=== PATIENT | female | born 1930 | race Caucasian/White ===

== ENCOUNTER 2017-04-20 20:39 | Emergency (ER) | payer MEDICARE ==
[~2017-04-20] VITALS: Ht 160 cm; Wt 58.4 kg
[2017-04-20 20:52] VITALS: TEMP 36.6; Ht 160 cm; Wt 58.4 kg
--- NOTE | 2017-04-20 21:55 | EMERGENCY ROOM VISIT NOTE ---
History Report prepared by Brad: Berenice Mcmullen Under the Supervision of: Dr. Perla Ornelas D.O. First contact with patient: 21:32 Chief Complaint: URINARY SYMPTOMS Stated Complaint: BLOOD IN URINE Nursing Triage Summary: PT presents with blood in urine, denies any pain, per family member "it started yesterday" PT self caths for urine. PT denies any fever/chills and denies any pain at this time. History of Present Illness The patient is a 86 year old female who presents to the Emergency Room with complaints of an episode of blood in her urine beginning this morning. The patient notes that she urinated twice today and both times it had blood in it. She notes seeing a blood clot in her urine the second time she urinated. She denies any other blood loss. The patient self-caths because she reports she is "unable to pass urine on my own". She reports she has been self cathing for a couple years. At baseline, the patient does not see blood in her urine when she self caths. The patient has been on Cipro twice daily for a couple years to prevent any bladder infections. She notes a bruise on her left hand from a dog nipping her hand. She takes a baby Aspirin daily but is not on any other blood thinners. She does not follow up with a urologist. Per daughter, the patient has had a decreased appetite for the past couple days. Pt denies headache, change in vision, fevers, chest pain, shortness of breath, nausea, vomiting, diarrhea, pain with urination, and melena. Source of History: patient Onset: this morning Position: other (urinary) Quality: other (blood) Timing: other (episode) Associated Symptoms: + urinary symptoms, No headache, No chest pain, No SOB , No nausea, No vomiting Review of Systems See HPI for pertinent positives & negatives. A total of 10 systems reviewed and were otherwise negative. Past Medical & Surgical Medical Problems: (1) Hypertension Family History Patient reports no known family medical history. Social History Smoking Status: Never Smoker Housing Status: lives with family Occupation Status: retired Current/Historical Medications Scheduled Aspirin (Aspirin Ec), 81 MG PO DAILY Ciprofloxacin Tab (Cipro), 250 MG PO BID Docusate Sodium (Docusate Sodium), 1 CAP PO BID Fentanyl (Fentanyl), 1 PATCH TD [id number] Pantoprazole (Protonix), 40 MG PO DAILY [Antidepressant], 1 CAP PO DAILY [Pain Med], 1 CAP PO PRN Miscellaneous Medications [Hbp Pill] Allergies Coded Allergies: No Known Allergies (Unverified , 04/20/17) Physical Exam Vital Signs Date Time Temp Pulse Resp B/P (MAP) Pulse Ox O2 Delivery O2 Flow Rate FiO2 04/21/17 00:29 62 18 162/86 97 04/20/17 23:52 62 18 162/86 97 Room Air 04/20/17 22:37 62 18 178/89 98 Room Air 04/20/17 20:52 36.6 84 18 128/68 96 Room Air Physical Exam GENERAL: alert, well appearing, well nourished, no distress, non-toxic EYE EXAM: normal conjunctiva, PERRL and EOM's grossly intact OROPHARYNX: no exudate, no erythema, lips, buccal mucosa, and tongue normal and mucous membranes are moist NECK: supple, no nuchal rigidity, no adenopathy, non-tender LUNGS: Clear to auscultation. Normal chest wall mechanics HEART: no murmurs, S1 normal and S2 normal ABDOMEN: abdomen soft, non-tender, normo-active bowel sounds, no masses, no rebound or guarding. BACK: Back is symmetrical on inspection and there is no deformity, no midline tenderness, no CVA tenderness. SKIN: no rashes and no bruising UPPER EXTREMITIES: upper extremities are grossly normal. LOWER EXTREMITIES: No pitting edema. NEURO EXAM: Normal sensorium, cranial nerves II-XII grossly intact, normal speech, no gross weakness of arms, no gross weakness of legs. Medical Decision & Procedures ER Provider Diagnostic Interpretation: Radiology results have been interpreted by the radiologist and reviewed by me. US RENAL: Right kidney measures 6.9 cm in length, atrophic. 6 mm nonobstructing stone in the right kidney. Minimal prominence of the right renal pelvis. Left kidney measures 9.2 cm in length. No hydronephrosis or stone. Probably 7 mm left renal cyst. Probably scarring in the upper pole. Underdistended bladder. Left ureteral jet visualized. Mass versus debris/clot along the right posterior bladder measuring approximately 1.9 x 1.8 x 5.0 cm. This does not appear to be mobile or vascular. Radiologist: Michael Mathur MD. Laboratory Results 04/20/17 22:10 Red Blood Count 3.31, Mean Corpuscular Volume 94.3, Mean Corpuscular Hemoglobin 31.1, Mean Corpuscular Hemoglobin Concent 33.0, Mean Platelet Volume 8.8, Neutrophils (%) (Auto) 61.6, Lymphocytes (%) (Auto) 28.4, Monocytes (%) (Auto) 8.7, Eosinophils (%) (Auto) 0.9, Basophils (%) (Auto) 0.2, Neutrophils # (Auto) 3.61, Lymphocytes # (Auto) 1.66, Monocytes # (Auto) 0.51, Eosinophils # (Auto) 0.05, Basophils # (Auto) 0.01 04/20/17 22:10 Test 04/20/17 22:10 04/20/17 22:20 White Blood Count 5.85 K/uL (4.8-10.8) Red Blood Count 3.31 M/uL (4.2-5.4) Hemoglobin 10.3 g/dL (12.0-16.0) Hematocrit 31.2 % (37-47) Mean Corpuscular Volume 94.3 fL (80-100) Mean Corpuscular Hemoglobin 31.1 pg (25-34) Mean Corpuscular Hemoglobin Concent 33.0 g/dl (32-36) Platelet Count 175 K/uL (130-400) Mean Platelet Volume 8.8 fL (7.4-10.4) Neutrophils (%) (Auto) 61.6 % Lymphocytes (%) (Auto) 28.4 % Monocytes (%) (Auto) 8.7 % Eosinophils (%) (Auto) 0.9 % Basophils (%) (Auto) 0.2 % Neutrophils # (Auto) 3.61 K/uL (1.4-6.5) Lymphocytes # (Auto) 1.66 K/uL (1.2-3.4) Monocytes # (Auto) 0.51 K/uL (0.11-0.59) Eosinophils # (Auto) 0.05 K/uL (0-0.5) Basophils # (Auto) 0.01 K/uL (0-0.2) RDW Standard Deviation 45.1 fL (36.4-46.3) RDW Coefficient of Variation 13.2 % (11.5-14.5) Immature Granulocyte % (Auto) 0.2 % Immature Granulocyte # (Auto) 0.01 K/uL (0.00-0.02) Prothrombin Time 10.3 SECONDS (9.0-12.0) Prothromb Time International Ratio 1.0 (0.9-1.1) Anion Gap 6.0 mmol/L (3-11) Est Creatinine Clear Calc Drug Dose 21.8 ml/min Estimated GFR () 35.3 Estimated GFR (Non- 30.5 BUN/Creatinine Ratio 14.7 (10-20) Calcium Level 8.9 mg/dl (8.5-10.1) Total Bilirubin 0.2 mg/dl (0.2-1) Aspartate Amino Transf (AST/SGOT) 21 U/L (15-37) Alanine Aminotransferase (ALT/SGPT) 13 U/L (12-78) Alkaline Phosphatase 60 U/L (45-117) Total Protein 7.5 gm/dl (6.4-8.2) Albumin 3.6 gm/dl (3.4-5.0) Globulin 3.9 gm/dl (2.5-4.0) Albumin/Globulin Ratio 0.9 (0.9-2) Urine Color DK YELLOW Urine Appearance TURBID (CLEAR) Urine pH 5.0 (4.5-7.5) Urine Specific [place] 1.016 (1.000-1.030) Urine Protein 2+ (NEG) Urine Glucose (UA) NEG (NEG) Urine Ketones NEG (NEG) Urine Occult Blood 3+ (NEG) Urine Nitrite NEG (NEG) Urine Bilirubin NEG (NEG) Urine Urobilinogen NEG (NEG) Urine Leukocyte Esterase LARGE (NEG) Urine WBC (Auto) >30 /hpf (0-5) Urine RBC (Auto) >30 /hpf (0-4) Urine Hyaline Casts (Auto) 1-5 /lpf (0-5) Urine Epithelial Cells (Auto) 20-30 /lpf (0-5) Urine Bacteria (Auto) NEG (NEG) Urine Pathogenic Casts /lpf (0) Urine Yeast (Auto) (NONE PRSENT) Laboratory results per my review. ED Course 2139: The patient was evaluated in room C6. A complete history and physical exam was performed. 0011: I updated the patient on her test results. She is still asymptomatic. The patient is comfortable going home and following up with urology. 0029: Upon reevaluation, the patient is feeling better. I discussed the findings and the treatment plan with the patient. She verbalizes agreement and understanding. The patient was discharged home. Medical Decision Differential Diagnoses include: UTI, kidney stone, urethral trauma, acute renal failure, nephritic syndrome, thrombocytopenia. Patient well-appearing here and asymptomatic other than noting blood when she straight caths she has been doing for many years. Patient denies any other changes or symptoms concerning for acute infectious etiology or obstructive pathology. Patient's labs and imaging reassuring. Discussed with her abnormality noted on ultrasound at her bladder and advised close follow-up with urology. Urine culture sent as a precaution, UA abnormal most likely from catheterization area did not feel patient warranted emergent antibiotics or change in her usual preventative antibiotic. Discussed with patient that if she developed any other symptoms she should return to the ER immediately for additional evaluation and treatment. Urine sent for culture as a precaution. Discussed with her possible differential diagnosis for her hematuria. Patient well-appearing here throughout with stable vital signs tolerating by mouth and ambulating with a steady gait. Patient with no complaints at time of discharge , was comfortable with the assessment and plan, and family in agreement who she lives with. Patient made aware of creatinine level and need for monitoring by her family doctor or urology. Medication Reconcilliation Current Medication List: was personally reviewed by me Blood Pressure Screening Patient's blood pressure: Elevated blood pressure Blood pressure disposition: Elevated BP felt to be situational Impression Primary Impression: Hematuria Additional Impression: CKD (chronic kidney disease) Scribe Attestation The scribe's documentation has been prepared under my direction and personally reviewed by me in its entirety. I confirm that the note above accurately reflects all work, treatment, procedures, and medical decision making performed by me. Departure Information Dispostion Home / Self-Care Referrals Prabhakar Lugo MD (PCP) Forms HOME CARE DOCUMENTATION FORM, IMPORTANT VISIT INFORMATION Patient Instructions My [facility] Additional Instructions Please follow-up with urology. Please continue your regular medications as prescribed. Please continue to drink plenty of water. Please continue to catheterize yourself daily. If you begin developing pain with catheterizing, develop abdominal pain, back pain, fevers, chills, vomiting, or you have any other new or concerning symptoms, please return the emergency room. Problem Qualifiers Primary Impression: Hematuria Hematuria type: unspecified type Qualified Codes: R31.9 - Hematuria, unspecified Additional Impression: CKD (chronic kidney disease) Chronic kidney disease stage: unspecified stage Qualified Codes: N18.9 - Chronic kidney disease, unspecified
[2017-04-20 22:24] LABS: BASO % 0.2 %; BASO ABS # 0.01 K/uL (0-0.2); COMPLETE YES; EOS % 0.9 %; HEMATOCRIT 31.2 % (37-47); IG% 0.2 %; LYMPH % 28.4 %; LYMPH ABS # 1.66 K/uL (1.2-3.4); MEAN CELL VOLUME 94.3 fL (80-100); MEAN CORPUSCULAR HEMOGLOBIN 31.1 pg (25-34); MEAN PLATELET VOLUME 8.8 fL (7.4-10.4); MONO % 8.7 %; NEUT % 61.6 %; PLATELET COUNT 175 K/uL (130-400); RED BLOOD COUNT 3.31 M/uL (4.2-5.4); WHITE BLOOD COUNT 5.85 K/uL (4.8-10.8)
[2017-04-20 22:32] LABS: PROTHROMBIN TIME (PATIENT) 10.3 SECONDS (9.0-12.0)
[2017-04-20 22:40] LABS: BUN/CREATININE RATIO 14.7 (10-20); CALCIUM 8.9 mg/dl (8.5-10.1); CREATININE 1.53 mg/dl (0.60-1.20); POTASSIUM 4.4 mmol/L (3.5-5.1)
[2017-04-20 22:43] LABS: ALB/GLOB RATIO 0.9 (0.9-2)
[2017-04-20] MEDS ORDERED: PAIN MED PO (22:49)
[2017-04-20] MEDS ORDERED: DOCU100C31 PO (22:49)
[2017-04-20] MEDS ORDERED: DRGTP12 TD (22:49)
[2017-04-20] MEDS ORDERED: PANT40TA PO (22:49)
[2017-04-20] MEDS ORDERED: ANTIDEPRESSANT PO (22:49)
[2017-04-20] MEDS ORDERED: [UNRECOGNIZED DRUG - REMARK] (22:49)
[2017-04-20] MEDS ORDERED: CIPR1TAB11 PO (22:49)
[2017-04-20] MEDS ORDERED: ASPI81TA28 PO (22:49)
[2017-04-20 22:51] LABS: URINE APPEARANCE TURBID (CLEAR); URINE COLOR DK YELLOW; URINE EPITHELIAL CELL AUTO 20-30 /lpf (0-5); URINE NITRITE NEG (NEG); URINE SPECIFIC GRAVITY 1.016 (1.000-1.030); UROBILINOGEN NEG (NEG)
[2017-04-20 22:59] LABS: MANUAL MICROSCOPIC REQUIRED? NO; REVIEW REQ? YES
[2017-04-20 23:06] LABS: URINE BILIRUBIN NEG (NEG)
[2017-04-21 00:29] VITALS: BP 162/86; PULSE 62; O2SAT 97
--- NOTE | 2017-04-21 07:25 | DIAGNOSTIC IMAGING REPORT ---
(RENAL)RETROPERITON COMP HISTORY: 86 years-old Female hematuria acute hematuria COMPARISON: None available TECHNIQUE: Multiple real-time sonographic images of the kidneys and urinary bladder were obtained assessing grayscale appearance and color flow. FINDINGS: Right kidney measures 6.9 x 3.7 x 3.9 cm. There is a 6 mm nonobstructing calculus within the region of the interpolar right kidney. Mildly increased renal echogenicity is noted. No right-sided hydronephrosis or focal mass lesions identified. The left kidney measures 9.2 x 3.9 x 3.6 cm demonstrates no focal renal calculus or hydronephrosis. Cyst of the interpolar left kidney measures up to 0.7 cm. Area of scarring of the superior pole left kidney is noted. Increased echogenicity of the left kidney also noted. There is underdistention of the urinary bladder with dependent mildly echogenic tissue noted within the right posterior urinary bladder measuring up to 1.9 x 1.8 x 5.0 cm which is not appear to be mobile when demonstrate internal vascularity. IMPRESSION: 1. Irregular curvilinear structure within the right posterior dependent urinary bladder without associated mobility or internal vascularity may reflect layering debris, hemorrhage or underlying mucosal mass lesion. Correlate with urinalysis and cystoscopy. Urinary bladder is only partially distended. 2. Evidence of chronic medical renal disease without hydronephrosis. Nonobstructing 6 mm calculus of the right kidney. The above report was generated using voice recognition software. It may contain grammatical, syntax or spelling errors. Electronically signed by: Rojas Pugh M.D. 04/21/2017 7:23 AM Dictated Date/Time: 04/21/2017 7:14 AM
--- NOTE | 2017-04-22 14:27 | Pharmacy Progress Note ---
ED Pharmacist Culture FollowUp Date of Service: Apr 22, 2017. Called patient regarding urine culture. No answer, no voicemail set up - was unable to leave a message. Will continue to attempt to reach patient.
== END 2017-04-21 00:31 | disposition home or self-care (01) ==
LOC: C.EDB 20:41 → C.EDC 04-21 00:31
DX: R31.9 Hematuria, unspecified (principal); N18.9 Chronic kidney disease, unspecified; I10 Essential (primary) hypertension; Z79.82 Long term (current) use of aspirin

== ENCOUNTER 2017-05-28 14:34 | Inpatient (IN) | payer MEDICARE, OTHER ==
[~2017-05-28] VITALS: Ht 160 cm; Wt 57.0 kg
[~2017-05-28 14:34] MED LIST: ANTIDEPRESSANT PO; ASPI81TA28 PO; CIPR1TAB11 PO; DOCU100C31 PO; DRGTP12 TD; PAIN MED PO; PANT40TA PO; [UNRECOGNIZED DRUG - REMARK]
[2017-05-28] MEDS ORDERED: SODIUM CHLORIDE 0.9% 1000ML 1,000 ML IV STA ×2 (15:00→22:05)
--- NOTE | 2017-05-28 15:08 | EMERGENCY ROOM VISIT NOTE ---
History Report prepared by Brad: Paulo Velazquez Under the Supervision of: Dr. Sukumar Bonilla M.D. First contact with patient: 14:50 Chief Complaint: SHORTNESS OF BREATH Stated Complaint: PAIN WITH BREATHING,SOB Nursing Triage Summary: pt reports abdominal pain that increases with a deep breath , denies mucus productiona denies NV History of Present Illness The patient is a 87 year old female who presents to the Emergency Room with complaints of constant right lower quadrant abdominal pain that started two days ago. She rates her discomfort as a 10/10 in severity. She describes the pain as a sharp sensation. The patient states that the pain is worsened with breathing and touching her abdomen. She reports that she felt as if she became hot, but denies taking her temperature. The patient is accompanied by her daughter who states that the patient seemed yellow yesterday and this morning. She states that throughout the day, the patient became white. The patient denies chest pain, shortness of breath, nausea, vomiting, diarrhea, blood in stools, black stools, hematuria, loss of consciousness, falling, back pain, and a history of abdominal surgeries. The patient states that she has a catheter due to a history of bladder infections. Source of History: patient Onset: two days ago Position: abdomen Symptom Intensity: 10/10 Quality: sharp Timing: constant Modifying Factors (Worsening): breathing, other (touching the area) Associated Symptoms: No chest pain, No SOB, No nausea, No vomiting, No back pain, No melena, No hematochezia, No diarrhea, No urinary symptoms Review of Systems See HPI for pertinent positives and negatives. A total of ten systems were reviewed and were otherwise negative. Past Medical & Surgical Medical Problems: (1) Hypertension Family History Patient reports no known family medical history. Social History Smoking Status: Never Smoker Housing Status: lives with family Occupation Status: retired Current/Historical Medications Scheduled Aspirin (Aspirin Ec), 81 MG PO QAM Calcium Carbonate (Calcium Carbonate), 1,250 MG PO AMPM Cholecalciferol (Vitamin D), 1,000 UNITS PO QAM Ciprofloxacin Tab (Cipro), 250 MG PO AMPM Docusate Sodium (Colace), 100 MG PO AMPM Duloxetine HCl (Cymbalta), 30 MG PO QD Fentanyl (Fentanyl), 1 PATCH TD [id number] Fish Oil ([place]-3), 1 CAP PO DAILY Mirtazapine (Remeron), 15 MG PO QPM Multiple Vitamins W/ Minerals (Thera-M), 1 TAB PO DAILY Pantoprazole (Protonix), 40 MG PO QAM Senna (Senokot), 17.2 MG PO QAM Valsartan (Diovan), 160 MG PO AMPM Scheduled PRN Acetaminophen Tab (Tylenol), 325-650 MG PO UD PRN for Pain Allergies Coded Allergies: No Known Allergies (Unverified , 05/28/17) Physical Exam Vital Signs Date Time Temp Pulse Resp B/P (MAP) Pulse Ox O2 Delivery O2 Flow Rate FiO2 05/28/17 22:17 86 18 154/93 94 Room Air 05/28/17 20:38 80 18 145/85 96 Room Air 05/28/17 19:47 77 18 138/82 97 Room Air 05/28/17 18:53 79 16 156/85 95 Room Air 05/28/17 17:40 79 18 172/91 96 05/28/17 16:43 74 20 187/91 99 Room Air 05/28/17 14:40 37.2 92 20 154/101 96 Room Air Physical Exam GENERAL: Awake, alert, well-appearing, in no distress HENT: Normocephalic, Atraumatic. no hemotympanum bilaterally, choudhury sign negative bilaterally. Oropharynx unremarkable. EYES: Normal conjunctiva. Sclera non-icteric. PERRL bilaterally. EOMI bilaterally. NECK: Supple. No nuchal rigidity. FROM. No JVD. No C-spine tenderness. RESPIRATORY: Clear to auscultation. No wheezes, rhonchi or rales bilaterally. CARDIAC: Regular rate, normal rhythm. Extremities warm and well perfused. Equal palpable radial pulses to the bilateral upper extremities. Equal palpable DP pulses to the bilateral lower extremities. ABDOMEN: Soft, non-distended. Diffusely tender. No rebound or guarding. No masses. Rovsig Negative. RECTAL: Deferred. MUSCULOSKELETAL: Chest examination reveals no tenderness. The back is symmetrical on inspection without obvious abnormality. There is no CVA tenderness to palpation. No joint edema. LOWER EXTREMITIES: Calves are equal size bilaterally and non-tender. No edema. No discoloration. NEURO: Normal sensorium. No sensory or motor deficits noted. No pronator drift. No facial droop. No dysarthria. SKIN: No rash or jaundice noted. Medical Decision & Procedures ER Provider Diagnostic Interpretation: Radiology results as stated below per my review and radiologist interpretation: CHEST 2 VIEWS ROUTINE CLINICAL HISTORY: cough dyspnea COMPARISON STUDY: No previous studies for comparison. FINDINGS: Mild cardiomegaly. Diaphragms smooth. Lungs are considered clear. Platelike atelectasis left midlung. Considerable degenerative change of the shoulders bilaterally. IMPRESSION: No acute process. The above report was generated using voice recognition software. It may contain grammatical, syntax or spelling errors. Electronically signed by: Justin Walker M.D. 05/28/2017 4:34 PM Dictated Date/Time: 05/28/2017 4:34 PM ABD/PELVIS ORAL CONT ONLY CT DOSE: 278.54 mGy.cm HISTORY: Pain rlq abdominal pain TECHNIQUE: Multiaxial CT images of the abdomen and pelvis were performed following the use of oral contrast. A dose lowering technique was utilized adhering to the principles of ALARA. COMPARISON STUDY: Renal ultrasound 04/20/2017 FINDINGS: Trace pleural fluid both lung bases. Study is compromised due to the absence of intravenous contrast enhancement. Liver appears uniform. Gallbladder appears to be significantly distended. Left kidney is negative for calcification or hydronephrosis. There are other marked right renal hydronephrosis and dilatation of the renal pelvis. There appears to be a infiltrative changes and/or fluid within the right perinephric space. Fluid appeared appears to extend inferiorly to the significant amount of free fluid within the low pelvic and pelvic cul-de-sac regions. The bladder is not well-defined. There are findings of chronic colonic diverticulosis. Acute diverticulitis is not felt to be present. Only a very short segment of the appendix is identified which is contrast-filled. There has been a ventral hernia repair. IMPRESSION: 1. Marked right renal hydronephrosis and dilatation of the right renal pelvis versus the possibility of parapelvic cyst. 2. Moderate free fluid adjacent to the renal pelvis as well as a mild amount of free fluid within the perinephric space on the right. 3. Significant amount of free fluid within the low pelvis and cul-de-sac region of the bladder difficult to define as an independent entity. 4. Diagnostic considerations must include bladder rupture, right kidney or renal pelvis rupture, versus fluid from a variety of other sources which are not defined on this exam. 5. Bowel pattern is nonobstructive and is remarkable for scattered colonic diverticuli with no evidence for diverticulitis.. 6. Gallbladder distention The above report was generated using voice recognition software. It may contain grammatical, syntax or spelling errors. Electronically signed by: Justin Walker M.D. 05/28/2017 8:35 PM Dictated Date/Time: 05/28/2017 8:31 PM Laboratory Results 05/28/17 15:50 Red Blood Count 3.59, Mean Corpuscular Volume 91.1, Mean Corpuscular Hemoglobin 30.9, Mean Corpuscular Hemoglobin Concent 33.9, Mean Platelet Volume 9.1, Neutrophils (%) (Auto) 80.4, Lymphocytes (%) (Auto) 10.9, Monocytes (%) (Auto) 8.1, Eosinophils (%) (Auto) 0.3, Basophils (%) (Auto) 0.2, Neutrophils # (Auto) 6.98, Lymphocytes # (Auto) 0.95, Monocytes # (Auto) 0.70, Eosinophils # (Auto) 0.03, Basophils # (Auto) 0.02 05/28/17 15:50 Test 05/28/17 15:15 05/28/17 15:50 05/28/17 19:06 Urine Color YELLOW Urine Appearance CLOUDY (CLEAR) Urine pH 7.0 (4.5-7.5) Urine Specific Kirby 1.017 (1.000-1.030) Urine Protein TRACE (NEG) Urine Glucose (UA) NEG (NEG) Urine Ketones TRACE (NEG) Urine Occult Blood 2+ (NEG) Urine Nitrite NEG (NEG) Urine Bilirubin NEG (NEG) Urine Urobilinogen NEG (NEG) Urine Leukocyte Esterase LARGE (NEG) Urine WBC (Auto) >30 /hpf (0-5) Urine RBC (Auto) 10-30 /hpf (0-4) Urine Hyaline Casts (Auto) 0 /lpf (0-5) Urine Epithelial Cells (Auto) 10-20 /lpf (0-5) Urine Bacteria (Auto) 2+ (NEG) Urine Pathogenic Casts /lpf (0) White Blood Count 8.69 K/uL (4.8-10.8) Red Blood Count 3.59 M/uL (4.2-5.4) Hemoglobin 11.1 g/dL (12.0-16.0) Hematocrit 32.7 % (37-47) Mean Corpuscular Volume 91.1 fL (80-100) Mean Corpuscular Hemoglobin 30.9 pg (25-34) Mean Corpuscular Hemoglobin Concent 33.9 g/dl (32-36) Platelet Count 217 K/uL (130-400) Mean Platelet Volume 9.1 fL (7.4-10.4) Neutrophils (%) (Auto) 80.4 % Lymphocytes (%) (Auto) 10.9 % Monocytes (%) (Auto) 8.1 % Eosinophils (%) (Auto) 0.3 % Basophils (%) (Auto) 0.2 % Neutrophils # (Auto) 6.98 K/uL (1.4-6.5) Lymphocytes # (Auto) 0.95 K/uL (1.2-3.4) Monocytes # (Auto) 0.70 K/uL (0.11-0.59) Eosinophils # (Auto) 0.03 K/uL (0-0.5) Basophils # (Auto) 0.02 K/uL (0-0.2) RDW Standard Deviation 41.6 fL (36.4-46.3) RDW Coefficient of Variation 12.4 % (11.5-14.5) Immature Granulocyte % (Auto) 0.1 % Immature Granulocyte # (Auto) 0.01 K/uL (0.00-0.02) Anion Gap 8.0 mmol/L (3-11) Est Creatinine Clear Calc Drug Dose 24.1 ml/min Estimated GFR () 38.4 Estimated GFR (Non- 33.1 BUN/Creatinine Ratio 11.7 (10-20) Lactic Acid Level 1.3 mmol/L (0.4-2.0) Calcium Level 8.7 mg/dl (8.5-10.1) Total Bilirubin 0.5 mg/dl (0.2-1) Aspartate Amino Transf (AST/SGOT) 18 U/L (15-37) Alanine Aminotransferase (ALT/SGPT) 11 U/L (12-78) Alkaline Phosphatase 64 U/L (45-117) Total Protein 7.7 gm/dl (6.4-8.2) Albumin 3.5 gm/dl (3.4-5.0) Globulin 4.2 gm/dl (2.5-4.0) Albumin/Globulin Ratio 0.8 (0.9-2) Lipase 93 U/L (73-393) Troponin I < 0.015 ng/ml (0-0.045) Laboratory results reviewed by me Medications Administered Medications (Trade) Dose Ordered Sig/Tenisha Route Start Time Stop Time Status Last Admin Dose Admin Sodium Chloride 1,000 ml @ 125 mls/hr Q8H STAT IV 05/28/17 15:00 05/28/17 22:59 DC 05/28/17 15:57 125 MLS/HR Morphine Sulfate (MoRPHine SULFATE INJ) 4 mg NOW STAT IV 05/28/17 16:10 05/28/17 16:11 DC 05/28/17 16:41 4 MG Ondansetron HCl (Zofran Inj) 4 mg NOW STAT IV 05/28/17 16:10 05/28/17 16:11 DC 05/28/17 16:40 4 MG Ceftriaxone Sodium (Rocephin Inj) 1 gm NOW STAT IV 05/28/17 16:31 05/28/17 16:47 DC 05/28/17 18:07 1 GM Morphine Sulfate (MoRPHine SULFATE INJ) 4 mg NOW STAT IV 05/28/17 18:56 05/28/17 18:57 DC 05/28/17 19:16 4 MG Sodium Chloride 1,000 ml @ 75 mls/hr [id number] STAT IV 05/28/17 22:05 05/29/17 11:24 05/28/17 22:19 75 MLS/HR ECG Indication: abdominal pain Rate (beats per minute): 73 Rhythm: sinus rhythm Findings: 1st degree AV block, no acute ischemic change, no ectopy, other (QRS and QTC are within normal limites. No ST elevations or STS changes.) ED Course 1452: The patient was evaluated in room C05. A complete history and physical exam was performed. 1500: Ordered Sodium Chloride 1000 ml @ 125 mls/hr IV. 1610: Ordered Zofran Injection 4 mg IV, Morphine Sulfate 4 mg IV. 1631: Ordered Rocephin Injection 1 gm IV. 1720: Urine shows infection. Will treat with Rocephin. Creatine is 1.4 and 1.5 is baseline. Given elevated creatinine and age will hold off on IV and will do oral contrast. 1856: Ordered Morphine Sulfate 4 mg IV due to patient reporting continued pain. 2044: CT abdomen and pelvis shows possible bladder rupture. I discussed the patient's case with Dr. Holder [facility] U[facility]. He recommends putting a Gamino catheter in and he will come to evaluate the patient at the bedside 2123: Dr. Holder is at the bedside evaluating the patient. 2204: Ordered Sodium Chloride 1000 ml @ 75 mls/hr IV for Dr. Holder's request. 2214: Dr. Holder is determining whether the patient should be brought to the OR or have a cystoscopy performed. He would like the patient to be further evaluated by the hospitalist group. I discussed the patient's case with Dr. Elder [facility] Hospitalist. He understand's the patient's condition and agrees to accept the patient. The patient will be further evaluated. Medical Decision CT abdomen and pelvis shows possible bladder rupture. I discussed the patient's case with Dr. Holder [facility] U[facility]. He recommends putting a Gamino catheter in and he will come to evaluate the patient at the bedside 2214: Dr. Holder is determining whether the patient should be brought to the OR or have a cystoscopy performed. He would like the patient to be further evaluated by the hospitalist group. I discussed the patient's case with Dr. Elder [facility] Hospitalist. He understand's the patient's condition and agrees to accept the patient. The patient will be further evaluated. 2324: Dr. Holder perform cystogram on the patient which showed no bladder rupture. Patient will be admitted to the hospitalist service with Dr. Holder on consult and he will evaluate the patient for further intervention. Medication Reconcilliation Current Medication List: was personally reviewed by me Blood Pressure Screening Patient's blood pressure: Elevated blood pressure Blood pressure disposition: Elevated BP felt to be situational Consults Time Called: 2044 Consulting Physician: Dr. Holder [facility] Returned Call: [phone] I discussed the patient's case with Dr. Holder [facility]. He understands the patient's condition and agrees to accept the patient. He recommends putting a Gamino catheter in. The patient will be further evaluated. Additional Consults: Time Called: 2214 Consulted Physician: Dr. Holder [facility] Urology and Dr. Tee [facility] Hospitalist Returned Call: [phone] Additional Comments: Dr. Holder is determining whether the patient should be brought to the OR or have a cystoscopy performed. He would like the patient to be further evaluated by the hospitalist group. I discussed the patient's case with Dr. Elder, [facility] Hospitalist. He understand's the patient's condition and agrees to accept the patient. The patient will be further evaluated. Impression Primary Impression: Bladder rupture Scribe Attestation The scribe's documentation has been prepared under my direction and personally reviewed by me in its entirety. I confirm that the note above accurately reflects all work, treatment, procedures, and medical decision making performed by me. The chart was completed utilizing [employer] Speech voice recognition software. Grammatical errors, random word insertions, pronoun errors, and incomplete sentences are an occasional consequence of this system due to software limitations, ambient noise, and hardware issues. Any formal questions or concerns about the content, text, or information contained within the body of this dictation should be directly addressed to the physician for clarification. Departure Information Dispostion Being Evaluated By Hospitalist Referrals Prabhakar Lugo MD (PCP) Patient Instructions [facility]
[2017-05-28] MEDS ORDERED: CIPR1TAB11 PO (15:37)
[2017-05-28] MEDS ORDERED: DOCU-94 PO (15:37)
[2017-05-28] MEDS ORDERED: MULT-16 PO (15:37)
[2017-05-28] MEDS ORDERED: CYM/30 PO (15:37)
[2017-05-28] MEDS ORDERED: PANT40TA PO (15:37)
[2017-05-28] MEDS ORDERED: OMEG10007 PO (15:37)
[2017-05-28] MEDS ORDERED: MIRT15TA PO (15:37)
[2017-05-28] MEDS ORDERED: ACET325T96 PO (15:37)
[2017-05-28] MEDS ORDERED: SENN-61 PO (15:37)
[2017-05-28] MEDS ORDERED: CHOL100010 PO (15:37)
[2017-05-28] MEDS ORDERED: CALC12504 PO (15:37)
[2017-05-28] MEDS ORDERED: DVN/160 PO (15:37)
[2017-05-28] MEDS ORDERED: ASPI81TA28 PO (15:37)
[2017-05-28] MEDS ORDERED: ONDANSETRON INJ 2 MG/ML 2 ML VIAL IV STA (16:10)
[2017-05-28] MEDS ORDERED: MoRPHine SULFATE 4 MG/ML 1 ML CARP\\VIAL IV STA ×2 (16:10→18:56)
[2017-05-28 16:17] LABS: BASO % 0.2 %; BASO ABS # 0.02 K/uL (0-0.2); EOS % 0.3 %; EOS ABS # 0.03 K/uL (0-0.5); HEMATOCRIT 32.7 % (37-47); HEMOGLOBIN 11.1 g/dL (12.0-16.0); IG# 0.01 K/uL (0.00-0.02); LYMPH % 10.9 %; LYMPH ABS # 0.95 K/uL (1.2-3.4); MEAN CELL VOLUME 91.1 fL (80-100); MEAN CORPUSCULAR HEMOGLOBIN 30.9 pg (25-34); MEAN CORPUSCULAR HGB CONC 33.9 g/dl (32-36); MEAN PLATELET VOLUME 9.1 fL (7.4-10.4); MONO % 8.1 %; NEUT % 80.4 %; NEUT ABS # 6.98 K/uL (1.4-6.5); PLATELET COUNT 217 K/uL (130-400); RED CELL DISTRIBUTION WIDTH CV 12.4 % (11.5-14.5); RED CELL DISTRIBUTION WIDTH SD 41.6 fL (36.4-46.3); WHITE BLOOD COUNT 8.69 K/uL (4.8-10.8)
[2017-05-28] MEDS ORDERED: CEFTRIAXONE SOD INJ 1 GM ADDVIAL IV STA (16:31)
--- NOTE | 2017-05-28 16:36 | DIAGNOSTIC IMAGING REPORT ---
CHEST 2 VIEWS ROUTINE CLINICAL HISTORY: cough dyspnea COMPARISON STUDY: No previous studies for comparison. FINDINGS: Mild cardiomegaly. Diaphragms smooth. Lungs are considered clear. Platelike atelectasis left midlung. Considerable degenerative change of the shoulders bilaterally. IMPRESSION: No acute process. The above report was generated using voice recognition software. It may contain grammatical, syntax or spelling errors. Electronically signed by: Justin Walker M.D. 05/28/2017 4:34 PM Dictated Date/Time: 05/28/2017 4:34 PM
[2017-05-28 16:44] LABS: ALBUMIN 3.5 gm/dl (3.4-5.0); ALT/SGPT 11 U/L (12-78); BLOOD UREA NITROGEN 17 mg/dl (7-18); CALCIUM 8.7 mg/dl (8.5-10.1); CARBON DIOXIDE 25 mmol/L (21-32); CREATININE 1.42 mg/dl (0.60-1.20); GLUCOSE 110 mg/dl (70-99); LIPASE 93 U/L (73-393); SODIUM 136 mmol/L (136-145)
[2017-05-28 16:48] LABS: ALKALINE PHOSPHATASE 64 U/L (45-117); AST/SGOT 18 U/L (15-37); TOTAL PROTEIN 7.7 gm/dl (6.4-8.2)
--- NOTE | 2017-05-28 20:37 | DIAGNOSTIC IMAGING REPORT ---
ABD/PELVIS ORAL CONT ONLY CT DOSE: 278.54 mGy.cm HISTORY: Pain rlq abdominal pain TECHNIQUE: Multiaxial CT images of the abdomen and pelvis were performed following the use of oral contrast. A dose lowering technique was utilized adhering to the principles of ALARA. COMPARISON STUDY: Renal ultrasound 04/20/2017 FINDINGS: Trace pleural fluid both lung bases. Study is compromised due to the absence of intravenous contrast enhancement. Liver appears uniform. Gallbladder appears to be significantly distended. Left kidney is negative for calcification or hydronephrosis. There are other marked right renal hydronephrosis and dilatation of the renal pelvis. There appears to be a infiltrative changes and/or fluid within the right perinephric space. Fluid appeared appears to extend inferiorly to the significant amount of free fluid within the low pelvic and pelvic cul-de-sac regions. The bladder is not well-defined. There are findings of chronic colonic diverticulosis. Acute diverticulitis is not felt to be present. Only a very short segment of the appendix is identified which is contrast-filled. There has been a ventral hernia repair. IMPRESSION: 1. Marked right renal hydronephrosis and dilatation of the right renal pelvis versus the possibility of parapelvic cyst. 2. Moderate free fluid adjacent to the renal pelvis as well as a mild amount of free fluid within the perinephric space on the right. 3. Significant amount of free fluid within the low pelvis and cul-de-sac region of the bladder difficult to define as an independent entity. 4. Diagnostic considerations must include bladder rupture, right kidney or renal pelvis rupture, versus fluid from a variety of other sources which are not defined on this exam. 5. Bowel pattern is nonobstructive and is remarkable for scattered colonic diverticuli with no evidence for diverticulitis.. 6. Gallbladder distention The above report was generated using voice recognition software. It may contain grammatical, syntax or spelling errors. Electronically signed by: Justin Walker M.D. 05/28/2017 8:35 PM Dictated Date/Time: 05/28/2017 8:31 PM
--- NOTE | 2017-05-28 23:25 | DIAGNOSTIC IMAGING REPORT ---
ABD/PELVIS ORAL CONT ONLY CT DOSE: 566.10 mGy.cm HISTORY: Bladder rupture. Renal pelvis rupture. BLADDER FILLED WITH CONTRAST UNDER FLUORO TECHNIQUE: Multiaxial CT images of the abdomen and pelvis were performed following the use of oral contrast. A dose lowering technique was utilized adhering to the principles of ALARA. The bladder was filled in a retrograde fashion with nonionic contrast per Dr. Holder COMPARISON STUDY: Orally enhanced study earlier in the evening FINDINGS: The bladder appears to be intact. It is mildly distended. There is increased opacification of the bowel loops within the mid to low pelvis. The amount of free fluid within the retroperitoneum is diminished as compared to the initial scan, as the initial scan appearance suggests that the unopacified fluid-filled bowel loops is being free fluid. There continues to be distention of the right renal pelvis with fluid in the perirenal space and posterior to the renal pelvis. This would indicate potential for a forniceal rupture versus partial renal pelvis rupture. There is no evidence for contrast to reflux into the right ureter. Etiology for the obstructive changes is not clear based on this exam. An obstructing calculus on the prior study is not easily appreciated. IMPRESSION: 1. The bladder appears intact. 2. Moderate free fluid within the pelvis appears to be diminished on a relative basis as the initial scan overestimated the amount of free pelvic fluid due to un opacified loops of small bowel./Sigmoid. 3. This additional scan is highly suggestive of right renal forniceal rupture and/or less likely partial renal pelvic rupture . 4. The rather prominent right renal hydronephrosis is of uncertain etiology as a calcification previously described on ultrasound is not appreciated The above report was generated using voice recognition software. It may contain grammatical, syntax or spelling errors. Electronically signed by: Justin Walker M.D. 05/28/2017 11:24 PM Dictated Date/Time: 05/28/2017 11:17 PM
[2017-05-29] VITALS (12 sets, daily range): BP systolic 127–178; BP diastolic 71–83; PULSE 64–84; TEMP 36.5–37.9; O2SAT 92–96; Ht 160 cm; Wt 57.0 kg
--- NOTE | 2017-05-29 00:53 | History and Physical ---
History & Physical Date & Time of Service: May 29, 2017 at 00:51 Chief Complaint: Pain With Breathing,Sob Primary Care Physician: Prabhakar Lugo MD History of Present Illness Source: patient, family Pain started yesterday in RLQ, radiating through to the back. She denies having any N/V, but admits her appetite was absent secondary to pain. She describes the pain as sharp and worse with standing. Of note, patient has a history of recurrent UTIs and issues with bladder emptying, as such, she has been straight- cathing herself for at least the last 10 years. She has been chronically taking cipro 250mg BID for just as long. She denies any current UTI symptoms, but her daughter states that 3 weeks ago, she went to her PCP with dark urine and was advised to see a urologist, but never attended. She states she has also been having some diarrhea of late, but no blood in stool. Patient has no previous history of renal stones in self or family. She denies fevers/chills/sweats, CP, SOB, headaches,lower extremity swelling or rashes. No recent travel. Has chronic back pain (stenosis) for which she uses fentanyl patch. She ambulates with a walker. ROS is unremarkable except as noted above. Past Medical/Surgical History Medical Problems: Hypertension Recurrent UTI Surgical Problems: Hysterectomy Family History Patient reports no known family medical history. Non-contributory Social History Smoking Status: Never Smoker Smokeless Tobacco Use: No Drug Use: none Occupational Status: retired Immunizations History of Influenza Vaccine: Yes History of Tetanus Vaccine?: Yes History of Pneumococcal: Yes History of Hepatitis B Vaccine: Yes Multi-Drug Resistant Organisms History of MDRO: No Allergies Coded Allergies: No Known Allergies (Unverified , 05/28/17) Home Medications Scheduled Aspirin (Aspirin Ec), 81 MG PO QAM Calcium Carbonate (Calcium Carbonate), 1,250 MG PO AMPM Cholecalciferol (Vitamin D), 1,000 UNITS PO QAM Ciprofloxacin Tab (Cipro), 250 MG PO AMPM Docusate Sodium (Colace), 100 MG PO AMPM Duloxetine HCl (Cymbalta), 30 MG PO QD Fentanyl (Fentanyl), 1 PATCH TD [id number] Fish Oil ([place]-3), 1 CAP PO DAILY Mirtazapine (Remeron), 15 MG PO QPM Multiple Vitamins W/ Minerals (Thera-M), 1 TAB PO DAILY Pantoprazole (Protonix), 40 MG PO QAM Senna (Senokot), 17.2 MG PO QAM Valsartan (Diovan), 160 MG PO AMPM Scheduled PRN Acetaminophen Tab (Tylenol), 325-650 MG PO UD PRN for Pain Physical Exam Vital Signs Date Time Temp Pulse Resp B/P (MAP) Pulse Ox O2 Delivery O2 Flow Rate FiO2 05/29/17 00:00 110 16 152/85 96 Room Air 05/28/17 22:17 86 18 154/93 94 Room Air 05/28/17 20:38 80 18 145/85 96 Room Air 05/28/17 19:47 77 18 138/82 97 Room Air 05/28/17 18:53 79 16 156/85 95 Room Air 05/28/17 17:40 79 18 172/91 96 05/28/17 16:43 74 20 187/91 99 Room Air 05/28/17 14:40 37.2 92 20 154/101 96 Room Air General Appearance: WD/WN, no apparent distress Head: normocephalic, atraumatic Eyes: normal inspection ENT: hearing grossly normal, pharynx normal, + pertinent finding (Dry oral mucosa, chapped lips) Neck: supple, no adenopathy Respiratory/Chest: lungs clear, normal breath sounds, no respiratory distress, no accessory muscle use Cardiovascular: regular rate, rhythm, no edema, no JVD, normal peripheral pulses, + systolic murmur Abdomen/GI: normal bowel sounds, soft, + tenderness (across lower abdomen) Back: normal inspection, no CVA tenderness Extremities/Musculoskelatal: no calf tenderness, normal capillary refill, no pedal edema Neurologic/Psych: alert, normal mood/affect, oriented x 3 Skin: normal color, warm/dry, no rash Diagnostics Laboratory Results Results Past 24 Hours Test 05/28/17 15:15 05/28/17 15:50 05/28/17 19:06 Range/Units Urine Color YELLOW Urine Appearance CLOUDY CLEAR Urine pH 7.0 4.5-7.5 Urine Specific [place] 1.017 1.000-1.030 Urine Protein TRACE NEG Urine Glucose (UA) NEG NEG Urine Ketones TRACE NEG Urine Occult Blood 2+ NEG Urine Nitrite NEG NEG Urine Bilirubin NEG NEG Urine Urobilinogen NEG NEG Urine Leukocyte Esterase LARGE NEG Urine WBC (Auto) >30 0-5 /hpf Urine RBC (Auto) 10-30 0-4 /hpf Urine Hyaline Casts (Auto) 0 0-5 /lpf Urine Epithelial Cells (Auto) 10-20 0-5 /lpf Urine Bacteria (Auto) 2+ NEG Urine Pathogenic Casts 0 /lpf White Blood Count 8.69 4.8-10.8 K/uL Red Blood Count 3.59 4.2-5.4 M/uL Hemoglobin 11.1 12.0-16.0 g/dL Hematocrit 32.7 37-47 % Mean Corpuscular Volume 91.1 80-100 fL Mean Corpuscular Hemoglobin 30.9 25-34 pg Mean Corpuscular Hemoglobin Concent 33.9 32-36 g/dl Platelet Count 217 130-400 K/uL Mean Platelet Volume 9.1 7.4-10.4 fL Neutrophils (%) (Auto) 80.4 % Lymphocytes (%) (Auto) 10.9 % Monocytes (%) (Auto) 8.1 % Eosinophils (%) (Auto) 0.3 % Basophils (%) (Auto) 0.2 % Neutrophils # (Auto) 6.98 1.4-6.5 K/uL Lymphocytes # (Auto) 0.95 1.2-3.4 K/uL Monocytes # (Auto) 0.70 0.11-0.59 K/uL Eosinophils # (Auto) 0.03 0-0.5 K/uL Basophils # (Auto) 0.02 0-0.2 K/uL RDW Standard Deviation 41.6 36.4-46.3 fL RDW Coefficient of Variation 12.4 11.5-14.5 % Immature Granulocyte % (Auto) 0.1 % Immature Granulocyte # (Auto) 0.01 0.00-0.02 K/uL Sodium Level 136 136-145 mmol/L Potassium Level 4.0 3.5-5.1 mmol/L Chloride Level 103 98-107 mmol/L Carbon Dioxide Level 25 21-32 mmol/L Anion Gap 8.0 3-11 mmol/L Blood Urea Nitrogen 17 7-18 mg/dl Creatinine 1.42 0.60-1.20 mg/dl Est Creatinine Clear Calc Drug Dose 24.1 ml/min Estimated GFR () 38.4 Estimated GFR (Non- 33.1 BUN/Creatinine Ratio 11.7 10-20 Random Glucose 110 70-99 mg/dl Lactic Acid Level 1.3 0.4-2.0 mmol/L Calcium Level 8.7 8.5-10.1 mg/dl Total Bilirubin 0.5 0.2-1 mg/dl Aspartate Amino Transf (AST/SGOT) 18 15-37 U/L Alanine Aminotransferase (ALT/SGPT) 11 12-78 U/L Alkaline Phosphatase 64 45-117 U/L Troponin I < 0.015 < 0.015 0-0.045 ng/ml Total Protein 7.7 6.4-8.2 gm/dl Albumin 3.5 3.4-5.0 gm/dl Globulin 4.2 2.5-4.0 gm/dl Albumin/Globulin Ratio 0.8 0.9-2 Lipase 93 73-393 U/L Microbiology Results 05/28/17 Urine Culture, Received Pending Diagnostic Radiology CHEST 2 VIEWS ROUTINE CLINICAL HISTORY: cough dyspnea COMPARISON STUDY: No previous studies for comparison. FINDINGS: Mild cardiomegaly. Diaphragms smooth. Lungs are considered clear. Platelike atelectasis left midlung. Considerable degenerative change of the shoulders bilaterally. IMPRESSION: No acute process. ABD/PELVIS ORAL CONT ONLY CT DOSE: 278.54 mGy.cm HISTORY: Pain rlq abdominal pain TECHNIQUE: Multiaxial CT images of the abdomen and pelvis were performed following the use of oral contrast. A dose lowering technique was utilized adhering to the principles of ALARA. COMPARISON STUDY: Renal ultrasound 04/20/2017 FINDINGS: Trace pleural fluid both lung bases. Study is compromised due to the absence of intravenous contrast enhancement. Liver appears uniform. Gallbladder appears to be significantly distended. Left kidney is negative for calcification or hydronephrosis. There are other marked right renal hydronephrosis and dilatation of the renal pelvis. There appears to be a infiltrative changes and/or fluid within the right perinephric space. Fluid appeared appears to extend inferiorly to the significant amount of free fluid within the low pelvic and pelvic cul-de-sac regions. The bladder is not well-defined. There are findings of chronic colonic diverticulosis. Acute diverticulitis is not felt to be present. Only a very short segment of the appendix is identified which is contrast-filled. There has been a ventral hernia repair. IMPRESSION: 1. Marked right renal hydronephrosis and dilatation of the right renal pelvis versus the possibility of parapelvic cyst. 2. Moderate free fluid adjacent to the renal pelvis as well as a mild amount of free fluid within the perinephric space on the right. 3. Significant amount of free fluid within the low pelvis and cul-de-sac region of the bladder difficult to define as an independent entity. 4. Diagnostic considerations must include bladder rupture, right kidney or renal pelvis rupture, versus fluid from a variety of other sources which are not defined on this exam. 5. Bowel pattern is nonobstructive and is remarkable for scattered colonic diverticuli with no evidence for diverticulitis.. 6. Gallbladder distention ABD/PELVIS ORAL CONT ONLY CT DOSE: 566.10 mGy.cm HISTORY: Bladder rupture. Renal pelvis rupture. BLADDER FILLED WITH CONTRAST UNDER FLUORO TECHNIQUE: Multiaxial CT images of the abdomen and pelvis were performed following the use of oral contrast. A dose lowering technique was utilized adhering to the principles of ALARA. The bladder was filled in a retrograde fashion with nonionic contrast per Dr. Holder COMPARISON STUDY: Orally enhanced study earlier in the evening FINDINGS: The bladder appears to be intact. It is mildly distended. There is increased opacification of the bowel loops within the mid to low pelvis. The amount of free fluid within the retroperitoneum is diminished as compared to the initial scan, as the initial scan appearance suggests that the unopacified fluid-filled bowel loops is being free fluid. There continues to be distention of the right renal pelvis with fluid in the perirenal space and posterior to the renal pelvis. This would indicate potential for a forniceal rupture versus partial renal pelvis rupture. There is no evidence for contrast to reflux into the right ureter. Etiology for the obstructive changes is not clear based on this exam. An obstructing calculus on the prior study is not easily appreciated. IMPRESSION: 1. The bladder appears intact. 2. Moderate free fluid within the pelvis appears to be diminished on a relative basis as the initial scan overestimated the amount of free pelvic fluid due to un opacified loops of small bowel./Sigmoid. 3. This additional scan is highly suggestive of right renal forniceal rupture and/or less likely partial renal pelvic rupture . 4. The rather prominent right renal hydronephrosis is of uncertain etiology as a calcification previously described on ultrasound is not appreciated Impression Assessment and Plan 87 year old female presents with RLQ and right flank pain, with hydronephrosis on imaging Right hydronephrosis - UA concerning for UTI, watch for cultures - Empiric IV abx: cefepime and flagyl - NSS @75cc/hr - Zofran PRN nausea - Pain mx: IV morphine 2mg q6h and home meds: fentanyl patch, - Urology consulted - plans to take to OR in AM Diarrhea - C-diff sent off - given chronic abx usage HTN - Continue valsartan GERD - Continue pantoprazole Mood - Continue duloxetine and mirtazapine VTE PPx - SCDs FULL CODE Advanced Directives Existing Advance Directive: Yes Existing Living Will: Yes Existing Power of Exhaust Tender: Yes (daughter Perla Cabrera) Existing Health Care Proxy: Yes Resuscitation Status FULL RESUSCITATION Resident Tracking Resident Involvement: Resident Care Provided Care Provided: Adult Hospital Medicine
--- NOTE | 2017-05-29 01:19 | GENITOURINARY CONSULTATION ---
DATE OF CONSULTATION: 05/29/2017 LOCATION: Emergency Room. HISTORY OF PRESENTATION: The patient is an 87-year-old female who presented tonight with severe right-sided abdominal and flank pain. The patient's history is a little difficult to obtain, but the patient has mild dementia, but is alert and responsive and much of the history is obtained from her but also from her daughter who was with her and is her power of [place] attorney. The patient apparently has a greater than 10-year history of doing intermittent self catheterization for obvious apparent neurogenic bladder. She also has a long history of urinary tract infections and states she has been on ciprofloxacin b.i.d. for over 5 years. She moved to this area approximately 3 years ago. She has never seen a urologist here. In mid April, she presented to the Emergency Room here with gross hematuria but no abdominal pain. She at that time had a sonogram that did not show any hydronephrosis bilaterally but did show what appeared to be a right-sided 7 mm renal calculus. No other x-rays were obtained. The daughter reports that she has had abdominal pain on the right side in that she is clearly having right-sided back pain starting at least yesterday and it became difficult for the patient to walk and the pain became progressively more severe and came to the Emergency Room and had a CAT scan which showed what appeared to be obvious right hydronephrosis with some fluid around the renal pelvis and hydronephrosis all the way down to the bladder. No obstructing stone could be seen. The bladder was irregular and it was unclear whether she possibly ruptured her bladder. Because of this, I performed a cystogram myself by going to the fluoroscopy suite and instilling approximately 300 mL of Optiray diluted 50:50 into her bladder. There is no obvious leakage during this procedure and then she went to the CAT scan and had a CT with her bladder full and then with an empty. She did not have any obvious leakage, per the radiologist, Dr. Walker who I spoke to. There is, however, some free fluid in the pelvis, but not as much as it was previously thought and this possibly a forniceal rupture, but the main issue appears to be the hydronephrosis. The patient's white blood cell count is normal. She is afebrile. She was having severe pain but with 2 doses of morphine, she has been comfortable for the last several hours. A Gamino catheter was placed and she had cloudy urine of this. A urine culture is pending. The urine showed grater than 30 white cells, 10-30 red cells, and many bacteria 2+. At this point, the patient is comfortable. I have added on in the morning for a cysto-attempted right stent placement, but explained that if there is so much swelling that I cannot see the ureteral orifice and she may need to have a percutaneous nephrostomy placed at a tertiary institution. That is my main concern that perhaps swelling from chronic infection and catheterization this is caused enough swelling to obstruct the ureter and if that is the case, there may be some much edema that will not be able to identify the ureteral orifice. The patient has been given Rocephin. Please refer to the long list of medications that the patient takes including blood pressure medicine, fentanyl and some psychotropic medications. Please also refer to review of systems done by the ER physician. PHYSICAL EXAMINATION: GENERAL: The patient is alert and oriented without obvious distress at the time that I saw her. HEENT: Unremarkable. RESPIRATORYL: Respirations is without difficulty. ABDOMEN: At this time is nontender throughout, although previously it was marked tenderness in the right side. GENITOURINARY: Deferred. EXTREMITIES: Unremarkable. NEUROLOGIC: The patient is alert and responsive, but is somewhat confused and has difficulty following questions and daughter says that she has mild dementia and that she is the power of [place] attorney and I had her signed the consent form for a cystoscopy and stent placement. ASSESSMENT: Neurogenic bladder, chronic bladder infection, right hydronephrosis of unknown etiology. PLAN: Cystoscopy, right retrograde, and right stent placement. I have discussed this and got to obtain this consent with the daughter who is the power of [place] attorney, who will be bringing a copy of that tomorrow. I have discussed the case with the hospitalist who is admitting the patient and I will just schedule the case in the OR the first thing in the morning.
[2017-05-29] MEDS ORDERED: ALUMINUM/MAGNESIUM/SIMETH (MAALOX MAX) 30 ML UDC PO PRN (02:00)
[2017-05-29] MEDS ORDERED: ONDANSETRON INJ 2 MG/ML 2 ML VIAL IV PRN (02:00)
[2017-05-29] MEDS ORDERED: POLYETHYLENE (MIRALAX) 17 GM PACK PO PRN (02:00)
[2017-05-29] MEDS ORDERED: MAGNESIUM HYDROXIDE SUSP 30 ML UDC PO PRN (02:00)
[2017-05-29] MEDS ORDERED: CEFEPIME IV 1,000 MG in DEXTROSE 5% 100ML 100 ML IV SCH (02:00)
[2017-05-29] MEDS ORDERED: FENTANYL 12 MCG/HR TDSY TD SCH (02:00)
[2017-05-29] MEDS: METRONIDAZOLE / NSS 500 MG in PREMIXED NSS 100 ML IV SCH ×3 (04:30→20:29)
[2017-05-29 05:49] LABS: BASO % 0.1 %; BASO ABS # 0.01 K/uL (0-0.2); EOS % 0.4 %; EOS ABS # 0.03 K/uL (0-0.5); HEMATOCRIT 31.2 % (37-47); HEMOGLOBIN 10.4 g/dL (12.0-16.0); IG# 0.02 K/uL (0.00-0.02); LYMPH % 16.6 %; LYMPH ABS # 1.23 K/uL (1.2-3.4); MEAN CORPUSCULAR HEMOGLOBIN 30.7 pg (25-34); MEAN CORPUSCULAR HGB CONC 33.3 g/dl (32-36); MONO % 9.5 %; NEUT % 73.1 %; PLATELET COUNT 180 K/uL (130-400); RED CELL DISTRIBUTION WIDTH CV 12.5 % (11.5-14.5); RED CELL DISTRIBUTION WIDTH SD 42.6 fL (36.4-46.3); WHITE BLOOD COUNT 7.39 K/uL (4.8-10.8)
[2017-05-29] MEDS: CEFEPIME IV 1,000 MG in SYRINGE 0 ML IV SCH ×2 (05:54→18:12)
[2017-05-29] MEDS: MoRPHine SULFATE 2 MG/ML CARP IV PRN ×2 (05:59→13:03)
[2017-05-29 06:23] LABS: ALBUMIN 3.1 gm/dl (3.4-5.0); CALCIUM 8.1 mg/dl (8.5-10.1); CREATININE 1.27 mg/dl (0.60-1.20); POTASSIUM 3.6 mmol/L (3.5-5.1)
[2017-05-29 06:25] LABS: PHOSPHORUS 1.9 mg/dl (2.5-4.9)
--- NOTE | 2017-05-29 07:24 | DIAGNOSTIC IMAGING REPORT ---
CHEST 2 VIEWS ROUTINE HISTORY: preop COMPARISON: Chest 05/28/2017. FINDINGS: The heart is normal in size. Mildly tortuous thoracic aorta. No pleural effusions. No pneumothorax. Linear densities within the right midlung zone the left lung base favor subsegmental atelectasis. No new focal lung consolidations. No evidence for pulmonary edema. Linear area of thickening within the left midlung zone remains unchanged and also likely represents an area of scarring. IMPRESSION: No significant change compared to the prior study. No acute process. Electronically signed by: Nick Muhammad M.D. 05/29/2017 7:22 AM Dictated Date/Time: 05/29/2017 7:20 AM
[2017-05-29] MEDS: CHECK FENTANYL PATCH PLACEMENT SCH ×2 (07:44→16:33)
[2017-05-29] MEDS: DULOXETINE (CYMBALTA) 30 MG CAP PO SCH (09:42)
[2017-05-29] MEDS: CALCIUM CARBONATE 1250MG TAB PO SCH ×2 (09:42→20:33)
[2017-05-29] MEDS: CEROVITE ADV FORMULA TAB PO SCH (09:42)
[2017-05-29] MEDS: DOCUSATE SODIUM 100 MG CAP PO SCH ×2 (09:42→20:33)
[2017-05-29] MEDS: ASPIRIN 81 MG ECTAB PO SCH (09:42)
[2017-05-29] MEDS: VALSARTAN 80 MG TAB PO SCH ×3 (09:43→20:33)
[2017-05-29] MEDS: SENNA 8.6 MG TAB PO SCH (09:43)
[2017-05-29] MEDS: PANTOprazole SOD 40 MG TAB PO SCH (09:43)
[2017-05-29] MEDS: CHOLECALCIFEROL 1000 INTER.UNIT TAB PO SCH (09:43)
[2017-05-29] MEDS ORDERED: CONRAY 30% 150ML BOTTLE ONE (09:46)
[2017-05-29] MEDS ORDERED: LIDOCAINE HCL 2% 2 ML VIAL (20MG/ML) ONE (09:47)
[2017-05-29] MEDS ORDERED: PROPOFOL IV EMULSION 10 MG/ML 20 ML VIAL IV ONE ×2 (09:47→11:21)
--- NOTE | 2017-05-29 09:53 | Progress Note ---
Subjective Date of Service: May 29, 2017. Subjective Pt evaluation today including: conversation w/ patient, conversation w/ family , physical exam, chart review, lab review, conversation w/ store consultant Consult dictated last night not in chart pt with custodial [facility] for neurogenic bladder and chronic uti on ciprofloxacin Pt had negative cystogram last pm New onset r hyrdronephrosis to bladder with uti and pain requiring morphine and low grade fever Pt sleepy with morphine complains of l knee pain in joint Problem List Medical Status: 1 r hydronephrosis (2) CKD (chronic kidney disease) Status: Acute (3) Hematuria Status: Acute Objective Vital Signs Date Time Temp Pulse Resp B/P (MAP) Pulse Ox O2 Delivery O2 Flow Rate FiO2 05/29/17 07:40 Room Air 05/29/17 06:52 36.8 75 18 144/74 (97) 94 Room Air 05/29/17 03:35 84 164/76 (105) 05/29/17 02:50 37.9 83 18 178/75 92 Room Air 05/29/17 02:50 88 16 127/72 93 05/29/17 02:01 90 18 150/77 95 Room Air 05/29/17 01:02 90 18 166/87 96 Room Air 05/29/17 00:00 110 16 152/85 96 Room Air 05/28/17 22:17 86 18 154/93 94 Room Air 05/28/17 20:38 80 18 145/85 96 Room Air 05/28/17 19:47 77 18 138/82 97 Room Air 05/28/17 18:53 79 16 156/85 95 Room Air 05/28/17 17:40 79 18 172/91 96 05/28/17 16:43 74 20 187/91 99 Room Air 05/28/17 14:40 37.2 92 20 154/101 96 Room Air Laboratory Results Last 24 Hours Test 05/28/17 15:15 05/28/17 15:50 05/28/17 19:06 05/29/17 05:15 Urine Color YELLOW Urine Appearance CLOUDY Urine pH 7.0 Urine Specific [place] 1.017 Urine Protein TRACE Urine Glucose (UA) NEG Urine Ketones TRACE Urine Occult Blood 2+ Urine Nitrite NEG Urine Bilirubin NEG Urine Urobilinogen NEG Urine Leukocyte Esterase LARGE Urine WBC (Auto) >30 /hpf Urine RBC (Auto) 10-30 /hpf Urine Hyaline Casts (Auto) 0 /lpf Urine Epithelial Cells (Auto) 10-20 /lpf Urine Bacteria (Auto) 2+ Urine Pathogenic Casts /lpf White Blood Count 8.69 K/uL 7.39 K/uL Red Blood Count 3.59 M/uL 3.39 M/uL Hemoglobin 11.1 g/dL 10.4 g/dL Hematocrit 32.7 % 31.2 % Mean Corpuscular Volume 91.1 fL 92.0 fL Mean Corpuscular Hemoglobin 30.9 pg 30.7 pg Mean Corpuscular Hemoglobin Concent 33.9 g/dl 33.3 g/dl Platelet Count 217 K/uL 180 K/uL Mean Platelet Volume 9.1 fL 9.0 fL Neutrophils (%) (Auto) 80.4 % 73.1 % Lymphocytes (%) (Auto) 10.9 % 16.6 % Monocytes (%) (Auto) 8.1 % 9.5 % Eosinophils (%) (Auto) 0.3 % 0.4 % Basophils (%) (Auto) 0.2 % 0.1 % Neutrophils # (Auto) 6.98 K/uL 5.40 K/uL Lymphocytes # (Auto) 0.95 K/uL 1.23 K/uL Monocytes # (Auto) 0.70 K/uL 0.70 K/uL Eosinophils # (Auto) 0.03 K/uL 0.03 K/uL Basophils # (Auto) 0.02 K/uL 0.01 K/uL RDW Standard Deviation 41.6 fL 42.6 fL RDW Coefficient of Variation 12.4 % 12.5 % Immature Granulocyte % (Auto) 0.1 % 0.3 % Immature Granulocyte # (Auto) 0.01 K/uL 0.02 K/uL Sodium Level 136 mmol/L 136 mmol/L Potassium Level 4.0 mmol/L 3.6 mmol/L Chloride Level 103 mmol/L 105 mmol/L Carbon Dioxide Level 25 mmol/L 25 mmol/L Anion Gap 8.0 mmol/L 6.0 mmol/L Blood Urea Nitrogen 17 mg/dl 16 mg/dl Creatinine 1.42 mg/dl 1.27 mg/dl Est Creatinine Clear Calc Drug Dose 24.1 ml/min 25.8 ml/min Estimated GFR () 38.4 43.9 Estimated GFR (Non- 33.1 37.9 BUN/Creatinine Ratio 11.7 12.4 Random Glucose 110 mg/dl 112 mg/dl Lactic Acid Level 1.3 mmol/L Calcium Level 8.7 mg/dl 8.1 mg/dl Total Bilirubin 0.5 mg/dl 0.6 mg/dl Aspartate Amino Transf (AST/SGOT) 18 U/L 19 U/L Alanine Aminotransferase (ALT/SGPT) 11 U/L 10 U/L Alkaline Phosphatase 64 U/L 57 U/L Troponin I < 0.015 ng/ml < 0.015 ng/ml Total Protein 7.7 gm/dl 7.0 gm/dl Albumin 3.5 gm/dl 3.1 gm/dl Globulin 4.2 gm/dl 3.9 gm/dl Albumin/Globulin Ratio 0.8 0.8 Lipase 93 U/L Phosphorus Level 1.9 mg/dl Magnesium Level 1.5 mg/dl Assessment and Plan plan cysto and r retrograde and stent Pt daughter here and signed as POA She understands risks and possible inability to pass stent
[2017-05-29] MEDS ORDERED: ATROPINE SULFATE 0.1 MG/ML 5ML SYR IV PRN (10:00)
[2017-05-29] MEDS ORDERED: EpHEDrine SULFATE INJ 50 MG/ML AMP IV PRN (10:00)
[2017-05-29] MEDS ORDERED: PHENYLEPHRINE HCL INJ 10 MG/ML VIAL ONE (11:21)
--- NOTE | 2017-05-29 11:26 | [facility] Post Operative Brief Note ---
Immediate Operative Summary Operative Date May 29, 2017. Pre-Operative Diagnosis Right Hydronephrosis Post-Operative Diagnosis Right Hydronephrosis, Swollen Right Ureteral Orifice Procedure(s) Performed Cystoscopy, Retrograde Pyelogram, Right Ureteral Stent Insertion Surgeon Dr. Phoenix Holder Cloth Finisher Surgeon(s) None per surgeon Estimated Blood Loss 0ml Findings swollen r trigone and ureteral orifice, possible r upj obstruction extremely difficult to cannulate r ureteral orifice significant hydronephrosis Specimens 1.) Urine, Right Renal Pelvis (For culture and cytology) Drains 5 by 24 stent Complication(s) None
--- NOTE | 2017-05-29 11:46 | DIAGNOSTIC IMAGING REPORT ---
RETROGRADE INCLUDES KUB HISTORY: Right stent placement. FLUOROSCOPY TIME: 5 minutes and 7 seconds. FINDINGS: 3 fluoroscopic spot images were submitted for review. Initial images demonstrate a guidewire within the right ureter placed in a retrograde fashion followed by contrast opacification. The right ureter and right renal collecting system are dilated. This is followed by placement of a right ureteral stent. The proximal stent is visualized and appears to be in good position. IMPRESSION: Fluoroscopy provided for right ureteral stent placement. Electronically signed by: Nick Muhammad M.D. 05/29/2017 11:45 AM Dictated Date/Time: 05/29/2017 11:39 AM
--- NOTE | 2017-05-29 12:27 | Anesthesiology Progress Note ---
Anesthesia Post Op Note Date & Time May 29, 2017 at 12:27 Vital Signs Pain Intensity: 0 Vital Signs Past 12 Hours Date Time Temp Pulse Resp B/P (MAP) Pulse Ox O2 Delivery O2 Flow Rate FiO2 05/29/17 12:15 63 17 157/81 94 Room Air 05/29/17 12:02 164/84 05/29/17 12:00 86 18 176/100 96 Room Air 05/29/17 11:45 37.2 66 18 166/87 94 Room Air 05/29/17 11:35 84 14 149/92 98 Room Air 05/29/17 11:25 36.4 62 16 151/81 100 Oxymask 10 05/29/17 07:40 Room Air 05/29/17 06:52 36.8 75 18 144/74 (97) 94 Room Air 05/29/17 03:35 84 164/76 (105) 05/29/17 02:50 37.9 83 18 178/75 92 Room Air 05/29/17 02:50 88 16 127/72 93 05/29/17 02:01 90 18 150/77 95 Room Air 05/29/17 01:02 90 18 166/87 96 Room Air Notes Mental Status: alert / awake / arousable, participated in evaluation Pt Amnestic to Procedure: Yes Nausea / Vomiting: adequately controlled Pain: adequately controlled Airway Patency, RR, SpO2: stable & adequate BP & HR: stable & adequate Hydration State: stable & adequate Anesthetic Complications: no major complications apparent
--- NOTE | 2017-05-29 14:10 | OPERATIVE REPORT ---
DATE OF OPERATION: 05/29/2017 PROCEDURE PERFORMED: Cystoscopy, right retrograde, right stent placement. INDICATIONS: The patient is an 87-year-old female who was admitted last night with right hydronephrosis, severe right-sided pain of unknown etiology. There were concerns at that time she might have ruptured her bladder given the CT findings but the cystogram proved negative for this. She presented today after being on Rocephin overnight with slight fever and continued right flank pain requiring narcotics for cystoscopy and right stent placement. DESCRIPTION OF THE PROCEDURE: The patient was taken to the operating room where Venodyne stockings placed, was given general anesthesia. She was placed in dorsal lithotomy position and prepped and draped in the usual sterile fashion. A 22 0.5-[place] Islander cystoscope was passed per urethra and the bladder was carefully examined and did not see any rupture. It was erythematous mainly in the right trigone. The right ureteral orifice was edematous and swollen and it was impossible to see the orifice clearly because of the slight prolapse that she had and the angle of the orifice was difficult to access. Attempts at placing guidewire were unsuccessful, attempts at placing a guidewire with a deflecting bridge using a 5-[place] Islander open-ended catheter were also unsuccessful. An angled tipped open-ended catheter was then used with an angle-tipped guidewire and eventually I was able to get the wire up into the mid ureter. I did a retrograde, which confirmed position in the ureter. I then replaced the angle tip with an open-ended guidewire, did another retrograde to confirm position. The renal pelvis was quite distended. There appeared to be somewhat of a UPJ obstruction and a bend and making it difficult to see the renal pelvis clearly. Also, placing a guidewire through the open-ended catheter was difficult and in the process of trying to advance the guidewire, the open-ended catheter was pushed back out and eventually the guidewire was pushed back up so the whole process had to be done again and position confirmed before I could successfully pass a wire into the renal pelvis, removed the angled guidewire and the open-ended catheter and then placed a #5 24 stent which appeared at the end of the procedure to be in good position in the renal pelvis with a curl a not a complete curl in the bladder with efflux clearly coming from the catheter. No obvious stones were seen, but I did not do ureteroscopy, I did not see any definite tumors in the bladder, but the right ureteral wall lateral to the ureteral orifice was erythematous and somewhat irregular. I did a bimanual, did not feel any definite mass. At the end of the procedure, a catheter was placed and the patient was transferred to the recovery room in stable condition. I attest to the content of the Intraoperative Record and any orders documented therein. Any exception s are noted below.
[2017-05-29] MEDS: ACETAMINOPHEN 325 MG TAB PO PRN (18:09)
--- NOTE | 2017-05-29 19:40 | Progress Note ---
Progress Note Date of Service May 29, 2017. Progress Note seen in f/u from early AM admit was also seen by urology and had cysto and stenting in bed resting - sleeping - nad. breathing unlabored cardio reg no r/m/g, lungs without r/r/w good effort as per admission and urology - appears to be progressing - especially since stent was able to be placed. continue abx as well
[2017-05-29] MEDS: MIRTAZAPINE TAB 15 MG TAB PO SCH (20:33)
[2017-05-30] MEDS: CHECK FENTANYL PATCH PLACEMENT SCH ×3 (00:26→15:19)
[2017-05-30 03:15] VITALS: BP 137/65; PULSE 72; TEMP 36.8; O2SAT 94
[2017-05-30] MEDS: METRONIDAZOLE / NSS 500 MG in PREMIXED NSS 100 ML IV SCH (03:55)
[2017-05-30] MEDS: CEFEPIME IV 1,000 MG in SYRINGE 0 ML IV SCH (06:08)
[2017-05-30 07:31] VITALS: BP 155/78; PULSE 68; TEMP 36.9; O2SAT 96
[2017-05-30] MEDS: DULOXETINE (CYMBALTA) 30 MG CAP PO SCH (08:36)
[2017-05-30] MEDS: CHOLECALCIFEROL 1000 INTER.UNIT TAB PO SCH (08:36)
[2017-05-30] MEDS: ASPIRIN 81 MG ECTAB PO SCH (08:36)
[2017-05-30] MEDS: DOCUSATE SODIUM 100 MG CAP PO SCH ×2 (08:38→19:40)
[2017-05-30] MEDS: SENNA 8.6 MG TAB PO SCH (08:38)
[2017-05-30] MEDS: CEROVITE ADV FORMULA TAB PO SCH (08:38)
[2017-05-30] MEDS: VALSARTAN 80 MG TAB PO SCH ×2 (08:39→19:41)
[2017-05-30] MEDS: PANTOprazole SOD 40 MG TAB PO SCH (08:39)
[2017-05-30 09:01] LABS: HEMATOCRIT 31.2 % (37-47); HEMOGLOBIN 10.5 g/dL (12.0-16.0); MEAN CELL VOLUME 92.3 fL (80-100); MEAN CORPUSCULAR HEMOGLOBIN 31.1 pg (25-34); MEAN CORPUSCULAR HGB CONC 33.7 g/dl (32-36); MEAN PLATELET VOLUME 8.8 fL (7.4-10.4); PLATELET COUNT 183 K/uL (130-400); RED CELL DISTRIBUTION WIDTH CV 12.6 % (11.5-14.5); RED CELL DISTRIBUTION WIDTH SD 42.8 fL (36.4-46.3)
--- NOTE | 2017-05-30 09:06 | Progress Note ---
Subjective Date of Service: May 30, 2017. Subjective Pt evaluation today including: conversation w/ patient, chart review, lab review Voiding: reaves catheter in place (patent, draining merlot colored urine ) 87 yo female s/p right ureteral stent placement for right hydro. Pt reports diffuse body aches. She is afebrile. Denies n/v. UC&S preliminarily growing e coli. Reaves draining dark [place] colored urine. Pt is oriented to person, place, and time this morning, but does not recall having surgery for stent placement. Problem List Medical Problems: (1) Bladder rupture Status: Acute (2) CKD (chronic kidney disease) Status: Acute (3) Hematuria Status: Acute Review of Systems Constitutional: No fever, No chills Respiratory: No shortness of breath Cardiac: No chest pain Abdomen: No pain, No nausea, No vomiting Female : + hematuria Heme: No abnormal bleeding/bruising Objective Vital Signs Date Time Temp Pulse Resp B/P (MAP) Pulse Ox O2 Delivery O2 Flow Rate FiO2 05/30/17 07:31 36.9 68 16 155/78 (103) 96 Room Air 05/30/17 03:15 36.8 72 18 137/65 (89) 94 Room Air 05/30/17 00:20 Room Air 05/29/17 23:49 36.8 66 18 133/71 (91) 96 Room Air 05/29/17 20:17 36.9 71 16 127/80 (96) 94 Room Air 05/29/17 16:44 93 Room Air 05/29/17 15:30 36.5 70 15 144/75 (98) 93 Room Air 05/29/17 14:27 72 17 143/72 (95) 96 Room Air 05/29/17 13:30 36.8 75 16 163/77 (105) 96 Room Air 05/29/17 13:00 96 Room Air 05/29/17 13:00 Room Air 05/29/17 12:57 68 17 178/78 (111) 96 Room Air 05/29/17 12:30 36.8 64 16 169/83 (111) 96 Room Air 05/29/17 12:15 63 17 157/81 94 Room Air 05/29/17 12:02 164/84 05/29/17 12:00 86 18 176/100 96 Room Air 05/29/17 11:45 37.2 66 18 166/87 94 Room Air 05/29/17 11:35 84 14 149/92 98 Room Air 05/29/17 11:25 36.4 62 16 151/81 100 Oxymask 10 Physical Exam General Appearance: no apparent distress Eyes: normal inspection ENT: hearing grossly normal Neck: no JVD Respiratory/Chest: no respiratory distress, no accessory muscle use Cardiovascular: no JVD Extremities: normal inspection Neurologic/Psychiatric: alert, normal mood/affect, oriented x 3 Skin: normal color Laboratory Results Last 24 Hours Test 05/30/17 08:55 Assessment and Plan A/P: Right hydronephrosis, UTI, gross hematuria AFVSS. Gross hematuria not uncommon after stent placement and in the setting of UTI. Recommend stopping ASA while actively bleeding if able. Nursing may hand irrigate reaves catheter as needed. Continue IV abx pending culture sensitivities. Would then transition to a PO abx x 14 days based on sensitivities. Recommend she remain inpatient until culture sensitivities return and she is feeling better. Will leave reaves catheter in place for now. Resume CIC prior to d/c home. I am concerned that if she goes home with the reaves catheter and develops [place] at night that she may try to pull it out. Will plan for outpatient f/u with Dr. Holder in 2 weeks. Will continue to follow along with primary service.
--- NOTE | 2017-05-30 09:25 | DIAGNOSTIC IMAGING REPORT ---
CYSTOGRAM CLINICAL HISTORY: XXpain COMPARISON STUDY: CT same day FLUOROSCOPY TIME: 0.8 minutes. FINDINGS: Injection of the bladder was performed by Dr. Holder. IMPRESSION: Pre-CT bladder injection. The above report was generated using voice recognition software. It may contain grammatical, syntax or spelling errors. Electronically signed by: Justin Walker M.D. 05/30/2017 9:24 AM Dictated Date/Time: 05/30/2017 9:15 AM
[2017-05-30 09:39] LABS: CALCIUM 8.2 mg/dl (8.5-10.1); CREATININE 0.95 mg/dl (0.60-1.20); POTASSIUM 3.7 mmol/L (3.5-5.1)
[2017-05-30 09:50] LABS: PHOSPHORUS 1.7 mg/dl (2.5-4.9)
[2017-05-30] MEDS: CALCIUM CARBONATE 1250MG TAB PO SCH ×2 (10:18→21:33)
[2017-05-30 11:15] VITALS: BP 154/76; PULSE 70; TEMP 36.9; O2SAT 95
[2017-05-30] MEDS ORDERED: CEPHALEXIN MONOHYDRATE 500 MG CAP PO ONE (11:30)
[2017-05-30] MEDS: ACETAMINOPHEN 325 MG TAB PO PRN (11:34)
[2017-05-30] MEDS: MoRPHine SULFATE 2 MG/ML CARP IV PRN ×2 (13:13→19:51)
--- NOTE | 2017-05-30 14:52 | Hospitalist Progress Note ---
Hospitalist Progress Note Date of Service May 30, 2017. Subjective Pt evaluation today including: conversation w/ patient, conversation w/ family (daughter at bedside), physical exam, chart review, lab review, review of studies, review of inpatient medication list Pain: 8/10 right flank pain radiating to back PO Intake: Tolerating PO diet Voiding: reaves catheter in place Patient reports feeling worse today. She complains of an 8/10 aching pain in her right flank radiating to her the right side of her back that is worse with movement and deep breaths. She states that the pain is worse today than yesterday, but her daughter states that she has not received anything for pain since yesterday. The patient is tolerating her diet but not eating very much due to lack of appetite. Reaves is in place draining dark red urine. Patient complains of bilateral calf pain when she lifts her feet off the bed, denies any pain with palpation. The patient denies fevers, chills, sweats, chest pain , palpitations, claudication, cough, wheezing, shortness of breath, nausea, vomiting, dysuria, urinary retention, paralysis, weakness, numbness and tingling. Additional Comments: See HPI for pertinent positives and negatives. All other systems reviewed and negative. Objective Vital Signs Date Time Temp Pulse Resp B/P (MAP) Pulse Ox O2 Delivery O2 Flow Rate FiO2 05/30/17 11:15 36.9 70 16 154/76 (102) 95 Room Air 05/30/17 07:40 Room Air 05/30/17 07:31 36.9 68 16 155/78 (103) 96 Room Air 05/30/17 03:15 36.8 72 18 137/65 (89) 94 Room Air 05/30/17 00:20 Room Air 05/29/17 23:49 36.8 66 18 133/71 (91) 96 Room Air 05/29/17 20:17 36.9 71 16 127/80 (96) 94 Room Air 05/29/17 16:44 93 Room Air 05/29/17 15:30 36.5 70 15 144/75 (98) 93 Room Air 05/29/17 14:27 72 17 143/72 (95) 96 Room Air Physical Exam Notes: General appearance: Well-developed, well-nourished, no apparent distress Head: Normocephalic, atraumatic Eyes: Normal inspection, PERRL, EOMI ENT: Normal ENT inspection, hearing grossly normal, pharynx normal Neck: Supple, no JVD, trachea midline Respiratory/Chest: +Decreased breath sounds. Lungs clear to auscultation, no respiratory distress Cardiovascular: Regular rate & rhythm, no gallop, no murmur Abdomen/GI: +RLQ, right flank TTP. Normal bowel sounds, soft Extremities/Musculoskeletal: Normal inspection, no calf tenderness, no pedal edema Neurological/Psych: Alert, normal mood/affect, oriented x 3 Skin: Normal color, warm/dry, no rash Laboratory Results Last 24 Hours Test 05/30/17 08:55 05/30/17 12:30 White Blood Count 6.70 K/uL Red Blood Count 3.38 M/uL Hemoglobin 10.5 g/dL Hematocrit 31.2 % Mean Corpuscular Volume 92.3 fL Mean Corpuscular Hemoglobin 31.1 pg Mean Corpuscular Hemoglobin Concent 33.7 g/dl RDW Standard Deviation 42.8 fL RDW Coefficient of Variation 12.6 % Platelet Count 183 K/uL Mean Platelet Volume 8.8 fL Sodium Level 136 mmol/L Potassium Level 3.7 mmol/L Chloride Level 105 mmol/L Carbon Dioxide Level 26 mmol/L Anion Gap 5.0 mmol/L Blood Urea Nitrogen 13 mg/dl Creatinine 0.95 mg/dl Est Creatinine Clear Calc Drug Dose 34.5 ml/min Estimated GFR () 62.4 Estimated GFR (Non- 53.9 BUN/Creatinine Ratio 13.9 Random Glucose 116 mg/dl Calcium Level 8.2 mg/dl Phosphorus Level 1.7 mg/dl Magnesium Level 1.7 mg/dl Stool Occult Blood NEGATIVE Assessment and Plan 87 y/o female with a history of HTN, depression, GERD, neurogenic bladder, and chronic pain who presents with RLQ and right flank pain. Right hydronephrosis, h/o neurogenic bladder w/chronic CIC at home--ongoing - Admit to med/surg - Urology consulted, appreciate recs: Recommend stopping aspiring while actively bleeding. Once sensitivities return, continue on PO abx x 14 days. Keep Reaves for now, resume CIC prior to discharge. F/u with Dr. Holder in 2 weeks - Cystoscopy revealed swollen right ureteral orifice, possible right UPJ obstruction and significant right hydronephrosis. Right ureteral stent placed. - UCx positive for E. coli, sensitive to cephs - D/c cefepime and Flagyl, start Keflex x 14 days - Morphine 2 mg IV q6h prn breakthrough pain, continue home fentanyl patch 12 mcg TD q72h Hematuria secondary to recent cysto--improving per daughter -Hold aspirin for now B/l calf pain -Doppler u/s to r/o DVT in post-procedure setting Diarrhea--improving - C diff negative HTN--stable - Continue valsartan 160 mg PO BID Depression -Continue Cymbalta 30 mg PO qd and Remeron 15 mg PO hs GERD - Continue pantoprazole DVT prophylaxis -Hold chemical prophylaxis due to hematuria -SCDs Code Status -Level V, DO NOT RESUSCITATE Dispo -Lives with daughter -PT/OT evaluate and treat, case management consulted for discharge planning
--- NOTE | 2017-05-30 14:54 | DIAGNOSTIC IMAGING REPORT ---
BILATERAL LOWER EXTREMITY VENOUS DOPPLER HISTORY: Acute bilateral calf pain alida calf pain to rule out dvt COMPARISON STUDY: None. FINDINGS: There is normal compressibility, flow, and augmentation within the bilateral lower extremity deep venous systems. Right-sided Allen's cyst is noted, 3.8 x 1.5 x 0.7 cm. IMPRESSION: No sonographic evidence of deep venous thrombosis within the right or left lower extremity. Electronically signed by: Rojas Pugh M.D. 05/30/2017 2:53 PM Dictated Date/Time: 05/30/2017 2:52 PM
[2017-05-30 15:00] VITALS: BP 131/85; PULSE 90; TEMP 36.9; O2SAT 94
--- NOTE | 2017-05-30 16:49 | Surgery Consultation ---
Consultation Date of Consultation: May 30, 2017. Attending Physician: Hardy Wallace MD, PhD Reason for Consultation: RLQ Abdominal pain and free pelvic fluid (Lani Bocanegra PA-C) History of Present Illness Jasmin is a pleasant 87 year-old female who presented to emergency room on with complaint of right sided abdominal pain with radiation to the back and decreased appetite. Jasmin has history of neurogenic bladder in which she has had to straight cath herself daily for the past 10 years, chronic Cipro prophylaxis, and recurrent UTIs. She had a CT scan in the emergency department which showed findings of marked right renal hydronephrosis and dilatation of right renal pelvis. She underwent Right ureteral stent placement yesterday morning. Jasmin states this morning she had severe abdominal pain with radiation to the back. States she felt like she was going to . Pain similar to her pain that brought her to the emergency department. Tolerated diet this morning and afternoon. No nausea or vomiting. Daughter present in the room states her mother does get chronic nausea after eating and usually needs to give a Zofran for relief. She takes Protonix daily for heartburn. Daughter states she does have bowel movements with urgency and recently bowel movements have been black (per patient a dark Maroon). Since the administration of IV Morphine today around 2 pm, Jasmin states her pain has improved significantly and only has pain when pressed on her abdomen or during deep breaths. (Lani Bocanegra PA-C) Past Medical/Surgical History Past Medical History: 1. HTN 2. Chronic back pain 3. Spinal stenosis 4. Neurogenic bladder 5. Chronic UTI 6. GERD 7. Depression 8. Anxiety Past Surgical History: 1. Hysterectomy 2. Ventral hernia repair with mesh (Lani Bocanegra PA-C) Family History Patient reports no known family medical history. (Lani Bocanegra PA-C) Patient reports no known family medical history. (Justin Barrett M.D.) Social History Smoking Status: Never Smoker Smokeless Tobacco Use: No Drug Use: none Housing Status: lives with family Occupation Status: retired (Lani Bocanegra PA-C) Allergies Coded Allergies: No Known Allergies (Unverified , 05/28/17) Home Medications Scheduled Aspirin (Aspirin Ec), 81 MG PO QAM Calcium Carbonate (Calcium Carbonate), 1,250 MG PO AMPM Cholecalciferol (Vitamin D), 1,000 UNITS PO QAM Ciprofloxacin Tab (Cipro), 250 MG PO AMPM Docusate Sodium (Colace), 100 MG PO AMPM Duloxetine HCl (Cymbalta), 30 MG PO QD Fentanyl (Fentanyl), 1 PATCH TD [id number] Fish Oil ([place]-3), 1 CAP PO DAILY Mirtazapine (Remeron), 15 MG PO QPM Multiple Vitamins W/ Minerals (Thera-M), 1 TAB PO DAILY Pantoprazole (Protonix), 40 MG PO QAM Senna (Senokot), 17.2 MG PO QAM Valsartan (Diovan), 160 MG PO AMPM Scheduled PRN Acetaminophen Tab (Tylenol), 325-650 MG PO UD PRN for Pain Current Inpatient Medications Current Inpatient Medications Medications (Trade) Dose Ordered Sig/Tenisha Route Start Time Stop Time Status Last Admin Dose Admin Acetaminophen (Tylenol Tab) 650 mg Q4H PRN PO 05/29/17 02:00 06/28/17 01:59 05/30/17 11:34 650 MG Al Hydrox/Mg Hydrox/Simethicone (Maalox Max Susp) 15 ml Q4H PRN PO 05/29/17 02:00 06/28/17 01:59 Magnesium Hydroxide (Milk Of Magnesia Susp) 30 ml Q6H PRN PO 05/29/17 02:00 06/28/17 01:59 Polyethylene (Miralax Powder Packet) 17 gm DAILY PRN PO 05/29/17 02:00 06/28/17 01:59 Ondansetron HCl (Zofran Inj) 4 mg Q6H PRN IV 05/29/17 02:00 06/28/17 01:59 Aspirin (Ecotrin Tab) 81 mg QAM PO 05/29/17 09:00 06/28/17 08:59 Future Hold 05/30/17 08:36 81 MG Cholecalciferol (Vitamin D Tab) 1,000 inter.unit QAM PO 05/29/17 09:00 06/28/17 08:59 05/30/17 08:36 1,000 INTER.UNIT Docusate Sodium (coLACE CAP) 100 mg BID PO 05/29/17 09:00 06/28/17 08:59 05/30/17 08:38 100 MG Duloxetine HCl (Cymbalta Cap) 30 mg DAILY PO 05/29/17 09:00 06/28/17 08:59 05/30/17 08:36 30 MG Mirtazapine (Remeron Tab) 15 mg QPM PO 05/29/17 21:00 06/28/17 20:59 05/29/17 20:33 15 MG Multivitamins/ Minerals (Multivitamin W/ Minerals Tab) 1 tab DAILY PO 05/29/17 09:00 06/28/17 08:59 05/30/17 08:38 1 TAB Pantoprazole Sodium (Protonix Tab) 40 mg QAM PO 05/29/17 09:00 06/28/17 08:59 05/30/17 08:39 40 MG Senna (Senokot Tab) 17.2 mg QAM PO 05/29/17 09:00 06/28/17 08:59 05/30/17 08:38 17.2 MG Valsartan (Diovan Tab) 160 mg BID PO 05/29/17 09:00 06/28/17 08:59 05/30/17 08:39 160 MG Calcium Carbonate (oS-Jhon 500 TAB) 1,250 mg BID PO 05/29/17 09:00 06/28/17 08:59 05/30/17 10:18 1,250 MG Morphine Sulfate (MoRPHine SULFATE INJ) 2 mg Q6HWA PRN IV 05/29/17 02:00 06/12/17 01:59 05/30/17 13:13 2 MG Fentanyl (Duragesic Patch) 12 mcg Q3D TD 05/31/17 09:00 06/14/17 08:59 Miscellaneous (Fentanyl Patch Remove & Waste) 1 ea Q3D N/A 05/31/17 08:59 06/30/17 08:58 Miscellaneous Information (Check Fentanyl Patch Placement) 1 ea QS N/A 05/29/17 08:00 06/28/17 07:59 05/30/17 15:19 1 EA Magnesium Oxide (Mag-Ox Tab) 400 mg BID PO 05/30/17 21:00 06/02/17 20:59 Cephalexin Monohydrate (Keflex Cap) 500 mg QID PO 05/30/17 17:00 06/09/17 16:59 (Lani Bocanegra PA-C) Review of Systems Constitutional: No fever, No chills Abdomen: + pain, No nausea, No vomiting, No diarrhea, No constipation Musculoskeletal: + joint pain, + muscle pain Genitourinary - Female: + hematuria Hematologic / Lymphatic: No abnormal bleeding/bruising (Lani Bocanegra, JOEY ) Physical Exam Date Time Temp Pulse Resp B/P (MAP) Pulse Ox O2 Delivery O2 Flow Rate FiO2 05/30/17 16:00 Room Air 05/30/17 15:00 36.9 90 16 131/85 (100) 94 Room Air 05/30/17 11:15 36.9 70 16 154/76 (102) 95 Room Air 05/30/17 07:40 Room Air 05/30/17 07:31 36.9 68 16 155/78 (103) 96 Room Air 05/30/17 03:15 36.8 72 18 137/65 (89) 94 Room Air 05/30/17 00:20 Room Air 05/29/17 23:49 36.8 66 18 133/71 (91) 96 Room Air 05/29/17 20:17 36.9 71 16 127/80 (96) 94 Room Air 05/29/17 16:44 93 Room Air General Appearance: WD/WN, no apparent distress Head: normocephalic, atraumatic Eyes: sclerae normal ENT: hearing grossly normal Neck: trachea midline Respiratory/Chest: no respiratory distress, no accessory muscle use Cardiovascular: regular rate, rhythm, no murmur Abdomen/GI: normal bowel sounds, soft, no organomegaly, no pulsatile mass, + tenderness (RUQ tenderness on deep palpation, mild right flank pain. no rigidity , guarding, rebound, or peritonitis) Back: normal inspection, no CVA tenderness, no muscle spasm Neurologic/Psych: alert, normal mood/affect, oriented x 3 Skin: normal color, warm/dry, no rash (Lani Bocanegra, JOEY) Laboratory Results Last 24 Hours Test 05/30/17 08:55 05/30/17 12:30 White Blood Count 6.70 K/uL Red Blood Count 3.38 M/uL Hemoglobin 10.5 g/dL Hematocrit 31.2 % Mean Corpuscular Volume 92.3 fL Mean Corpuscular Hemoglobin 31.1 pg Mean Corpuscular Hemoglobin Concent 33.7 g/dl RDW Standard Deviation 42.8 fL RDW Coefficient of Variation 12.6 % Platelet Count 183 K/uL Mean Platelet Volume 8.8 fL Sodium Level 136 mmol/L Potassium Level 3.7 mmol/L Chloride Level 105 mmol/L Carbon Dioxide Level 26 mmol/L Anion Gap 5.0 mmol/L Blood Urea Nitrogen 13 mg/dl Creatinine 0.95 mg/dl Est Creatinine Clear Calc Drug Dose 34.5 ml/min Estimated GFR () 62.4 Estimated GFR (Non- 53.9 BUN/Creatinine Ratio 13.9 Random Glucose 116 mg/dl Calcium Level 8.2 mg/dl Phosphorus Level 1.7 mg/dl Magnesium Level 1.7 mg/dl Stool Occult Blood NEGATIVE (Lani Bocanegra ., JENAC) Assessment & Plan 87 year-old female who originally presented to the emergency room on 05/28/2017 with complaint of Right abdominal pain with radiation to the back. CT scan showing significant right hydronephrosis with free fluid surrounding the right kidney and free pelvic fluid. First CT scan did show distended gallbladder. Had a right uretal stent placed yesterday (05/29/2017). Labs show no leukocytosis. She has been afebrile since her procedure. LFTs within normal limits. Examination today showed soft abdomen, nondistended, normal bowel sounds , with tenderness on deep palpation more in the RUQ. Plan: There is no acute surgical intervention required at this time. Given patient's pain on examination is more in the RUQ with intermittent history of nausea post- prandial and distended gallbladder on CT scan will plan to get a limited US of the abdomen to evaluate the gallbladder. Will await results of US and may need HIDA scan if abnormal to rule out acute cholecystitis vs choledocholithiasis (less likely as LFTS within normal limits) Continue current medical management Continue current urology management will follow Dr. Barrett has seen and examined patient, agrees with above. (Lani Bocanegra ., JENAC) I have interviewed and examined this patient and reviewed the labs and radiology reports and I agree with the above note. She was admitted with right ureteral obstruction and underwent placement of a stent. The pain that she is experiencing similar to that that she had when she was admitted and I suspect that the discomfort is still related to a source. Reviewing her CAT scan did reveal that her gallbladder was mildly dilated although no abnormality was reported by the radiologist. I'll get an ultrasound for further evaluation if she does have some tenderness in the right upper quadrant. Her white blood cell count is not elevated. There is no evidence of sepsis. We'll await the result of the ultrasound. Thank you for allowing us to see this patient and participate in her care. (Justin Barrett M.D.)
[2017-05-30] MEDS: CEPHALEXIN MONOHYDRATE 500 MG CAP PO SCH ×2 (17:06→19:41)
[2017-05-30] MEDS: MAGNESIUM OXIDE 400 MG TAB PO SCH (19:41)
[2017-05-30] MEDS: MIRTAZAPINE TAB 15 MG TAB PO SCH (19:41)
[2017-05-30 22:55] VITALS: BP 164/83; PULSE 68; TEMP 37.1; O2SAT 92
--- NOTE | 2017-05-31 07:18 | DIAGNOSTIC IMAGING REPORT ---
ABDOMINAL ULTRASOUND, RIGHT UPPER QUADRANT HISTORY: Right upper quadrant abdominal pain.. COMPARISON: Abdomen and pelvis CT 05/28/2017. FINDINGS: Pancreas: The pancreas demonstrates a normal echotexture. Liver: Unremarkable. Gallbladder: The gallbladder is distended. No gallstones. The gallbladder wall appears slightly thickened for the degree of distention. CBD: 1.1 cm. Right kidney: Mild right hydronephrosis which has improved. A right ureteral stent is in good position. IMPRESSION: 1. The gallbladder is distended. There are no gallstones. The gallbladder wall is slightly thickened for the degree of distention. Clinical correlation recommended to exclude the possibility of acute cholecystitis. 2. Mild right hydronephrosis which has improved. A right ureteral stent is in good position. 3. Distended common bile duct for age measuring 1.1 cm. Electronically signed by: Nick Muhammad M.D. 05/31/2017 7:17 AM Dictated Date/Time: 05/31/2017 7:14 AM
[2017-05-31 07:27] VITALS: BP 181/93; PULSE 70; TEMP 36.9; O2SAT 95
[2017-05-31 07:41] LABS: HEMATOCRIT 31.3 % (37-47); HEMOGLOBIN 10.5 g/dL (12.0-16.0); MEAN CELL VOLUME 90.7 fL (80-100); MEAN CORPUSCULAR HEMOGLOBIN 30.4 pg (25-34); MEAN CORPUSCULAR HGB CONC 33.5 g/dl (32-36); MEAN PLATELET VOLUME 8.8 fL (7.4-10.4); PLATELET COUNT 209 K/uL (130-400); RED CELL DISTRIBUTION WIDTH CV 12.3 % (11.5-14.5); RED CELL DISTRIBUTION WIDTH SD 41.2 fL (36.4-46.3); WHITE BLOOD COUNT 5.59 K/uL (4.8-10.8)
[2017-05-31] MEDS: MoRPHine SULFATE 2 MG/ML CARP IV PRN ×2 (07:51→15:21)
[2017-05-31 08:13] LABS: CALCIUM 8.4 mg/dl (8.5-10.1); CREATININE 0.69 mg/dl (0.60-1.20); POTASSIUM 3.2 mmol/L (3.5-5.1)
[2017-05-31] MEDS ORDERED: AMLODIPINE BESYLATE 5 MG TAB PO ONE (08:30)
[2017-05-31] MEDS ORDERED: FENTANYL PATCH REMOVE & WASTE SCH (08:59)
[2017-05-31] MEDS ORDERED: FENTANYL 12 MCG/HR TDSY TD SCH (09:00)
--- NOTE | 2017-05-31 09:12 | Progress Note ---
Subjective Date of Service: May 31, 2017. (Latoya Engle CRNP) Subjective Pt evaluation today including: conversation w/ patient, chart review, lab review Voiding: reaves catheter in place (patent, draining dark betancourt colored urine. ) 87 yo female s/p right ureteral stent placement. Persistent RUQ abdominal pain yesterday. Abdominal u/s showing improved right hydro with possible cholecystitis. Gen surg has been consult. Pt denies any abdominal pain this morning. She c/o BLE pain. Denies n/v. She reports she has not been able to sleep well while here with so many ppl coming in to check on her. UC&S growing e coli resistant to fluoroquinolones and Bactrim. (Latoya Engle CRNP) Pt evaluation today including: lab review, conversation w/ [employer] consultant (Phoenix Holder M.D.) Problem List Medical Problems: (1) Bladder rupture Status: Acute (2) CKD (chronic kidney disease) Status: Acute (3) Hematuria Status: Acute (Latoya Engle CRNP) Review of Systems Constitutional: No fever, No chills Respiratory: No shortness of breath Cardiac: No chest pain Abdomen: No pain, No nausea, No vomiting Female : + hematuria Heme: No abnormal bleeding/bruising (Latoya Engle CRNP) Objective Vital Signs Date Time Temp Pulse Resp B/P (MAP) Pulse Ox O2 Delivery O2 Flow Rate FiO2 05/31/17 07:27 36.9 70 16 181/93 (122) 95 Room Air 05/30/17 23:45 Room Air 05/30/17 22:55 37.1 68 18 164/83 (110) 92 Room Air 05/30/17 16:00 Room Air 05/30/17 15:00 36.9 90 16 131/85 (100) 94 Room Air 05/30/17 11:15 36.9 70 16 154/76 (102) 95 Room Air (Latoya Engle CRNP) Physical Exam General Appearance: no apparent distress Eyes: normal inspection ENT: hearing grossly normal Neck: no JVD Respiratory/Chest: no respiratory distress, no accessory muscle use Cardiovascular: no JVD Extremities: normal inspection Neurologic/Psychiatric: alert, normal mood/affect, oriented x 3 Skin: normal color (Latoya Engle CRNP) Laboratory Results Last 24 Hours Test 05/30/17 12:30 05/31/17 07:19 Stool Occult Blood NEGATIVE White Blood Count 5.59 K/uL Red Blood Count 3.45 M/uL Hemoglobin 10.5 g/dL Hematocrit 31.3 % Mean Corpuscular Volume 90.7 fL Mean Corpuscular Hemoglobin 30.4 pg Mean Corpuscular Hemoglobin Concent 33.5 g/dl RDW Standard Deviation 41.2 fL RDW Coefficient of Variation 12.3 % Platelet Count 209 K/uL Mean Platelet Volume 8.8 fL Sodium Level 139 mmol/L Potassium Level 3.2 mmol/L Chloride Level 106 mmol/L Carbon Dioxide Level 24 mmol/L Anion Gap 9.0 mmol/L Blood Urea Nitrogen 9 mg/dl Creatinine 0.69 mg/dl Est Creatinine Clear Calc Drug Dose 47.5 ml/min Estimated GFR () 90.7 Estimated GFR (Non- 78.3 BUN/Creatinine Ratio 13.2 Random Glucose 103 mg/dl Calcium Level 8.4 mg/dl Magnesium Level 1.7 mg/dl (Latoya Engle CRNP) cytology negative from renal pelvis (Phoenix Holder M.D.) Assessment and Plan A/P: Right hydronephrosis, UTI, gross hematuria AFVSS. Gross hematuria not uncommon after stent placement and in the setting of UTI. Recommend stopping ASA while actively bleeding if able. Will have nursing hand irrigated reaves catheter qshift. Recommend 14 days of abx therapy for UTI. Consider ID consult given the mult- drug resistant e coli. Will leave reaves catheter in place for now. Resume CIC prior to d/c home. I am concerned that if she goes home with the reaves catheter and develops Sun [place] at night that she may try to pull it out. [place] improved on abd u/s. Consider cholecystitis as source if she continues to have RUQ pain. Will plan for outpatient f/u with Dr. Holder in 2 weeks. Will continue to follow along with primary service. (Latoya Engle CRNP) agree wit plan will order bladder cytology (Phoenix Holder M.D.)
[2017-05-31] MEDS: CHECK FENTANYL PATCH PLACEMENT SCH ×3 (09:36→15:23)
[2017-05-31 09:39] VITALS: BP 154/87
[2017-05-31] MEDS: MAGNESIUM OXIDE 400 MG TAB PO SCH ×2 (09:39→20:57)
[2017-05-31] MEDS: CEPHALEXIN MONOHYDRATE 500 MG CAP PO SCH ×4 (09:40→20:56)
[2017-05-31] MEDS: CHOLECALCIFEROL 1000 INTER.UNIT TAB PO SCH (09:41)
[2017-05-31] MEDS: SENNA 8.6 MG TAB PO SCH (09:41)
[2017-05-31] MEDS: VALSARTAN 80 MG TAB PO SCH ×2 (09:42→20:58)
[2017-05-31] MEDS: DULOXETINE (CYMBALTA) 30 MG CAP PO SCH (09:42)
[2017-05-31] MEDS: DOCUSATE SODIUM 100 MG CAP PO SCH ×2 (09:42→20:57)
[2017-05-31] MEDS: CALCIUM CARBONATE 1250MG TAB PO SCH ×2 (09:43→20:57)
[2017-05-31] MEDS: CEROVITE ADV FORMULA TAB PO SCH (09:43)
--- NOTE | 2017-05-31 09:43 | Surgery Progress Note ---
Surgery Progress Note Date of Service May 31, 2017. Subjective Post OP Day: 2 (s/p right ureteral stent placement) sleeping on encounter States the pain in abdomen is the same as yesterday. Worse when taking deep breath. States dinner went well without any nausea or vomiting Still complaining of BLE pain and joint stiffness (states she always has this) Objective Vital Signs: Date Time Temp Pulse Resp B/P (MAP) Pulse Ox O2 Delivery O2 Flow Rate FiO2 05/31/17 07:27 36.9 70 16 181/93 (122) 95 Room Air 05/30/17 23:45 Room Air 05/30/17 22:55 37.1 68 18 164/83 (110) 92 Room Air 05/30/17 16:00 Room Air 05/30/17 15:00 36.9 90 16 131/85 (100) 94 Room Air 05/30/17 11:15 36.9 70 16 154/76 (102) 95 Room Air General Appearance: WD/WN, no apparent distress Head: normocephalic, atraumatic Neck: trachea midline Respiratory/Chest: no respiratory distress, no accessory muscle use Abdomen: non distended, soft, no organomegaly, no pulsatile mass, + tenderness (RUQ on deep palpation, slight volunatry guarding.) Laboratory Results: Results Past 24 Hours Test 05/30/17 12:30 05/31/17 07:19 Range/Units Stool Occult Blood NEGATIVE NEGATIVE White Blood Count 5.59 4.8-10.8 K/uL Red Blood Count 3.45 4.2-5.4 M/uL Hemoglobin 10.5 12.0-16.0 g/dL Hematocrit 31.3 37-47 % Mean Corpuscular Volume 90.7 80-100 fL Mean Corpuscular Hemoglobin 30.4 25-34 pg Mean Corpuscular Hemoglobin Concent 33.5 32-36 g/dl RDW Standard Deviation 41.2 36.4-46.3 fL RDW Coefficient of Variation 12.3 11.5-14.5 % Platelet Count 209 130-400 K/uL Mean Platelet Volume 8.8 7.4-10.4 fL Sodium Level 139 136-145 mmol/L Potassium Level 3.2 3.5-5.1 mmol/L Chloride Level 106 98-107 mmol/L Carbon Dioxide Level 24 21-32 mmol/L Anion Gap 9.0 3-11 mmol/L Blood Urea Nitrogen 9 7-18 mg/dl Creatinine 0.69 0.60-1.20 mg/dl Est Creatinine Clear Calc Drug Dose 47.5 ml/min Estimated GFR () 90.7 Estimated GFR (Non- 78.3 BUN/Creatinine Ratio 13.2 10-20 Random Glucose 103 70-99 mg/dl Calcium Level 8.4 8.5-10.1 mg/dl Magnesium Level 1.7 1.8-2.4 mg/dl Assessment & Plan 87 year-old female who presented to emergency department on 05/28/2017 with Right sided abdominal pain and decreased appetite who was found to have UTI with significant right hydronephrosis. She had right ureteral stent placement on 05/29/2017. She is now complaining of RUQ abdominal pain, worse with deep breath. Per daughter she states she does have to take Zofran frequently after eating due to nausea. Labs show no leukocytosis. First abdominal CT scan showed gallbladder distention. US showed no gallstones, distended gallbladder and slightly thickened wall for amount of distention. CBD 1.1 cm. Plan: Will plan for HIDA scan to rule out acute cholecystitis/biliary obstruction Will add LFTS to this am labs Continue current pain management as needed Continue regular diet, however will add low fat Continue current medical management Continue current urology management Dr. Barrett has seen patient and agrees with above.
[2017-05-31] MEDS: FENTANYL PATCH REMOVE & WASTE SCH (10:10)
[2017-05-31] MEDS ORDERED: POTASSIUM CHLORIDE 20 MEQ TABCR PO ONE (10:15)
[2017-05-31] MEDS ORDERED: MAGNESIUM SULFATE 1GM / D5W 1 GM in PREMIXED IN D5W 100 ML IV ONE (10:15)
[2017-05-31 10:20] LABS: ALBUMIN 2.6 gm/dl (3.4-5.0); ALKALINE PHOSPHATASE 50 U/L (45-117); ALT/SGPT 11 U/L (12-78); AST/SGOT 21 U/L (15-37); TOTAL PROTEIN 6.4 gm/dl (6.4-8.2)
--- NOTE | 2017-05-31 11:42 | Hospitalist Progress Note ---
Hospitalist Progress Note Date of Service May 31, 2017. Subjective Pt evaluation today including: conversation w/ patient, conversation w/ family (daughter at bedside), physical exam, chart review, lab review, review of studies, conversation w/ business sales consultant (spoke with Dr. Barrett at bedside), review of inpatient medication list Pain: 8/10 right flank pain w/movement PO Intake: NPO for HIDA Voiding: reaves catheter in place Patient reports feeling about the same. She states that her right flank pain is not bad at rest, but she still has about 8/10 pain there with movement, deep breathing and coughing. She still reports a poor appetite. Per her daughter, she did have 2 small bowel movements last night. Reaves catheter in place with hematuria. Bilateral calf pain remains unchanged, only occurs with lifting her legs. The patient denies fevers, chills, sweats, chest pain, palpitations, claudication, cough, wheezing, shortness of breath, nausea, vomiting, dysuria, urinary retention, paralysis, weakness, numbness and tingling. Additional Comments: See HPI for pertinent positives and negatives. All other systems reviewed and negative. Objective Vital Signs Date Time Temp Pulse Resp B/P (MAP) Pulse Ox O2 Delivery O2 Flow Rate FiO2 05/31/17 09:39 154/87 (109) 05/31/17 07:35 Room Air 05/31/17 07:27 36.9 70 16 181/93 (122) 95 Room Air 05/30/17 23:45 Room Air 05/30/17 22:55 37.1 68 18 164/83 (110) 92 Room Air 05/30/17 16:00 Room Air 05/30/17 15:00 36.9 90 16 131/85 (100) 94 Room Air Physical Exam Notes: General appearance: Well-developed, well-nourished, no apparent distress Head: Normocephalic, atraumatic Eyes: Normal inspection, PERRL, EOMI ENT: Normal ENT inspection, hearing grossly normal, pharynx normal Neck: Supple, no JVD, trachea midline Respiratory/Chest: +Decreased breath sounds. Lungs clear to auscultation, no respiratory distress Cardiovascular: +Systolic murmur. Regular rate & rhythm, no gallop Abdomen/GI: +Right abdomen TTP, RLQ > RUQ. Right flank TTP. Normal bowel sounds, soft Extremities/Musculoskeletal: Normal inspection, no calf tenderness, no pedal edema Neurological/Psych: +Confused, forgetful but oriented. Alert, normal mood/ affect, oriented x 3 Skin: Normal color, warm/dry, no rash Laboratory Results Last 24 Hours Test 05/30/17 12:30 05/31/17 07:19 Stool Occult Blood NEGATIVE White Blood Count 5.59 K/uL Red Blood Count 3.45 M/uL Hemoglobin 10.5 g/dL Hematocrit 31.3 % Mean Corpuscular Volume 90.7 fL Mean Corpuscular Hemoglobin 30.4 pg Mean Corpuscular Hemoglobin Concent 33.5 g/dl RDW Standard Deviation 41.2 fL RDW Coefficient of Variation 12.3 % Platelet Count 209 K/uL Mean Platelet Volume 8.8 fL Sodium Level 139 mmol/L Potassium Level 3.2 mmol/L Chloride Level 106 mmol/L Carbon Dioxide Level 24 mmol/L Anion Gap 9.0 mmol/L Blood Urea Nitrogen 9 mg/dl Creatinine 0.69 mg/dl Est Creatinine Clear Calc Drug Dose 47.5 ml/min Estimated GFR () 90.7 Estimated GFR (Non- 78.3 BUN/Creatinine Ratio 13.2 Random Glucose 103 mg/dl Calcium Level 8.4 mg/dl Magnesium Level 1.7 mg/dl Total Bilirubin 0.3 mg/dl Direct Bilirubin < 0.1 mg/dl Aspartate Amino Transf (AST/SGOT) 21 U/L Alanine Aminotransferase (ALT/SGPT) 11 U/L Alkaline Phosphatase 50 U/L Total Protein 6.4 gm/dl Albumin 2.6 gm/dl Diagnostic Results Reviewed the following studies and agree with interpretation as follows: BILATERAL LOWER EXTREMITY VENOUS DOPPLER HISTORY: Acute bilateral calf pain alida calf pain to rule out dvt COMPARISON STUDY: None. FINDINGS: There is normal compressibility, flow, and augmentation within the bilateral lower extremity deep venous systems. Right-sided Allen's cyst is noted, 3.8 x 1.5 x 0.7 cm. IMPRESSION: No sonographic evidence of deep venous thrombosis within the right or left lower extremity. ABDOMINAL ULTRASOUND, RIGHT UPPER QUADRANT HISTORY: Right upper quadrant abdominal pain.. COMPARISON: Abdomen and pelvis CT 05/28/2017. FINDINGS: Pancreas: The pancreas demonstrates a normal echotexture. Liver: Unremarkable. Gallbladder: The gallbladder is distended. No gallstones. The gallbladder wall appears slightly thickened for the degree of distention. CBD: 1.1 cm. Right kidney: Mild right hydronephrosis which has improved. A right ureteral stent is in good position. IMPRESSION: 1. The gallbladder is distended. There are no gallstones. The gallbladder wall is slightly thickened for the degree of distention. Clinical correlation recommended to exclude the possibility of acute cholecystitis. 2. Mild right hydronephrosis which has improved. A right ureteral stent is in good position. 3. Distended common bile duct for age measuring 1.1 cm. Assessment and Plan 87 y/o female with a history of HTN, depression, GERD, neurogenic bladder, and chronic pain who presents with RLQ and right flank pain. Right hydronephrosis, h/o neurogenic bladder w/chronic CIC at home--pain ongoing , hydro improving - Admit to med/surg - Urology consulted, appreciate recs: Recommend stopping aspiring while actively bleeding. Continue on PO abx x 14 days. Keep Reaves for now, resume CIC prior to discharge. F/u with Dr. Holder in 2 weeks. Irrigate Reaves q shift. - Cystoscopy revealed swollen right ureteral orifice, possible right UPJ obstruction and significant right hydronephrosis. Right ureteral stent placed. - UCx positive for E. coli, sensitive to cephs - PO Keflex day #2/14 - Morphine 2 mg IV q6h prn breakthrough pain, continue home fentanyl patch 12 mcg TD q72h Right abdominal/flank pain--secondary to issues above vs gallbladder -Abdominal ultrasound shows distended gallbladder with wall thickening. No stones. Possible acute cholecystitis. CBD distended at 1.1 cm. Right hydronephrosis improved. -General surgery, appreciate recs: Check HIDA can and LFTs. After scan can start low fat diet. -NPO for HIDA Hematuria secondary to recent cysto--improving -Hold aspirin for now B/l calf pain -Doppler u/s negative for DVT bilaterally Diarrhea--improving - C diff negative HTN--stable - Start Norvasc 5 mg PO qd - Continue valsartan 160 mg PO BID Depression -Continue Cymbalta 30 mg PO qd and Remeron 15 mg PO hs GERD - Continue pantoprazole DVT prophylaxis -Hold chemical prophylaxis due to hematuria -SCDs Code Status -Level V, DO NOT RESUSCITATE Dispo -Lives with daughter -PT recommends return home if she can meet their goals, awaiting OT eval
[2017-05-31] MEDS: SODIUM CHLORIDE 0.9% 1000ML 1,000 ML IV SCH (12:00)
[2017-05-31] MEDS ORDERED: NURSING DECISION MEDICATION ORDER SCH (12:30)
[2017-05-31] MEDS: PANTOprazole SOD 40 MG TAB PO SCH (14:10)
--- NOTE | 2017-05-31 15:21 | DIAGNOSTIC IMAGING REPORT ---
NUCLEAR MEDICINE HEPATOBILIARY SCAN CLINICAL HISTORY: Right upper quadrant pain. COMPARISON: Right upper quadrant ultrasound May 31, [address] of the abdomen and pelvis May 28, 2017. TECHNIQUE: 5.4 mCi of technetium 99m Choletec IV was injected at 2:15 PM on May 31, 2017. Immediately following injection, imaging of the abdomen was carried out for 60 minutes in the anterior projection. FINDINGS: Hepatic uptake of radiotracer is prompt and homogeneous. Activity is identified within the gallbladder and common bile duct at 10 minutes. Small bowel activity is first noted at 20 minutes. IMPRESSION: No evidence of acute cholecystitis. Electronically signed by: Juan Byrd M.D. 05/31/2017 3:19 PM Dictated Date/Time: 05/31/2017 3:17 PM
[2017-05-31] MEDS: FENTANYL 12 MCG/HR TDSY TD SCH (15:22)
[2017-05-31 15:38] VITALS: BP 164/90; PULSE 78; TEMP 36.7; O2SAT 96
[2017-05-31] MEDS: MIRTAZAPINE TAB 15 MG TAB PO SCH (20:57)
[2017-05-31 23:07] VITALS: BP 170/97; PULSE 81; TEMP 37.5; O2SAT 93
[2017-06-01] MEDS: CHECK FENTANYL PATCH PLACEMENT SCH ×3 (00:28→16:19)
[2017-06-01] MEDS: MoRPHine SULFATE 2 MG/ML CARP IV PRN ×2 (00:34→17:51)
[2017-06-01] MEDS: ACETAMINOPHEN 325 MG TAB PO PRN ×2 (00:35→16:21)
[2017-06-01] MEDS: SODIUM CHLORIDE 0.9% 1000ML 1,000 ML IV SCH ×2 (02:35→14:06)
[2017-06-01 07:55] VITALS: BP 171/79; PULSE 64; TEMP 36.8; O2SAT 95
[2017-06-01 08:08] LABS: HEMATOCRIT 31.1 % (37-47); HEMOGLOBIN 10.4 g/dL (12.0-16.0); MEAN CELL VOLUME 91.5 fL (80-100); MEAN CORPUSCULAR HEMOGLOBIN 30.6 pg (25-34); MEAN CORPUSCULAR HGB CONC 33.4 g/dl (32-36); MEAN PLATELET VOLUME 8.6 fL (7.4-10.4); PLATELET COUNT 203 K/uL (130-400); RED CELL DISTRIBUTION WIDTH CV 12.5 % (11.5-14.5); RED CELL DISTRIBUTION WIDTH SD 42.1 fL (36.4-46.3); WHITE BLOOD COUNT 6.01 K/uL (4.8-10.8)
--- NOTE | 2017-06-01 08:28 | Progress Note ---
Subjective Date of Service: Jun 01, 2017. (Latoya Engle CRNP) Subjective Pt evaluation today including: conversation w/ patient, chart review, lab review Voiding: reaves catheter in place (patent, draining light betancourt colored urine ) 87 yo female s/p right ureteral stent placement. Pt denies any abdominal or back pain this morning. Denies n/v. HIDA scan negative for acute cholecystitis. She is currently on Keflex for UTI. Reaves draining light bet[place] colored urine this morning. She continues to c/o bilateral calf pain. No swelling visualized. (Latoya Engle CRNP) Problem List Medical Problems: (1) Bladder rupture Status: Acute (2) CKD (chronic kidney disease) Status: Acute (3) Hematuria Status: Acute (Latoya Engle CRNP) Review of Systems Constitutional: No fever, No chills Respiratory: No shortness of breath Cardiac: No chest pain Abdomen: No pain, No nausea, No vomiting Female : + hematuria Heme: No abnormal bleeding/bruising (Latoya Engle CRNP) Objective Vital Signs Date Time Temp Pulse Resp B/P (MAP) Pulse Ox O2 Delivery O2 Flow Rate FiO2 06/01/17 07:55 36.8 64 16 171/79 (109) 95 Room Air 05/31/17 23:45 Room Air 05/31/17 23:07 37.5 81 18 170/97 (121) 93 Room Air 05/31/17 15:38 36.7 78 17 164/90 (114) 96 Room Air 05/31/17 15:20 Room Air 05/31/17 09:39 154/87 (109) (Latoya Engle CRNP) Physical Exam General Appearance: no apparent distress Eyes: normal inspection ENT: hearing grossly normal Neck: no JVD Respiratory/Chest: no respiratory distress, no accessory muscle use Cardiovascular: no JVD Extremities: normal inspection Neurologic/Psychiatric: alert, normal mood/affect, oriented x 3 Skin: normal color (Latoya Engle CRNP) Comments: last cytology with atypia no high grade cancer (Phoenix Holder M.D.) Laboratory Results Last 24 Hours Test 06/01/17 07:57 White Blood Count 6.01 K/uL Red Blood Count 3.40 M/uL Hemoglobin 10.4 g/dL Hematocrit 31.1 % Mean Corpuscular Volume 91.5 fL Mean Corpuscular Hemoglobin 30.6 pg Mean Corpuscular Hemoglobin Concent 33.4 g/dl RDW Standard Deviation 42.1 fL RDW Coefficient of Variation 12.5 % Platelet Count 203 K/uL Mean Platelet Volume 8.6 fL (Latoya Engle, DANIEL) Assessment and Plan A/P: Right hydronephrosis, UTI, gross hematuria AFVSS. Gross hematuria not uncommon after stent placement and in the setting of UTI; improving. Continue to hold ASA while actively bleeding if able. Continue hand irrigation of reaves catheter qshift and PRN. Recommend 14 days of Keflex for UTI. Will leave reaves catheter in place for now. I am concerned that if she goes home with the reaves catheter and develops Sun [place] at night that she may try to pull it out, but she seems to be doing well while in the hospital. Resume CIC vs go home with reaves catheter? [place] improved on abd u/s. RUQ pain improved. Will plan for outpatient f/u with Dr. Holder in 2 weeks. Pt OK for d/c home from [facility] when OK with primary service. (Latoya Engle, DANIEL) pt should have reaves removed if she is back to baseline and can ambulate otherwise leave in unfortunately she may be susceptible to get pyelonephritis from communication with bladder would start methenamine i1 po bid after antibiotics done No clear etiology for ureteral obstruction , cannot r/o cancer but pt not a good candidate for further evaluation w turbt at this time (Phoenix Holder M.D.)
[2017-06-01 08:43] LABS: CALCIUM 8.4 mg/dl (8.5-10.1); CREATININE 0.65 mg/dl (0.60-1.20); POTASSIUM 4.1 mmol/L (3.5-5.1)
[2017-06-01 09:13] VITALS: O2SAT 95
[2017-06-01] MEDS: DOCUSATE SODIUM 100 MG CAP PO SCH ×2 (09:25→20:52)
[2017-06-01] MEDS: CEROVITE ADV FORMULA TAB PO SCH (09:25)
[2017-06-01] MEDS: PANTOprazole SOD 40 MG TAB PO SCH (09:26)
[2017-06-01] MEDS: VALSARTAN 80 MG TAB PO SCH ×2 (09:26→20:53)
[2017-06-01] MEDS: CALCIUM CARBONATE 1250MG TAB PO SCH ×2 (09:26→20:54)
[2017-06-01] MEDS: SENNA 8.6 MG TAB PO SCH (09:26)
[2017-06-01] MEDS: CHOLECALCIFEROL 1000 INTER.UNIT TAB PO SCH (09:26)
[2017-06-01] MEDS: DULOXETINE (CYMBALTA) 30 MG CAP PO SCH (09:27)
[2017-06-01] MEDS: CEPHALEXIN MONOHYDRATE 500 MG CAP PO SCH ×4 (09:27→20:52)
[2017-06-01] MEDS: AMLODIPINE BESYLATE 5 MG TAB PO SCH (09:27)
[2017-06-01] MEDS: MAGNESIUM OXIDE 400 MG TAB PO SCH ×2 (09:28→20:54)
--- NOTE | 2017-06-01 10:03 | Surgery Progress Note ---
Surgery Progress Note Date of Service Jun 01, 2017. Subjective Post OP Day: HD # 3 patient sleeping on encounter Denies of any abdominal pain Pain in the legs still present Objective Vital Signs: Date Time Temp Pulse Resp B/P (MAP) Pulse Ox O2 Delivery O2 Flow Rate FiO2 06/01/17 09:13 95 Room Air 06/01/17 07:55 36.8 64 16 171/79 (109) 95 Room Air 05/31/17 23:45 Room Air 05/31/17 23:07 37.5 81 18 170/97 (121) 93 Room Air 05/31/17 15:38 36.7 78 17 164/90 (114) 96 Room Air 05/31/17 15:20 Room Air General Appearance: WD/WN, no apparent distress Neck: trachea midline Respiratory/Chest: no respiratory distress, no accessory muscle use Abdomen: normal bowel sounds, non tender, non distended, soft, no organomegaly Laboratory Results: Results Past 24 Hours Test 06/01/17 07:57 Range/Units White Blood Count 6.01 4.8-10.8 K/uL Red Blood Count 3.40 4.2-5.4 M/uL Hemoglobin 10.4 12.0-16.0 g/dL Hematocrit 31.1 37-47 % Mean Corpuscular Volume 91.5 80-100 fL Mean Corpuscular Hemoglobin 30.6 25-34 pg Mean Corpuscular Hemoglobin Concent 33.4 32-36 g/dl RDW Standard Deviation 42.1 36.4-46.3 fL RDW Coefficient of Variation 12.5 11.5-14.5 % Platelet Count 203 130-400 K/uL Mean Platelet Volume 8.6 7.4-10.4 fL Sodium Level 137 136-145 mmol/L Potassium Level 4.1 3.5-5.1 mmol/L Chloride Level 106 98-107 mmol/L Carbon Dioxide Level 24 21-32 mmol/L Anion Gap 7.0 3-11 mmol/L Blood Urea Nitrogen 7 7-18 mg/dl Creatinine 0.65 0.60-1.20 mg/dl Est Creatinine Clear Calc Drug Dose 50.4 ml/min Estimated GFR () 92.5 Estimated GFR (Non- 79.8 BUN/Creatinine Ratio 11.3 10-20 Random Glucose 104 70-99 mg/dl Calcium Level 8.4 8.5-10.1 mg/dl Magnesium Level 1.9 1.8-2.4 mg/dl Assessment & Plan 87 year-old female who presented to emergency department on 05/28/2017 with Right sided abdominal pain and decreased appetite who was found to have UTI with significant right hydronephrosis. She had right ureteral stent placement on 05/29/2017. Labs show no leukocytosis. First abdominal CT scan showed gallbladder distention. US showed no gallstones, distended gallbladder and slightly thickened wall for amount of distention. CBD 1.1 cm. HIDA scan showed no evidence of acute cholecystitis, Abdominal examination benign today. No further abdominal pain. Plan: No surgical intervention required, abdominal pain resolved. HIDA scan showing no signs of acute cholecystitis or obstruction Continue current pain management as needed Continue regular low fat diet Continue current medical management Continue current urology management Our services signing off, thank you for consultation and involving us in the care of this patient Dr. Barrett has seen patient and agrees with above.
[2017-06-01 11:46] VITALS: BP 164/77; PULSE 73; TEMP 37; O2SAT 93
--- NOTE | 2017-06-01 11:57 | Hospitalist Progress Note ---
Hospitalist Progress Note Date of Service Jun 01, 2017. Subjective Pt evaluation today including: conversation w/ patient, conversation w/ family (daughter at bedside), physical exam, chart review, lab review, review of studies, review of inpatient medication list Pain: Pain in right heel, calves PO Intake: Poor appetite, not eating per daughter Voiding: reaves catheter in place Patient lethargic on my examination. She denies any abdominal, flank or back pain currently while resting in bed, although she does state that she still has right flank/back pain with movement. She is currently more concerned about pain in her right heel and her calves. Per her daughter, the patient had a lot of difficulty standing to get into the wheelchair for her HIDA scan yesterday. The daughter states that the patient did not eat any of her dinner last night and that the patient became delirious last night. Reaves in place with orange urine. The patient denies fevers, chills, sweats, chest pain, palpitations, claudication, cough, wheezing, shortness of breath, nausea, vomiting, abdominal pain, dysuria, hematuria, urinary retention, paralysis, weakness, numbness and tingling. Additional Comments: See HPI for pertinent positives and negatives. All other systems reviewed and negative. Objective Vital Signs Date Time Temp Pulse Resp B/P (MAP) Pulse Ox O2 Delivery O2 Flow Rate FiO2 06/01/17 09:13 95 Room Air 06/01/17 07:55 36.8 64 16 171/79 (109) 95 Room Air 06/01/17 07:15 Room Air 05/31/17 23:45 Room Air 05/31/17 23:07 37.5 81 18 170/97 (121) 93 Room Air 05/31/17 15:38 36.7 78 17 164/90 (114) 96 Room Air 05/31/17 15:20 Room Air Physical Exam Notes: General appearance: Well-developed, well-nourished, no apparent distress Head: Normocephalic, atraumatic Eyes: Normal inspection, PERRL, EOMI ENT: Normal ENT inspection, hearing grossly normal, pharynx normal Neck: Supple, no JVD, trachea midline Respiratory/Chest: +Decreased breath sounds. Lungs clear to auscultation, no respiratory distress Cardiovascular: +Systolic murmur. Regular rate & rhythm, no gallop Abdomen/GI: Normal bowel sounds, non-tender, soft Extremities/Musculoskeletal: Normal inspection, no calf tenderness, no pedal edema Neurological/Psych: +Lethargic but easily roused. Still oriented. Normal mood /affect, oriented x 3 Skin: Normal color, warm/dry, no rash Laboratory Results Last 24 Hours Test 06/01/17 07:57 White Blood Count 6.01 K/uL Red Blood Count 3.40 M/uL Hemoglobin 10.4 g/dL Hematocrit 31.1 % Mean Corpuscular Volume 91.5 fL Mean Corpuscular Hemoglobin 30.6 pg Mean Corpuscular Hemoglobin Concent 33.4 g/dl RDW Standard Deviation 42.1 fL RDW Coefficient of Variation 12.5 % Platelet Count 203 K/uL Mean Platelet Volume 8.6 fL Sodium Level 137 mmol/L Potassium Level 4.1 mmol/L Chloride Level 106 mmol/L Carbon Dioxide Level 24 mmol/L Anion Gap 7.0 mmol/L Blood Urea Nitrogen 7 mg/dl Creatinine 0.65 mg/dl Est Creatinine Clear Calc Drug Dose 50.4 ml/min Estimated GFR () 92.5 Estimated GFR (Non- 79.8 BUN/Creatinine Ratio 11.3 Random Glucose 104 mg/dl Calcium Level 8.4 mg/dl Magnesium Level 1.9 mg/dl Diagnostic Results Reviewed the following studies and agree with interpretation as follows: NUCLEAR MEDICINE HEPATOBILIARY SCAN CLINICAL HISTORY: Right upper quadrant pain. COMPARISON: Right upper quadrant ultrasound May 31, [address] of the abdomen and pelvis May 28, 2017. TECHNIQUE: 5.4 mCi of technetium 99m Choletec IV was injected at 2:15 PM on May 31, 2017. Immediately following injection, imaging of the abdomen was carried out for 60 minutes in the anterior projection. FINDINGS: Hepatic uptake of radiotracer is prompt and homogeneous. Activity is identified within the gallbladder and common bile duct at 10 minutes. Small bowel activity is first noted at 20 minutes. IMPRESSION: No evidence of acute cholecystitis. Assessment and Plan 87 y/o female with a history of HTN, depression, GERD, neurogenic bladder, and chronic pain who presents with RLQ and right flank pain. Right hydronephrosis, h/o neurogenic bladder w/chronic CIC at home--improving - Admit to med/surg - Urology consulted, appreciate recs: Recommend stopping aspiring while actively bleeding. Continue on PO abx x 14 days. Could discharge on Reaves if not sundowning or resume home CIC prior to discharge. F/u with Dr. Holder in 2 weeks. Irrigate Reaves q shift. Urology will sign off, stable from [facility]. - Cystoscopy revealed swollen right ureteral orifice, possible right UPJ obstruction and significant right hydronephrosis. Right ureteral stent placed. - UCx positive for E. coli, sensitive to cephs - PO Keflex day #3/14 - Morphine 2 mg IV q6h prn breakthrough pain, continue home fentanyl patch 12 mcg TD q72h Right abdominal/flank pain--secondary to issues above vs gallbladder -Abdominal ultrasound shows distended gallbladder with wall thickening. No stones. Possible acute cholecystitis. CBD distended at 1.1 cm. Right hydronephrosis improved. -General surgery, appreciate recs: No surgical intervention needed at this time , surgery will sign off. -HIDA scan negative Lethargy/AMS--delirium last night -Check ABG, B12, folate, ammonia -Continue to monitor. Not currently delirious, just lethargic. Oriented x 3 Hematuria secondary to recent cysto--resolving -Hold aspirin for now B/l calf pain -Doppler u/s negative for DVT bilaterally Diarrhea--improving - C diff negative HTN--stable - Start Norvasc 5 mg PO qd - Continue valsartan 160 mg PO BID Depression -Continue Cymbalta 30 mg PO qd and Remeron 15 mg PO hs GERD - Continue pantoprazole DVT prophylaxis -Hold chemical prophylaxis due to hematuria -SCDs Code Status -Level V, DO NOT RESUSCITATE Dispo -Lives with daughter -PT recommends return home if she can meet their goals. Awaiting OT eval. Daughter states pt had difficulty standing, will likely need rehab
--- NOTE | 2017-06-01 14:17 | DIAGNOSTIC IMAGING REPORT ---
R ANKLE MIN 3 VIEWS ROUTINE CLINICAL HISTORY: Right ankle pain and redness. COMPARISON: None. DISCUSSION: The bones are mildly osteopenic. There are moderately extensive vascular calcifications present. No acute fractures are visualized. There are tiny calcaneal spurs. No bony destructive lesions are evident. IMPRESSION: 1. No acute fractures 2. No destructive lesions are visualized on conventional radiographic imaging 3. Extensive vascular calcification Electronically signed by: Shahbaz Le M.D. 06/01/2017 2:16 PM Dictated Date/Time: 06/01/2017 2:15 PM
[2017-06-01 15:00] VITALS: BP 158/84; PULSE 78; TEMP 36.8; O2SAT 96
[2017-06-01] MEDS: DICLOFENAC SOD 1% GEL 100 GM TUBE EXT SCH (20:51)
[2017-06-01] MEDS: MEGESTROL ACETATE SUSP 400 MG/10 ML UDC PO SCH (20:53)
[2017-06-01] MEDS: MIRTAZAPINE TAB 15 MG TAB PO SCH (20:54)
[2017-06-01 23:12] VITALS: BP 157/76; PULSE 71; TEMP 36.9; O2SAT 94
[2017-06-02] MEDS: SODIUM CHLORIDE 0.9% 1000ML 1,000 ML IV SCH (02:11)
[2017-06-02 06:48] LABS: HEMATOCRIT 32.1 % (37-47); HEMOGLOBIN 10.6 g/dL (12.0-16.0); MEAN CELL VOLUME 91.7 fL (80-100); MEAN CORPUSCULAR HEMOGLOBIN 30.3 pg (25-34); MEAN PLATELET VOLUME 8.9 fL (7.4-10.4); PLATELET COUNT 228 K/uL (130-400); RED CELL DISTRIBUTION WIDTH CV 12.3 % (11.5-14.5); RED CELL DISTRIBUTION WIDTH SD 41.7 fL (36.4-46.3); WHITE BLOOD COUNT 6.72 K/uL (4.8-10.8)
[2017-06-02 06:59] VITALS: BP 167/74; PULSE 71; TEMP 36.7; O2SAT 94
[2017-06-02 07:15] LABS: CALCIUM 8.2 mg/dl (8.5-10.1); CREATININE 0.61 mg/dl (0.60-1.20)
[2017-06-02] MEDS: CHECK FENTANYL PATCH PLACEMENT SCH ×3 (07:36→16:28)
--- NOTE | 2017-06-02 08:25 | Progress Note ---
Subjective Date of Service: Jun 02, 2017. (Latoya Engle CRNP) Subjective Pt evaluation today including: conversation w/ patient, chart review, lab review Voiding: reaves catheter in place (patent, draining clear, yellow urine) Pt sleeping and not disturbed this morning as the past few days she has been upset when disturbed while sleeping. Pt awaiting rehab placement. (Latoya Engle CRNP) Problem List Medical Problems: (1) Bladder rupture Status: Acute (2) CKD (chronic kidney disease) Status: Acute (3) Hematuria Status: Acute (Latoya Engle CRNP) Review of Systems Pt sleeping, and unable to answer questions. (Latoya Engle CRNP) Objective Vital Signs Date Time Temp Pulse Resp B/P (MAP) Pulse Ox O2 Delivery O2 Flow Rate FiO2 06/02/17 07:10 Room Air 06/02/17 06:59 36.7 71 20 167/74 (105) 94 Room Air 06/02/17 00:00 Room Air 06/01/17 23:12 36.9 71 15 157/76 (103) 94 Room Air 06/01/17 16:21 Room Air 06/01/17 15:00 36.8 78 16 158/84 (108) 96 Room Air 06/01/17 11:46 37.0 73 18 164/77 (106) 93 Room Air 06/01/17 09:13 95 Room Air (Latoya Engle CRNP) Physical Exam General Appearance: no apparent distress Neck: no JVD Respiratory/Chest: no respiratory distress, no accessory muscle use Cardiovascular: no JVD Extremities: normal inspection Neurologic/Psychiatric: + pertinent finding (pt sleeping) Skin: normal color (Latoya Engle CRNP) Laboratory Results Last 24 Hours Test 06/01/17 12:09 06/01/17 13:40 06/02/17 06:12 Arterial Blood pH 7.45 Arterial Blood Partial Pressure CO2 37 mmHg Arterial Blood Partial Pressure O2 72 mm/Hg Arterial Blood HCO3 25 mmol/L Arterial Blood Oxygen Saturation 93.5 % Arterial Blood Base Excess 1.1 mEq/L Arterial Blood Gas Delivery RA Royer Test POS Ammonia 12.0 umol/L Vitamin B12 Level 347 pg/mL Folate 17.41 ng/mL Erythrocyte Sedimentation Rate 72 mm/hr Uric Acid 2.8 mg/dl White Blood Count 6.72 K/uL Red Blood Count 3.50 M/uL Hemoglobin 10.6 g/dL Hematocrit 32.1 % Mean Corpuscular Volume 91.7 fL Mean Corpuscular Hemoglobin 30.3 pg Mean Corpuscular Hemoglobin Concent 33.0 g/dl RDW Standard Deviation 41.7 fL RDW Coefficient of Variation 12.3 % Platelet Count 228 K/uL Mean Platelet Volume 8.9 fL Sodium Level 136 mmol/L Potassium Level 4.0 mmol/L Chloride Level 105 mmol/L Carbon Dioxide Level 28 mmol/L Anion Gap 3.0 mmol/L Blood Urea Nitrogen 7 mg/dl Creatinine 0.61 mg/dl Est Creatinine Clear Calc Drug Dose 53.7 ml/min Estimated GFR () 94.5 Estimated GFR (Non- 81.5 BUN/Creatinine Ratio 11.8 Random Glucose 116 mg/dl Calcium Level 8.2 mg/dl Magnesium Level 1.8 mg/dl (Latoya Engle CRNP) Assessment and Plan A/P: Right hydronephrosis, UTI, gross hematuria AFVSS. Hematuria resolved. May try resuming ASA. Will discontinue bladder irrigations. Recommend 14 days of Keflex for UTI. Can attempt to resume CIC prior to discharge if pt and daughter feels she is able to do so. Rehab facility can aid in this process if she has any difficulty. [place] improved on abd u/s. RUQ pain improved. Will plan for outpatient f/u with Dr. Holder in 2 weeks. Pt OK for d/c home from [facility] when OK with primary service. Recall PRN issues. Thanks for allowing us to participate in this pt's care. (Latoya Engle CRNP)
[2017-06-02] MEDS: SENNA 8.6 MG TAB PO SCH (08:33)
[2017-06-02] MEDS: CALCIUM CARBONATE 1250MG TAB PO SCH ×2 (08:33→20:56)
[2017-06-02] MEDS: AMLODIPINE BESYLATE 5 MG TAB PO SCH (08:33)
[2017-06-02] MEDS: CEPHALEXIN MONOHYDRATE 500 MG CAP PO SCH ×4 (08:33→20:53)
[2017-06-02] MEDS: VALSARTAN 80 MG TAB PO SCH ×2 (08:33→20:56)
[2017-06-02] MEDS: CEROVITE ADV FORMULA TAB PO SCH (08:33)
[2017-06-02] MEDS: MAGNESIUM OXIDE 400 MG TAB PO SCH (08:33)
[2017-06-02] MEDS: PANTOprazole SOD 40 MG TAB PO SCH (08:33)
[2017-06-02] MEDS: DULOXETINE (CYMBALTA) 30 MG CAP PO SCH (08:33)
[2017-06-02] MEDS: CHOLECALCIFEROL 1000 INTER.UNIT TAB PO SCH (08:34)
[2017-06-02] MEDS: DICLOFENAC SOD 1% GEL 100 GM TUBE EXT SCH ×2 (08:34→20:57)
[2017-06-02] MEDS: MEGESTROL ACETATE SUSP 400 MG/10 ML UDC PO SCH ×2 (08:34→20:54)
[2017-06-02] MEDS: DOCUSATE SODIUM 100 MG CAP PO SCH ×2 (08:34→20:56)
--- NOTE | 2017-06-02 13:23 | Hospitalist Progress Note ---
Hospitalist Progress Note Date of Service Jun 02, 2017. Subjective Pt evaluation today including: conversation w/ patient, conversation w/ family (daughter at bedside), physical exam, chart review, lab review, review of studies, review of inpatient medication list Pain: right lower leg pain PO Intake: Tolerating PO diet Voiding: reaves catheter in place Patient states that her right flank/back pain is much better. She still is not eating much, but she states that she does not like the food here. Per nursing, the patient is very reluctant to get out of bed or move and is not motivated. The patient now complains of RLE pain from the knee down that is worse with movement and palpation. Her daughter states that she talked to Dr. Chandra, a personal friend, who recommended a neurology evaluation for the RLE pain as she could possibly have a pinched nerve from the OR table. Reaves with yellow urine. The patient denies fevers, chills, sweats, chest pain , palpitations, claudication, cough, wheezing, shortness of breath, nausea, vomiting, abdominal pain, dysuria, hematuria, urinary retention, paralysis, weakness, numbness and tingling. Additional Comments: See HPI for pertinent positives and negatives. All other systems reviewed and negative. Objective Vital Signs Date Time Temp Pulse Resp B/P (MAP) Pulse Ox O2 Delivery O2 Flow Rate FiO2 06/02/17 07:10 Room Air 06/02/17 06:59 36.7 71 20 167/74 (105) 94 Room Air 06/02/17 00:00 Room Air 06/01/17 23:12 36.9 71 15 157/76 (103) 94 Room Air 06/01/17 16:21 Room Air 06/01/17 15:00 36.8 78 16 158/84 (108) 96 Room Air Physical Exam Notes: General appearance: Well-developed, well-nourished, no apparent distress Head: Normocephalic, atraumatic Eyes: Normal inspection, PERRL, EOMI ENT: Normal ENT inspection, hearing grossly normal, pharynx normal Neck: Supple, no JVD, trachea midline Respiratory/Chest: +Decreased breath sounds. Lungs clear to auscultation, no respiratory distress Cardiovascular: +Systolic murmur. Regular rate & rhythm, no gallop Abdomen/GI: Normal bowel sounds, non-tender, soft Extremities/Musculoskeletal: +Right lower leg TTP from knee down, especially medial aspect. R ankle TTP. Pain with flexion and extension of ankle. Pulses intact, full ROM. Normal inspection, no calf tenderness, no pedal edema Neurological/Psych: Alert, normal mood/affect, oriented x 3 Skin: Normal color, warm/dry, no rash Laboratory Results Last 24 Hours Test 06/01/17 13:40 06/02/17 06:12 Erythrocyte Sedimentation Rate 72 mm/hr Uric Acid 2.8 mg/dl White Blood Count 6.72 K/uL Red Blood Count 3.50 M/uL Hemoglobin 10.6 g/dL Hematocrit 32.1 % Mean Corpuscular Volume 91.7 fL Mean Corpuscular Hemoglobin 30.3 pg Mean Corpuscular Hemoglobin Concent 33.0 g/dl RDW Standard Deviation 41.7 fL RDW Coefficient of Variation 12.3 % Platelet Count 228 K/uL Mean Platelet Volume 8.9 fL Sodium Level 136 mmol/L Potassium Level 4.0 mmol/L Chloride Level 105 mmol/L Carbon Dioxide Level 28 mmol/L Anion Gap 3.0 mmol/L Blood Urea Nitrogen 7 mg/dl Creatinine 0.61 mg/dl Est Creatinine Clear Calc Drug Dose 53.7 ml/min Estimated GFR () 94.5 Estimated GFR (Non- 81.5 BUN/Creatinine Ratio 11.8 Random Glucose 116 mg/dl Calcium Level 8.2 mg/dl Magnesium Level 1.8 mg/dl Diagnostic Results Reviewed the following studies and agree with interpretation as follows: R ANKLE MIN 3 VIEWS ROUTINE CLINICAL HISTORY: Right ankle pain and redness. COMPARISON: None. DISCUSSION: The bones are mildly osteopenic. There are moderately extensive vascular calcifications present. No acute fractures are visualized. There are tiny calcaneal spurs. No bony destructive lesions are evident. IMPRESSION: 1. No acute fractures 2. No destructive lesions are visualized on conventional radiographic imaging 3. Extensive vascular calcification Assessment and Plan 87 y/o female with a history of HTN, depression, GERD, neurogenic bladder, and chronic pain who presents with RLQ and right flank pain. Right hydronephrosis, h/o neurogenic bladder w/chronic CIC at home--improving - Admit to med/surg - Urology consulted, appreciate recs: Recommend stopping aspiring while actively bleeding. Continue on PO abx x 14 days. F/u with Dr. Holder in 2 weeks. D/c irrigations. Resume aspirin. Can attempt to resume CIC. - Cystoscopy revealed swollen right ureteral orifice, possible right UPJ obstruction and significant right hydronephrosis. Right ureteral stent placed. - UCx positive for E. coli, sensitive to cephs - PO Keflex day #4/ - Morphine 2 mg IV q6h prn breakthrough pain, continue home fentanyl patch 12 mcg TD q72h Right abdominal/flank pain--secondary to issues above vs gallbladder -Abdominal ultrasound shows distended gallbladder with wall thickening. No stones. Possible acute cholecystitis. CBD distended at 1.1 cm. Right hydronephrosis improved. -General surgery, appreciate recs: No surgical intervention needed at this time , surgery will sign off. -HIDA scan negative RLE pain--appears to be musculoskeletal. Medial leg TTP, pain worse with movement -Pt had R ankle pain yesterday, x-ray negative for acute disease -Pulses intact, skin warm, full ROM -Daughter requesting neurology consult, which was recommended by another physician who is a family friend. Requesting Dr. Erwin specifically Lethargy/AMS--resolved -ABG, B12, folate, ammonia WNL -Awake and alert today Hematuria secondary to recent cysto--resolved -Resume aspirin, stop q shift Reaves irrigations B/l calf pain -Doppler u/s negative for DVT bilaterally Diarrhea--improving - C diff negative HTN--stable - Continue Norvasc 5 mg PO qd - Continue valsartan 160 mg PO BID Depression -Continue Cymbalta 30 mg PO qd and Remeron 15 mg PO hs GERD - Continue pantoprazole DVT prophylaxis -Enoxaparin 40 mg SC q24h -SCDs Code Status -Level V, DO NOT RESUSCITATE Dispo -Lives with daughter -Pt only walking 30 feet w/walker with physical therapy -OT recommends not returning home -Pt does not want to get out of bed or sit in chair. Likely not a good candidate for acute rehab, but refuses SNF. Referral to [facility] sent
[2017-06-02] MEDS ORDERED: ENOXAPARIN 40 MG/0.4 ML SYR SQ ONE (13:30)
[2017-06-02 15:40] VITALS: BP 122/72; PULSE 89; TEMP 37.2; O2SAT 96
[2017-06-02] MEDS: MIRTAZAPINE TAB 15 MG TAB PO SCH (20:54)
[2017-06-02 22:59] VITALS: BP 124/78; PULSE 79; TEMP 37.4; O2SAT 94
[2017-06-03] MEDS: CHECK FENTANYL PATCH PLACEMENT SCH ×4 (00:15→23:33)
[2017-06-03 07:40] VITALS: BP 154/79; PULSE 68; TEMP 36.9; O2SAT 95
--- NOTE | 2017-06-03 08:52 | Neurology Consultation ---
Neurology Consultation Date of Consultation: Jun 03, 2017. Attending Physician: Hardy Wallace MD, PhD Primary Care Physician: Prabhakar Lugo MD Reason for Consultation: Patient is an 87-year-old, who was asked to see the request of Jennifer Pham PA-C, and Dr. Wallace, for neurologic evaluation regarding right leg pain and weakness. History of Present Illness Source: patient, family, caregiver, hospital records This patient has a longstanding history of her neurogenic bladder from multiple bladder infections having to straight cath for 10 years. She also has a longstanding history of low back pain and has been on a fentanyl patch which helps considerably. As long as she takes the patch, she does not have significant back pain. She has lived with her daughter for the last 3 years. Much of my history comes from her daughter who I spoke with over the telephone. Patient herself does add history as well. Patient has a history of hypertension but does not have diabetes or history of stroke or significant heart issues. She has been on an 81 milligram aspirin tablet daily. According to the patient's daughter, the patient does not typically have lower extremity pain, weakness, or numbness. The patient herself does not remember having pain that shoots from her back into her legs until recently. When the patient walks, she has a stooped posture due to kyphoscoliosis and she uses a cane for support. She does not fall and ambulates fairly well typically. Patient was admitted on May 28 with acute right lower quadrant pain that had been occurring for 2 days prior to admission. It was a sharp pain increased with standing. Would hurt if touched and if she took a deep breath. She saw Urology and a CT scan of the abdomen and pelvis showed a marked right renal hydronephrosis as well as changes consistent with chronic diverticulosis and a distended gallbladder. On the , the patient underwent cystoscopy and a right ureteral stent was put in. She had some hematuria but her abdominal pain has been gradually getting better since the procedure. However, since the procedure, she feels she has right lower extremity pain and a decreased ability to walk. She feels that her right ankle and foot are weak. Plain x-rays of the right ankle showed no fracture but there was some degenerative change. Today, lying in bed, the patient denies back pain, leg pain, neck pain, abdominal pain, shortness of breath or chest pain, headache, vision problems, numbness in the limbs, or weakness. She does admit to some fatigue. She feels cold in the hospital here and her room is warm. Showed some anemia on the CBC but no elevated white count. She is afebrile. CMP is unremarkable as are B12 and folate. A sed rate is 72. Past Medical/Surgical History Medical Problems: (1) Bladder rupture Status: Acute (2) CKD (chronic kidney disease) Status: Acute (3) Hematuria Status: Acute Hypertension Chronic low back pain helped with fentanyl patch History of hysterectomy, tonsillectomy, umbilical hernia repair, and bilateral cataract surgery Family History Mother in her 60s of ovarian cancer. Father in his late 50s of uncertain causes but he had significant Parkinson's like features. Social History Patient never smoked cigarettes or used tobacco products. She only rarely has a glass of wine. 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 She has 5 children. Smoking Status: Never smoker Smokeless Tobacco Use: No Alcohol Use: Drug Use: none Marital Status: Housing Status: lives with family Occupation Status: retired Allergies Coded Allergies: No Known Allergies (Unverified , 05/28/17) Current Inpatient Medications Current Inpatient Medications Medications (Trade) Dose Ordered Sig/Tenisha Route Start Time Stop Time Status Last Admin Dose Admin Acetaminophen (Tylenol Tab) 650 mg Q4H PRN PO 05/29/17 02:00 06/28/17 01:59 06/01/17 16:21 650 MG Al Hydrox/Mg Hydrox/Simethicone (Maalox Max Susp) 15 ml Q4H PRN PO 05/29/17 02:00 06/28/17 01:59 Magnesium Hydroxide (Milk Of Magnesia Susp) 30 ml Q6H PRN PO 05/29/17 02:00 06/28/17 01:59 Polyethylene (Miralax Powder Packet) 17 gm DAILY PRN PO 05/29/17 02:00 06/28/17 01:59 Ondansetron HCl (Zofran Inj) 4 mg Q6H PRN IV 05/29/17 02:00 06/28/17 01:59 Aspirin (Ecotrin Tab) 81 mg QAM PO 05/29/17 09:00 06/28/17 08:59 Future hold 05/30/17 08:36 81 MG Cholecalciferol (Vitamin D Tab) 1,000 inter.unit QAM PO 05/29/17 09:00 06/28/17 08:59 06/02/17 08:34 1,000 INTER.UNIT Docusate Sodium (coLACE CAP) 100 mg BID PO 05/29/17 09:00 06/28/17 08:59 06/02/17 20:56 100 MG Duloxetine HCl (Cymbalta Cap) 30 mg DAILY PO 05/29/17 09:00 06/28/17 08:59 06/02/17 08:33 30 MG Mirtazapine (Remeron Tab) 15 mg QPM PO 05/29/17 21:00 06/28/17 20:59 06/02/17 20:54 15 MG Multivitamins/ Minerals (Multivitamin W/ Minerals Tab) 1 tab DAILY PO 05/29/17 09:00 06/28/17 08:59 06/02/17 08:33 1 TAB Pantoprazole Sodium (Protonix Tab) 40 mg QAM PO 05/29/17 09:00 06/28/17 08:59 06/02/17 08:33 40 MG Senna (Senokot Tab) 17.2 mg QAM PO 05/29/17 09:00 06/28/17 08:59 06/02/17 08:33 17.2 MG Valsartan (Diovan Tab) 160 mg BID PO 05/29/17 09:00 06/28/17 08:59 06/02/17 20:56 160 MG Morphine Sulfate (MoRPHine SULFATE INJ) 2 mg Q6HWA PRN IV 05/29/17 02:00 06/12/17 01:59 06/01/17 17:51 2 MG Miscellaneous Information (Check Fentanyl Patch Placement) 1 ea QS N/A 05/29/17 08:00 06/28/17 07:59 06/03/17 00:15 1 EA Cephalexin Monohydrate (Keflex Cap) 500 mg QID PO 05/30/17 17:00 06/09/17 16:59 06/02/17 20:53 500 MG Calcium Carbonate (oS-Jhon 500 TAB) 1,250 mg BID PO 05/30/17 21:00 06/29/17 20:59 06/02/17 20:56 1,250 MG Amlodipine Besylate (Norvasc Tab) 5 mg QAM PO 06/01/17 09:00 07/01/17 08:59 06/02/17 08:33 5 MG Miscellaneous (Fentanyl Patch Remove & Waste) 1 ea Q3D@1359 N/A 05/31/17 13:59 06/30/17 13:58 05/31/17 10:10 1 EA Fentanyl (Duragesic Patch) 12 mcg Q3D@1400 TD 05/31/17 14:00 06/14/17 13:59 05/31/17 15:22 12 MCG Diclofenac Sodium (Voltaren 1% Top Gel) 1 appln Q12 EXT 06/01/17 21:00 07/01/17 20:59 06/02/17 20:57 1 APPLN Megestrol Acetate (Megace Susp) 400 mg BID PO 06/01/17 21:00 07/01/17 20:59 06/02/17 20:54 400 MG Acetaminophen/ Hydrocodone Bitart (Olmitz 5/325 Tab) 1 tab Q6 PRN PO 06/02/17 12:45 06/16/17 12:44 Review of Systems Constitutional: + weakness, + fatigue, No fever Eyes: No worsening of vision, No diplopia ENT: + hearing loss, No tinnitus, No trouble swallowing Respiratory: No cough, No shortness of breath Cardiovascular: No chest pain, No palpitations Abdomen: No pain, No nausea Musculoskeletal: No joint pain, No muscle pain Genitourinary - Female: No dysuria, No urinary incontinence Neurologic: + memory loss, + weakness, + balance problems, No numbness/tingling , No vertigo Psychiatric: No depression symptoms, No anxiety Endocrine: + fatigue Hematologic / Lymphatic: No abnormal bleeding/bruising Integumentary: No rash Allergic / Immunologic: No hives Physical Exam Vital Signs (Past 24 Hrs): Date Time Temp Pulse Resp B/P (MAP) Pulse Ox O2 Delivery O2 Flow Rate FiO2 06/03/17 07:40 36.9 68 18 154/79 (104) 95 Room Air 06/03/17 00:15 Room Air 06/02/17 22:59 37.4 79 16 124/78 (93) 94 Room Air 06/02/17 15:45 Room Air 06/02/17 15:40 37.2 89 16 122/72 (89) 96 Room Air Patient is right-handed. The patient is awake and alert. Speech is normal without aphasia or dysarthria. Mentation and thought processes are fairly intact with orientation and normal fund of knowledge. She knew her age, where she was and the fact that she was in the hospital, left from right, and can do simple calculations. Mood and affect are normal and appropriate. Appearance and grooming are normal. Long- term memory is reasonable. Short-term memory is affected. She did not know the day, the date, or the month. She did know the year. She did not know what holiday we just had. The discs are sharp with positive venous pulsations. There are no exudates, hemorrhages, or blood vessel changes seen. Pupils are 3mm bilaterally and reactive to light. Extraocular eye muscles are intact without nystagmus. Visual acuity and visual mittal seem normal grossly to confrontation. There are no deficits to sensation of the face bilaterally. Corneal reflexes are positive bilaterally. Facial strength and symmetry is normal bilaterally. Hearing is mildly decreased bilaterally. Palate moves well without asymmetry. There is normal sternocleidomastoid and trapezius strength bilaterally. Tongue is midline with good strength bilaterally. Neck is with full range of motion without discomfort. There are no cervical bruits. There are no cranial or ocular bruits. Heart is without murmur. Cervical, thoracic, and lumbar spine are nontender to palpation. Gait is difficult and requires the assistance of 2. She limps because of weakness she feels in her right foot and there is some pain there. With outstretched arms there is no drift. There are no resting, postural, or action tremors. There is no ataxia with [id number] testing. There is good facility in the hands. There are no abnormal involuntary movements noted. Motor strength is 5/5 diffusely in the arms bilaterally including deltoids, biceps, brachioradialis, wrist flexors and extensors, geotechnical field technician, and intrinsic hand muscles. Motor strength is 5/5 diffusely in the legs bilaterally including hip flexors, quadriceps, hamstring, gastrocnemius, tibialis posterior, and peroneii muscles bilaterally. Tibialis anterior is 5/5 in the left and 4/5 on the right. Toe extensors are 4/5 on the right as well. The limbs have good tone without rigidity or spasticity, and there is mild atrophy distally diffusely in the small muscles of the hands and feet. Muscle bulk is normal, there is no tenderness, no myotonia noted to percussion, and no fasciculations seen. Sensory examination is intact to pin and touch throughout all four limbs. Reflexes are 1/4 in the biceps, triceps, brachioradialis, and quadriceps tendons bilaterally. The left Achilles tendon reflexes 1/4 and the right is absent. Toes are downgoing with plantar stimulation bilaterally. Peripheral pulses are present and of normal quality distally in all four limbs. There is no peripheral edema noted. Impression 1. Gait disturbance with history of chronic low back pain and new onset right lower extremity weakness and pain 5 days ago. Exam shows some weakness distally in the dorsiflexion of the feet and toes and absent ankle reflex. This coupled with her chronic back pain would suggest an L5 radiculopathy. I see no other deficits neurologically or focal signs. She does not really displaced signs of a generalized polyneuropathy even given her advanced age. There are no meningeal signs or central nervous system deficits. Although she has an underlying dementia she has no acute encephalopathy. 2. Mild dementia This is likely like combination of aging or vascular. She is still functioning fairly well. 3. Chronic low back pain requiring fentanyl patch. This problem is stable. 4. History of neurogenic bladder for comma frequent urinary tract infections, and new right hydronephrosis, post cystoscopy and stent placement Her abdominal pain is better. Plan 1. Suggest MRI of the lumbar spine without contrast, to evaluate what could be causing her pain and right L5 radiculopathy. 2. She should have EMG and nerve conduction studies of the right lower extremity, but I cannot do this is an inpatient. This should be done as an outpatient. 3. Her dementia is mild and I do not see any reason for any additional testing regarding this problem while in the hospital. This could be pursued as an outpatient. 4. I agree with rehabilitation hospital for further therapy on her back and legs. I would be happy to follow this patient up as an outpatient after her rehabilitation hospital stay. Otherwise I have no further neurologic testing or treatment recommendations to make for now. All told, I spent 75 minutes in direct patient care including records review, direct evaluation the patient, consultation with the patient's daughter, and discussion with Dr. Wallace including differential diagnosis and treatment options.
[2017-06-03] MEDS: DICLOFENAC SOD 1% GEL 100 GM TUBE EXT SCH ×2 (09:34→21:28)
[2017-06-03] MEDS: AMLODIPINE BESYLATE 5 MG TAB PO SCH (09:35)
[2017-06-03] MEDS: ASPIRIN 81 MG ECTAB PO SCH (09:35)
[2017-06-03] MEDS: DOCUSATE SODIUM 100 MG CAP PO SCH ×2 (09:35→21:47)
[2017-06-03] MEDS: CEPHALEXIN MONOHYDRATE 500 MG CAP PO SCH ×4 (09:35→21:26)
[2017-06-03] MEDS: CEROVITE ADV FORMULA TAB PO SCH (09:36)
[2017-06-03] MEDS: SENNA 8.6 MG TAB PO SCH (09:36)
[2017-06-03] MEDS: VALSARTAN 80 MG TAB PO SCH ×2 (09:36→21:48)
[2017-06-03] MEDS: DULOXETINE (CYMBALTA) 30 MG CAP PO SCH (09:36)
[2017-06-03] MEDS: PANTOprazole SOD 40 MG TAB PO SCH (09:37)
[2017-06-03] MEDS: CHOLECALCIFEROL 1000 INTER.UNIT TAB PO SCH (09:37)
[2017-06-03] MEDS: CALCIUM CARBONATE 1250MG TAB PO SCH ×2 (09:37→21:27)
[2017-06-03] MEDS: MEGESTROL ACETATE SUSP 400 MG/10 ML UDC PO SCH ×2 (09:37→21:27)
[2017-06-03] MEDS: ACETAMINOPHEN 325 MG TAB PO PRN (09:41)
--- NOTE | 2017-06-03 11:28 | Progress Note ---
Subjective Date of Service: Jun 03, 2017. Subjective Pt evaluation today including: conversation w/ patient, conversation w/ family , physical exam, chart review, lab review, review of studies, conversation w/ desktop support consultant, review of inpatient medication list Reported right lower extremity pain is better,able to walk on it, patient is unsure worse the pain come from , possible below the knee, or from ankle She was eating breakfast first about 35% per nurse report, has good urine output with yellow urination in Gamino bag No other complaint, has bowel movement, generally feeling better Problem List Medical Problems: (1) Bladder rupture Status: Acute (2) CKD (chronic kidney disease) Status: Acute (3) Hematuria Status: Acute Review of Systems Constitutional: + weakness, + fatigue, No fever, No chills Eyes: No eye pain ENT: No hearing loss, No unusual epistaxis Respiratory: No cough, No sputum, No wheezing, No shortness of breath, No dyspnea on exertion Cardiac: No chest pain, No orthopnea Abdomen: No pain, No nausea Musculoskeletal: + joint pain Female : No dysuria, No urinary frequency, No hematuria, No incontinence Neurologic: No memory loss Psychiatric: No depression symptoms, No anhedonism, No anxiety Endo: + fatigue Skin: No rash, No itch Objective Vital Signs Date Time Temp Pulse Resp B/P (MAP) Pulse Ox O2 Delivery O2 Flow Rate FiO2 06/03/17 07:40 36.9 68 18 154/79 (104) 95 Room Air 06/03/17 00:15 Room Air 06/02/17 22:59 37.4 79 16 124/78 (93) 94 Room Air 06/02/17 15:45 Room Air 06/02/17 15:40 37.2 89 16 122/72 (89) 96 Room Air Physical Exam General Appearance: WD/WN, no apparent distress, + thin, + pertinent finding ( looks better than yesterday,) Eyes: normal inspection, PERRL, EOMI ENT: normal ENT inspection, hearing grossly normal, TMs normal Neck: supple, no adenopathy Respiratory/Chest: chest non-tender, + decreased breath sounds Cardiovascular: regular rate, rhythm, no edema, + systolic murmur (which is not new) Abdomen: normal bowel sounds, non tender, soft, no organomegaly, + pertinent finding (Gamino catheter in place) Extremities: normal capillary refill, pelvis stable, + pertinent finding (left medial ankle is mild swelling and tender, which is better) Neurologic/Psychiatric: kaiawhina kohanga reo II-XII nml as tested, no motor/sensory deficits, alert, normal mood/affect, oriented x 3, + pertinent finding (able to raise right lower extremity to 30 to 40 degree) Assessment and Plan 87 y/o female with Right hydronephrosis, h/o neurogenic bladder w/chronic CIC at home, had Cystoscopy after admission revealed swollen right ureteral orifice, possible right UPJ obstruction and significant right hydronephrosis. Right ureteral stent placed. This is po no #4 days UCx positive for E. coli, sensitive to cephs, PO Keflex day #5/14 Per Urologist , can attempt to resume CIC prior to discharge if pt and daughter feels she is able to do so. Rehab facility can aid in this process if she has any difficulty. Will plan for outpatient f/u with Dr. Holder in 2 weeks. 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 Erwin as outpatient Level V, DO NOT RESUSCITATE Discussed with patient and daughter about patient's condition and care plan, also looking for rehabilitation to [facility] which is the family only looking for Continued [facility] stay due to: home environment unsafe for pt Discharge planning: rehab hospital
--- NOTE | 2017-06-03 12:41 | DIAGNOSTIC IMAGING REPORT ---
LUMBAR SPINE W/O CONTRAST HISTORY: Pain. Radiculopathy. possible L radiculopathy with right lower ext pain TECHNIQUE: Multiplanar multisequence MRI of the lumbar spine was performed without the use of contrast. COMPARISON: None. FINDINGS: For the purpose of the report the L5-S1 disc space will be located on axial image 27 of 30. Severe degenerative disc change throughout the entire lumbar region. Moderate scoliosis. No evidence for bone marrow replacing process. 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 T12-L1 broad-based posterior osteophyte combined with broad-based posterior bulging disc components. No significant impact upon the thecal sac or low thoracic spinal cord. L1-L2: Broad-based disc herniation. Moderate impact anterior thecal sac. Mild narrowing of the neuroforamina bilaterally. L2-L3: Moderate multifactorial narrowing of the spinal canal. Broad-based disc herniation. Hypertrophic change posterior elements. Moderate narrowing of the left and to lesser extent right neural foramina. L3-L4: Moderate multifactorial spinal stenosis. Broad-based disc herniation. Narrowing of the left and to a lesser extent right neural foramina. Hypertrophic change posterior elements. L4-L5: Broad-based bulging disc. Mild impact anterior thecal sac. Mild narrowing left and to a lesser extent right neural foramina. L5-S1: Minimal disc bulge. Minimal narrowing left and to lesser extent right neural foramina. Moderate degenerative change. Sacroiliac joints. IMPRESSION: 1. Severe degenerative disc change throughout the entire lumbar region. 2. Scoliosis. 3. Moderate multifactorial spinal stenosis L3-L4, L2-L3, with moderate narrowing left and to a lesser extent right neural foramina at both levels. 4. Broad-based bulging disc L4-L5, with a mild broad-based disc herniation L1-L2. The above report was generated using voice recognition software. It may contain grammatical, syntax or spelling errors. Electronically signed by: Justin Walker M.D. 06/03/2017 12:40 PM Dictated Date/Time: 06/03/2017 12:34 PM
[2017-06-03] MEDS: HYDROCODONE/ACETAMOPHEN 5/325MG TAB PO PRN (13:24)
[2017-06-03] MEDS: FENTANYL 12 MCG/HR TDSY TD SCH (13:25)
[2017-06-03] MEDS: FENTANYL PATCH REMOVE & WASTE SCH (13:25)
[2017-06-03 15:05] VITALS: BP 113/66; PULSE 74; TEMP 36.9; O2SAT 96
[2017-06-03] MEDS ORDERED: NURSING DECISION MEDICATION ORDER SCH (20:00)
[2017-06-03] MEDS: MIRTAZAPINE TAB 15 MG TAB PO SCH (21:27)
[2017-06-03] MEDS: MICONAZOLE NITRATE POWDER 43 GM EXT PRN (21:49)
[2017-06-03 23:12] VITALS: BP 112/58; PULSE 69; TEMP 36.8; O2SAT 95
[2017-06-03 23:25] VITALS: O2SAT 95
[2017-06-04 07:17] VITALS: BP 138/69; PULSE 64; TEMP 36.8; O2SAT 96
[2017-06-04] MEDS: CHECK FENTANYL PATCH PLACEMENT SCH ×3 (07:48→23:19)
[2017-06-04] MEDS: DICLOFENAC SOD 1% GEL 100 GM TUBE EXT SCH ×2 (07:48→20:03)
[2017-06-04] MEDS: MEGESTROL ACETATE SUSP 400 MG/10 ML UDC PO SCH ×2 (07:49→20:05)
[2017-06-04] MEDS: PANTOprazole SOD 40 MG TAB PO SCH (07:49)
[2017-06-04] MEDS: DOCUSATE SODIUM 100 MG CAP PO SCH ×2 (07:49→20:03)
[2017-06-04] MEDS: VALSARTAN 80 MG TAB PO SCH ×2 (07:49→20:04)
[2017-06-04] MEDS: CHOLECALCIFEROL 1000 INTER.UNIT TAB PO SCH (07:49)
[2017-06-04] MEDS: CEPHALEXIN MONOHYDRATE 500 MG CAP PO SCH ×4 (07:49→20:04)
[2017-06-04] MEDS: ASPIRIN 81 MG ECTAB PO SCH (07:50)
[2017-06-04] MEDS: AMLODIPINE BESYLATE 5 MG TAB PO SCH (07:50)
[2017-06-04] MEDS: DULOXETINE (CYMBALTA) 30 MG CAP PO SCH (07:50)
[2017-06-04] MEDS: CALCIUM CARBONATE 1250MG TAB PO SCH ×2 (07:50→20:04)
[2017-06-04] MEDS: CEROVITE ADV FORMULA TAB PO SCH (07:50)
[2017-06-04] MEDS: SENNA 8.6 MG TAB PO SCH (07:50)
--- NOTE | 2017-06-04 07:57 | Neurology Progress Notes ---
Neurology Progress Note Date of Service Jun 04, 2017. Subjective Lying in bed, the patient has no complaint of pain or headache. She is not dizzy. She does remember me. She is pleasant and follows one-step commands. MRI of the lumbar spine revealed significant diffuse degenerative changes of bone and disc. There is moderate spinal stenosis at multiple levels from disc in bone, including L4-5. I reviewed these films and report. Nursing reports no new changes overnight. Objective Date Time Temp Pulse Resp B/P (MAP) Pulse Ox O2 Delivery O2 Flow Rate FiO2 06/04/17 07:17 36.8 64 18 138/69 (92) 96 Room Air 06/03/17 23:25 95 Room Air 06/03/17 23:12 36.8 69 15 112/58 (76) 95 Room Air 06/03/17 15:40 Room Air 06/03/17 15:05 36.9 74 18 113/66 (82) 96 Room Air 06/03/17 08:00 Room Air Imaging: LUMBAR SPINE W/O CONTRAST HISTORY: Pain. Radiculopathy. possible L radiculopathy with right lower ext pain TECHNIQUE: Multiplanar multisequence MRI of the lumbar spine was performed without the use of contrast. COMPARISON: None. FINDINGS: For the purpose of the report the L5-S1 disc space will be located on axial image 27 of 30. Severe degenerative disc change throughout the entire lumbar region. Moderate scoliosis. No evidence for bone marrow replacing process. 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 T12-L1 broad-based posterior osteophyte combined with broad-based posterior bulging disc components. No significant impact upon the thecal sac or low thoracic spinal cord. L1-L2: Broad-based disc herniation. Moderate impact anterior thecal sac. Mild narrowing of the neuroforamina bilaterally. L2-L3: Moderate multifactorial narrowing of the spinal canal. Broad-based disc herniation. Hypertrophic change posterior elements. Moderate narrowing of the left and to lesser extent right neural foramina. L3-L4: Moderate multifactorial spinal stenosis. Broad-based disc herniation. Narrowing of the left and to a lesser extent right neural foramina. Hypertrophic change posterior elements. L4-L5: Broad-based bulging disc. Mild impact anterior thecal sac. Mild narrowing left and to a lesser extent right neural foramina. L5-S1: Minimal disc bulge. Minimal narrowing left and to lesser extent right neural foramina. Moderate degenerative change. Sacroiliac joints. IMPRESSION: 1. Severe degenerative disc change throughout the entire lumbar region. 2. Scoliosis. 3. Moderate multifactorial spinal stenosis L3-L4, L2-L3, with moderate narrowing left and to a lesser extent right neural foramina at both levels. 4. Broad-based bulging disc L4-L5, with a mild broad-based disc herniation L1-L2. The above report was generated using voice recognition software. It may contain grammatical, syntax or spelling errors. Electronically signed by: Justin Walker M.D. 06/03/2017 12:40 PM Exam: She is awake and alert. She knows her name and where she lives. She is not sure of the date, day, month. She is pleasant and follows one-step commands. Extraocular eye muscles are intact without nystagmus. There is no facial droop. Limb strength is symmetrical. There is no abnormal involuntary movements. Current Inpatient Medications Medications (Trade) Dose Ordered Sig/Tenisha Route Start Time Stop Time Status Last Admin Dose Admin Acetaminophen (Tylenol Tab) 650 mg Q4H PRN PO 05/29/17 02:00 06/28/17 01:59 06/03/17 09:41 650 MG Al Hydrox/Mg Hydrox/Simethicone (Maalox Max Susp) 15 ml Q4H PRN PO 05/29/17 02:00 06/28/17 01:59 Magnesium Hydroxide (Milk Of Magnesia Susp) 30 ml Q6H PRN PO 05/29/17 02:00 06/28/17 01:59 Polyethylene (Miralax Powder Packet) 17 gm DAILY PRN PO 05/29/17 02:00 06/28/17 01:59 Ondansetron HCl (Zofran Inj) 4 mg Q6H PRN IV 05/29/17 02:00 06/28/17 01:59 Aspirin (Ecotrin Tab) 81 mg QAM PO 05/29/17 09:00 06/28/17 08:59 Future hold 06/04/17 07:50 81 MG Cholecalciferol (Vitamin D Tab) 1,000 inter.unit QAM PO 05/29/17 09:00 06/28/17 08:59 06/04/17 07:49 1,000 INTER.UNIT Docusate Sodium (coLACE CAP) 100 mg BID PO 05/29/17 09:00 06/28/17 08:59 06/04/17 07:49 100 MG Duloxetine HCl (Cymbalta Cap) 30 mg DAILY PO 05/29/17 09:00 06/28/17 08:59 06/04/17 07:50 30 MG Mirtazapine (Remeron Tab) 15 mg QPM PO 05/29/17 21:00 06/28/17 20:59 06/03/17 21:27 15 MG Multivitamins/ Minerals (Multivitamin W/ Minerals Tab) 1 tab DAILY PO 05/29/17 09:00 06/28/17 08:59 06/04/17 07:50 1 TAB Pantoprazole Sodium (Protonix Tab) 40 mg QAM PO 05/29/17 09:00 06/28/17 08:59 06/04/17 07:49 40 MG Senna (Senokot Tab) 17.2 mg QAM PO 05/29/17 09:00 06/28/17 08:59 06/04/17 07:50 17.2 MG Valsartan (Diovan Tab) 160 mg BID PO 05/29/17 09:00 06/28/17 08:59 06/04/17 07:49 160 MG Morphine Sulfate (MoRPHine SULFATE INJ) 2 mg Q6HWA PRN IV 05/29/17 02:00 06/12/17 01:59 06/01/17 17:51 2 MG Miscellaneous Information (Check Fentanyl Patch Placement) 1 ea QS N/A 05/29/17 08:00 06/28/17 07:59 06/04/17 07:48 1 EA Cephalexin Monohydrate (Keflex Cap) 500 mg QID PO 05/30/17 17:00 06/09/17 16:59 06/04/17 07:49 500 MG Calcium Carbonate (oS-Jhon 500 TAB) 1,250 mg BID PO 05/30/17 21:00 06/29/17 20:59 06/04/17 07:50 1,250 MG Amlodipine Besylate (Norvasc Tab) 5 mg QAM PO 06/01/17 09:00 07/01/17 08:59 06/04/17 07:50 5 MG Miscellaneous (Fentanyl Patch Remove & Waste) 1 ea Q3D@1359 N/A 05/31/17 13:59 06/30/17 13:58 06/03/17 13:25 1 EA Fentanyl (Duragesic Patch) 12 mcg Q3D@1400 TD 05/31/17 14:00 06/14/17 13:59 06/03/17 13:25 12 MCG Diclofenac Sodium (Voltaren 1% Top Gel) 1 appln Q12 EXT 06/01/17 21:00 07/01/17 20:59 06/04/17 07:48 1 APPLN Megestrol Acetate (Megace Susp) 400 mg BID PO 06/01/17 21:00 07/01/17 20:59 06/04/17 07:49 400 MG Acetaminophen/ Hydrocodone Bitart ([place] 5/325 Tab) 1 tab Q6 PRN PO 06/02/17 12:45 06/16/17 12:44 06/03/17 13:24 1 TAB Miconazole Nitrate (Desenex Powder) 1 appln PRN PRN EXT 06/03/17 20:15 07/03/17 20:14 06/03/17 21:49 1 APPLN Impression 1. Gait disturbance with history of chronic low back pain and new onset right lower extremity weakness and pain 5 days ago, likely right L5 radiculopathy. Exam shows some weakness distally in the dorsiflexion of the feet and toes and absent ankle reflex. This coupled with her chronic back pain would suggest an L5 radiculopathy. MRI shows multilevel moderate spinal stenosis from disc in bone. This includes the L4-5 level. I see no other deficits neurologically or focal signs. She does not really displaced signs of a generalized polyneuropathy even given her advanced age. There are no meningeal signs or central nervous system deficits. Although she has an underlying dementia she has no acute encephalopathy. 2. Mild dementia This is likely like combination of aging or vascular. She is still functioning fairly well. 3. Chronic low back pain requiring fentanyl patch. This problem is stable. 4. History of neurogenic bladder for comma frequent urinary tract infections, and new right hydronephrosis, post cystoscopy and stent placement Her abdominal pain is better. Plan 1. She should have EMG and nerve conduction studies of the right lower extremity, as an outpatient. 2. Her dementia is mild and I do not see any reason for any additional testing regarding this problem while in the hospital. This could be pursued as an outpatient. 3. I agree with rehabilitation hospital for further therapy on her back and legs. 4. I do not believe this patient would be a good surgical candidate. I would be happy to follow this patient up as an outpatient after her rehabilitation hospital stay. Otherwise I have no further neurologic testing or treatment recommendations to make for now.
--- NOTE | 2017-06-04 10:18 | Hospitalist Progress Note ---
Hospitalist Progress Note Date of Service Jun 04, 2017. Subjective Pt evaluation today including: conversation w/ patient, physical exam, chart review, lab review, review of studies, review of inpatient medication list Pain: None PO Intake: Tolerating PO diet Voiding: reaves catheter in place (clear yellow urine) Patient reports feeling. She currently denies any pain in her abdomen/flank, back or right leg. She complains mainly of feeling fatigued and wants to get back into bed. Reaves catheter in place draining clear, yellow urine. The patient denies fevers, chills, sweats, chest pain, palpitations, claudication, cough, wheezing, shortness of breath, nausea, vomiting, abdominal pain, dysuria , hematuria, urinary retention, paralysis, weakness, numbness and tingling. Additional Comments: See HPI for pertinent positives and negatives. All other systems reviewed and negative. Objective Vital Signs Date Time Temp Pulse Resp B/P (MAP) Pulse Ox O2 Delivery O2 Flow Rate FiO2 06/04/17 08:26 Room Air 06/04/17 07:17 36.8 64 18 138/69 (92) 96 Room Air 06/03/17 23:25 95 Room Air 06/03/17 23:12 36.8 69 15 112/58 (76) 95 Room Air 06/03/17 15:40 Room Air 06/03/17 15:05 36.9 74 18 113/66 (82) 96 Room Air Physical Exam Notes: General appearance: Well-developed, well-nourished, no apparent distress Head: Normocephalic, atraumatic Eyes: Normal inspection, PERRL, EOMI ENT: Normal ENT inspection, hearing grossly normal, pharynx normal Neck: Supple, no JVD, trachea midline Respiratory/Chest: Lungs clear to auscultation, normal breath sounds, no respiratory distress Cardiovascular: +Systolic murmur. Regular rate & rhythm, no gallop Abdomen/GI: Normal bowel sounds, non-tender, soft Extremities/Musculoskeletal: Normal inspection, no calf tenderness, no pedal edema Neurological/Psych: Alert, normal mood/affect, oriented x 3 Skin: Normal color, warm/dry, no rash Diagnostic Results Reviewed the following studies and agree with interpretation as follows: LUMBAR SPINE W/O CONTRAST HISTORY: Pain. Radiculopathy. possible L radiculopathy with right lower ext pain TECHNIQUE: Multiplanar multisequence MRI of the lumbar spine was performed without the use of contrast. COMPARISON: None. FINDINGS: For the purpose of the report the L5-S1 disc space will be located on axial image 27 of 30. Severe degenerative disc change throughout the entire lumbar region. Moderate scoliosis. No evidence for bone marrow replacing process. 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 T12-L1 broad-based posterior osteophyte combined with broad-based posterior bulging disc components. No significant impact upon the thecal sac or low thoracic spinal cord. L1-L2: Broad-based disc herniation. Moderate impact anterior thecal sac. Mild narrowing of the neuroforamina bilaterally. L2-L3: Moderate multifactorial narrowing of the spinal canal. Broad-based disc herniation. Hypertrophic change posterior elements. Moderate narrowing of the left and to lesser extent right neural foramina. L3-L4: Moderate multifactorial spinal stenosis. Broad-based disc herniation. Narrowing of the left and to a lesser extent right neural foramina. Hypertrophic change posterior elements. L4-L5: Broad-based bulging disc. Mild impact anterior thecal sac. Mild narrowing left and to a lesser extent right neural foramina. L5-S1: Minimal disc bulge. Minimal narrowing left and to lesser extent right neural foramina. Moderate degenerative change. Sacroiliac joints. IMPRESSION: 1. Severe degenerative disc change throughout the entire lumbar region. 2. Scoliosis. 3. Moderate multifactorial spinal stenosis L3-L4, L2-L3, with moderate narrowing left and to a lesser extent right neural foramina at both levels. 4. Broad-based bulging disc L4-L5, with a mild broad-based disc herniation L1-L2. Assessment and Plan 87 y/o female with a history of HTN, depression, GERD, neurogenic bladder, and chronic pain who presents with RLQ and right flank pain. Right hydronephrosis, h/o neurogenic bladder w/chronic CIC at home--improving - Admit to med/surg - Urology consulted, appreciate recs: Recommend stopping aspiring while actively bleeding. Continue on PO abx x 14 days. F/u with Dr. Holder in 2 weeks. D/c irrigations. Resume aspirin. Can attempt to resume CIC. - Cystoscopy revealed swollen right ureteral orifice, possible right UPJ obstruction and significant right hydronephrosis. Right ureteral stent placed. - UCx positive for E. coli, sensitive to cephs - PO Keflex day #/ - Morphine 2 mg IV q6h prn breakthrough pain, continue home fentanyl patch 12 mcg TD q72h Right abdominal/flank pain--secondary to issues above vs gallbladder, resolved -Abdominal ultrasound shows distended gallbladder with wall thickening. No stones. Possible acute cholecystitis. CBD distended at 1.1 cm. Right hydronephrosis improved. -General surgery, appreciate recs: No surgical intervention needed at this time , surgery will sign off. -HIDA scan negative RLE pain secondary to L5 radiculopathy--improving, denies any pain today -R ankle x-ray negative for acute disease -Neurology consulted at request of daughter, appreciate recs: Should have EMG and nerve conduction studies done as outpatient. Agree with rehabilitation. Believe she would not be a good surgical candidate. -Lumbar spine MRI shows spinal stenosis L2-L3, L3-L4. Bulging disc at L4-L5 and mild disc herniation at L1-L2. -Continue Voltaren gel, [place] 5/325 mg PO q6h prn pain Lethargy/AMS--resolved -ABG, B12, folate, ammonia WNL -Awake and alert Hematuria secondary to recent cysto--resolved -Resume aspirin, stop q shift Reaves irrigations B/l calf pain -Doppler u/s negative for DVT bilaterally Diarrhea--improving - C diff negative HTN--stable - Continue Norvasc 5 mg PO qd - Continue valsartan 160 mg PO BID Depression -Continue Cymbalta 30 mg PO qd and Remeron 15 mg PO hs GERD - Continue pantoprazole DVT prophylaxis -Enoxaparin 40 mg SC q24h -SCDs Code Status -Level V, DO NOT RESUSCITATE Dispo -Lives with daughter -Pt only walking 30 feet w/walker with physical therapy -OT recommends not returning home -Pt does not want to get out of bed or sit in chair. Likely not a good candidate for acute rehab, but refuses SNF. [facility] insurance auth pending Continued [facility] stay due to: home environment unsafe for pt
[2017-06-04 15:05] VITALS: BP 111/76; PULSE 83; TEMP 36.9; O2SAT 96
[2017-06-04] MEDS: MICONAZOLE NITRATE POWDER 43 GM EXT PRN (20:05)
[2017-06-04] MEDS: MIRTAZAPINE TAB 15 MG TAB PO SCH (20:05)
[2017-06-04 22:52] VITALS: BP 111/66; PULSE 73; TEMP 37; O2SAT 95
[2017-06-05 00:20] VITALS: BP 142/93; PULSE 104; TEMP 36.5; O2SAT 97
[2017-06-05 07:13] VITALS: BP 166/94; PULSE 71; TEMP 36.8; O2SAT 94
[2017-06-05] MEDS: CHECK FENTANYL PATCH PLACEMENT SCH ×2 (08:03→16:03)
[2017-06-05] MEDS: MEGESTROL ACETATE SUSP 400 MG/10 ML UDC PO SCH ×3 (09:00→21:00)
[2017-06-05] MEDS: CEROVITE ADV FORMULA TAB PO SCH (09:43)
[2017-06-05] MEDS: DICLOFENAC SOD 1% GEL 100 GM TUBE EXT SCH ×2 (09:43→21:08)
[2017-06-05] MEDS: DOCUSATE SODIUM 100 MG CAP PO SCH ×2 (09:43→21:05)
[2017-06-05] MEDS: PANTOprazole SOD 40 MG TAB PO SCH (09:43)
[2017-06-05] MEDS: DULOXETINE (CYMBALTA) 30 MG CAP PO SCH (09:43)
[2017-06-05] MEDS: CHOLECALCIFEROL 1000 INTER.UNIT TAB PO SCH (09:44)
[2017-06-05] MEDS: AMLODIPINE BESYLATE 5 MG TAB PO SCH (09:44)
[2017-06-05] MEDS: VALSARTAN 80 MG TAB PO SCH ×2 (09:44→21:05)
[2017-06-05] MEDS: SENNA 8.6 MG TAB PO SCH (09:44)
[2017-06-05] MEDS: ASPIRIN 81 MG ECTAB PO SCH (09:44)
[2017-06-05] MEDS: CEPHALEXIN MONOHYDRATE 500 MG CAP PO SCH ×4 (09:45→21:06)
[2017-06-05] MEDS: CALCIUM CARBONATE 1250MG TAB PO SCH ×2 (09:45→21:05)
[2017-06-05] MEDS: ACETAMINOPHEN 325 MG TAB PO PRN (11:03)
[2017-06-05] MEDS: HYDROCODONE/ACETAMOPHEN 5/325MG TAB PO PRN (11:56)
[2017-06-05 14:51] VITALS: BP 131/76; PULSE 73; TEMP 36.7; O2SAT 96
--- NOTE | 2017-06-05 17:36 | Progress Note ---
Subjective Date of Service: Jun 05, 2017. Subjective Pt evaluation today including: conversation w/ patient, conversation w/ family , physical exam, chart review, lab review, review of studies, conversation w/ human resources consultant, review of inpatient medication list Up to rest room, washing up with assistant office manager, right medial ankle minimal pain, right lower extremity below knee has no pain, no other complaint Problem List Medical Problems: (1) Bladder rupture Status: Acute (2) CKD (chronic kidney disease) Status: Acute (3) Hematuria Status: Acute Review of Systems Constitutional: + weakness, + fatigue, No fever, No chills, No sweats, No weight loss, No problem reported Eyes: No worsening of vision, No eye pain, No redness, No discharge, No diplopia ENT: No hearing loss, No unusual epistaxis, No nasal symptoms, No sore throat, No tinnitus, No dental problems, No trouble swallowing Respiratory: No cough, No sputum, No wheezing, No shortness of breath, No dyspnea on exertion, No dyspnea at rest, No hemoptysis Cardiac: No chest pain, No orthopnea, No PND, No edema, No claudication, No palpitations Abdomen: + problem reported (Gamino is in place), No pain, No nausea, No vomiting, No diarrhea, No constipation Musculoskeletal: No joint pain, No muscle pain, No swelling, No calf pain Female : No dysuria, No urinary frequency, No hematuria, No incontinence, No abnormal vaginal bleeding, No vaginal discharge Neurologic: No memory loss, No paralysis, No weakness, No numbness/tingling, No vertigo, No balance problems Psychiatric: No depression symptoms, No anhedonism, No anxiety, No insomnia, No substance abuse Heme: No abnormal bleeding/bruising, No clotting problems, No swollen lymph nodes, No night sweats Endo: No fatigue, No excessive thirst, No excessive urination Skin: No rash, No itch, No new/changing skin lesions, No color change, No bleeding Objective Vital Signs Date Time Temp Pulse Resp B/P (MAP) Pulse Ox O2 Delivery O2 Flow Rate FiO2 06/05/17 15:15 Room Air 06/05/17 14:51 36.7 73 18 131/76 (94) 96 Room Air 06/05/17 07:30 Room Air 06/05/17 07:13 36.8 71 17 166/94 (118) 94 Room Air 06/05/17 00:20 36.5 104 16 142/93 (109) 97 Room Air 06/04/17 23:15 Room Air 06/04/17 22:52 37.0 73 111/66 (81) 95 Room Air Physical Exam General Appearance: + thin, + pertinent finding (frail, pleasant) Eyes: normal inspection, PERRL ENT: normal ENT inspection, hearing grossly normal Neck: supple, no adenopathy Respiratory/Chest: chest non-tender, no respiratory distress, no accessory muscle use, + decreased breath sounds Cardiovascular: regular rate, rhythm, no edema, no gallop, no JVD, + systolic murmur Abdomen: normal bowel sounds, non tender, soft, no organomegaly, no pulsatile mass, + pertinent finding (Gamino catheter in place) Extremities: normal range of motion, non-tender, normal inspection, no pedal edema Neurologic/Psychiatric: facilities manager II-XII nml as tested, no motor/sensory deficits, alert, normal mood/affect, oriented x 3 Skin: normal color, warm/dry, no rash, + pertinent finding (right medial ankle minimal tenderness no swelling no erythema) Assessment and Plan 87 y/o female with a history of HTN, depression, GERD, neurogenic bladder, and chronic pain who presents with RLQ and right flank pain. Right hydronephrosis, h/o neurogenic bladder w/chronic CIC at home--improving/ resolving Urology consulted, appreciate recs: Recommend stopping aspiring while actively bleeding. Continue on PO abx x 14 days. F/u with Dr. Holder in 2 weeks. D/c irrigations. Resume aspirin. Can attempt to resume CIC. Cystoscopy revealed swollen right ureteral orifice, possible right UPJ obstruction and significant right hydronephrosis. Right ureteral stent placed. UCx positive for E. coli, sensitive to cephs, PO Keflex day #7/ aspirin restarted because resolved of hematuria, stop q shift Gamino irrigations Right abdominal/flank pain--secondary to issues above vs gallbladder, resolved -HIDA scan negative RLE pain secondary to L5 radiculopathy--improving/resolving, denies any pain for 2 days -R ankle x-ray negative for acute disease -Neurology consulted at request of daughter, appreciate recs: Should have EMG and nerve conduction studies done as outpatient. Agree with rehabilitation. Believe she would not be a good surgical candidate. -Lumbar spine MRI shows spinal stenosis L2-L3, L3-L4. Bulging disc at L4-L5 and mild disc herniation at L1-L2. -Continue Voltaren gel, [place] 5/325 mg PO q6h prn pain Lethargy/AMS upon admission, resolved , checked ABG, B12, folate, ammonia WNL B/l calf pain, resolved , Doppler u/s negative for DVT bilaterally Diarrhea, resolved , C diff negative HTN, stable, Continue Norvasc 5 mg PO qd, Continue valsartan 160 mg PO BID Depression GERD DVT prophylaxis -Enoxaparin 40 mg SC q24h -SCDs Code Status -Level V, DO NOT RESUSCITATE Dispo -Lives with daughter -Pt only walking 30 feet w/walker with physical therapy -OT recommends not returning home -Pt is warty reluctant to get out of bed or sit in chair. Likely not a good candidate for acute rehab, but and daughter refuses SNF. [facility] insurance auth pending Continued [facility] stay due to: home environment unsafe for pt Discharge planning: rehab hospital
[2017-06-05] MEDS: MIRTAZAPINE TAB 15 MG TAB PO SCH (21:05)
[2017-06-05 23:10] VITALS: BP 120/67; PULSE 70; TEMP 37.1; O2SAT 97
[2017-06-06] MEDS: CHECK FENTANYL PATCH PLACEMENT SCH ×3 (00:08→15:26)
[2017-06-06 06:53] VITALS: BP 118/54; PULSE 81; TEMP 37.1; O2SAT 99
[2017-06-06 07:30] VITALS: BP 138/78; PULSE 74; TEMP 36.9; O2SAT 95
[2017-06-06] MEDS: DICLOFENAC SOD 1% GEL 100 GM TUBE EXT SCH ×2 (08:51→20:51)
[2017-06-06] MEDS: ASPIRIN 81 MG ECTAB PO SCH (08:52)
[2017-06-06] MEDS: CHOLECALCIFEROL 1000 INTER.UNIT TAB PO SCH (08:52)
[2017-06-06] MEDS: CEROVITE ADV FORMULA TAB PO SCH (08:53)
[2017-06-06] MEDS: MEGESTROL ACETATE SUSP 400 MG/10 ML UDC PO SCH ×2 (08:53→20:51)
[2017-06-06] MEDS: CEPHALEXIN MONOHYDRATE 500 MG CAP PO SCH ×4 (08:53→20:48)
[2017-06-06] MEDS: DULOXETINE (CYMBALTA) 30 MG CAP PO SCH (08:53)
[2017-06-06] MEDS: CALCIUM CARBONATE 1250MG TAB PO SCH ×2 (08:53→20:47)
[2017-06-06] MEDS: AMLODIPINE BESYLATE 5 MG TAB PO SCH (08:53)
[2017-06-06] MEDS: DOCUSATE SODIUM 100 MG CAP PO SCH ×2 (08:53→20:47)
[2017-06-06] MEDS: VALSARTAN 80 MG TAB PO SCH ×2 (08:53→20:47)
[2017-06-06] MEDS: PANTOprazole SOD 40 MG TAB PO SCH (08:54)
[2017-06-06] MEDS: SENNA 8.6 MG TAB PO SCH (08:54)
[2017-06-06] MEDS: HYDROCODONE/ACETAMOPHEN 5/325MG TAB PO PRN (12:45)
[2017-06-06] MEDS ORDERED: FENTANYL 25 MCG/HR TDSY TD SCH (14:00)
[2017-06-06] MEDS: FENTANYL PATCH REMOVE & WASTE SCH (14:02)
[2017-06-06 15:17] VITALS: BP 100/63; PULSE 67; TEMP 36.7; O2SAT 93
--- NOTE | 2017-06-06 16:26 | Progress Note ---
Subjective Date of Service: Jun 06, 2017. Subjective Pt evaluation today including: conversation w/ patient, conversation w/ family (daughter, son in law), physical exam, lab review, review of inpatient medication list Pain: low back, worse currently than baseline PO Intake: improving slowly Voiding: reaves catheter in place patient doing slightly better, still with pain d/w family, plan to d/c reaves tomorrow for intermittent straight catheterization peer to peer denied for HSNV, does not have specific diagnosis that would meet criteria reviewed labs and imaging studies still in pain, will increase Fentanyl to 25mcg here in the hospital Problem List Medical Problems: (1) Bladder rupture Status: Acute (2) CKD (chronic kidney disease) Status: Acute (3) Hematuria Status: Acute Review of Systems Constitutional: + weakness, + fatigue Musculoskeletal: + joint pain (low back pain, moderate to severe at times) Female : + problem reported (neurogenic bladder) Neurologic: + memory loss, + weakness, + balance problems All Other Systems: Reviewed and Negative Medications Current Inpatient Medications Medications (Trade) Dose Ordered Sig/Tenisha Route Start Time Stop Time Status Last Admin Dose Admin Acetaminophen (Tylenol Tab) 650 mg Q4H PRN PO 05/29/17 02:00 06/28/17 01:59 06/05/17 11:03 650 MG Al Hydrox/Mg Hydrox/Simethicone (Maalox Max Susp) 15 ml Q4H PRN PO 05/29/17 02:00 06/28/17 01:59 Magnesium Hydroxide (Milk Of Magnesia Susp) 30 ml Q6H PRN PO 05/29/17 02:00 06/28/17 01:59 Polyethylene (Miralax Powder Packet) 17 gm DAILY PRN PO 05/29/17 02:00 06/28/17 01:59 Ondansetron HCl (Zofran Inj) 4 mg Q6H PRN IV 05/29/17 02:00 06/28/17 01:59 Aspirin (Ecotrin Tab) 81 mg QAM PO 05/29/17 09:00 06/28/17 08:59 Future hold 06/06/17 08:52 81 MG Cholecalciferol (Vitamin D Tab) 1,000 inter.unit QAM PO 05/29/17 09:00 06/28/17 08:59 06/06/17 08:52 1,000 INTER.UNIT Docusate Sodium (coLACE CAP) 100 mg BID PO 05/29/17 09:00 06/28/17 08:59 06/06/17 08:53 100 MG Duloxetine HCl (Cymbalta Cap) 30 mg DAILY PO 05/29/17 09:00 06/28/17 08:59 06/06/17 08:53 30 MG Mirtazapine (Remeron Tab) 15 mg QPM PO 05/29/17 21:00 06/28/17 20:59 06/05/17 21:05 15 MG Multivitamins/ Minerals (Multivitamin W/ Minerals Tab) 1 tab DAILY PO 05/29/17 09:00 06/28/17 08:59 06/06/17 08:53 1 TAB Pantoprazole Sodium (Protonix Tab) 40 mg QAM PO 05/29/17 09:00 06/28/17 08:59 06/06/17 08:54 40 MG Senna (Senokot Tab) 17.2 mg QAM PO 05/29/17 09:00 06/28/17 08:59 06/06/17 08:54 17.2 MG Valsartan (Diovan Tab) 160 mg BID PO 05/29/17 09:00 06/28/17 08:59 06/06/17 08:53 160 MG Morphine Sulfate (MoRPHine SULFATE INJ) 2 mg Q6HWA PRN IV 05/29/17 02:00 06/12/17 01:59 06/01/17 17:51 2 MG Miscellaneous Information (Check Fentanyl Patch Placement) 1 ea QS N/A 05/29/17 08:00 06/28/17 07:59 06/06/17 15:26 1 EA Cephalexin Monohydrate (Keflex Cap) 500 mg QID PO 05/30/17 17:00 06/09/17 16:59 06/06/17 12:43 500 MG Calcium Carbonate (oS-Jhon 500 TAB) 1,250 mg BID PO 05/30/17 21:00 06/29/17 20:59 06/06/17 08:53 1,250 MG Amlodipine Besylate (Norvasc Tab) 5 mg QAM PO 06/01/17 09:00 07/01/17 08:59 06/06/17 08:53 5 MG Miscellaneous (Fentanyl Patch Remove & Waste) 1 ea Q3D@1359 N/A 05/31/17 13:59 06/30/17 13:58 06/06/17 14:02 1 EA Diclofenac Sodium (Voltaren 1% Top Gel) 1 appln Q12 EXT 06/01/17 21:00 07/01/17 20:59 06/06/17 08:51 1 APPLN Megestrol Acetate (Megace Susp) 400 mg BID PO 06/01/17 21:00 07/01/17 20:59 06/04/17 20:05 400 MG Acetaminophen/ Hydrocodone Bitart (Freeman 5/325 Tab) 1 tab Q6 PRN PO 06/02/17 12:45 06/16/17 12:44 06/06/17 12:45 1 TAB Miconazole Nitrate (Desenex Powder) 1 appln PRN PRN EXT 06/03/17 20:15 07/03/17 20:14 06/04/17 20:05 1 APPLN Fentanyl (Duragesic Patch) 25 mcg Q3D@1400 TD 06/06/17 14:00 06/14/17 13:59 06/06/17 14:01 25 MCG Objective Vital Signs Date Time Temp Pulse Resp B/P (MAP) Pulse Ox O2 Delivery O2 Flow Rate FiO2 06/06/17 15:17 36.7 67 18 100/63 (75) 93 Room Air 06/06/17 07:30 36.9 74 17 138/78 (98) 95 Room Air 06/06/17 07:30 Room Air 06/05/17 23:45 Room Air 06/05/17 23:10 37.1 70 14 120/67 (84) 97 Room Air Physical Exam General Appearance: no apparent distress, + thin ENT: normal ENT inspection, hearing grossly normal, pharynx normal Neck: supple, no adenopathy, no JVD Respiratory/Chest: chest non-tender, lungs clear, normal breath sounds, no respiratory distress, no accessory muscle use Cardiovascular: regular rate, rhythm, no edema, no gallop, no JVD, no murmur Abdomen: normal bowel sounds, non tender, soft, no organomegaly Extremities: non-tender, normal inspection, no pedal edema, no calf tenderness , normal capillary refill, pelvis stable 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 - Right pyelonephritis, hydronephritis secondary to neurogenic bladder with CIC at home no sepsis, afebrile, vitals stable day # 8 of 14 on Keflex, urine culture with E coli, sensitive to cephalosporins Cystoscopy revealed swollen right ureteral orifice, possible right UPJ obstruction and significant right hydronephrosis. Right ureteral stent placed. follow up with Dr. Holder in 2 weeks Right abdominal/flank pain--secondary to issues above vs gallbladder, resolved -HIDA scan negative RLE pain secondary to L5 radiculopathy--improving/resolving, denies any pain for 2 days -R ankle x-ray negative for acute disease -Neurology consulted at request of daughter, appreciate recs: Should have EMG and nerve conduction studies done as outpatient. Agree with rehabilitation. Believe she would not be a good surgical candidate. -Lumbar spine MRI shows spinal stenosis L2-L3, L3-L4. Bulging disc at L4-L5 and mild disc herniation at L1-L2. -Continue Voltaren gel, Freeman 5/325 mg PO q6h prn pain - more pain today will increase Fentanyl to 25mcg and see if she has increased mobility Lethargy/AMS upon admission, resolved , checked ABG, B12, folate, ammonia WNL encouraged patient to drink more fluids as dehydration may be playing a role B/l calf pain, resolved , Doppler u/s negative for DVT bilaterally Diarrhea, resolved , C diff negative HTN, stable, Continue Norvasc 5 mg PO qd, Continue valsartan 160 mg PO BID Depression GERD DVT prophylaxis -Enoxaparin 40 mg SC q24h -SCDs Code Status -Level V, DO NOT RESUSCITATE Dispo -Lives with daughter -Pt only walking 30 feet w/walker with physical therapy - denied HSNV and denied peer to peer - will need to consider SNF, family looking into [facility], working on placement Continued [facility] stay due to: home environment unsafe for pt Discharge planning: rehab hospital
[2017-06-06 20:45] VITALS: BP 116/76; PULSE 67
[2017-06-06] MEDS: MIRTAZAPINE TAB 15 MG TAB PO SCH (20:47)
[2017-06-06] MEDS: MICONAZOLE NITRATE POWDER 43 GM EXT PRN (21:35)
[2017-06-06 22:50] VITALS: BP 114/67; PULSE 64; TEMP 37; O2SAT 96
[2017-06-07 07:43] VITALS: BP 124/69; PULSE 56; TEMP 36.8; O2SAT 95
[2017-06-07] MEDS: CHECK FENTANYL PATCH PLACEMENT SCH ×3 (08:00→15:50)
--- NOTE | 2017-06-07 08:57 | Progress Note ---
Subjective Date of Service: Jun 07, 2017. (Latoya Engle CRNP) Subjective Pt evaluation today including: conversation w/ patient, chart review Voiding: reaves catheter in place (patent, draining clear, yellow urine ) 87 yo female s/p right ureteral stent placement. Reaves catheter draining clear, yellow urine this morning. Pt states she is in the hospital. Per nursing staff, she has not been very willing or motivated to get out of bed or do ADLs the past few days. Awaiting SNF placement. [facility] denied. (Latoya Engle CRNP) Problem List Medical Problems: (1) Bladder rupture Status: Acute (2) CKD (chronic kidney disease) Status: Acute (3) Hematuria Status: Acute (Latoya Engle CRNP) Review of Systems Constitutional: No fever, No chills Respiratory: No shortness of breath Cardiac: No chest pain Abdomen: No pain, No nausea, No vomiting Female : No hematuria Heme: No abnormal bleeding/bruising (Latoya Engle CRNP) Objective Vital Signs Date Time Temp Pulse Resp B/P (MAP) Pulse Ox O2 Delivery O2 Flow Rate FiO2 06/07/17 07:43 36.8 56 16 124/69 (87) 95 Room Air 06/06/17 23:15 Room Air 06/06/17 22:50 37.0 64 14 114/67 (83) 96 Room Air 06/06/17 20:45 67 116/76 (89) 06/06/17 15:20 Room Air 06/06/17 15:17 36.7 67 18 100/63 (75) 93 Room Air (Latoya Engle CRNP) Physical Exam General Appearance: no apparent distress Eyes: normal inspection ENT: hearing grossly normal Neck: no JVD Respiratory/Chest: no respiratory distress, no accessory muscle use Cardiovascular: no JVD Extremities: normal inspection Neurologic/Psychiatric: alert, normal mood/affect Skin: normal color (Latoya Engle CRNP) Assessment and Plan A/P: Right hydronephrosis, UTI, gross hematuria AFVSS. Hematuria resolved. Recommend 14 days of Keflex for UTI. Will d/c reaves catheter, and have the pt attempt to resume CIC on her own again as she was doing this for many years prior to hospitalization without any issues. Nursing staff at [facility] and SNF can assist if she has any issues. Would prefer CIC over chronic reaves if possible though. Will arrange for f/u with Dr. Holder in 1 week. Continued [facility] stay due to: home environment unsafe for pt Discharge planning: rehab hospital (Latoay Engle CRNP)
[2017-06-07] MEDS: CHOLECALCIFEROL 1000 INTER.UNIT TAB PO SCH (09:00)
[2017-06-07] MEDS: MEGESTROL ACETATE SUSP 400 MG/10 ML UDC PO SCH ×2 (09:00→21:00)
[2017-06-07] MEDS: MICONAZOLE NITRATE POWDER 43 GM EXT PRN (09:54)
[2017-06-07] MEDS: DICLOFENAC SOD 1% GEL 100 GM TUBE EXT SCH ×2 (09:54→21:59)
[2017-06-07] MEDS: CEPHALEXIN MONOHYDRATE 500 MG CAP PO SCH ×4 (09:54→21:52)
[2017-06-07] MEDS: DULOXETINE (CYMBALTA) 30 MG CAP PO SCH (09:54)
[2017-06-07] MEDS: CEROVITE ADV FORMULA TAB PO SCH (09:54)
[2017-06-07] MEDS: PANTOprazole SOD 40 MG TAB PO SCH (09:55)
[2017-06-07] MEDS: VALSARTAN 80 MG TAB PO SCH ×2 (09:55→21:56)
[2017-06-07] MEDS: CALCIUM CARBONATE 1250MG TAB PO SCH ×2 (09:55→21:57)
[2017-06-07] MEDS: ASPIRIN 81 MG ECTAB PO SCH (09:55)
[2017-06-07] MEDS: AMLODIPINE BESYLATE 5 MG TAB PO SCH (09:55)
[2017-06-07] MEDS: DOCUSATE SODIUM 100 MG CAP PO SCH ×2 (09:55→21:55)
[2017-06-07] MEDS: SENNA 8.6 MG TAB PO SCH (09:55)
[2017-06-07] MEDS: HYDROCODONE/ACETAMOPHEN 5/325MG TAB PO PRN (15:04)
[2017-06-07 15:09] VITALS: BP 112/65; PULSE 61; TEMP 36.8; O2SAT 94
--- NOTE | 2017-06-07 15:21 | Progress Note ---
Subjective Date of Service: Jun 07, 2017. Subjective Pt evaluation today including: conversation w/ patient, conversation w/ family (daughter), physical exam, lab review, conversation w/ urban design consultant, review of inpatient medication list Pain: little improvement PO Intake: adequate Voiding: requires PRN straight cath patient feels the same as yesterday, mild baseline confusion no improvement in pain control with increasing Fentanyl to 25mcg family no longer interested in appeal, will go to the [facility], needs insurance authorization reaves pulled, performing CIC, follow up with Dr. Holder in one week Problem List Medical Problems: (1) Bladder rupture Status: Acute (2) CKD (chronic kidney disease) Status: Acute (3) Hematuria Status: Acute Review of Systems Constitutional: + weakness, + fatigue Musculoskeletal: + joint pain (low back pain) All Other Systems: Reviewed and Negative Medications Current Inpatient Medications Medications (Trade) Dose Ordered Sig/Tenisha Route Start Time Stop Time Status Last Admin Dose Admin Acetaminophen (Tylenol Tab) 650 mg Q4H PRN PO 05/29/17 02:00 06/28/17 01:59 06/05/17 11:03 650 MG Al Hydrox/Mg Hydrox/Simethicone (Maalox Max Susp) 15 ml Q4H PRN PO 05/29/17 02:00 06/28/17 01:59 Magnesium Hydroxide (Milk Of Magnesia Susp) 30 ml Q6H PRN PO 05/29/17 02:00 06/28/17 01:59 Polyethylene (Miralax Powder Packet) 17 gm DAILY PRN PO 05/29/17 02:00 06/28/17 01:59 Ondansetron HCl (Zofran Inj) 4 mg Q6H PRN IV 05/29/17 02:00 06/28/17 01:59 Aspirin (Ecotrin Tab) 81 mg QAM PO 05/29/17 09:00 06/28/17 08:59 Future hold 06/07/17 09:55 81 MG Cholecalciferol (Vitamin D Tab) 1,000 inter.unit QAM PO 05/29/17 09:00 06/28/17 08:59 06/07/17 09:00 1,000 INTER.UNIT Docusate Sodium (coLACE CAP) 100 mg BID PO 05/29/17 09:00 06/28/17 08:59 06/07/17 09:55 100 MG Duloxetine HCl (Cymbalta Cap) 30 mg DAILY PO 05/29/17 09:00 06/28/17 08:59 06/07/17 09:54 30 MG Mirtazapine (Remeron Tab) 15 mg QPM PO 05/29/17 21:00 06/28/17 20:59 06/06/17 20:47 15 MG Multivitamins/ Minerals (Multivitamin W/ Minerals Tab) 1 tab DAILY PO 05/29/17 09:00 06/28/17 08:59 06/07/17 09:54 1 TAB Pantoprazole Sodium (Protonix Tab) 40 mg QAM PO 05/29/17 09:00 06/28/17 08:59 06/07/17 09:55 40 MG Senna (Senokot Tab) 17.2 mg QAM PO 05/29/17 09:00 06/28/17 08:59 06/07/17 09:55 17.2 MG Valsartan (Diovan Tab) 160 mg BID PO 05/29/17 09:00 06/28/17 08:59 06/07/17 09:55 160 MG Morphine Sulfate (MoRPHine SULFATE INJ) 2 mg Q6HWA PRN IV 05/29/17 02:00 06/12/17 01:59 06/01/17 17:51 2 MG Miscellaneous Information (Check Fentanyl Patch Placement) 1 ea QS N/A 05/29/17 08:00 06/28/17 07:59 06/07/17 08:00 1 EA Cephalexin Monohydrate (Keflex Cap) 500 mg QID PO 05/30/17 17:00 06/09/17 16:59 06/07/17 15:03 500 MG Calcium Carbonate (oS-Jhon 500 TAB) 1,250 mg BID PO 05/30/17 21:00 06/29/17 20:59 06/07/17 09:55 1,250 MG Amlodipine Besylate (Norvasc Tab) 5 mg QAM PO 06/01/17 09:00 07/01/17 08:59 06/07/17 09:55 5 MG Miscellaneous (Fentanyl Patch Remove & Waste) 1 ea Q3D@1359 N/A 05/31/17 13:59 06/30/17 13:58 06/06/17 14:02 1 EA Diclofenac Sodium (Voltaren 1% Top Gel) 1 appln Q12 EXT 06/01/17 21:00 07/01/17 20:59 06/07/17 09:54 1 APPLN Megestrol Acetate (Megace Susp) 400 mg BID PO 06/01/17 21:00 07/01/17 20:59 06/04/17 20:05 400 MG Acetaminophen/ Hydrocodone Bitart ([place] 5/325 Tab) 1 tab Q6 PRN PO 06/02/17 12:45 06/16/17 12:44 06/07/17 15:04 1 TAB Miconazole Nitrate (Desenex Powder) 1 appln PRN PRN EXT 06/03/17 20:15 07/03/17 20:14 06/07/17 09:54 1 APPLN Fentanyl (Duragesic Patch) 25 mcg Q3D@1400 TD 06/06/17 14:00 06/14/17 13:59 06/06/17 14:01 25 MCG Objective Vital Signs Date Time Temp Pulse Resp B/P (MAP) Pulse Ox O2 Delivery O2 Flow Rate FiO2 06/07/17 15:09 36.8 61 16 112/65 (81) 94 Room Air 06/07/17 07:43 36.8 56 16 124/69 (87) 95 Room Air 06/07/17 07:30 Room Air 06/06/17 23:15 Room Air 06/06/17 22:50 37.0 64 14 114/67 (83) 96 Room Air 06/06/17 20:45 67 116/76 (89) 06/06/17 15:20 Room Air 06/06/17 15:17 36.7 67 18 100/63 (75) 93 Room Air Physical Exam General Appearance: no apparent distress, + thin Eyes: normal inspection, EOMI, sclerae normal Neck: supple, no adenopathy, no JVD, trachea midline Respiratory/Chest: chest non-tender, lungs clear, normal breath sounds, no respiratory distress, no accessory muscle use Cardiovascular: regular rate, rhythm, no edema, no gallop, no JVD, no murmur Abdomen: normal bowel sounds, non tender, soft, no organomegaly Extremities: normal inspection, no pedal edema, no calf tenderness, normal capillary refill, pelvis stable, + pertinent finding (decreased ROM in lower back, + scoliosis) Neurologic/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 - Right pyelonephritis, hydronephritis secondary to neurogenic bladder with CIC at home no sepsis, afebrile, vitals stable day # 9 of 14 on Keflex, urine culture with E coli, sensitive to cephalosporins Cystoscopy revealed swollen right ureteral orifice, possible right UPJ obstruction and significant right hydronephrosis. Right ureteral stent placed. follow up with Dr. Holder in 1 week reaves d/c today, resumed CIC and will continue at SNF Right abdominal/flank pain--secondary to issues above, resolved -HIDA scan negative RLE pain secondary to L5 radiculopathy--improving/resolving, denies any pain for 2 days -R ankle x-ray negative for acute disease -Neurology consulted at request of daughter, appreciate recs: Should have EMG and nerve conduction studies done as outpatient. Agree with rehabilitation. Believe she would not be a good surgical candidate. -Lumbar spine MRI shows spinal stenosis L2-L3, L3-L4. Bulging disc at L4-L5 and mild disc herniation at L1-L2. -Continue Voltaren gel, [place] 5/325 mg PO q6h prn pain - increased Fentanyl to 25mcg, less pain in neck today but still with pain in low back Lethargy/AMS upon admission, resolved , checked ABG, B12, folate, ammonia WNL encouraged patient to drink more fluids as dehydration may be playing a role B/l calf pain, resolved , Doppler u/s negative for DVT bilaterally Diarrhea, resolved , C diff negative HTN, stable, Continue Norvasc 5 mg PO qd, Continue valsartan 160 mg PO BID Depression GERD DVT prophylaxis -Enoxaparin 40 mg SC q24h -SCDs Code Status -Level V, DO NOT RESUSCITATE Dispo -Lives with daughter -will go to [facility] for sub acute rehab, hopeful for insurance authorization tomorrow Continued [facility] stay due to: home environment unsafe for pt Discharge planning: rehab hospital
[2017-06-07] MEDS: MIRTAZAPINE TAB 15 MG TAB PO SCH (21:54)
[2017-06-07 23:41] VITALS: BP 124/69; PULSE 56; TEMP 36.6; O2SAT 93
[2017-06-08] MEDS: CHECK FENTANYL PATCH PLACEMENT SCH ×2 (00:15→08:00)
[2017-06-08 07:59] VITALS: BP 135/77; PULSE 62; TEMP 36.7; O2SAT 97
--- NOTE | 2017-06-08 08:58 | Progress Note ---
Subjective Date of Service: Jun 08, 2017. Subjective Pt evaluation today including: conversation w/ patient, chart review Voiding: requires PRN straight cath 87 yo female with hx of right hydro, neurogenic bladder, and recurrent UTI. S/p right ureteral stent placement. Pt was able to cath herself yesterday without issue. Voiding some on her own this morning. States she needs to void as we speak. Problem List Medical Problems: (1) Bladder rupture Status: Acute (2) CKD (chronic kidney disease) Status: Acute (3) Hematuria Status: Acute Review of Systems Constitutional: No fever, No chills Respiratory: No shortness of breath Cardiac: No chest pain Abdomen: No pain, No nausea, No vomiting Female : No hematuria Heme: No abnormal bleeding/bruising Objective Vital Signs Date Time Temp Pulse Resp B/P (MAP) Pulse Ox O2 Delivery O2 Flow Rate FiO2 06/08/17 07:59 36.7 62 16 135/77 (96) 97 Room Air 06/07/17 23:41 36.6 56 15 124/69 (87) 93 Room Air 06/07/17 23:15 Room Air 06/07/17 15:09 36.8 61 16 112/65 (81) 94 Room Air Physical Exam General Appearance: no apparent distress Eyes: normal inspection ENT: hearing grossly normal Neck: no JVD Respiratory/Chest: no respiratory distress, no accessory muscle use Cardiovascular: no JVD Extremities: normal inspection Neurologic/Psychiatric: alert, normal mood/affect Skin: normal color Assessment and Plan A/P: Right hydronephrosis, UTI, gross hematuria; s/p right ureteral stent placement AFVSS. Hematuria resolved. Recommend 14 days of Keflex for UTI. Pt voiding some on own today. Will check bladder scans qshift. Pt to straight cath herself if PVR >250ml. Nursing staff at [facility] and SNF can assist if she has any issues. Would prefer CIC over chronic reaves if possible though. Will arrange for f/u with Dr. Holder in 1 week. No further management at this time. Recall PRN issues. Thanks for allowing us to participate in this pt's care. Continued [facility] stay due to: home environment unsafe for pt Discharge planning: rehab hospital
[2017-06-08] MEDS: MEGESTROL ACETATE SUSP 400 MG/10 ML UDC PO SCH (09:00)
[2017-06-08] MEDS: DICLOFENAC SOD 1% GEL 100 GM TUBE EXT SCH (09:37)
[2017-06-08] MEDS: CEPHALEXIN MONOHYDRATE 500 MG CAP PO SCH ×2 (09:38→13:13)
[2017-06-08] MEDS: AMLODIPINE BESYLATE 5 MG TAB PO SCH (09:38)
[2017-06-08] MEDS: CALCIUM CARBONATE 1250MG TAB PO SCH (09:38)
[2017-06-08] MEDS: ASPIRIN 81 MG ECTAB PO SCH (09:38)
[2017-06-08] MEDS: VALSARTAN 80 MG TAB PO SCH (09:38)
[2017-06-08] MEDS: PANTOprazole SOD 40 MG TAB PO SCH (09:38)
[2017-06-08] MEDS: DULOXETINE (CYMBALTA) 30 MG CAP PO SCH (09:41)
[2017-06-08] MEDS: DOCUSATE SODIUM 100 MG CAP PO SCH (09:41)
[2017-06-08] MEDS: CEROVITE ADV FORMULA TAB PO SCH (09:41)
[2017-06-08] MEDS: CHOLECALCIFEROL 1000 INTER.UNIT TAB PO SCH (09:41)
[2017-06-08] MEDS: SENNA 8.6 MG TAB PO SCH (09:42)
[2017-06-08] MEDS ORDERED: NRV5 PO (10:01)
[2017-06-08] MEDS ORDERED: DRGTP25 TD (10:01)
[2017-06-08] MEDS ORDERED: VLTG EXT (10:01)
[2017-06-08] MEDS ORDERED: KFL500 PO (10:01)
[2017-06-08] MEDS ORDERED: HYDR-5688 PO (10:01)
--- NOTE | 2017-06-08 10:12 | Discharge Instructions ---
Discharge Instructions Date of Service Jun 08, 2017. Admission Reason for Admission: Pyelonephritis, hydronephritis Discharge Discharge Diagnosis / Problem: Pyelonephritis, hydronephritis, severe spinal stenosis Discharge Goals Goal(s): Decrease discomfort, Improve function, Diagnostic testing (EMG testing with neurology) Activity Recommendations Activity Level: Assistance Required Therapies: Physical Therapy, Occupational Therapy . Additional Information Patient informed of condition: Yes Advance Directives: Yes DNR: Yes Level of Care: Skilled Communicable Disease: No Prognosis: Improving Oxygen at (LPM): no Reaves Catheter: No Instructions / Follow-Up Instructions / Follow-Up Medications: - KEFLEX: 500mg four times a day for 5 more days to treat complicated UTI, pyelonephritis - FENTANYL PATCH: dose increased to 25mcg every 72 hours - NORCO: use as needed for breakthrough pain - VOLTAREN GEL: apply twice a day to back - NORVASC: added for better blood pressure control, 5mg daily Right sided pyelonephritis, hydronephrosis, swollen right ureteral orifice with stent placed by cystoscopy complete 5 more days of Keflex, E coli on urine culture needs to follow up with Dr. Holder, urology, early next week H/o neurogenic bladder with CIC patient has been urinating since reaves pulled on 06/07 monitor for post void residual, please straight cath for residual >250cc or if she does not urinate for 8 hours will follow up with urology Severe spinal stenosis: found on MRI lumbar spine, multiple levels not a surgical candidate pain control with Fentanyl patch, [place], Voltarn gel Dr. Erwin, neurology, would like to get EMG testing as outpatient Hypertension: Norvasc added to ARB, better BP control FOLLOW UP - Physician at [facility] this week - Dr. Holder early next week, needs appointment - Dr. Erwin in several weeks, arrange for EMG testing of legs for spinal stenosis - Dr. Lugo one week after discharge from [facility] Diet Patient's current hospital diet: Regular Diet, Low Fat Diet Discharge Diet Recommended Diet: Regular Diet Procedures Procedures Performed: Cystoscopy, Retrograde Pyelogram, Right Ureteral Stent Insertion Pending Studies Studies pending at discharge: no Physician Orders On Transfer POLST Discussion: Not Applicable Medical Emergencies . Who to Call and When: Medical Emergencies: If at any time you feel your situation is an emergency, please call 911 immediately. . Non-Emergent Contact Non-Emergency issues call your: Primary Care Provider Call Non-Emergent contact if: you have any medication questions . . "Provider Documentation" section prepared by Amadeo Hart. . Core Measure Problem Core Measures: None [place] Drug Monitoring Program Search Results: no issues identified
[2017-06-08 10:40] LABS: BASO % 0.6 %; BASO ABS # 0.04 K/uL (0-0.2); EOS % 3.2 %; EOS ABS # 0.23 K/uL (0-0.5); HEMATOCRIT 30.7 % (37-47); HEMOGLOBIN 10.1 g/dL (12.0-16.0); IG# 0.02 K/uL (0.00-0.02); LYMPH % 20.9 %; MEAN CELL VOLUME 91.6 fL (80-100); MEAN CORPUSCULAR HEMOGLOBIN 30.1 pg (25-34); MEAN CORPUSCULAR HGB CONC 32.9 g/dl (32-36); MEAN PLATELET VOLUME 8.4 fL (7.4-10.4); MONO % 8.3 %; NEUT % 66.7 %; PLATELET COUNT 369 K/uL (130-400); RED CELL DISTRIBUTION WIDTH CV 12.7 % (11.5-14.5); WHITE BLOOD COUNT 7.19 K/uL (4.8-10.8)
[2017-06-08 11:02] LABS: CALCIUM 9.7 mg/dl (8.5-10.1); CREATININE 1.17 mg/dl (0.60-1.20); POTASSIUM 4.4 mmol/L (3.5-5.1)
[2017-06-08 14:20] VITALS: BP 135/77; PULSE 62; TEMP 36.7; O2SAT 97
--- NOTE | 2017-06-09 09:21 | Discharge Summary ---
Discharge Summary Date of Service Jun 09, 2017. Discharge Summary Admission Date: May 29, 2017 at 01:57 Discharge Date: Jun 08, 2017 Discharge Disposition: nursing home facility Principal Diagnosis: Right pyelonephritis Problems/Secondary Diagnoses: Right hydronephritis Neurogenic bladder Severe spinal stenosis HTN Immunizations: Have You Had Influenza Vaccine: Yes History of Tetanus Vaccine?: Yes History of Pneumococcal: Yes History of Hepatitis B Vaccine: Yes Procedures: Cystoscopy with right ureteral stent placed for ureteral orifice swelling/ stricture Consultations: Urology Neurology Medication Reconciliation New Medications: Amlodipine Besylate (Amlodipine Besylate) 5 Mg Tab 5 MG PO QAM, #30 TAB 2 Refills Cephalexin Monohydrate (Cephalexin) 500 Mg Cap 500 MG PO QID for 5 Days, #20 CAP 0 Refills Diclofenac Sod (Voltaren) 100 Appln/100 Gm Gel 1 APPLN EXT Q12, #1 TUBE 2 Refills Fentanyl (Fentanyl) 25 Mcg Tdsy 25 MCG TD Q3D@1400, #10 PATCH 0 Refills Hydrocodone/Acetaminophen 5MG/325MG ([place] 5MG/325MG) Tab 1 TAB PO Q6 PRN for Pain, #30 TAB 0 Refills PRN PAIN Continued Medications: Acetaminophen Tab (Tylenol) 325 Mg Tab 325-650 MG PO UD PRN for Pain Aspirin (Aspirin Ec) 81 Mg Tab 81 MG PO QAM Calcium Carbonate (Calcium Carbonate) 1,250 Mg Tab 1250 MG PO AMPM Cholecalciferol (Vitamin D) 1,000 Unit Tab 1000 UNITS PO QAM Docusate Sodium (Colace) 100 Mg Cap 100 MG PO AMPM Duloxetine HCl (Cymbalta) 30 Mg Cap 30 MG PO QD @ 1200 Fish Oil ([place]-3) 1 Ea Cap 1 CAP PO DAILY Mirtazapine (Remeron) 15 Mg Tab 15 MG PO QPM Multiple Vitamins W/ Minerals (Thera-M) 1 Tab Tab 1 TAB PO DAILY @ 1200 Pantoprazole (Protonix) 40 Mg Tab 40 MG PO QAM Senna (Senokot) 8.6 Mg Tab 17.2 MG PO QAM TWO 8.6 MG TABLETS Valsartan (Diovan) 160 Mg Tab 160 MG PO AMPM Discontinued Medications: Ciprofloxacin Tab (Cipro) 250 Mg Tab 250 MG PO AMPM Fentanyl (Fentanyl) 12 Mcg Tdsy 1 PATCH TD [id number] Discharge Exam Patient c/o feeling weak in the morning on the day of discharge, daughter was concerned. The patient could not state what was wrong other than feeling weak. She did admit that she walked a lot the day before so perhaps she was fatigued. Checked labs, CBC and BMP stable, troponin negative. Later in the day she was able to walk around the nurses unit with therapy. Explained to patient and daughter that she was taking oral medications, she needs to go for rehab. They were requesting that she stay an additional day but I explained that I did not have a medical reason to keep her an additional night. Explained that what she needs is subacute rehab to continue working on strength. Review of Systems: Constitutional: + weakness, + fatigue, No fever, No chills, No sweats, No weight loss, No problem reported Eyes: No worsening of vision, No eye pain, No redness, No discharge, No diplopia, No problem reported ENT: No hearing loss, No unusual epistaxis, No nasal symptoms, No sore throat, No tinnitus, No dental problems, No trouble swallowing, No problem reported Respiratory: No cough, No sputum, No wheezing, No shortness of breath, No dyspnea on exertion, No dyspnea at rest, No hemoptysis, No problem reported Cardiovascular: No chest pain, No orthopnea, No PND, No edema, No claudication, No palpitations, No problem reported Abdomen: No pain, No nausea, No vomiting, No diarrhea, No constipation, No GI bleeding, No problem reported Musculoskeletal: No joint pain, No muscle pain, No swelling, No calf pain, No problem reported Genitourinary - Female: No dysuria, No urinary frequency, No urinary urgency , No urinary incontinence, No urinary retention, No hematuria Neurologic: No memory loss, No paralysis, No weakness, No numbness/tingling , No vertigo, No balance problems, No problem reported Psychiatric: No depression symptoms, No anhedonism, No anxiety, No insomnia , No substance abuse, No problem reported Endocrine: No fatigue, No excessive thirst, No excessive urination, No problem reported Hematologic / Lymphatic: No abnormal bleeding/bruising, No clotting problems , No swollen lymph nodes, No night sweats, No problem reported Integumentary: No rash, No itch, No new/changing skin lesions, No color change, No bleeding, No problem reported Physical Exam: General Appearance: WD/WN, no apparent distress Eyes: normal inspection, EOMI, sclerae normal ENT: normal ENT inspection, hearing grossly normal, pharynx normal Neck: supple, no adenopathy, no JVD, trachea midline Respiratory/Chest: chest non-tender, lungs clear, normal breath sounds, no respiratory distress, no accessory muscle use Cardiovascular: regular rate, rhythm, no edema, no gallop, no JVD, no murmur , normal peripheral pulses Abdomen / GI: normal bowel sounds, non tender, soft, no organomegaly Extremities: normal inspection, no calf tenderness, normal capillary refill , no pedal edema, pelvis stable, + pertinent finding (low back pain, decreased ROM, scoliosis) Neurologic/Psychiatric: needle maker II-XII nml as tested, no motor/sensory deficits , alert, normal mood/affect, normal reflexes, oriented x 3 Skin: normal color, warm/dry, + rash Hospital Course 87 y/o female with a history of HTN, depression, GERD, neurogenic bladder, and chronic pain who presents with RLQ and right flank pain. - Right pyelonephritis, hydronephritis secondary to neurogenic bladder with CIC at home no sepsis, afebrile, vitals stable day # 10 of 14 on Keflex, urine culture with E coli, sensitive to cephalosporins Cystoscopy revealed swollen right ureteral orifice, possible right UPJ obstruction and significant right hydronephrosis. Right ureteral stent placed. follow up with Dr. Holder in 1 week reaves d/c 06/07, resumed CIC and will continue at SNF patient actually voiding, can straight cath for post void residual >250cc Right abdominal/flank pain--secondary to issues above, resolved -HIDA scan negative RLE pain secondary to L5 radiculopathy--improving/resolving, denies any pain for 2 days -R ankle x-ray negative for acute disease -Neurology consulted at request of daughter, appreciate recs: Should have EMG and nerve conduction studies done as outpatient. Agree with rehabilitation. Believe she would not be a good surgical candidate. -Lumbar spine MRI shows spinal stenosis L2-L3, L3-L4. Bulging disc at L4-L5 and mild disc herniation at L1-L2. -Continue Voltaren gel, [place] 5/325 mg PO q6h prn pain - increased Fentanyl to 25mcg, less pain in neck but still with pain in low back - please follow up with Dr. Erwin, he would like to get an EMG Lethargy/AMS upon admission, resolved , checked ABG, B12, folate, ammonia WNL encouraged patient to drink more fluids as dehydration may be playing a role B/l calf pain, resolved , Doppler u/s negative for DVT bilaterally Diarrhea, resolved , C diff negative HTN, stable, Continue Norvasc 5 mg PO qd, Continue valsartan 160 mg PO BID Depression GERD DVT prophylaxis -Enoxaparin 40 mg SC q24h -SCDs Code Status -Level V, DO NOT RESUSCITATE Dispo -Lives with daughter -will go to [facility] for sub acute rehab Total Time Spent: Greater than 30 minutes This includes examination of the patient, discharge planning, medication reconciliation, and communication with other providers. Discharge Instructions Please refer to the electronic Patient Visit Report (Discharge Instructions) for additional information. Follow-Up Dr. Holder in one week Dr. Erwin in several weeks Physician at [facility] Dr. Lugo one week after d/c from [facility] Additional Copies To [place] Holder M.D.; Stephan Erwin M.D.; [facility]; Prabhakar Lugo MD
== END 2017-06-08 15:33 | DRG 690 ==
LOC: C.EDB 14:35 → EEVIPCON 05-29 01:57 → C.MSN 05-29 01:57 → ENRESERV 05-29 02:25
PROVIDERS: ADMIT Student in an Organized Health Care Education/Training Program; ATTEND Internal Medicine
PROC: 0T768DZ Dilation of Right Ureter with Intraluminal Device, Via Natural or Artificial Opening Endoscopic (ICD-10-PCS; principal; 2017-05-29 08:00)
DX: N12 Tubulo-interstitial nephritis, not specified as acute or chronic (principal); N13.30 Unspecified hydronephrosis; I10 Essential (primary) hypertension; N32.89 Other specified disorders of bladder; R19.7 Diarrhea, unspecified; N31.9 Neuromuscular dysfunction of bladder, unspecified; N39.0 Urinary tract infection, site not specified; R31.0 Gross hematuria; Z66 Do not resuscitate; A49.8 Other bacterial infections of unspecified site; Z79.82 Long term (current) use of aspirin; Z87.440 Personal history of urinary (tract) infections

== ENCOUNTER → 2017-06-30 | Outpatient (CLI) | payer MEDICARE ==
[~2017-06-30] MED LIST changes: +ACET-1693 PO; -ANTIDEPRESSANT PO; +CALC12504 PO; +CHOL100010 PO; -CIPR1TAB11 PO; +CYM/30 PO; +DOCU-94 PO; -DOCU100C31 PO; -DRGTP12 TD; +DRGTP25 TD; +DVN/160 PO; +HYDR-5688 PO; +KFL500 PO; +MIRT15TA PO; +MULT-16 PO; +NRV5 PO; +OMEG10007 PO; -PAIN MED PO; +SENN-61 PO; +VLTG EXT; -[UNRECOGNIZED DRUG - REMARK]
== END | disposition home or self-care (01) ==
LOC: C.LABSPEC 17:51
PROVIDERS: ATTEND Urology
DX: N13.30 Unspecified hydronephrosis (principal); N39.0 Urinary tract infection, site not specified; R19.7 Diarrhea, unspecified

== ENCOUNTER 2017-07-03 09:54 | Inpatient (IN) | payer MEDICARE, OTHER ==
[~2017-07-03] VITALS: Ht 160 cm; Wt 54.0 kg
[2017-07-03] MEDS ORDERED: MoRPHine SULFATE 4 MG/ML 1 ML CARP\\VIAL IV STA ×3 (10:32→13:09)
[2017-07-03] MEDS ORDERED: SODIUM CHLORIDE 0.9% 1000ML 1,000 ML IV STA (10:32)
--- NOTE | 2017-07-03 10:32 | EMERGENCY ROOM VISIT NOTE ---
History Report prepared by Brad: Julieth Huertas Under the Supervision of: Dr. Hardy Jimenez M.D. First contact with patient: 10:24 Chief Complaint: LEG PAIN,LEG INJURY Stated Complaint: SEVERE LEG PAIN History of Present Illness The patient is an 87 year old female who presents to the Emergency Room with complaints of persistent bilateral leg pain for the past 1 week. She is accompanied by her daughters. She rates her discomfort as a 5/10 in severity. Movement worsens her pain. [place] has provided minimal relief. She denies any recent injury or trauma to the legs. Her daughters report she saw her Candle Wrapping Machine Operator, Dr. Holder with [facility], last week and had a stent placed and was told she is likely in kidney failure. The patient had a brief hospital stay at the end of May for bladder rupture. She was sent home on a Fentanyl patch and self catheterizes. She notes she has not had much urine output recently and feels dehydrated. She denies any recent nausea, vomiting or diarrhea. 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 A total of 10 systems reviewed and were otherwise negative. Past Medical & Surgical Medical Problems: (1) Hypertension Family History Patient reports no known family medical history. Social History Smoking Status: Never Smoker Drug Use: none Marital Status: Housing Status: lives with family Occupation Status: retired Current/Historical Medications Scheduled Aspirin (Aspirin Ec), 81 MG PO QAM Calcium Carbonate (Calcium Carbonate), 1,250 MG PO AMPM Cholecalciferol (Vitamin D), 1,000 UNITS PO QAM Docusate Sodium (Colace), 100 MG PO AMPM Duloxetine HCl (Cymbalta), 30 MG PO QD Fentanyl (Fentanyl), 25 MCG TD Q3D@1400 Fish Oil ([place]-3), 1 CAP PO DAILY Mirtazapine (Remeron), 15 MG PO QPM Multiple Vitamins W/ Minerals (Thera-M), 1 TAB PO DAILY Pantoprazole (Protonix), 40 MG PO QAM Senna (Senokot), 17.2 MG PO QAM Valsartan (Diovan), 160 MG PO AMPM Scheduled PRN Acetaminophen Tab (Tylenol), 325-650 MG PO UD PRN for Pain Allergies Coded Allergies: No Known Allergies (Unverified , 05/28/17) Physical Exam Vital Signs Date Time Temp Pulse Resp B/P (MAP) Pulse Ox O2 Delivery O2 Flow Rate FiO2 07/03/17 14:47 98 Room Air 07/03/17 11:56 65 18 168/105 98 Room Air 07/03/17 10:17 36.7 73 18 124/65 97 Room Air Physical Exam GENERAL: Patient is elderly and tired appearing and appears to be in mild distress HEENT: No acute trauma, normocephalic atraumatic, mucous membranes are dry and she appears severely dehydrated, no nasal congestion, no scleral icterus. NECK: No stridor, no adenopathy, no meningismus, trachea is midline. LUNGS: No dyspnea. Clear to auscultation and equal bilaterally. No wheeze, no rhonchi. HEART: Regular rate and rhythm. No murmurs, rubs, gallops appreciated. ABDOMEN: Soft, nontender, bowel sounds positive, no masses appreciated, no peritonitis. BACK: No midline tenderness, no CVA tenderness EXTREMITIES: Pain on palpation of bilateral legs. Pulses are intact and legs are warm. Normal motion all extremities, no cyanosis, no edema. NEUROLOGIC: Alert and oriented, no acute motor or sensory deficits, no focal weakness, cranial nerves grossly intact. SKIN: Poor skin turgor. No rash, no jaundice, no diaphoresis. Medical Decision & Procedures Laboratory Results 07/03/17 10:45 Red Blood Count 3.50, Mean Corpuscular Volume 90.3, Mean Corpuscular Hemoglobin 29.7, Mean Corpuscular Hemoglobin Concent 32.9, Mean Platelet Volume 8.3, Neutrophils (%) (Auto) 72.2, Lymphocytes (%) (Auto) 19.3, Monocytes (%) (Auto) 6.5, Eosinophils (%) (Auto) 1.5, Basophils (%) (Auto) 0.3, Neutrophils # (Auto) 4.75, Lymphocytes # (Auto) 1.27, Monocytes # (Auto) 0.43, Eosinophils # (Auto) 0.10, Basophils # (Auto) 0.02 07/03/17 10:45 Test 07/03/17 10:45 07/03/17 11:07 White Blood Count 6.58 K/uL (4.8-10.8) Red Blood Count 3.50 M/uL (4.2-5.4) Hemoglobin 10.4 g/dL (12.0-16.0) Hematocrit 31.6 % (37-47) Mean Corpuscular Volume 90.3 fL (80-100) Mean Corpuscular Hemoglobin 29.7 pg (25-34) Mean Corpuscular Hemoglobin Concent 32.9 g/dl (32-36) Platelet Count 234 K/uL (130-400) Mean Platelet Volume 8.3 fL (7.4-10.4) Neutrophils (%) (Auto) 72.2 % Lymphocytes (%) (Auto) 19.3 % Monocytes (%) (Auto) 6.5 % Eosinophils (%) (Auto) 1.5 % Basophils (%) (Auto) 0.3 % Neutrophils # (Auto) 4.75 K/uL (1.4-6.5) Lymphocytes # (Auto) 1.27 K/uL (1.2-3.4) Monocytes # (Auto) 0.43 K/uL (0.11-0.59) Eosinophils # (Auto) 0.10 K/uL (0-0.5) Basophils # (Auto) 0.02 K/uL (0-0.2) RDW Standard Deviation 43.3 fL (36.4-46.3) RDW Coefficient of Variation 13.3 % (11.5-14.5) Immature Granulocyte % (Auto) 0.2 % Immature Granulocyte # (Auto) 0.01 K/uL (0.00-0.02) Prothrombin Time 10.6 SECONDS (9.0-12.0) Prothromb Time International Ratio 1.0 (0.9-1.1) Activated Partial Thromboplast Time 27.3 SECONDS (21.0-31.0) Partial Thromboplastin Ratio 1.1 Anion Gap 7.0 mmol/L (3-11) Est Creatinine Clear Calc Drug Dose 32.4 ml/min Estimated GFR () 58.0 Estimated GFR (Non- 50.0 BUN/Creatinine Ratio 13.7 (10-20) Calcium Level 9.0 mg/dl (8.5-10.1) Phosphorus Level 2.3 mg/dl (2.5-4.9) Magnesium Level 2.1 mg/dl (1.8-2.4) Total Creatine Kinase 61 U/L (26-192) Urine Color DK YELLOW Urine Appearance CLOUDY (CLEAR) Urine pH 6.0 (4.5-7.5) Urine Specific [place] 1.017 (1.000-1.030) Urine Protein 2+ (NEG) Urine Glucose (UA) NEG (NEG) Urine Ketones NEG (NEG) Urine Occult Blood 2+ (NEG) Urine Nitrite POS (NEG) Urine Bilirubin NEG (NEG) Urine Urobilinogen NEG (NEG) Urine Leukocyte Esterase LARGE (NEG) Urine WBC (Auto) >30 /hpf (0-5) Urine RBC (Auto) >30 /hpf (0-4) Urine Hyaline Casts (Auto) 1-5 /lpf (0-5) Urine Epithelial Cells (Auto) 20-30 /lpf (0-5) Urine Bacteria (Auto) NEG (NEG) Laboratory results as reviewed by me. Medications Administered Medications (Trade) Dose Ordered Sig/Tenisha Route Start Time Stop Time Status Last Admin Dose Admin Sodium Chloride 1,000 ml @ 999 mls/hr Q1H1M STAT IV 07/03/17 10:32 07/03/17 11:32 DC 07/03/17 11:00 999 MLS/HR Morphine Sulfate (MoRPHine SULFATE INJ) 2 mg NOW STAT IV 07/03/17 10:32 07/03/17 10:34 DC 07/03/17 10:59 2 MG Ondansetron HCl (Zofran Inj) 4 mg NOW STAT IV 07/03/17 10:51 07/03/17 10:52 DC 07/03/17 10:59 4 MG Morphine Sulfate (MoRPHine SULFATE INJ) 4 mg NOW STAT IV 07/03/17 11:39 07/03/17 11:41 DC 07/03/17 11:43 4 MG Sodium Chloride 500 ml @ 999 mls/hr Q31M STAT IV 07/03/17 11:39 07/03/17 12:09 DC 07/03/17 11:56 999 MLS/HR Morphine Sulfate (MoRPHine SULFATE INJ) 4 mg NOW STAT IV 07/03/17 13:09 07/03/17 13:10 DC 07/03/17 13:18 4 MG ED Course 1026: The patient was evaluated in room C2. A complete history and physical exam was performed. 1032: Morphine Sulfate 2 mg IV, NSS 1000 ml @ 999 mls/hr IV. 1051: Zofran 4 mg IV. 1138: I reevaluated the patient. Her daughter states her pain has not resolved. 1139: NSS 500 ml @ 999 mls/hr IV, Morphine Sulfate 4 mg IV. 1248: I reevaluated the patient. Her family states she still has no improvement in her pain. They don't feel she should go home. They would like her evaluated for a better pain management strategy. I discussed my recommendation she remain in the hospital for further evaluation and management and they verbalized complete understanding and agreement. 1309: Morphine Sulfate 4 mg IV. 1316: I discussed the patients case with Dr. Sunshine, [facility] Hospitalist. The patient will be further evaluated. Medical Decision Differential: Sepsis, Infectious (UTI/Pneumonia/Meningitis/etc), Metabolic/ Electrolyte Abnormality, Cardiac, Dehydration, Anemia, Hepatic, Endocrine, Toxicologic, Neurologic, amongst other pathologies entertained. 87 yr old female with recent right ureteral stent secondary to right hydro/ pyelonephritis arrives with worsening leg pain, weakness and dehydration. Dehydrated on exam though labs look good. Reported renal failure which I do not find here. Initial K 5.3 which on repeat post 1 L NSS is 4.7. She has no evidence arterial occlusion of legs. Has had extensive work up for this pain previously. She was given several round IV Narcotics here without much improvement. She herself not severely ill appearing though family notes she looks very uncomfortable. She was found to have some nits in UA though rest of UA similar to previous and no bacteria. No urinary symptoms, no fever, no WBC elevation thus UA seems likely inflammatory from stent as opposed to infected thus Ill hold on abx for now in ED as just finished Keflex course and is having diarrhea now. Cdiff ordered though no stool output. She has no clear findings that require admission but family not comfortable with taking home thus will have hospitalists evaluate for further management. Medication Reconcilliation Current Medication List: was personally reviewed by me Blood Pressure Screening Patient's blood pressure: Elevated blood pressure Blood pressure disposition: Elevated BP felt to be situational Consults Time Called: 1314 Consulting Physician: Dr. Sunshine [facility] Hospitalist Returned Call: [phone] I discussed the patients case with Dr. Sunshine [facility] Hospitalist. The patient will be further evaluated. Impression Primary Impression: Intractable pain Additional Impressions: Bilateral leg pain Dehydration Failure to thrive Scribe Attestation The scribe's documentation has been prepared under my direction and personally reviewed by me in its entirety. I confirm that the note above accurately reflects all work, treatment, procedures, and medical decision making performed by me. Departure Information Dispostion Being Evaluated By Hospitalist Referrals Prabhakar Lugo MD (PCP) Patient Instructions My [facility] Problem Qualifiers
[2017-07-03] MEDS ORDERED: ONDANSETRON INJ 2 MG/ML 2 ML VIAL IV STA (10:51)
[2017-07-03 11:07] LABS: BASO % 0.3 %; BASO ABS # 0.02 K/uL (0-0.2); EOS % 1.5 %; HEMATOCRIT 31.6 % (37-47); HEMOGLOBIN 10.4 g/dL (12.0-16.0); IG# 0.01 K/uL (0.00-0.02); LYMPH % 19.3 %; LYMPH ABS # 1.27 K/uL (1.2-3.4); MEAN CELL VOLUME 90.3 fL (80-100); MEAN CORPUSCULAR HEMOGLOBIN 29.7 pg (25-34); MEAN CORPUSCULAR HGB CONC 32.9 g/dl (32-36); MEAN PLATELET VOLUME 8.3 fL (7.4-10.4); MONO % 6.5 %; MONO ABS # 0.43 K/uL (0.11-0.59); NEUT % 72.2 %; NEUT ABS # 4.75 K/uL (1.4-6.5); PLATELET COUNT 234 K/uL (130-400); RED CELL DISTRIBUTION WIDTH CV 13.3 % (11.5-14.5); RED CELL DISTRIBUTION WIDTH SD 43.3 fL (36.4-46.3); WHITE BLOOD COUNT 6.58 K/uL (4.8-10.8)
[2017-07-03 11:31] LABS: CREATININE 1.01 mg/dl (0.60-1.20); POTASSIUM 5.3 mmol/L (3.5-5.1)
[2017-07-03 11:35] LABS: PHOSPHORUS 2.3 mg/dl (2.5-4.9)
[2017-07-03] MEDS ORDERED: SODIUM CHLORIDE 0.9% 500ML 500 ML IV STA (11:39)
[2017-07-03 14:47] VITALS: O2SAT 98; BMI 21.1
[2017-07-03] MEDS ORDERED: IV FLUIDS COMPLETED PRN (15:00)
[2017-07-03] MEDS ORDERED: PNEUMOCOCCAL POLYSACCHARIDES 25 MCG/0.5 ML VIAL/SYR IM. ONE (15:00)
--- NOTE | 2017-07-03 15:20 | History and Physical ---
History & Physical Date & Time of Service: Jul 03, 2017 at 14:25 Chief Complaint: Severe Leg Pain Primary Care Physician: Prabhakar Lugo MD History of Present Illness Source: patient Patient is here for chronic back pain. and bilateral lower leg pain. Patient has been extensively imaged at her last hospital visit and was deemed that this was from Lumbar stenosis and degenerative changes. It was also recommended that patient is not a surgical candidate. Patient should continue with conservative management and f/u with Dr. Erwin as an outpatient for EMG study. Initial plan was to discharge patient but family was refusing discharge and would like to monitor increase pain medicine regimen to have patient comfortable at home. At time of my interview, patient was pain free. Usually though her pain is is originating in her lower back and radiates down both legs, pain is shapr, severe in intensity, intermittent, worsens when she lies down or ambulates. Patient denies any urinary or fecal incontinence. Patient though does require straight cats at home due to urinary retention. Patient had received 10 mg of IV morphine and was not confused. Patient reports having diarrhea for about 1 month. Patient however states she is also on Colace for constipation. Past Medical/Surgical History Medical Problems: (1) Hypertension Status: Chronic Family History Patient reports no known family medical history. noncontributory Social History Smoking Status: Never Smoker Drug Use: none Marital Status: Occupational Status: retired Immunizations History of Influenza Vaccine: Yes History of Tetanus Vaccine?: Yes History of Pneumococcal: Yes History of Hepatitis B Vaccine: Yes Multi-Drug Resistant Organisms History of MDRO: No Allergies Coded Allergies: No Known Allergies (Unverified , 05/28/17) Home Medications Scheduled Aspirin (Aspirin Ec), 81 MG PO QAM Calcium Carbonate (Calcium Carbonate), 1,250 MG PO AMPM Cholecalciferol (Vitamin D), 1,000 UNITS PO QAM Docusate Sodium (Colace), 100 MG PO AMPM Duloxetine HCl (Cymbalta), 30 MG PO QD Fentanyl (Fentanyl), 25 MCG TD Q3D@1400 Fish Oil ([place]-3), 1 CAP PO DAILY Mirtazapine (Remeron), 15 MG PO QPM Multiple Vitamins W/ Minerals (Thera-M), 1 TAB PO DAILY Pantoprazole (Protonix), 40 MG PO QAM Senna (Senokot), 17.2 MG PO QAM Valsartan (Diovan), 160 MG PO AMPM Scheduled PRN Acetaminophen Tab (Tylenol), 325-650 MG PO UD PRN for Pain Review of Systems Constitutional: No fever, No chills Eyes: No worsening of vision ENT: + hearing loss, No nasal symptoms Respiratory: No cough, No sputum Cardiovascular: No chest pain Abdomen: No pain, No nausea Musculoskeletal: + joint pain, + muscle pain Genitourinary - Female: + urinary retention Neurologic: No memory loss, No paralysis Psychiatric: No depression symptoms Endocrine: No fatigue Hematologic / Lymphatic: No abnormal bleeding/bruising Integumentary: No rash Allergic / Immunologic: No environmental allergies Physical Exam Vital Signs Date Time Temp Pulse Resp B/P (MAP) Pulse Ox O2 Delivery O2 Flow Rate FiO2 07/03/17 11:56 65 18 168/105 98 Room Air 07/03/17 10:17 36.7 73 18 124/65 97 Room Air General Appearance: WD/WN, no apparent distress Head: normocephalic, atraumatic ENT: normal ENT inspection Neck: supple, no adenopathy Respiratory/Chest: chest non-tender, lungs clear, normal breath sounds Cardiovascular: regular rate, rhythm, no edema Abdomen/GI: normal bowel sounds, non tender, soft Back: normal inspection Neurologic/Psych: alert, + pertinent finding (oriented x2) Skin: normal color Lymphatic: no adenopathy Diagnostics Laboratory Results Results Past 24 Hours Test 07/03/17 10:45 07/03/17 11:07 Range/Units White Blood Count 6.58 4.8-10.8 K/uL Red Blood Count 3.50 4.2-5.4 M/uL Hemoglobin 10.4 12.0-16.0 g/dL Hematocrit 31.6 37-47 % Mean Corpuscular Volume 90.3 80-100 fL Mean Corpuscular Hemoglobin 29.7 25-34 pg Mean Corpuscular Hemoglobin Concent 32.9 32-36 g/dl Platelet Count 234 130-400 K/uL Mean Platelet Volume 8.3 7.4-10.4 fL Neutrophils (%) (Auto) 72.2 % Lymphocytes (%) (Auto) 19.3 % Monocytes (%) (Auto) 6.5 % Eosinophils (%) (Auto) 1.5 % Basophils (%) (Auto) 0.3 % Neutrophils # (Auto) 4.75 1.4-6.5 K/uL Lymphocytes # (Auto) 1.27 1.2-3.4 K/uL Monocytes # (Auto) 0.43 0.11-0.59 K/uL Eosinophils # (Auto) 0.10 0-0.5 K/uL Basophils # (Auto) 0.02 0-0.2 K/uL RDW Standard Deviation 43.3 36.4-46.3 fL RDW Coefficient of Variation 13.3 11.5-14.5 % Immature Granulocyte % (Auto) 0.2 % Immature Granulocyte # (Auto) 0.01 0.00-0.02 K/uL Sodium Level 139 136-145 mmol/L Potassium Level 5.3 3.5-5.1 mmol/L Chloride Level 107 98-107 mmol/L Carbon Dioxide Level 25 21-32 mmol/L Anion Gap 7.0 3-11 mmol/L Blood Urea Nitrogen 14 7-18 mg/dl Creatinine 1.01 0.60-1.20 mg/dl Est Creatinine Clear Calc Drug Dose 32.4 ml/min Estimated GFR () 58.0 Estimated GFR (Non- 50.0 BUN/Creatinine Ratio 13.7 10-20 Random Glucose 89 70-99 mg/dl Calcium Level 9.0 8.5-10.1 mg/dl Phosphorus Level 2.3 2.5-4.9 mg/dl Magnesium Level 2.1 1.8-2.4 mg/dl Total Creatine Kinase 61 26-192 U/L Urine Color DK YELLOW Urine Appearance CLOUDY CLEAR Urine pH 6.0 4.5-7.5 Urine Specific [place] 1.017 1.000-1.030 Urine Protein 2+ NEG Urine Glucose (UA) NEG NEG Urine Ketones NEG NEG Urine Occult Blood 2+ NEG Urine Nitrite POS NEG Urine Bilirubin NEG NEG Urine Urobilinogen NEG NEG Urine Leukocyte Esterase LARGE NEG Urine WBC (Auto) >30 0-5 /hpf Urine RBC (Auto) >30 0-4 /hpf Urine Hyaline Casts (Auto) 1-5 0-5 /lpf Urine Epithelial Cells (Auto) 20-30 0-5 /lpf Urine Bacteria (Auto) NEG NEG Microbiology Results 07/03/17 Urine Culture, Received Pending Impression Assessment and Plan Chronic lower back pain in an 87 yo female Will admit to OBS will calculate 24 hour require of pain medicine including IV and PO. Will convert this into a PO supplement. Appears patient is dependent on pain medicine as she does not become confused with receiving 10 mg of morphine. If patient tolerates this new dosage of pain medicine, should be discharged on this tomorrow. Given that patient is not a surgical candidate and is looking for comfort. Cymbalta is likely helping with her symptoms. Diarrhea will monitor for diarrhea will hold Colace HTN - Continue valsartan Added HCTZ as patient BP was elevated on admission. GERD - Continue pantoprazole Mood - Continue duloxetine and mirtazapine VTE PPx - SCDs Level of Care Med/Surg VTE Prophylaxis VTE Risk Assessment Done? Y/N: Yes Risk Level: Low Given or contraindicated: Unfractionated heparin SQ
--- NOTE | 2017-07-03 15:20 | History and Physical ---
History & Physical Date & Time of Service: Jul 03, 2017 at 15:20 Chief Complaint: Severe Leg Pain Primary Care Physician: Prabhakar Lugo MD Past Medical/Surgical History Medical Problems: (1) Hypertension Status: Chronic Family History Patient reports no known family medical history. Social History Smoking Status: Never Smoker Drug Use: none Marital Status: Occupational Status: retired Immunizations History of Influenza Vaccine: Yes History of Tetanus Vaccine?: Yes History of Pneumococcal: Yes History of Hepatitis B Vaccine: Yes Multi-Drug Resistant Organisms History of MDRO: No Allergies Coded Allergies: No Known Allergies (Unverified , 05/28/17) Home Medications Scheduled Aspirin (Aspirin Ec), 81 MG PO QAM Calcium Carbonate (Calcium Carbonate), 1,250 MG PO AMPM Cholecalciferol (Vitamin D), 1,000 UNITS PO QAM Docusate Sodium (Colace), 100 MG PO AMPM Duloxetine HCl (Cymbalta), 30 MG PO QD Fentanyl (Fentanyl), 25 MCG TD Q3D@1400 Fish Oil ([place]-3), 1 CAP PO DAILY Mirtazapine (Remeron), 15 MG PO QPM Multiple Vitamins W/ Minerals (Thera-M), 1 TAB PO DAILY Pantoprazole (Protonix), 40 MG PO QAM Senna (Senokot), 17.2 MG PO QAM Valsartan (Diovan), 160 MG PO AMPM Scheduled PRN Acetaminophen Tab (Tylenol), 325-650 MG PO UD PRN for Pain Physical Exam Vital Signs Date Time Temp Pulse Resp B/P (MAP) Pulse Ox O2 Delivery O2 Flow Rate FiO2 07/03/17 11:56 65 18 168/105 98 Room Air 07/03/17 10:17 36.7 73 18 124/65 97 Room Air Diagnostics Laboratory Results Results Past 24 Hours Test 07/03/17 10:45 07/03/17 11:07 Range/Units White Blood Count 6.58 4.8-10.8 K/uL Red Blood Count 3.50 4.2-5.4 M/uL Hemoglobin 10.4 12.0-16.0 g/dL Hematocrit 31.6 37-47 % Mean Corpuscular Volume 90.3 80-100 fL Mean Corpuscular Hemoglobin 29.7 25-34 pg Mean Corpuscular Hemoglobin Concent 32.9 32-36 g/dl Platelet Count 234 130-400 K/uL Mean Platelet Volume 8.3 7.4-10.4 fL Neutrophils (%) (Auto) 72.2 % Lymphocytes (%) (Auto) 19.3 % Monocytes (%) (Auto) 6.5 % Eosinophils (%) (Auto) 1.5 % Basophils (%) (Auto) 0.3 % Neutrophils # (Auto) 4.75 1.4-6.5 K/uL Lymphocytes # (Auto) 1.27 1.2-3.4 K/uL Monocytes # (Auto) 0.43 0.11-0.59 K/uL Eosinophils # (Auto) 0.10 0-0.5 K/uL Basophils # (Auto) 0.02 0-0.2 K/uL RDW Standard Deviation 43.3 36.4-46.3 fL RDW Coefficient of Variation 13.3 11.5-14.5 % Immature Granulocyte % (Auto) 0.2 % Immature Granulocyte # (Auto) 0.01 0.00-0.02 K/uL Sodium Level 139 136-145 mmol/L Potassium Level 5.3 3.5-5.1 mmol/L Chloride Level 107 98-107 mmol/L Carbon Dioxide Level 25 21-32 mmol/L Anion Gap 7.0 3-11 mmol/L Blood Urea Nitrogen 14 7-18 mg/dl Creatinine 1.01 0.60-1.20 mg/dl Est Creatinine Clear Calc Drug Dose 32.4 ml/min Estimated GFR () 58.0 Estimated GFR (Non- 50.0 BUN/Creatinine Ratio 13.7 10-20 Random Glucose 89 70-99 mg/dl Calcium Level 9.0 8.5-10.1 mg/dl Phosphorus Level 2.3 2.5-4.9 mg/dl Magnesium Level 2.1 1.8-2.4 mg/dl Total Creatine Kinase 61 26-192 U/L Urine Color DK YELLOW Urine Appearance CLOUDY CLEAR Urine pH 6.0 4.5-7.5 Urine Specific [place] 1.017 1.000-1.030 Urine Protein 2+ NEG Urine Glucose (UA) NEG NEG Urine Ketones NEG NEG Urine Occult Blood 2+ NEG Urine Nitrite POS NEG Urine Bilirubin NEG NEG Urine Urobilinogen NEG NEG Urine Leukocyte Esterase LARGE NEG Urine WBC (Auto) >30 0-5 /hpf Urine RBC (Auto) >30 0-4 /hpf Urine Hyaline Casts (Auto) 1-5 0-5 /lpf Urine Epithelial Cells (Auto) 20-30 0-5 /lpf Urine Bacteria (Auto) NEG NEG Microbiology Results 07/03/17 Urine Culture, Received Pending Impression Advanced Directives Existing Living Will: Yes 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 Y/N: Yes Risk Level: Low
[2017-07-03 16:15] VITALS: BP 168/67; PULSE 67; TEMP 37.4; O2SAT 96
[2017-07-03] MEDS ORDERED: PNEUMOCOCCAL ADMINISTRATION CHARGE ONE (16:45)
[2017-07-03] MEDS ORDERED: OXYCODONE HCL IR 5 MG TAB (IMMEDIATE RELEASE) PO PRN ×2 (17:30)
[2017-07-03 17:36] LABS: PTT PATIENT 27.3 SECONDS (21.0-31.0)
[2017-07-03] MEDS ORDERED: VALSARTAN/HCTZ 160/12.5 MG TAB PO SCH (20:00)
[2017-07-03] MEDS: CALCIUM CARBONATE 1250MG TAB PO SCH (20:08)
[2017-07-03] MEDS: HYDROCHLOROTHIAZIDE 25 MG TAB PO SCH (20:09)
[2017-07-03] MEDS: MIRTAZAPINE TAB 15 MG TAB PO SCH (20:09)
[2017-07-03] MEDS: VALSARTAN 80 MG TAB PO SCH (20:10)
[2017-07-03] MEDS: FENTANYL PATCH REMOVE & WASTE SCH (20:10)
[2017-07-03] MEDS: HEPARIN SOD 5000 UNIT/0.5 ML CARP SQ SCH (20:12)
[2017-07-03] MEDS: FENTANYL 25 MCG/HR TDSY TD SCH (20:14)
[2017-07-03 23:15] VITALS: BP 136/66; PULSE 61; TEMP 37.3; O2SAT 97
[2017-07-04] MEDS: CHECK FENTANYL PATCH PLACEMENT SCH ×3 (00:09→15:54)
[2017-07-04] MEDS: HEPARIN SOD 5000 UNIT/0.5 ML CARP SQ SCH ×3 (05:47→20:06)
[2017-07-04 07:31] VITALS: BP 135/75; PULSE 64; TEMP 36.8; O2SAT 96
[2017-07-04] MEDS: DULOXETINE (CYMBALTA) 30 MG CAP PO SCH (08:30)
[2017-07-04] MEDS: PANTOprazole SOD 40 MG TAB PO SCH (08:30)
[2017-07-04] MEDS: ASPIRIN 81 MG ECTAB PO SCH (08:30)
[2017-07-04] MEDS: CEROVITE ADV FORMULA TAB PO SCH (08:30)
[2017-07-04] MEDS: SENNA 8.6 MG TAB PO SCH (08:30)
[2017-07-04] MEDS: OMEGA-3 (PURIFIED FISH OIL) 1 GM CAP PO SCH (08:30)
[2017-07-04] MEDS: HYDROCHLOROTHIAZIDE 25 MG TAB PO SCH ×2 (08:31→20:03)
[2017-07-04] MEDS: VALSARTAN 80 MG TAB PO SCH ×2 (08:31→20:02)
[2017-07-04] MEDS: CALCIUM CARBONATE 1250MG TAB PO SCH ×2 (08:32→20:02)
[2017-07-04] MEDS ORDERED: NURSING VERBAL MED ORDER ONE ×2 (11:30→19:45)
[2017-07-04] MEDS ORDERED: ACETAMINOPHEN 325 MG TAB PO PRN (11:45)
[2017-07-04] MEDS: OXYCODONE HCL IR 5 MG TAB (IMMEDIATE RELEASE) PO PRN ×2 (12:04→15:53)
[2017-07-04] MEDS ORDERED: CEFTRIAXONE SOD INJ 1 GM in DEXTROSE 5% ADD-VANTAGE 50ML 50 ML IV SCH (13:00)
--- NOTE | 2017-07-04 13:51 | Hospitalist Progress Note ---
Hospitalist Progress Note Date of Service Jul 04, 2017. (Zaina Winn ., DANIEL) Subjective Pt evaluation today including: conversation w/ patient, physical exam, chart review, lab review, review of inpatient medication list Voiding: no voiding problems Ms. Pickett appears drowsy and a bit confused this morning. She continues to have pain in her back and legs. ROS Constitutional: no chills, aches, sweats or fever Respiratory: no sob,cough, sputum, or wheezing Cardiac: no chest pain, palpitations, edema, orthopnea or lightheadedness GI: no abdominal pain, nausea, vomiting, diarrhea or constipation : no dysuria or hesitancy Extremities: see HPI Skin: no rash All other systems reviewed and negative (Zaina Winn .DANIEL) Medications Medications Administered Medications (Trade) Dose Ordered Sig/Tenisha Route Start Time Stop Time Status Last Admin Dose Admin Sodium Chloride 1,000 ml @ 999 mls/hr Q1H1M STAT IV 07/03/17 10:32 07/03/17 11:32 DC 07/03/17 11:00 999 MLS/HR Morphine Sulfate (MoRPHine SULFATE INJ) 2 mg NOW STAT IV 07/03/17 10:32 07/03/17 10:34 DC 07/03/17 10:59 2 MG Ondansetron HCl (Zofran Inj) 4 mg NOW STAT IV 07/03/17 10:51 07/03/17 10:52 DC 07/03/17 10:59 4 MG Morphine Sulfate (MoRPHine SULFATE INJ) 4 mg NOW STAT IV 07/03/17 11:39 07/03/17 11:41 DC 07/03/17 11:43 4 MG Sodium Chloride 500 ml @ 999 mls/hr Q31M STAT IV 07/03/17 11:39 07/03/17 12:09 DC 07/03/17 11:56 999 MLS/HR Morphine Sulfate (MoRPHine SULFATE INJ) 4 mg NOW STAT IV 07/03/17 13:09 07/03/17 13:10 DC 07/03/17 13:18 4 MG Heparin Sodium (Porcine) (Heparin Sq 5000 Unit/0.5ml) 5,000 unit Q12H SQ 07/03/17 18:00 08/02/17 17:59 07/04/17 05:47 5,000 UNIT Aspirin (Ecotrin Tab) 81 mg QAM PO 07/04/17 08:00 08/03/17 08:59 07/04/17 08:30 81 MG Duloxetine HCl (Cymbalta Cap) 30 mg DAILY PO 07/04/17 08:00 08/03/17 08:59 07/04/17 08:30 30 MG Fentanyl (Duragesic Patch) 25 mcg Q3D@2100 TD 07/03/17 21:00 07/17/17 20:59 07/03/17 20:14 25 MCG Fish Oil ([place]-3 (Purified Fish Oil) Cap) 1 gm DAILY PO 07/04/17 08:00 08/03/17 08:59 07/04/17 08:30 1 GM Mirtazapine (Remeron Tab) 15 mg QPM PO 07/03/17 21:00 08/02/17 20:59 07/03/17 20:09 15 MG Multivitamins/ Minerals (Multivitamin W/ Minerals Tab) 1 tab DAILY PO 07/04/17 08:00 08/03/17 08:59 07/04/17 08:30 1 TAB Pantoprazole Sodium (Protonix Tab) 40 mg QAM PO 07/04/17 08:00 08/03/17 08:59 07/04/17 08:30 40 MG Senna (Senokot Tab) 17.2 mg QAM PO 07/04/17 08:00 08/03/17 08:59 07/04/17 08:30 17.2 MG Calcium Carbonate (oS-Jhon 500 TAB) 1,250 mg BID PO 07/03/17 20:00 08/02/17 20:59 07/04/17 08:32 1,250 MG Valsartan (Diovan Tab) 160 mg BID PO 07/03/17 20:00 08/02/17 19:59 07/04/17 08:31 160 MG Hydrochlorothiazide (Hydrochlorothiazide Tab) 12.5 mg BID PO 07/03/17 20:00 08/02/17 19:59 07/04/17 08:31 12.5 MG Miscellaneous (Fentanyl Patch Remove & Waste) 1 ea Q3D@2059 N/A 07/03/17 20:59 08/02/17 20:58 07/03/17 20:10 1 EA Miscellaneous Information (Check Fentanyl Patch Placement) 1 ea QS N/A 07/04/17 00:00 08/03/17 00:00 07/04/17 08:32 1 EA Oxycodone HCl (Roxicodone Immediate Rel Tab) 10 mg Q4H PRN PO 07/03/17 17:30 07/17/17 17:29 07/04/17 12:04 10 MG Oxycodone HCl (Roxicodone Immediate Rel Tab) 5 mg Q4H PRN PO 07/03/17 17:30 07/17/17 17:29 07/04/17 08:28 5 MG (Zaina Winn CRNP) Objective Vital Signs Date Time Temp Pulse Resp B/P (MAP) Pulse Ox O2 Delivery O2 Flow Rate FiO2 07/04/17 08:20 Room Air 07/04/17 07:31 36.8 64 20 135/75 (95) 96 Room Air 07/04/17 00:00 Room Air 07/03/17 23:15 37.3 61 20 136/66 (89) 97 Room Air 07/03/17 16:15 37.4 67 18 168/67 (100) 96 Room Air 07/03/17 16:09 62 16 164/79 98 07/03/17 15:09 62 16 164/79 98 Room Air 07/03/17 14:47 98 Room Air (Zaina Winn CRNP) Physical Exam Notes: General: no distress Eyes: normal inspection, PERLL Respiratory: chest non tender, clear to auscultation, normal breath sounds, no respiratory distress, no accessory muscle use Cardiac: regular rate and rhythm, no rub or gallop, no murmur, no edema, no jvd GI/: active bowel sounds, no abd pain or tenderness, soft, non distended Extremities: normal range of motion, normal strength, non tender Neuro/Psych: alert and oriented x 3, normal mood and affect Skin: normal color, dry (Zaina Winn CRNP) Assessment and Plan Ms. Pickett is an 87 year old woman here for intractable back pain Back pain due to spinal stenosis - consult pain management - continue duloxetine, roxycodone - start decadron 4mg bid, lidoderm patch, 1 gm tylenol q8h UTI - gram negative bacilli - awaiting sensitivities - Rocephin 1 gm daily HTN - Continue valsartan -HCTZ add on admission as patient BP was elevated - bps improved GERD - Continue pantoprazole Mood - Continue duloxetine and mirtazapine VTE PPx - SCDs Full code (Zaina Winn ., DANIEL) TRAUMA REGISTRAR Physician Supervision Note: I interviewed and examined the patient. Discussed with Zaina Winn TRAUMA REGISTRAR and agree with findings and plan as documented in the note. Any exceptions or clarifications are listed here: None Patient persists with midline radicular low back pain. Family is at bedside and voices concern that the patient is "give up" and does not want to eat or drink anymore or continue to fight to improve her physical health. Patient states she is willing to try supplements at this time but does not have a significant appetite. Vital signs show temp 36 8 pulse 64 respiration rate 20 BP 135/75 Cardiac exam is regular lungs are clear her lower extremities have sensation intact bilaterally and her reflux that her patella is appropriate not overly brisk or absent she does have reproducible pain with movement of her legs Back pain due to spinal stenosis? Family also questions kidney disease causing pain - consult pain management duloxetine, roxycodone, started decadron 4mg bid, lidoderm patch, 1 gm tylenol q8h 07/04 UTI- gram negative bacilli - awaiting sensitivities- Rocephin 1 gm daily HTN controlled with valsartan plus added HCTZ . GERD pantoprazole Mood duloxetine and mirtazapine also consider adjunctive pain control VTE PPx- SCDs Full code Documented By: Tanner Damon (Tanner Damon M.D.)
[2017-07-04] MEDS ORDERED: LIDODERM (LIDOCAINE) PATCH 5% TD ONE (14:00)
[2017-07-04] MEDS ORDERED: DEXAMETHASONE INJ 4 MG in SYRINGE 0 ML IV ONE (14:15)
[2017-07-04] MEDS: ACETAMINOPHEN 500 MG TAB PO SCH ×2 (15:54→22:00)
[2017-07-04 16:00] VITALS: O2SAT 96
[2017-07-04 16:37] VITALS: BP 126/70; PULSE 81; TEMP 36.6; O2SAT 94
[2017-07-04 19:55] VITALS: BP 148/74; PULSE 62; TEMP 36.4; O2SAT 94
[2017-07-04] MEDS ORDERED: DEXAMETHASONE INJ 4 MG in SYRINGE 0 ML IV SCH (20:00)
[2017-07-04] MEDS: MIRTAZAPINE TAB 15 MG TAB PO SCH (20:02)
[2017-07-04 23:38] VITALS: BP 145/73; PULSE 56; TEMP 36.8; O2SAT 99
[2017-07-05] MEDS: CHECK FENTANYL PATCH PLACEMENT SCH ×3 (00:29→15:32)
[2017-07-05] MEDS: ACETAMINOPHEN 500 MG TAB PO SCH ×3 (06:17→21:46)
[2017-07-05] MEDS: HEPARIN SOD 5000 UNIT/0.5 ML CARP SQ SCH ×2 (06:41→19:42)
[2017-07-05 07:56] VITALS: BP 152/89; PULSE 60; TEMP 34.8; O2SAT 97
[2017-07-05] MEDS: LIDODERM (LIDOCAINE) PATCH 5% TD SCH (08:00)
[2017-07-05] MEDS: PANTOprazole SOD 40 MG TAB PO SCH (08:43)
[2017-07-05] MEDS: OMEGA-3 (PURIFIED FISH OIL) 1 GM CAP PO SCH (08:43)
[2017-07-05] MEDS: CEROVITE ADV FORMULA TAB PO SCH (08:44)
[2017-07-05] MEDS: CALCIUM CARBONATE 1250MG TAB PO SCH ×2 (08:44→19:57)
[2017-07-05] MEDS: DULOXETINE (CYMBALTA) 30 MG CAP PO SCH (08:44)
[2017-07-05] MEDS ORDERED: CIPROFLOXACIN 250 MG TAB PO SCH (08:45)
[2017-07-05] MEDS: ASPIRIN 81 MG ECTAB PO SCH (08:45)
[2017-07-05] MEDS: SENNA 8.6 MG TAB PO SCH (08:45)
[2017-07-05] MEDS: VALSARTAN 80 MG TAB PO SCH ×2 (08:46→19:56)
[2017-07-05] MEDS: HYDROCHLOROTHIAZIDE 25 MG TAB PO SCH ×2 (08:47→19:58)
[2017-07-05] MEDS: BOOST VANILLA PO SCH ×2 (09:32→19:49)
[2017-07-05] MEDS: CeleBREX 100 MG CAP PO SCH ×2 (09:33→19:56)
[2017-07-05 09:44] LABS: CALCIUM 10.2 mg/dl (8.5-10.1); CREATININE 1.01 mg/dl (0.60-1.20); POTASSIUM 4.7 mmol/L (3.5-5.1)
--- NOTE | 2017-07-05 10:01 | Pain Management Consultation ---
Pain Management Consultation Date of Consultation Jul 05, 2017. Reason for Consultation Lumbago Pain Location 1 - History This is an 87 y/o white female that has been seen at the [facility] for lumbago. Patient does have a known history of degenerative disc disease as well as spinal stenosis. Patient is chronically on Fentanyl patches 12mcg/hr which was controlling her pain. The pain was worsened so she was brought into the Emergency Department for further treatment. Patient received 10mg IV Morphine which was minimally efficacious. There is low back pain and pain radiating into the legs. She is moderately confused and provides very little history. She states that the Fentanyl patch is providing pain relief and the Oxycodone is helping for breakthrough pain. No bowel/bladder incontinence, saddle anesthesia, foot drop. Case discussed with Dr. Hauser Past Medical/Surgical History (1) Hypertension (2) Intractable pain Family History Patient reports no known family medical history. Social / Work History Smokeless Tobacco Use: No Drug Use: none Marital Status: Occupation: retired Allergies Coded Allergies: No Known Allergies (Unverified , 05/28/17) Medications Current Inpatient Medications Medications (Trade) Dose Ordered Sig/Tenisha Route Start Time Stop Time Status Last Admin Dose Admin Heparin Sodium (Porcine) (Heparin Sq 5000 Unit/0.5ml) 5,000 unit Q12H SQ 07/03/17 18:00 08/02/17 17:59 07/05/17 06:41 5,000 UNIT Miscellaneous (Iv Fluids Completed) 1 ea PRN PRN N/A 07/03/17 15:00 07/03/18 14:59 Aspirin (Ecotrin Tab) 81 mg QAM PO 07/04/17 08:00 08/03/17 08:59 07/05/17 08:45 81 MG Duloxetine HCl (Cymbalta Cap) 30 mg DAILY PO 07/04/17 08:00 08/03/17 08:59 07/05/17 08:44 30 MG Fentanyl (Duragesic Patch) 25 mcg Q3D@2100 TD 07/03/17 21:00 07/17/17 20:59 07/03/17 20:14 25 MCG Fish Oil ([place]-3 (Purified Fish Oil) Cap) 1 gm DAILY PO 07/04/17 08:00 08/03/17 08:59 07/05/17 08:43 1 GM Mirtazapine (Remeron Tab) 15 mg QPM PO 07/03/17 21:00 08/02/17 20:59 07/04/17 20:02 15 MG Multivitamins/ Minerals (Multivitamin W/ Minerals Tab) 1 tab DAILY PO 07/04/17 08:00 08/03/17 08:59 07/05/17 08:44 1 TAB Pantoprazole Sodium (Protonix Tab) 40 mg QAM PO 07/04/17 08:00 08/03/17 08:59 07/05/17 08:43 40 MG Senna (Senokot Tab) 17.2 mg QAM PO 07/04/17 08:00 08/03/17 08:59 07/05/17 08:45 17.2 MG Calcium Carbonate (oS-Jhon 500 TAB) 1,250 mg BID PO 07/03/17 20:00 08/02/17 20:59 07/05/17 08:44 1,250 MG Valsartan (Diovan Tab) 160 mg BID PO 07/03/17 20:00 08/02/17 19:59 07/05/17 08:46 160 MG Hydrochlorothiazide (Hydrochlorothiazide Tab) 12.5 mg BID PO 07/03/17 20:00 08/02/17 19:59 07/05/17 08:47 12.5 MG Miscellaneous (Fentanyl Patch Remove & Waste) 1 ea Q3D@2058 N/A 07/03/17 20:59 08/02/17 20:58 07/03/17 20:10 1 EA Miscellaneous Information (Check Fentanyl Patch Placement) 1 ea QS N/A 07/04/17 00:00 08/03/17 00:00 07/05/17 08:00 1 EA Oxycodone HCl (Roxicodone Immediate Rel Tab) 10 mg Q4H PRN PO 07/03/17 17:30 07/17/17 17:29 07/04/17 15:53 10 MG Oxycodone HCl (Roxicodone Immediate Rel Tab) 5 mg Q4H PRN PO 07/03/17 17:30 07/17/17 17:29 07/04/17 08:28 5 MG Miscellaneous (Remove Lidoderm Patch) 1 ea DAILY@21 N/A 07/04/17 21:00 3/21/18 20:59 07/04/17 20:52 1 EA Acetaminophen (Tylenol Tab) 1,000 mg Q8 PO 07/04/17 14:00 08/03/17 13:59 07/05/17 06:17 1,000 MG Lidocaine (Lidoderm Patch 5%) 1 patch QAM TD 07/05/17 08:00 08/04/17 07:59 07/05/17 08:00 1 PATCH Dexamethasone Sodium Phosphate 2 mg/Syringe 0.5 ml @ 1 mls/min BID IV 07/05/17 20:00 08/03/17 19:59 Celecoxib (CeleBREX CAP) 100 mg BID PO 07/05/17 08:30 08/04/17 08:29 Ciprofloxacin (Ciprofloxacin Tab) 250 mg Q12 PO 07/05/17 08:45 07/10/17 08:44 Enteral Nutritional Formula (Boost) 1 can BID PO 07/05/17 08:45 08/04/17 08:44 Review of Systems Cannot obtain d/t patient's mental status Physical Exam Height & Weight: Height 5 feet, 3.00 inches. Weight 54.000 (Kilograms) 119 (Pounds) Last Vital Signs Documentation Date Time Temp Pulse Resp B/P (MAP) Pulse Ox O2 Delivery O2 Flow Rate FiO2 07/05/17 07:56 34.8 60 17 152/89 (110) 97 Room Air Exam: GENERAL: Mrs. Pickett is an 87 y/o white female that appears thin and frail. She is moderately confused. Normal speech. She is able to sit up without difficulty. HEAD: Normocephalic; atraumatic. EYES: Pupils are round, equal, and reactive to light; EOM intact. ENT: Dry oral mucosa. EXTREMITIES: There is 5/5 strength of the lower extremities. Sensation is intact. BACK: Loss of lumbar lordosis. There is no TTP of the lumbar region. No midline, facet joint, SI joint tenderness. No paravertebral, quadratus lumborum , gluteal, piriformis muscle spasm. NEURO: Awake and alert. She is oriented to time and place. Had difficulty telling me her . Cranial nerves are grossly intact. SKIN: No lesions, erythema, or rashes noted. Laboratory Laboratory Results (Last CBC): 07/03/17 10:45 Red Blood Count 3.50 L, Mean Corpuscular Volume 90.3, Mean Corpuscular Hemoglobin 29.7, Mean Corpuscular Hemoglobin Concent 32.9, Mean Platelet Volume 8.3, Neutrophils (%) (Auto) 72.2, Lymphocytes (%) (Auto) 19.3, Monocytes (%) ( Auto) 6.5, Eosinophils (%) (Auto) 1.5, Basophils (%) (Auto) 0.3, Neutrophils # ( Auto) 4.75, Lymphocytes # (Auto) 1.27, Monocytes # (Auto) 0.43, Eosinophils # ( Auto) 0.10, Basophils # (Auto) 0.02 Imaging MRI Findings LUMBAR SPINE W/O CONTRAST HISTORY: Pain. Radiculopathy. possible L radiculopathy with right lower ext pain TECHNIQUE: Multiplanar multisequence MRI of the lumbar spine was performed without the use of contrast. COMPARISON: None. FINDINGS: For the purpose of the report the L5-S1 disc space will be located on axial image 27 of 30. Severe degenerative disc change throughout the entire lumbar region. Moderate scoliosis. No evidence for bone marrow replacing process. 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 T12-L1 broad-based posterior osteophyte combined with broad-based posterior bulging disc components. No significant impact upon the thecal sac or low thoracic spinal cord. L1-L2: Broad-based disc herniation. Moderate impact anterior thecal sac. Mild narrowing of the neuroforamina bilaterally. L2-L3: Moderate multifactorial narrowing of the spinal canal. Broad-based disc herniation. Hypertrophic change posterior elements. Moderate narrowing of the left and to lesser extent right neural foramina. L3-L4: Moderate multifactorial spinal stenosis. Broad-based disc herniation. Narrowing of the left and to a lesser extent right neural foramina. Hypertrophic change posterior elements. L4-L5: Broad-based bulging disc. Mild impact anterior thecal sac. Mild narrowing left and to a lesser extent right neural foramina. L5-S1: Minimal disc bulge. Minimal narrowing left and to lesser extent right neural foramina. Moderate degenerative change. Sacroiliac joints. IMPRESSION: 1. Severe degenerative disc change throughout the entire lumbar region. 2. Scoliosis. 3. Moderate multifactorial spinal stenosis L3-L4, L2-L3, with moderate narrowing left and to a lesser extent right neural foramina at both levels. 4. Broad-based bulging disc L4-L5, with a mild broad-based disc herniation L1-L2. The above report was generated using voice recognition software. It may contain grammatical, syntax or spelling errors. Electronically signed by: Justin Walker M.D. 06/03/2017 12:40 PM Dictated Date/Time: 06/03/2017 12:34 PM [place] Drug Monitoring Program Search Results: patient reviewed within database, no issues identified ( Fentanyl patches at 12mcg/hr have been routinely been prescribed. Same pharmacy. Refill dates are appropriate.) Assessment 1. Degenerative disc disease 2. Lumbar spinal stenosis 3. Urinary tract infection 4. Confusion Recommendations 1. Patient does report adequate pain relief with Fentanyl patch at 25mcg/hr and Oxycodone PRN. Recommend discharge on Fentanyl patch at 25mcg/hr and Oxycodone 5mg x 6 hours PRN. She has taken 25mg of oral Oxycodone over the last 24 hours, last dose was at 1600 yesterday. 2. Patient does seem moderately confused today. Unsure if UTI, narcotics, or if there is another cause to the patient's confusion. Patient has received 10mg IV morphine in the Emergency Department yesterday without any side effects or confusion so it is not likely from the 12mcg/hr increase of Fentanyl patch. The last Oxycodone was taken at 1600 yesterday so it is also not likely the cause to the patient's confusion this morning. 3. An epidural injection could be considered on an outpatient basis.
[2017-07-05] MEDS: CEPHALEXIN MONOHYDRATE 250 MG CAP PO SCH ×3 (13:07→19:59)
[2017-07-05] MEDS: OXYCODONE HCL IR 5 MG TAB (IMMEDIATE RELEASE) PO PRN (13:11)
--- NOTE | 2017-07-05 13:32 | Progress Note ---
Subjective Date of Service: Jul 05, 2017. Subjective pt feels much better today, less pain and more bright mood. her daughter is at bedside and is pleased with her progress Problem List Medical Problems: (1) Bilateral leg pain Status: Acute (2) Bladder rupture Status: Acute (3) CKD (chronic kidney disease) Status: Acute (4) Dehydration Status: Acute (5) Failure to thrive Status: Acute (6) Hematuria Status: Acute (7) Intractable pain Status: Acute Review of Systems Constitutional: + weakness, No fever, No chills Respiratory: No cough, No shortness of breath Cardiac: No chest pain, No edema Abdomen: No pain, No nausea, No vomiting Musculoskeletal: + joint pain, + muscle pain, No swelling Neurologic: + memory loss, + weakness Psychiatric: + depression symptoms, No anhedonism Objective Vital Signs Date Time Temp Pulse Resp B/P (MAP) Pulse Ox O2 Delivery O2 Flow Rate FiO2 07/05/17 09:00 Room Air 07/05/17 08:00 Room Air 07/05/17 07:56 34.8 60 17 152/89 (110) 97 Room Air 07/05/17 00:01 Room Air 07/04/17 23:38 36.8 56 17 145/73 (97) 99 Room Air 07/04/17 19:55 36.4 62 20 148/74 (98) 94 Room Air 07/04/17 16:37 36.6 81 20 126/70 (88) 94 Room Air 07/04/17 16:00 96 Room Air Physical Exam General Appearance: + mild distress, + thin Eyes: normal inspection, sclerae normal Neck: supple, no JVD Respiratory/Chest: chest non-tender, lungs clear, normal breath sounds Cardiovascular: regular rate, rhythm, no murmur Abdomen: normal bowel sounds, non tender, soft Extremities: no pedal edema, no calf tenderness, + pertinent finding (less pain to slr b/l today) Laboratory Results Last 24 Hours Test 07/05/17 08:47 Sodium Level 132 mmol/L Potassium Level 4.7 mmol/L Chloride Level 99 mmol/L Carbon Dioxide Level 25 mmol/L Anion Gap 8.0 mmol/L Blood Urea Nitrogen 17 mg/dl Creatinine 1.01 mg/dl Est Creatinine Clear Calc Drug Dose 32.4 ml/min Estimated GFR () 58.0 Estimated GFR (Non- 50.0 BUN/Creatinine Ratio 17.0 Random Glucose 124 mg/dl Calcium Level 10.2 mg/dl Assessment and Plan 87 F with weakness felt to be multi factorial, had uti poa, and has spinal stenosis with radicular symptoms Back pain due to spinal stenosis? Family also questions kidney disease causing pain - consult pain management duloxetine, roxycodone, decadron may have improved both back pain and mood reduce dose to 2 mg bid, lidoderm patch, 1 gm tylenol q8h 07/04 celebrex 06/25, if has a good day thru 07/06 will have PT/OT UTI- E coli valenzuela sensitive, she had a mdr E Coli 05/28 so will use a blend of both sensitivities to choose, given concern of quinalones and C Diff will use Keflex HTN still controlled with valsartan plus added HCTZ . GERD pantoprazole Mood improved with steroids? continue duloxetine and mirtazapine VTE PPx- SCDs Full code Documented By: Tanner Damon
[2017-07-05 14:38] VITALS: Ht 160 cm; Wt 54.0 kg
[2017-07-05 15:24] VITALS: BP 101/63; PULSE 70; TEMP 36.7; O2SAT 98
[2017-07-05 16:00] VITALS: O2SAT 98
[2017-07-05] MEDS: DEXAMETHASONE INJ 2 MG in SYRINGE 0 ML IV SCH (19:50)
[2017-07-05] MEDS: MIRTAZAPINE TAB 15 MG TAB PO SCH (19:59)
[2017-07-06] MEDS: CHECK FENTANYL PATCH PLACEMENT SCH ×3 (00:38→16:00)
[2017-07-06 01:23] VITALS: BP 122/73; PULSE 59; TEMP 36.6; O2SAT 94
[2017-07-06] MEDS: ACETAMINOPHEN 500 MG TAB PO SCH ×3 (06:00→21:10)
[2017-07-06] MEDS: HEPARIN SOD 5000 UNIT/0.5 ML CARP SQ SCH ×2 (06:20→17:53)
[2017-07-06 07:06] VITALS: BP 146/75; PULSE 56; TEMP 36.2; O2SAT 97
[2017-07-06] MEDS: DULOXETINE (CYMBALTA) 30 MG CAP PO SCH (07:47)
[2017-07-06] MEDS: CALCIUM CARBONATE 1250MG TAB PO SCH ×2 (07:47→21:08)
[2017-07-06] MEDS: PANTOprazole SOD 40 MG TAB PO SCH (07:47)
[2017-07-06] MEDS: CEROVITE ADV FORMULA TAB PO SCH (07:47)
[2017-07-06] MEDS: VALSARTAN 80 MG TAB PO SCH ×2 (07:47→21:08)
[2017-07-06] MEDS: SENNA 8.6 MG TAB PO SCH (07:48)
[2017-07-06] MEDS: HYDROCHLOROTHIAZIDE 25 MG TAB PO SCH ×2 (07:49→21:06)
[2017-07-06] MEDS: LIDODERM (LIDOCAINE) PATCH 5% TD SCH (07:49)
[2017-07-06] MEDS: CEPHALEXIN MONOHYDRATE 250 MG CAP PO SCH ×4 (07:50→21:06)
[2017-07-06] MEDS: OMEGA-3 (PURIFIED FISH OIL) 1 GM CAP PO SCH (07:50)
[2017-07-06] MEDS: ASPIRIN 81 MG ECTAB PO SCH (07:50)
[2017-07-06] MEDS: DEXAMETHASONE INJ 2 MG in SYRINGE 0 ML IV SCH ×2 (07:50→21:05)
[2017-07-06] MEDS: CeleBREX 100 MG CAP PO SCH ×2 (07:51→21:07)
[2017-07-06] MEDS: BOOST VANILLA PO SCH ×2 (07:58→20:00)
[2017-07-06] MEDS ORDERED: SOAP SUDS ENEMA PR ONE (10:30)
[2017-07-06 11:21] LABS: CALCIUM 10.2 mg/dl (8.5-10.1); CREATININE 1.44 mg/dl (0.60-1.20); POTASSIUM 4.4 mmol/L (3.5-5.1)
[2017-07-06] MEDS ORDERED: POLYETHYLENE (MIRALAX) 17 GM PACK PO ONE (13:15)
[2017-07-06 14:51] VITALS: BP 160/78; PULSE 59; TEMP 36.4; O2SAT 98
[2017-07-06 16:00] VITALS: O2SAT 98
--- NOTE | 2017-07-06 16:52 | Hospitalist Progress Note ---
Hospitalist Progress Note Date of Service Jul 06, 2017. (Zaina Winn .DANIEL) Subjective Pt evaluation today including: conversation w/ patient, conversation w/ family , physical exam, chart review, lab review, review of inpatient medication list Voiding: no voiding problems Ms. Pickett is doing very well today, walked the halls with a walker without difficulty. Per discussion with her daughter, Ms. Pickett does not use a walker at home and will only use a cane and must be able to get up 16 steps to her room. ROS Constitutional: no chills, aches, sweats or fever Respiratory: no sob,cough, sputum, or wheezing Cardiac: no chest pain, palpitations, edema, orthopnea or lightheadedness GI: no abdominal pain, nausea, vomiting, diarrhea or constipation : no dysuria or hesitancy Extremities: no joint pain or weakness Skin: no rash All other systems reviewed and negative (Zaina Winn CRNP) Medications Medications Administered Medications (Trade) Dose Ordered Sig/Tenisah Route Start Time Stop Time Status Last Admin Dose Admin Sodium Chloride 1,000 ml @ 999 mls/hr Q1H1M STAT IV 07/03/17 10:32 07/03/17 11:32 DC 07/03/17 11:00 999 MLS/HR Morphine Sulfate (MoRPHine SULFATE INJ) 2 mg NOW STAT IV 07/03/17 10:32 07/03/17 10:34 DC 07/03/17 10:59 2 MG Ondansetron HCl (Zofran Inj) 4 mg NOW STAT IV 07/03/17 10:51 07/03/17 10:52 DC 07/03/17 10:59 4 MG Morphine Sulfate (MoRPHine SULFATE INJ) 4 mg NOW STAT IV 07/03/17 11:39 07/03/17 11:41 DC 07/03/17 11:43 4 MG Sodium Chloride 500 ml @ 999 mls/hr Q31M STAT IV 07/03/17 11:39 07/03/17 12:09 DC 07/03/17 11:56 999 MLS/HR Morphine Sulfate (MoRPHine SULFATE INJ) 4 mg NOW STAT IV 07/03/17 13:09 07/03/17 13:10 DC 07/03/17 13:18 4 MG Heparin Sodium (Porcine) (Heparin Sq 5000 Unit/0.5ml) 5,000 unit Q12H SQ 07/03/17 18:00 08/02/17 17:59 07/06/17 06:20 5,000 UNIT Aspirin (Ecotrin Tab) 81 mg QAM PO 07/04/17 08:00 08/03/17 08:59 07/06/17 07:50 81 MG Duloxetine HCl (Cymbalta Cap) 30 mg DAILY PO 07/04/17 08:00 08/03/17 08:59 07/06/17 07:47 30 MG Fentanyl (Duragesic Patch) 25 mcg Q3D@2100 TD 07/03/17 21:00 07/17/17 20:59 07/03/17 20:14 25 MCG Fish Oil ([place]-3 (Purified Fish Oil) Cap) 1 gm DAILY PO 07/04/17 08:00 08/03/17 08:59 07/06/17 07:50 1 GM Mirtazapine (Remeron Tab) 15 mg QPM PO 07/03/17 21:00 08/02/17 20:59 07/05/17 19:59 15 MG Multivitamins/ Minerals (Multivitamin W/ Minerals Tab) 1 tab DAILY PO 07/04/17 08:00 08/03/17 08:59 07/06/17 07:47 1 TAB Pantoprazole Sodium (Protonix Tab) 40 mg QAM PO 07/04/17 08:00 08/03/17 08:59 07/06/17 07:47 40 MG Senna (Senokot Tab) 17.2 mg QAM PO 07/04/17 08:00 08/03/17 08:59 07/06/17 07:48 17.2 MG Calcium Carbonate (oS-Jhon 500 TAB) 1,250 mg BID PO 07/03/17 20:00 08/02/17 20:59 07/06/17 07:47 1,250 MG Valsartan (Diovan Tab) 160 mg BID PO 07/03/17 20:00 08/02/17 19:59 07/06/17 07:47 160 MG Hydrochlorothiazide (Hydrochlorothiazide Tab) 12.5 mg BID PO 07/03/17 20:00 08/02/17 19:59 07/06/17 07:49 12.5 MG Miscellaneous (Fentanyl Patch Remove & Waste) 1 ea Q3D@2059 N/A 07/03/17 20:59 08/02/17 20:58 07/03/17 20:10 1 EA Miscellaneous Information (Check Fentanyl Patch Placement) 1 ea QS N/A 07/04/17 00:00 08/03/17 00:00 07/06/17 07:51 1 EA Oxycodone HCl (Roxicodone Immediate Rel Tab) 10 mg Q4H PRN PO 07/03/17 17:30 07/17/17 17:29 07/05/17 13:11 10 MG Oxycodone HCl (Roxicodone Immediate Rel Tab) 5 mg Q4H PRN PO 07/03/17 17:30 07/17/17 17:29 07/04/17 08:28 5 MG Ceftriaxone Sodium 1 gm/ Dextrose 50 ml @ 100 mls/hr Q24H IV 07/04/17 13:00 07/05/17 08:34 DC 07/04/17 13:47 100 MLS/HR Miscellaneous (Remove Lidoderm Patch) 1 ea DAILY@21 N/A 07/04/17 21:00 08/03/17 20:59 07/05/17 20:01 1 EA Acetaminophen (Tylenol Tab) 1,000 mg Q8 PO 07/04/17 14:00 08/03/17 13:59 07/06/17 13:35 1,000 MG Dexamethasone Sodium Phosphate 4 mg/Syringe 1 ml @ 1 mls/min BID IV 07/04/17 20:00 07/05/17 08:32 DC 07/04/17 19:59 1 MLS/MIN Dexamethasone Sodium Phosphate 4 mg/Syringe 1 ml @ 1 mls/min NOW ONCE IV 07/04/17 14:15 07/04/17 14:16 DC 07/04/17 15:54 1 MLS/MIN Lidocaine (Lidoderm Patch 5%) 1 patch QAM TD 07/05/17 08:00 08/04/17 07:59 07/06/17 07:49 1 PATCH Lidocaine (Lidoderm Patch 5%) 1 patch NOW ONCE TD 07/04/17 14:00 07/04/17 14:01 DC 07/04/17 15:49 1 PATCH Dexamethasone Sodium Phosphate 2 mg/Syringe 0.5 ml @ 1 mls/min BID IV 07/05/17 20:00 3/21/18 19:59 07/06/17 07:50 1 MLS/MIN Celecoxib (CeleBREX CAP) 100 mg BID PO 07/05/17 08:30 08/04/17 08:29 07/06/17 07:51 100 MG Ciprofloxacin (Ciprofloxacin Tab) 250 mg Q12 PO 07/05/17 08:45 07/05/17 11:47 DC 07/05/17 09:32 250 MG Enteral Nutritional Formula (Boost) 1 can BID PO 07/05/17 08:45 08/04/17 08:44 07/06/17 07:58 1 CAN Cephalexin Monohydrate (Keflex Cap) 250 mg QID PO 07/05/17 12:00 07/10/17 11:59 07/06/17 12:06 250 MG Miscellaneous (Soap Suds Enema) 1 ea NOW ONCE ME 07/06/17 10:30 07/06/17 10:31 DC 07/06/17 11:30 1 EA Polyethylene (Miralax Powder Packet) 17 gm NOW ONCE PO 07/06/17 13:15 07/06/17 13:16 DC 07/06/17 13:34 17 GM (Zaina Winn, ENVIRONMENTAL SAMPLER) Objective Vital Signs Date Time Temp Pulse Resp B/P (MAP) Pulse Ox O2 Delivery O2 Flow Rate FiO2 07/06/17 14:51 36.4 59 18 160/78 (105) 98 Room Air 07/06/17 08:10 Room Air 07/06/17 07:06 36.2 56 18 146/75 (98) 97 Room Air 07/06/17 01:23 36.6 59 20 122/73 (89) 94 Room Air 07/06/17 00:00 Room Air (Zaina Winn ENVIRONMENTAL SAMPLER) Physical Exam Notes: General: no distress Eyes: normal inspection, PERLL Respiratory: chest non tender, clear to auscultation, normal breath sounds, no respiratory distress, no accessory muscle use Cardiac: regular rate and rhythm, no rub or gallop, no murmur, no edema, no jvd GI/: active bowel sounds, no abd pain or tenderness, soft, non distended Extremities: normal range of motion, normal strength, non tender Neuro/Psych: alert and oriented to person and place, normal mood and affect Skin: normal color, dry (Zaina Winn CRNP) Laboratory Results Last 24 Hours Test 07/06/17 10:41 Sodium Level 130 mmol/L Potassium Level 4.4 mmol/L Chloride Level 97 mmol/L Carbon Dioxide Level 26 mmol/L Anion Gap 7.0 mmol/L Blood Urea Nitrogen 29 mg/dl Creatinine 1.44 mg/dl Est Creatinine Clear Calc Drug Dose 22.8 ml/min Estimated GFR () 37.7 Estimated GFR (Non- 32.6 BUN/Creatinine Ratio 20.3 Random Glucose 116 mg/dl Calcium Level 10.2 mg/dl (Zaina Winn CRNP) Assessment and Plan Ms. Pickett is an 87 year old woman here for intractable back pain Back pain due to spinal stenosis - consult pain management - recommend home with fentanyl patch and po oxycodone - continue duloxetine, lidocaine patch - decreased decadron to 2mg bid, continue lidoderm patch, 1 gm tylenol q8h UTI - valenzuela sensitive E.coli - continue Keflex HTN - Continue valsartan -HCTZ add on admission as patient BP was elevated - bps stable GERD - Continue pantoprazole Mood - Continue duloxetine and mirtazapine VTE PPx - SCDs Full code Dispo: will have PT evaluate for patient's ability to maneuver stairs and use cane at home, otherwise many need rehab (Zaina Winn CRNP) [employer] Physician Supervision Note: I interviewed and examined the patient. Discussed with Zaina Winn [employer] and agree with findings and plan as documented in the note. Any exceptions or clarifications are listed here: None Patient is in good spirits today did have a bowel movement attempts at discharge were reported by her daughter wanting her to be able climb 16 steps prior to going home this is a new request today. We will have her climb stairs with physical therapy on 07/07 Vital signs today are stable patient is eating well her heart exam is regular with a systolic murmur lungs are clear with good air movement her abdomen although constipated is without much distress Patient presented initially with back pain with radicular symptoms from known spinal stenosis is improved greatly with nonopiate pain control, she has some constipation from immobility which were resolving with enemas and bowel regimen and that she return home once she meets level of functioning approved by her daughter (Tanner Damon M.D.)
[2017-07-06] MEDS: MIRTAZAPINE TAB 15 MG TAB PO SCH (21:08)
[2017-07-06] MEDS: FENTANYL 25 MCG/HR TDSY TD SCH (21:18)
[2017-07-06] MEDS: FENTANYL PATCH REMOVE & WASTE SCH (21:19)
[2017-07-06 23:53] VITALS: BP_SYST 119; BP_SYST 156; BP_DIAS 81; BP_DIAS 82; PULSE 84; TEMP 36.4; TEMP 36.7; O2SAT 95; O2SAT 97
[2017-07-07] MEDS: CHECK FENTANYL PATCH PLACEMENT SCH ×4 (00:08→23:52)
[2017-07-07] MEDS: HEPARIN SOD 5000 UNIT/0.5 ML CARP SQ SCH ×2 (05:22→18:25)
[2017-07-07] MEDS: ACETAMINOPHEN 500 MG TAB PO SCH ×3 (05:24→21:46)
[2017-07-07 07:26] VITALS: BP 145/73; PULSE 51; TEMP 36.2; O2SAT 96
[2017-07-07] MEDS ORDERED: SODIUM CHLORIDE 0.9% 500ML 500 ML IV SCH (08:45)
[2017-07-07] MEDS: PANTOprazole SOD 40 MG TAB PO SCH (09:09)
[2017-07-07] MEDS: CEROVITE ADV FORMULA TAB PO SCH (09:09)
[2017-07-07] MEDS: CALCIUM CARBONATE 1250MG TAB PO SCH ×2 (09:09→20:03)
[2017-07-07] MEDS: ASPIRIN 81 MG ECTAB PO SCH (09:09)
[2017-07-07] MEDS: DEXAMETHASONE INJ 2 MG in SYRINGE 0 ML IV SCH ×2 (09:09→20:07)
[2017-07-07] MEDS: DULOXETINE (CYMBALTA) 30 MG CAP PO SCH (09:09)
[2017-07-07] MEDS: SENNA 8.6 MG TAB PO SCH (09:10)
[2017-07-07] MEDS: CeleBREX 100 MG CAP PO SCH ×2 (09:10→20:02)
[2017-07-07] MEDS: CEPHALEXIN MONOHYDRATE 250 MG CAP PO SCH ×4 (09:10→20:01)
[2017-07-07] MEDS: OMEGA-3 (PURIFIED FISH OIL) 1 GM CAP PO SCH (09:11)
[2017-07-07] MEDS: LIDODERM (LIDOCAINE) PATCH 5% TD SCH (09:11)
[2017-07-07] MEDS: BOOST VANILLA PO SCH ×2 (09:15→20:00)
[2017-07-07 10:14] LABS: CALCIUM 10.8 mg/dl (8.5-10.1); CREATININE 1.31 mg/dl (0.60-1.20); POTASSIUM 4.2 mmol/L (3.5-5.1)
[2017-07-07 15:08] VITALS: BP 161/84; PULSE 68; TEMP 36.9; O2SAT 97
--- NOTE | 2017-07-07 15:22 | Hospitalist Progress Note ---
Hospitalist Progress Note Date of Service Jul 07, 2017. (Zaina Winn CRNP) Subjective Pt evaluation today including: conversation w/ patient, conversation w/ family , physical exam, chart review, lab review, review of inpatient medication list Ms. Pickett'adry back pain is well controlled. She has no complaints. Discussed plan of care with daughter. MARIXA Constitutional: no chills, aches, sweats or fever Respiratory: no sob,cough, sputum, or wheezing Cardiac: no chest pain, palpitations, edema, orthopnea or lightheadedness GI: no abdominal pain, nausea, vomiting, diarrhea or constipation : no dysuria or hesitancy Extremities: no joint pain or weakness Skin: no rash All other systems reviewed and negative (Zaina Winn CRNP) Objective Vital Signs Date Time Temp Pulse Resp B/P (MAP) Pulse Ox O2 Delivery O2 Flow Rate FiO2 07/07/17 15:08 36.9 68 18 161/84 (109) 97 Room Air 07/07/17 09:00 Room Air 07/07/17 07:26 36.2 51 18 145/73 (97) 96 Room Air 07/07/17 00:00 Room Air 07/06/17 23:53 36.4 84 18 156/81 (106) 95 Room Air 07/06/17 16:00 98 Room Air (Zaina Winn CRNP) Physical Exam Notes: General: no distress Eyes: normal inspection, PERLL Respiratory: chest non tender, clear to auscultation, normal breath sounds, no respiratory distress, no accessory muscle use Cardiac: regular rate and rhythm, no rub or gallop, systolci murmur, no edema, no jvd GI/: active bowel sounds, no abd pain or tenderness, soft, non distended Extremities: normal range of motion, normal strength, non tender Neuro/Psych: alert and oriented to person and place, normal mood and affect Skin: normal color, dry (Zaina Winn CRNP) Laboratory Results Last 24 Hours Test 07/07/17 09:40 Sodium Level 131 mmol/L Potassium Level 4.2 mmol/L Chloride Level 97 mmol/L Carbon Dioxide Level 28 mmol/L Anion Gap 6.0 mmol/L Blood Urea Nitrogen 36 mg/dl Creatinine 1.31 mg/dl Est Creatinine Clear Calc Drug Dose 25.0 ml/min Estimated GFR () 42.3 Estimated GFR (Non- 36.5 BUN/Creatinine Ratio 27.8 Random Glucose 106 mg/dl Calcium Level 10.8 mg/dl (Zaina Winn CRNP) Assessment and Plan Ms. Pickett is an 87 year old woman here for intractable back pain Back pain due to spinal stenosis - consult pain management - recommend home with fentanyl patch and po oxycodone - continue duloxetine, lidocaine patch - decreased decadron to 2mg bid, continue lidoderm patch, 1 gm tylenol q8h Hyponatremia/elevated creatinine - creatinine 1.4 - trended down to 1.3 today. - Sodium has been drifting downward and is 131 - discontinued HCTZ - 500 ml nss bolus - prp am UTI - valenzuela sensitive E.coli - continue Keflex HTN - Continue valsartan GERD - Continue pantoprazole Mood - Continue duloxetine and mirtazapine VTE PPx - SCDs Full code Dispo: OT recommending 24 hour supervision - awaiting placement (Zaina Winn CRNP) [employer] Physician Supervision Note: I interviewed and examined the patient. Discussed with Zaina Winn [employer] and agree with findings and plan as documented in the note. Any exceptions or clarifications are listed here: None Patient is in her usual state she is mildly confused and she is no complaints or problems were now looking toward [facility] facility as such there is some concern her level of mentation would prevent her to be home safely she over performs physically very well. There is some minor changes in her blood electrolytes which will continue to follow most notably being mild change in her sodium and renal function is unclear whether these are trends or not Vital signs are stable next She is awake alert appropriate she has no complaints or problems she states her back discomfort is improved dramatically. The patient came in initially with intractable back pain due to spondylolisthesis and spinal stenosis this is improved with nonopiate management when I look to [facility] continuing Tylenol Celebrex and on lidocaine patch Documented By: Tanner Damon (Tanner Damon M.D.)
[2017-07-07] MEDS: MIRTAZAPINE TAB 15 MG TAB PO SCH (20:02)
[2017-07-07 23:45] VITALS: BP 157/92; PULSE 60; TEMP 36.5; O2SAT 99
[2017-07-08] MEDS: ACETAMINOPHEN 500 MG TAB PO SCH ×3 (05:26→20:52)
[2017-07-08] MEDS: HEPARIN SOD 5000 UNIT/0.5 ML CARP SQ SCH ×2 (05:35→16:52)
[2017-07-08 07:02] LABS: CALCIUM 9.9 mg/dl (8.5-10.1); CREATININE 1.37 mg/dl (0.60-1.20); POTASSIUM 5.4 mmol/L (3.5-5.1)
[2017-07-08 07:21] VITALS: BP 153/90; PULSE 53; TEMP 36.3; O2SAT 97
[2017-07-08] MEDS: CALCIUM CARBONATE 1250MG TAB PO SCH ×2 (08:04→20:51)
[2017-07-08] MEDS: DULOXETINE (CYMBALTA) 30 MG CAP PO SCH (08:04)
[2017-07-08] MEDS: ASPIRIN 81 MG ECTAB PO SCH (08:04)
[2017-07-08] MEDS: LIDODERM (LIDOCAINE) PATCH 5% TD SCH (08:04)
[2017-07-08] MEDS: CeleBREX 100 MG CAP PO SCH ×2 (08:04→20:52)
[2017-07-08] MEDS: PANTOprazole SOD 40 MG TAB PO SCH (08:04)
[2017-07-08] MEDS: CEROVITE ADV FORMULA TAB PO SCH (08:04)
[2017-07-08] MEDS: CEPHALEXIN MONOHYDRATE 250 MG CAP PO SCH ×4 (08:04→20:50)
[2017-07-08] MEDS: SENNA 8.6 MG TAB PO SCH (08:04)
[2017-07-08] MEDS: OMEGA-3 (PURIFIED FISH OIL) 1 GM CAP PO SCH (08:04)
[2017-07-08] MEDS: DEXAMETHASONE INJ 2 MG in SYRINGE 0 ML IV SCH (08:05)
[2017-07-08] MEDS: CHECK FENTANYL PATCH PLACEMENT SCH ×3 (08:05→20:54)
[2017-07-08] MEDS: BOOST VANILLA PO SCH ×2 (08:23→20:00)
[2017-07-08 10:23] LABS: CALCIUM 10.2 mg/dl (8.5-10.1); CREATININE 1.44 mg/dl (0.60-1.20); POTASSIUM 4.8 mmol/L (3.5-5.1)
--- NOTE | 2017-07-08 11:10 | Hospitalist Progress Note ---
Hospitalist Progress Note Date of Service Jul 08, 2017. (Zaina Winn .DANIEL) Subjective Pt evaluation today including: conversation w/ patient, physical exam, chart review, lab review, review of inpatient medication list Ms. Pickett has no complaints. She has not had back pain for the past couple of days. ROS Constitutional: no chills, aches, sweats or fever Respiratory: no sob,cough, sputum, or wheezing Cardiac: no chest pain, palpitations, edema, orthopnea or lightheadedness GI: no abdominal pain, nausea, vomiting, diarrhea or constipation : no dysuria or hesitancy Extremities: no joint pain or weakness Skin: no rash All other systems reviewed and negative (Zaina Winn .DANIEL) Medications Medications Administered Medications (Trade) Dose Ordered Sig/Tenisha Route Start Time Stop Time Status Last Admin Dose Admin Sodium Chloride 1,000 ml @ 999 mls/hr Q1H1M STAT IV 07/03/17 10:32 07/03/17 11:32 DC 07/03/17 11:00 999 MLS/HR Morphine Sulfate (MoRPHine SULFATE INJ) 2 mg NOW STAT IV 07/03/17 10:32 07/03/17 10:34 DC 07/03/17 10:59 2 MG Ondansetron HCl (Zofran Inj) 4 mg NOW STAT IV 07/03/17 10:51 07/03/17 10:52 DC 07/03/17 10:59 4 MG Morphine Sulfate (MoRPHine SULFATE INJ) 4 mg NOW STAT IV 07/03/17 11:39 07/03/17 11:41 DC 07/03/17 11:43 4 MG Sodium Chloride 500 ml @ 999 mls/hr Q31M STAT IV 07/03/17 11:39 07/03/17 12:09 DC 07/03/17 11:56 999 MLS/HR Morphine Sulfate (MoRPHine SULFATE INJ) 4 mg NOW STAT IV 07/03/17 13:09 07/03/17 13:10 DC 07/03/17 13:18 4 MG Heparin Sodium (Porcine) (Heparin Sq 5000 Unit/0.5ml) 5,000 unit Q12H SQ 07/03/17 18:00 08/02/17 17:59 07/08/17 05:35 5,000 UNIT Aspirin (Ecotrin Tab) 81 mg QAM PO 07/04/17 08:00 08/03/17 08:59 07/08/17 08:04 81 MG Duloxetine HCl (Cymbalta Cap) 30 mg DAILY PO 07/04/17 08:00 08/03/17 08:59 07/08/17 08:04 30 MG Fentanyl (Duragesic Patch) 25 mcg Q3D@2100 TD 07/03/17 21:00 07/17/17 20:59 07/06/17 21:18 25 MCG Fish Oil ([place]-3 (Purified Fish Oil) Cap) 1 gm DAILY PO 07/04/17 08:00 08/03/17 08:59 07/08/17 08:04 1 GM Mirtazapine (Remeron Tab) 15 mg QPM PO 07/03/17 21:00 08/02/17 20:59 07/07/17 20:02 15 MG Multivitamins/ Minerals (Multivitamin W/ Minerals Tab) 1 tab DAILY PO 07/04/17 08:00 08/03/17 08:59 07/08/17 08:04 1 TAB Pantoprazole Sodium (Protonix Tab) 40 mg QAM PO 07/04/17 08:00 08/03/17 08:59 07/08/17 08:04 40 MG Senna (Senokot Tab) 17.2 mg QAM PO 07/04/17 08:00 08/03/17 08:59 07/08/17 08:04 17.2 MG Calcium Carbonate (oS-Jhon 500 TAB) 1,250 mg BID PO 07/03/17 20:00 08/02/17 20:59 07/08/17 08:04 1,250 MG Valsartan (Diovan Tab) 160 mg BID PO 07/03/17 20:00 07/07/17 09:08 DC 07/06/17 21:08 160 MG Hydrochlorothiazide (Hydrochlorothiazide Tab) 12.5 mg BID PO 07/03/17 20:00 07/07/17 09:08 DC 07/06/17 21:06 12.5 MG Miscellaneous (Fentanyl Patch Remove & Waste) 1 ea Q3D@2059 N/A 07/03/17 20:59 08/02/17 20:58 07/06/17 21:19 1 EA Miscellaneous Information (Check Fentanyl Patch Placement) 1 ea QS N/A 2/19/18 00:00 08/03/17 00:00 07/08/17 08:05 1 EA Oxycodone HCl (Roxicodone Immediate Rel Tab) 10 mg Q4H PRN PO 07/03/17 17:30 07/08/17 09:00 DC 07/05/17 13:11 10 MG Oxycodone HCl (Roxicodone Immediate Rel Tab) 5 mg Q4H PRN PO 07/03/17 17:30 07/08/17 09:00 DC 07/04/17 08:28 5 MG Ceftriaxone Sodium 1 gm/ Dextrose 50 ml @ 100 mls/hr Q24H IV 07/04/17 13:00 07/05/17 08:34 DC 07/04/17 13:47 100 MLS/HR Miscellaneous (Remove Lidoderm Patch) 1 ea DAILY@21 N/A 07/04/17 21:00 08/03/17 20:59 07/07/17 20:08 1 EA Acetaminophen (Tylenol Tab) 1,000 mg Q8 PO 07/04/17 14:00 08/03/17 13:59 07/08/17 05:26 1,000 MG Dexamethasone Sodium Phosphate 4 mg/Syringe 1 ml @ 1 mls/min BID IV 07/04/17 20:00 07/05/17 08:32 DC 07/04/17 19:59 1 MLS/MIN Dexamethasone Sodium Phosphate 4 mg/Syringe 1 ml @ 1 mls/min NOW ONCE IV 07/04/17 14:15 07/04/17 14:16 DC 07/04/17 15:54 1 MLS/MIN Lidocaine (Lidoderm Patch 5%) 1 patch QAM TD 07/05/17 08:00 08/04/17 07:59 07/08/17 08:04 1 PATCH Lidocaine (Lidoderm Patch 5%) 1 patch NOW ONCE TD 07/04/17 14:00 07/04/17 14:01 DC 07/04/17 15:49 1 PATCH Dexamethasone Sodium Phosphate 2 mg/Syringe 0.5 ml @ 1 mls/min BID IV 07/05/17 20:00 07/08/17 08:32 DC 07/08/17 08:05 1 MLS/MIN Celecoxib (CeleBREX CAP) 100 mg BID PO 07/05/17 08:30 08/04/17 08:29 07/08/17 08:04 100 MG Ciprofloxacin (Ciprofloxacin Tab) 250 mg Q12 PO 07/05/17 08:45 07/05/17 11:47 DC 07/05/17 09:32 250 MG Enteral Nutritional Formula (Boost) 1 can BID PO 07/05/17 08:45 08/04/17 08:44 07/08/17 08:23 1 CAN Cephalexin Monohydrate (Keflex Cap) 250 mg QID PO 07/05/17 12:00 07/10/17 11:59 07/08/17 08:04 250 MG Miscellaneous (Soap Suds Enema) 1 ea NOW ONCE WA 07/06/17 10:30 07/06/17 10:31 DC 07/06/17 11:30 1 EA Polyethylene (Miralax Powder Packet) 17 gm NOW ONCE PO 07/06/17 13:15 07/06/17 13:16 DC 07/06/17 13:34 17 GM Sodium Chloride 500 ml @ 250 mls/hr Q2H IV 07/07/17 08:45 07/07/17 10:44 DC 07/07/17 09:31 250 MLS/HR (Zaina Winn, DANIEL) Objective Vital Signs Date Time Temp Pulse Resp B/P (MAP) Pulse Ox O2 Delivery O2 Flow Rate FiO2 07/08/17 08:00 Room Air 07/08/17 07:21 36.3 53 20 153/90 (111) 97 Room Air 07/08/17 00:00 Room Air 07/07/17 23:45 36.5 60 18 157/92 (113) 99 Room Air 07/07/17 20:00 Room Air 07/07/17 16:00 Room Air 07/07/17 15:08 36.9 68 18 161/84 (109) 97 Room Air (Zaina Winn CRNP) Physical Exam Notes: General: no distress Eyes: normal inspection, PERLL Respiratory: chest non tender, clear to auscultation, normal breath sounds, no respiratory distress, no accessory muscle use Cardiac: regular rate and rhythm, no rub or gallop, systolic murmur, no edema, no jvd GI/: active bowel sounds, no abd pain or tenderness, soft, non distended Extremities: normal range of motion, normal strength, non tender Neuro/Psych: alert and oriented x3 with confusion, normal mood and affect Skin: normal color, dry (Zaina Winn CRNP) Laboratory Results Last 24 Hours Test 07/08/17 05:31 07/08/17 09:50 Sodium Level 129 mmol/L 129 mmol/L Potassium Level 5.4 mmol/L 4.8 mmol/L Chloride Level 96 mmol/L 96 mmol/L Carbon Dioxide Level 27 mmol/L 27 mmol/L Anion Gap 6.0 mmol/L 6.0 mmol/L Blood Urea Nitrogen 37 mg/dl 41 mg/dl Creatinine 1.37 mg/dl 1.44 mg/dl Est Creatinine Clear Calc Drug Dose 23.9 ml/min 22.8 ml/min Estimated GFR () 40.1 37.7 Estimated GFR (Non- 34.6 32.6 BUN/Creatinine Ratio 26.9 28.6 Random Glucose 113 mg/dl 98 mg/dl Calcium Level 9.9 mg/dl 10.2 mg/dl (Zaina Winn CRNP) Assessment and Plan Ms. Pickett is an 87 year old woman here for intractable back pain Back pain due to spinal stenosis - consult pain management - recommend home with fentanyl patch and po oxycodone - discontinued oxycodone due to daughters concerns about its effect on patient' s mental status. She has not required it in two days. Daughter requests Oramorph if her mother has breakthrough pain - continue duloxetine, lidocaine patch - decreased decadron tapered to 2 mg daily, continue lidoderm patch, 1 gm tylenol q8h Hyponatremia/elevated creatinine - creatinine 1.4 - Sodium has been drifting downward and is 129 - fluid restriction 1500 mls - discontinued HCTZ - prp am UTI - valenzuela sensitive E.coli - continue Keflex - abx initiated 07/04 HTN - Continue valsartan GERD - Continue pantoprazole Mood - Continue duloxetine and mirtazapine VTE PPx - SCDs Full code Dispo: OT recommending 24 hour supervision - awaiting placement (Zaina Winn CRNP) MACHINE STONECUTTER Physician Supervision Note: I interviewed and examined the patient. Discussed with Zaina Winn MACHINE STONECUTTER and agree with findings and plan as documented in the note. Any exceptions or clarifications are listed here: None Patient is in the company of her daughter she did some urinary retention a Gamino catheter was placed it is unclear whether this is related to dementia medications or perhaps her lower back issues however she has not had any rectal incontinence. She is no continued pain within her lower back we will proceed the intermittent straight caths over the weekend to get her back to voiding her urine culture is sent Vital signs are stable with exception of blood pressure being elevated her antihypertensives were cut because of some hyponatremia will institute amlodipine therapy She is pleasantly demented but oriented to person and place Her heart is regular with a loud systolic murmur her lungs are clear abdomen normoactive bowel sounds Patient initially presented with encephalopathy urinary tract infection and acute on chronic low back pain these are all improving treating her urinary infection with Keflex will maintain some attempts at straight cathing to improve her voiding over the weekend with hopeful eventual placement in intermediate facility Documented By: Tanner Damon (Tanner Damon M.D.)
[2017-07-08 14:48] VITALS: BP 178/90; PULSE 57; TEMP 36.7; O2SAT 97
[2017-07-08] MEDS ORDERED: AMLODIPINE BESYLATE 5 MG TAB PO ONE (18:15)
[2017-07-08 20:00] VITALS: O2SAT 97
[2017-07-08 20:45] VITALS: BP 160/92
[2017-07-08] MEDS: MIRTAZAPINE TAB 15 MG TAB PO SCH (20:50)
[2017-07-09] VITALS: BP 146/81; PULSE 63; TEMP 36.3; O2SAT 96; O2SAT 97
[2017-07-09] MEDS: ACETAMINOPHEN 500 MG TAB PO SCH ×3 (06:23→21:45)
[2017-07-09] MEDS: HEPARIN SOD 5000 UNIT/0.5 ML CARP SQ SCH ×2 (06:25→17:45)
[2017-07-09 07:16] VITALS: BP 153/76; PULSE 59; TEMP 36.4; O2SAT 99
[2017-07-09] MEDS: BOOST VANILLA PO SCH ×2 (08:47→21:38)
[2017-07-09] MEDS: CeleBREX 100 MG CAP PO SCH ×2 (08:48→21:43)
[2017-07-09] MEDS: DEXAMETHASONE INJ 2 MG in SYRINGE 0 ML IV SCH (08:49)
[2017-07-09] MEDS: CEPHALEXIN MONOHYDRATE 250 MG CAP PO SCH ×4 (08:50→21:42)
[2017-07-09] MEDS: OMEGA-3 (PURIFIED FISH OIL) 1 GM CAP PO SCH (08:50)
[2017-07-09] MEDS: PANTOprazole SOD 40 MG TAB PO SCH (08:50)
[2017-07-09] MEDS: CEROVITE ADV FORMULA TAB PO SCH (08:50)
[2017-07-09] MEDS: CALCIUM CARBONATE 1250MG TAB PO SCH ×2 (08:50→21:42)
[2017-07-09] MEDS: AMLODIPINE BESYLATE 5 MG TAB PO SCH (08:50)
[2017-07-09] MEDS: ASPIRIN 81 MG ECTAB PO SCH (08:51)
[2017-07-09] MEDS: SENNA 8.6 MG TAB PO SCH (08:51)
[2017-07-09] MEDS: CHECK FENTANYL PATCH PLACEMENT SCH ×3 (08:52→23:33)
[2017-07-09] MEDS: DULOXETINE (CYMBALTA) 30 MG CAP PO SCH (08:52)
[2017-07-09] MEDS: LIDODERM (LIDOCAINE) PATCH 5% TD SCH (08:53)
[2017-07-09 16:04] VITALS: BP 120/70; PULSE 70; TEMP 36.5; O2SAT 95
--- NOTE | 2017-07-09 17:00 | Progress Note ---
Subjective Date of Service: Jul 09, 2017. Subjective pt seems pleasant as remeron and decadron have helped mood, PT feels dementia may limit her independence, has some loose bowel movements overnight but not continuing Problem List Medical Problems: (1) Bilateral leg pain Status: Acute (2) Bladder rupture Status: Acute (3) CKD (chronic kidney disease) Status: Acute (4) Dehydration Status: Acute (5) Failure to thrive Status: Acute (6) Hematuria Status: Acute (7) Intractable pain Status: Acute Review of Systems Constitutional: + weakness, + fatigue, No fever, No chills Respiratory: No cough, No shortness of breath, No dyspnea on exertion Cardiac: No chest pain, No edema Abdomen: + diarrhea, No pain, No nausea, No vomiting Musculoskeletal: No joint pain, No muscle pain, No swelling Neurologic: + memory loss, + weakness Psychiatric: + anxiety, No depression symptoms Objective Vital Signs Date Time Temp Pulse Resp B/P (MAP) Pulse Ox O2 Delivery O2 Flow Rate FiO2 07/09/17 16:04 36.5 70 17 120/70 (87) 95 Room Air 07/09/17 08:30 Room Air 07/09/17 07:16 36.4 59 19 153/76 (101) 99 Room Air 07/09/17 00:00 36.3 63 18 146/81 (102) 96 Room Air 07/09/17 00:00 97 Room Air 07/08/17 20:45 160/92 (114) 07/08/17 20:00 97 Room Air Physical Exam General Appearance: WD/WN, + mild distress Eyes: normal inspection, sclerae normal Respiratory/Chest: chest non-tender, lungs clear, normal breath sounds Cardiovascular: regular rate, rhythm, + systolic murmur Abdomen: normal bowel sounds, non tender, soft Extremities: no pedal edema, no calf tenderness Neurologic/Psychiatric: alert, + disoriented Assessment and Plan Ms. Pickett is an 87 year old woman here for intractable back pain, this has greatly improved with non po opiate management but her indepence has come into question with regard to her dementia making her unsafe at times Back pain due to spinal stenosis fentanyl patch duloxetine, - decreased decadron tapered to 2 mg daily, continue lidoderm patch, 1 gm tylenol q8h Hyponatremia/elevated creatinine - improving with fluid restriction and stopping hctz UTI- valenzuela sensitive E.coli - continue Keflex - abx initiated 07/04 HTN- has been up at times maybe due to anxiety added amlodipine 07/08 contineu valsartan GERD- no symptoms on pantoprazole Mood duloxetine and mirtazapine VTE PPx - SCDs Full code
[2017-07-09] MEDS: FENTANYL PATCH REMOVE & WASTE SCH (20:59)
[2017-07-09] MEDS: FENTANYL 25 MCG/HR TDSY TD SCH (21:34)
[2017-07-09] MEDS: MIRTAZAPINE TAB 15 MG TAB PO SCH (21:43)
[2017-07-09 23:47] VITALS: BP 113/72; PULSE 82; TEMP 36.5; O2SAT 96
[2017-07-10] MEDS: ACETAMINOPHEN 500 MG TAB PO SCH ×3 (05:46→21:44)
[2017-07-10] MEDS: HEPARIN SOD 5000 UNIT/0.5 ML CARP SQ SCH ×2 (05:48→16:36)
[2017-07-10 07:36] LABS: HEMATOCRIT 28.2 % (37-47); HEMOGLOBIN 9.6 g/dL (12.0-16.0); MEAN CELL VOLUME 88.7 fL (80-100); MEAN CORPUSCULAR HEMOGLOBIN 30.2 pg (25-34); MEAN PLATELET VOLUME 8.4 fL (7.4-10.4); PLATELET COUNT 293 K/uL (130-400); RED CELL DISTRIBUTION WIDTH CV 13.6 % (11.5-14.5); RED CELL DISTRIBUTION WIDTH SD 44.3 fL (36.4-46.3); WHITE BLOOD COUNT 8.39 K/uL (4.8-10.8)
[2017-07-10 07:54] VITALS: BP 150/72; PULSE 56; TEMP 36.5; O2SAT 96
[2017-07-10 08:08] LABS: CALCIUM 9.6 mg/dl (8.5-10.1); CREATININE 1.2 mg/dl (0.60-1.20); POTASSIUM 4.6 mmol/L (3.5-5.1)
[2017-07-10] MEDS: ASPIRIN 81 MG ECTAB PO SCH (08:42)
[2017-07-10] MEDS: SENNA 8.6 MG TAB PO SCH (08:42)
[2017-07-10] MEDS: DULOXETINE (CYMBALTA) 30 MG CAP PO SCH (08:42)
[2017-07-10] MEDS: DEXAMETHASONE INJ 2 MG in SYRINGE 0 ML IV SCH (08:42)
[2017-07-10] MEDS: CALCIUM CARBONATE 1250MG TAB PO SCH ×2 (08:43→19:51)
[2017-07-10] MEDS: CEPHALEXIN MONOHYDRATE 250 MG CAP PO SCH (08:43)
[2017-07-10] MEDS: CEROVITE ADV FORMULA TAB PO SCH (08:43)
[2017-07-10] MEDS: CeleBREX 100 MG CAP PO SCH ×2 (08:43→19:51)
[2017-07-10] MEDS: PANTOprazole SOD 40 MG TAB PO SCH (08:43)
[2017-07-10] MEDS: AMLODIPINE BESYLATE 5 MG TAB PO SCH (08:44)
[2017-07-10] MEDS: OMEGA-3 (PURIFIED FISH OIL) 1 GM CAP PO SCH (08:44)
[2017-07-10] MEDS: LIDODERM (LIDOCAINE) PATCH 5% TD SCH (08:45)
[2017-07-10] MEDS: CHECK FENTANYL PATCH PLACEMENT SCH ×2 (08:46→16:36)
[2017-07-10] MEDS: BOOST VANILLA PO SCH ×2 (08:51→19:55)
--- NOTE | 2017-07-10 12:41 | Progress Note ---
Subjective Date of Service: Jul 10, 2017. Subjective this pt is pleasantly confused, she still thinks she is going home, her daughter request urology consult for urinary retention Problem List Medical Problems: (1) Bilateral leg pain Status: Acute (2) Bladder rupture Status: Acute (3) CKD (chronic kidney disease) Status: Acute (4) Dehydration Status: Acute (5) Failure to thrive Status: Acute (6) Hematuria Status: Acute (7) Intractable pain Status: Acute Review of Systems Constitutional: + weakness, + fatigue, No fever, No chills Respiratory: No cough, No shortness of breath Cardiac: No chest pain, No edema Abdomen: No pain, No nausea, No vomiting, No diarrhea Female : + problem reported (urinary retention), No dysuria Objective Vital Signs Date Time Temp Pulse Resp B/P (MAP) Pulse Ox O2 Delivery O2 Flow Rate FiO2 07/10/17 08:30 Room Air 07/10/17 07:54 36.5 56 18 150/72 (98) 96 Room Air 07/09/17 23:47 36.5 82 20 113/72 (86) 96 Room Air 07/09/17 23:25 Room Air 07/09/17 16:30 Room Air 07/09/17 16:04 36.5 70 17 120/70 (87) 95 Room Air Physical Exam General Appearance: WD/WN, + mild distress Eyes: normal inspection, sclerae normal Neck: supple, no JVD Respiratory/Chest: chest non-tender, lungs clear, normal breath sounds Cardiovascular: regular rate, rhythm, no murmur Abdomen: normal bowel sounds, non tender, soft Extremities: no pedal edema, no calf tenderness Neurologic/Psychiatric: alert, + disoriented Skin: normal color, warm/dry, no rash Laboratory Results Last 24 Hours Test 07/10/17 06:59 White Blood Count 8.39 K/uL Red Blood Count 3.18 M/uL Hemoglobin 9.6 g/dL Hematocrit 28.2 % Mean Corpuscular Volume 88.7 fL Mean Corpuscular Hemoglobin 30.2 pg Mean Corpuscular Hemoglobin Concent 34.0 g/dl RDW Standard Deviation 44.3 fL RDW Coefficient of Variation 13.6 % Platelet Count 293 K/uL Mean Platelet Volume 8.4 fL Sodium Level 130 mmol/L Potassium Level 4.6 mmol/L Chloride Level 96 mmol/L Carbon Dioxide Level 30 mmol/L Anion Gap 4.0 mmol/L Blood Urea Nitrogen 44 mg/dl Creatinine 1.20 mg/dl Est Creatinine Clear Calc Drug Dose 27.3 ml/min Estimated GFR () 47.1 Estimated GFR (Non- 40.6 BUN/Creatinine Ratio 36.8 Random Glucose 93 mg/dl Calcium Level 9.6 mg/dl Assessment and Plan Ms. Pickett is an 87 year old woman here for intractable back pain, this has greatly improved with non po opiate management but her indepence has come into question with regard to her dementia making her unsafe at times Back pain due to spinal stenosis fentanyl patch duloxetine, continues to be pain free - decreased decadron tapered to 2 mg daily, continue lidoderm patch, 1 gm tylenol q8h Hyponatremia/elevated creatinine - improving with fluid restriction and stopping hctz UTI- valenzuela sensitive E.coli - continue Keflex - abx initiated 07/04 Urinary retention, will have reaves out, monitor post voids, st cath as needed, urology consult, maybe pain medication mediated as does not have other neuropathic signs HTN- has been up at times maybe due to anxiety added amlodipine 07/08 continue valsartan GERD- no symptoms on pantoprazole Mood duloxetine and mirtazapine VTE PPx - SCDs Full code
[2017-07-10 15:57] VITALS: BP 120/75; PULSE 70; TEMP 36.6; O2SAT 97
[2017-07-10] MEDS: MIRTAZAPINE TAB 15 MG TAB PO SCH (21:43)
[2017-07-10 23:11] VITALS: BP 131/78; PULSE 61; TEMP 36.8; O2SAT 97
[2017-07-11] MEDS: CHECK FENTANYL PATCH PLACEMENT SCH ×3 (00:24→16:53)
[2017-07-11] MEDS: ACETAMINOPHEN 500 MG TAB PO SCH ×3 (06:07→22:00)
[2017-07-11] MEDS: HEPARIN SOD 5000 UNIT/0.5 ML CARP SQ SCH ×2 (06:10→18:15)
[2017-07-11 07:07] LABS: CALCIUM 9.1 mg/dl (8.5-10.1); CREATININE 1.33 mg/dl (0.60-1.20); POTASSIUM 4.4 mmol/L (3.5-5.1)
[2017-07-11 07:35] VITALS: BP 138/69; PULSE 55; TEMP 36.6; O2SAT 97
[2017-07-11] MEDS: CeleBREX 100 MG CAP PO SCH ×2 (08:51→20:28)
[2017-07-11] MEDS: DULOXETINE (CYMBALTA) 30 MG CAP PO SCH (08:51)
[2017-07-11] MEDS: ASPIRIN 81 MG ECTAB PO SCH (08:51)
[2017-07-11] MEDS: CALCIUM CARBONATE 1250MG TAB PO SCH ×2 (08:52→20:27)
[2017-07-11] MEDS: OMEGA-3 (PURIFIED FISH OIL) 1 GM CAP PO SCH (08:52)
[2017-07-11] MEDS: CEROVITE ADV FORMULA TAB PO SCH (08:52)
[2017-07-11] MEDS: DEXAMETHASONE INJ 2 MG in SYRINGE 0 ML IV SCH (08:52)
[2017-07-11] MEDS: PANTOprazole SOD 40 MG TAB PO SCH (08:52)
[2017-07-11] MEDS: SENNA 8.6 MG TAB PO SCH (08:53)
[2017-07-11] MEDS: AMLODIPINE BESYLATE 5 MG TAB PO SCH (08:53)
[2017-07-11] MEDS: LIDODERM (LIDOCAINE) PATCH 5% TD SCH (08:54)
[2017-07-11] MEDS: BOOST VANILLA PO SCH ×2 (08:57→20:26)
--- NOTE | 2017-07-11 09:55 | Urology Consultation ---
History General Date of Service: Jul 11, 2017. Chief Complaint: urinary retention Primary Care Physician: Prabhakar Lugo MD Pt seen a urologist before?: Yes (Dr. Holder ) History of Present Illness 87 yo female admitted with back pain. consulted per the pt's daughter's request for urinary retention. She is s/p right stent placement for hydro in May. The pt has a hx of neurogenic bladder requiring CIC for many years in the past. She did have a reaves catheter placed on admission, which was removed. Pt now continuing to require intermittent CIC. The pt is confused this morning. Oriented to place, but not time. Noted she was oriented on admission. UC&S on admission growing e coli and Praveena albicans. She has finished a course of Keflex. Laboratory Last 24 Hours Test 07/11/17 05:54 Sodium Level 132 mmol/L Potassium Level 4.4 mmol/L Chloride Level 96 mmol/L Carbon Dioxide Level 31 mmol/L Anion Gap 5.0 mmol/L Blood Urea Nitrogen 45 mg/dl Creatinine 1.33 mg/dl Est Creatinine Clear Calc Drug Dose 24.6 ml/min Estimated GFR () 41.6 Estimated GFR (Non- 35.9 BUN/Creatinine Ratio 34.1 Random Glucose 90 mg/dl Calcium Level 9.1 mg/dl Problem List Medical Problems: (1) Bilateral leg pain Status: Acute (2) Bladder rupture Status: Acute (3) CKD (chronic kidney disease) Status: Acute (4) Dehydration Status: Acute (5) Failure to thrive Status: Acute (6) Hematuria Status: Acute (7) Intractable pain Status: Acute Past History hypertension, urinary tract infection, other (neurogenic bladder ) Past Surgical History: hysterectomy, tonsillectomy, other (hernia repair) Family History Patient reports no known family medical history. Social History Hx Tobacco Use In Past Year?: No Smoking: non-smoker Alcohol: no current use Drug use: none Marital status: Housing status: lives with family Occupation status: retired Immunizations History of Influenza Vaccine: Yes History of Tetanus Vaccine?: Yes History of Pneumococcal: Yes History of Hepatitis B Vaccine: Yes History of MDRO No Allergies Coded Allergies: No Known Allergies (Unverified , 05/28/17) Medications Home Medications: Home Meds and Scripts Medications Dose Route/Sig Max Daily Dose Days Date Category Dose Instructions Fentanyl 25 Mcg Tdsy 25 Mcg TD Q3D@1400 06/08/17 Rx [place]-3 (Fish Oil) 1 Ea Cap 1 Cap PO DAILY 05/28/17 Reported Tylenol (Acetaminophen) 325 Mg Tab 325-650 Mg PO UD PRN 05/28/17 Reported Calcium Carbonate 1,250 Mg Tab 1,250 Mg PO AMPM 05/28/17 Reported Thera-M (Multiple Vitamins W/ Minerals) 1 Tab Tab 1 Tab PO DAILY 05/28/17 Reported @ 1200 Colace (Docusate Sodium) 100 Mg Cap 100 Mg PO AMPM 05/28/17 Reported Remeron (Mirtazapine) 15 Mg Tab 15 Mg PO QPM 05/28/17 Reported Senokot (Senna) 8.6 Mg Tab 17.2 Mg PO QAM 05/28/17 Reported TWO 8.6 MG TABLETS Aspirin Ec (Aspirin) 81 Mg Tab 81 Mg PO QAM 05/28/17 Reported Cymbalta (Duloxetine HCl) 30 Mg Cap 30 Mg PO QD 05/28/17 Reported @ 1200 Protonix (Pantoprazole Sodium) 40 Mg Tab 40 Mg PO QAM 05/28/17 Reported Vitamin D (Cholecalciferol) 1,000 Unit Tab 1,000 Units PO QAM 05/28/17 Reported Diovan (Valsartan) 160 Mg Tab 160 Mg PO AMPM 05/28/17 Reported Inpatient Medications: Current Inpatient Medications Medications (Trade) Dose Ordered Sig/Tenisha Route Start Time Stop Time Status Last Admin Dose Admin Heparin Sodium (Porcine) (Heparin Sq 5000 Unit/0.5ml) 5,000 unit Q12H SQ 07/03/17 18:00 08/02/17 17:59 07/11/17 06:10 5,000 UNIT Miscellaneous (Iv Fluids Completed) 1 ea PRN PRN N/A 07/03/17 15:00 07/03/18 14:59 Aspirin (Ecotrin Tab) 81 mg QAM PO 07/04/17 08:00 08/03/17 08:59 07/11/17 08:51 81 MG Duloxetine HCl (Cymbalta Cap) 30 mg DAILY PO 07/04/17 08:00 08/03/17 08:59 07/11/17 08:51 30 MG Fentanyl (Duragesic Patch) 25 mcg Q3D@2100 TD 07/03/17 21:00 07/17/17 20:59 07/09/17 21:34 25 MCG Fish Oil ([place]-3 (Purified Fish Oil) Cap) 1 gm DAILY PO 07/04/17 08:00 08/03/17 08:59 07/11/17 08:52 1 GM Mirtazapine (Remeron Tab) 15 mg QPM PO 07/03/17 21:00 08/02/17 20:59 07/10/17 21:43 15 MG Multivitamins/ Minerals (Multivitamin W/ Minerals Tab) 1 tab DAILY PO 07/04/17 08:00 08/03/17 08:59 07/11/17 08:52 1 TAB Pantoprazole Sodium (Protonix Tab) 40 mg QAM PO 07/04/17 08:00 08/03/17 08:59 07/11/17 08:52 40 MG Senna (Senokot Tab) 17.2 mg QAM PO 07/04/17 08:00 08/03/17 08:59 07/11/17 08:53 17.2 MG Calcium Carbonate (oS-Jhon 500 TAB) 1,250 mg BID PO 07/03/17 20:00 08/02/17 20:59 07/11/17 08:52 1,250 MG Miscellaneous (Fentanyl Patch Remove & Waste) 1 ea Q3D@9 N/A 07/03/17 20:59 08/02/17 20:58 07/09/17 20:59 1 EA Miscellaneous Information (Check Fentanyl Patch Placement) 1 ea QS N/A 07/04/17 00:00 08/03/17 00:00 07/11/17 08:57 1 EA Miscellaneous (Remove Lidoderm Patch) 1 ea DAILY@21 N/A 07/04/17 21:00 08/03/17 20:59 07/10/17 21:44 1 EA Acetaminophen (Tylenol Tab) 1,000 mg Q8 PO 07/04/17 14:00 08/03/17 13:59 07/11/17 06:07 1,000 MG Lidocaine (Lidoderm Patch 5%) 1 patch QAM TD 07/05/17 08:00 08/04/17 07:59 07/11/17 08:54 1 PATCH Celecoxib (CeleBREX CAP) 100 mg BID PO 07/05/17 08:30 08/04/17 08:29 07/11/17 08:51 100 MG Enteral Nutritional Formula (Boost) 1 can BID PO 07/05/17 08:45 08/04/17 08:44 07/11/17 08:57 1 CAN Dexamethasone Sodium Phosphate 2 mg/Syringe 0.5 ml @ 1 mls/min DAILY IV 07/09/17 08:00 08/03/17 19:59 07/11/17 08:52 1 MLS/MIN Amlodipine Besylate (Norvasc Tab) 5 mg QAM PO 07/09/17 08:00 08/08/17 07:59 07/11/17 08:53 5 MG Review of Systems Review of Systems Additional Comments: Pt unable to answer questions appropriately this morning d/t AMS. Physical Exam Vital Signs: Vital Signs Past 12 Hours Date Time Temp Pulse Resp B/P (MAP) Pulse Ox O2 Delivery O2 Flow Rate FiO2 07/11/17 07:35 36.6 55 20 138/69 (92) 97 07/11/17 00:10 Room Air 07/10/17 23:11 36.8 61 18 131/78 (95) 97 Room Air Physical Exam: General Appearance: no apparent distress Eyes: bilateral eyes normal inspection ENT: hearing grossly normal Neck: no JVD Respiratory/Chest: no respiratory distress, no accessory muscle use Cardiovascular: no JVD Extremities: normal inspection Neurologic/Psychiatric: alert, normal mood/affect Skin: normal color Assessment & Plan Assessment & Plan A/P: Neurogenic bladder, UTI AFVSS. Pt should resume CIC TID as previously recommended by Dr. Holder. Will recheck a cath UC&S to ensure resolution of UTI. She is scheduled to f/u with Dr. Holder as an outpatient on 07-14. Will keep as scheduled. Will continue to follow along with primary service.
--- NOTE | 2017-07-11 11:34 | Hospitalist Progress Note ---
Hospitalist Progress Note Date of Service Jul 11, 2017. Subjective Pt evaluation today including: conversation w/ patient, conversation w/ family (daughter ), physical exam, lab review, review of studies, review of inpatient medication list Voiding: voiding difficulty Patient resting in bed. Voices not complaints. Alert/oriented x3. Per daughter, since yesterday patient has become progressively more confused. Stating things like "I feel urine when I am peeing." Check UCx. No fevers, WBC, cough. No medications changes. +urinary retention. Eating and drinking OK. Patient denies any fever, chills, sweats, lightheadedness, dizziness, vision changes, CP, palpitations, edema, SOB, wheezing, cough, abdominal pain, nausea, vomiting, diarrhea, melena, numbness/tingling, weakness, muscle/joint pain, anxiety/depression, active bleeding, or new skin discoloration/changes. Medications Current Inpatient Medications Medications (Trade) Dose Ordered Sig/Tenisha Route Start Time Stop Time Status Last Admin Dose Admin Heparin Sodium (Porcine) (Heparin Sq 5000 Unit/0.5ml) 5,000 unit Q12H SQ 07/03/17 18:00 08/02/17 17:59 07/11/17 06:10 5,000 UNIT Miscellaneous (Iv Fluids Completed) 1 ea PRN PRN N/A 07/03/17 15:00 07/03/18 14:59 Aspirin (Ecotrin Tab) 81 mg QAM PO 07/04/17 08:00 08/03/17 08:59 07/11/17 08:51 81 MG Duloxetine HCl (Cymbalta Cap) 30 mg DAILY PO 07/04/17 08:00 08/03/17 08:59 07/11/17 08:51 30 MG Fentanyl (Duragesic Patch) 25 mcg Q3D@2100 TD 07/03/17 21:00 07/17/17 20:59 07/09/17 21:34 25 MCG Fish Oil ([place]-3 (Purified Fish Oil) Cap) 1 gm DAILY PO 07/04/17 08:00 08/03/17 08:59 07/11/17 08:52 1 GM Mirtazapine (Remeron Tab) 15 mg QPM PO 07/03/17 21:00 08/02/17 20:59 07/10/17 21:43 15 MG Multivitamins/ Minerals (Multivitamin W/ Minerals Tab) 1 tab DAILY PO 07/04/17 08:00 08/03/17 08:59 07/11/17 08:52 1 TAB Pantoprazole Sodium (Protonix Tab) 40 mg QAM PO 07/04/17 08:00 08/03/17 08:59 07/11/17 08:52 40 MG Senna (Senokot Tab) 17.2 mg QAM PO 07/04/17 08:00 08/03/17 08:59 07/11/17 08:53 17.2 MG Calcium Carbonate (oS-Jhon 500 TAB) 1,250 mg BID PO 07/03/17 20:00 08/02/17 20:59 07/11/17 08:52 1,250 MG Miscellaneous (Fentanyl Patch Remove & Waste) 1 ea Q3D@2059 N/A 07/03/17 20:59 08/02/17 20:58 07/09/17 20:59 1 EA Miscellaneous Information (Check Fentanyl Patch Placement) 1 ea QS N/A 07/04/17 00:00 08/03/17 00:00 07/11/17 08:57 1 EA Miscellaneous (Remove Lidoderm Patch) 1 ea DAILY@21 N/A 07/04/17 21:00 08/03/17 20:59 07/10/17 21:44 1 EA Acetaminophen (Tylenol Tab) 1,000 mg Q8 PO 07/04/17 14:00 08/03/17 13:59 07/11/17 06:07 1,000 MG Lidocaine (Lidoderm Patch 5%) 1 patch QAM TD 07/05/17 08:00 08/04/17 07:59 07/11/17 08:54 1 PATCH Celecoxib (CeleBREX CAP) 100 mg BID PO 07/05/17 08:30 08/04/17 08:29 07/11/17 08:51 100 MG Enteral Nutritional Formula (Boost) 1 can BID PO 07/05/17 08:45 08/04/17 08:44 07/11/17 08:57 1 CAN Dexamethasone Sodium Phosphate 2 mg/Syringe 0.5 ml @ 1 mls/min DAILY IV 07/09/17 08:00 08/03/17 19:59 07/11/17 08:52 1 MLS/MIN Amlodipine Besylate (Norvasc Tab) 5 mg QAM PO 07/09/17 08:00 08/08/17 07:59 07/11/17 08:53 5 MG Objective Vital Signs Date Time Temp Pulse Resp B/P (MAP) Pulse Ox O2 Delivery O2 Flow Rate FiO2 07/11/17 09:00 Room Air 07/11/17 07:35 36.6 55 20 138/69 (92) 97 07/11/17 00:10 Room Air 07/10/17 23:11 36.8 61 18 131/78 (95) 97 Room Air 07/10/17 20:10 Room Air 07/10/17 16:00 Room Air 07/10/17 15:57 36.6 70 18 120/75 (90) 97 Room Air Physical Exam General Appearance: no apparent distress Eyes: normal inspection, PERRL ENT: hearing grossly normal Neck: supple, no JVD Respiratory/Chest: lungs clear, no respiratory distress, no accessory muscle use Cardiovascular: regular rate, rhythm, + systolic murmur Abdomen: normal bowel sounds, non tender, soft Extremities: no pedal edema, no calf tenderness Neurologic/Psychiatric: no motor/sensory deficits, alert, normal mood/affect, oriented x 3 Skin: normal color, warm/dry, no rash Laboratory Results Last 24 Hours Test 07/11/17 05:54 Sodium Level 132 mmol/L Potassium Level 4.4 mmol/L Chloride Level 96 mmol/L Carbon Dioxide Level 31 mmol/L Anion Gap 5.0 mmol/L Blood Urea Nitrogen 45 mg/dl Creatinine 1.33 mg/dl Est Creatinine Clear Calc Drug Dose 24.6 ml/min Estimated GFR () 41.6 Estimated GFR (Non- 35.9 BUN/Creatinine Ratio 34.1 Random Glucose 90 mg/dl Calcium Level 9.1 mg/dl Assessment and Plan Ms. Pickett is an 87 year old woman here for intractable back pain, this has greatly improved with non po opiate management but her indepence has come into question with regard to her dementia making her unsafe at times Back pain due to spinal stenosis: - Admitted to med/surg - PT/OT consultation - Lidoderm patch, Fentanyl patch, Tylenol PRN, Celebrex 100 mg BID - Decadron taper- currently at 2 mg IV daily - Pain management consulted, appreciate recommendations- consider epidural injection outpatient Hyponatremia- IMPROVING: Treated w/ IVF and stopped HCTZ CKD stage III- baseline financial intern 1.0: - Hold nephrotoxic agents and renally dose medications as appropriate - Follow PRP- financial intern 1.33 today- STABLE UTI- valenzuela sensitive E.coli: Completed 7 day course of antibiotic (IV Rocephin x1 + Keflex) on 07/10 Urinary retention: Consult urology, appreciate recommendations- CIC TID, check UCx and KUB, f/u scheduled for 07/14 HTN- STABLE: Norvasc 5 mg daily Mood disorder- STABLE: Continue Remeron and Cymbalta GERD: Protonix daily DVT prophylaxis: Heparin SQ BID Code status: LEVEL I, FULL Dispo: Planning for [facility] at discharge- PT/OT and CM following
--- NOTE | 2017-07-11 13:00 | DIAGNOSTIC IMAGING REPORT ---
KUB CLINICAL HISTORY: hx of hydro, stent placement COMPARISON STUDY: CT of the abdomen and pelvis May 28, 2017. FINDINGS: A right ureteral stent is in place. No ureteral calculi are identified. Postoperative findings consistent with previous ventral hernia repair are noted. Prominent loops gas-filled colon are noted without convincing bowel obstruction. IMPRESSION: Right ureteral stent in place. No ureteral calculi identified by radiography. Electronically signed by: Juan Byrd M.D. 07/11/2017 12:58 PM Dictated Date/Time: 07/11/2017 12:55 PM
[2017-07-11 15:00] VITALS: BP 131/79; PULSE 75; TEMP 36.9; O2SAT 97
[2017-07-11 16:00] VITALS: O2SAT 97
[2017-07-11] MEDS: MIRTAZAPINE TAB 15 MG TAB PO SCH (20:27)
[2017-07-11 23:19] VITALS: BP 145/78; PULSE 60; TEMP 36.6; O2SAT 97
[2017-07-12] VITALS: O2SAT 97
[2017-07-12] MEDS: CHECK FENTANYL PATCH PLACEMENT SCH ×3 (00:26→15:42)
[2017-07-12 05:43] LABS: HEMATOCRIT 28.2 % (37-47); HEMOGLOBIN 9.5 g/dL (12.0-16.0); MEAN CELL VOLUME 89.8 fL (80-100); MEAN CORPUSCULAR HEMOGLOBIN 30.3 pg (25-34); MEAN CORPUSCULAR HGB CONC 33.7 g/dl (32-36); MEAN PLATELET VOLUME 8.1 fL (7.4-10.4); PLATELET COUNT 296 K/uL (130-400); RED CELL DISTRIBUTION WIDTH CV 13.8 % (11.5-14.5); RED CELL DISTRIBUTION WIDTH SD 45.4 fL (36.4-46.3); WHITE BLOOD COUNT 8.91 K/uL (4.8-10.8)
[2017-07-12 06:10] LABS: CALCIUM 9.2 mg/dl (8.5-10.1); CREATININE 1.09 mg/dl (0.60-1.20)
[2017-07-12] MEDS: ACETAMINOPHEN 500 MG TAB PO SCH ×3 (06:20→20:48)
[2017-07-12] MEDS: HEPARIN SOD 5000 UNIT/0.5 ML CARP SQ SCH ×2 (06:23→18:07)
[2017-07-12 07:06] VITALS: BP 167/73; PULSE 59; TEMP 36.5; O2SAT 98
[2017-07-12] MEDS: BOOST VANILLA PO SCH ×2 (07:35→18:07)
[2017-07-12] MEDS: PANTOprazole SOD 40 MG TAB PO SCH (07:36)
[2017-07-12] MEDS: CeleBREX 100 MG CAP PO SCH ×2 (07:36→20:47)
[2017-07-12] MEDS: AMLODIPINE BESYLATE 5 MG TAB PO SCH (07:36)
[2017-07-12] MEDS: CALCIUM CARBONATE 1250MG TAB PO SCH ×2 (07:36→20:45)
[2017-07-12] MEDS: CEROVITE ADV FORMULA TAB PO SCH (07:36)
[2017-07-12] MEDS: OMEGA-3 (PURIFIED FISH OIL) 1 GM CAP PO SCH (07:37)
[2017-07-12] MEDS: ASPIRIN 81 MG ECTAB PO SCH (07:37)
[2017-07-12] MEDS: DULOXETINE (CYMBALTA) 30 MG CAP PO SCH (07:37)
[2017-07-12] MEDS: SENNA 8.6 MG TAB PO SCH (07:37)
[2017-07-12] MEDS: LIDODERM (LIDOCAINE) PATCH 5% TD SCH (07:38)
[2017-07-12] MEDS ORDERED: NRV5 PO (09:27)
[2017-07-12] MEDS ORDERED: DRGTP25 TD (09:27)
[2017-07-12] MEDS ORDERED: PRD20 PO (09:27)
[2017-07-12] MEDS ORDERED: LDDP5 TD (09:27)
[2017-07-12] MEDS ORDERED: CLB100 PO (09:27)
[2017-07-12] MEDS ORDERED: Boost PO (09:27)
--- NOTE | 2017-07-12 09:28 | Discharge Instructions ---
Discharge Instructions Date of Service Jul 12, 2017. Admission Reason for Admission: Bilateral Leg Pain, Intractable Pain Discharge Discharge Diagnosis / Problem: ntractable back pain, UTI Discharge Goals Goal(s): Decrease discomfort, Improve function, Increase independence, Improve disease control, Improve nutritional status, Learn about illness, Diagnostic testing, Therapeutic intervention, Prevent Disease Progression, Specific goals Activity Recommendations Activity Level: Assistance Required Therapies: Physical Therapy, Occupational Therapy . Additional Information Patient informed of condition: Yes Advance Directives: Yes DNR: No Level of Care: Skilled Communicable Disease: No Prognosis: Other (guarded) Gamino Catheter: No Instructions / Follow-Up Instructions / Follow-Up you have intractable back pain, improved, [facility] , nursing staff please call to Dr. Xie's office to get appointment for patient to be seen in 1-2 week I am giving you a tapering dose of oral prednisone instructions see below: 40 mg po daily for 2 days 30 mg po daily for 2 days 20mg po daily for 2 days 10mg po daily for 2 days, then stop Your blood pressure medicine has been changed to Amlodipine, need to check blood pressure regularly, adjust the medicine dose with PCP if needed you have E. coli UTI has completed oral antibiotic on 07/10/2017 You have urinary retention: Consult urology, appreciate recommendations- CIC TID , you can continue this - you need to follow up with your primary care physician in 1 week, - take medication as instructed, never overdose or any misuse, or take with alcohol, because misuse of medicine may cause organ damage or , call your primary care physician if have questions of medicaitons. - call your primary care physician OR go to local emergency room if has any fever/chill, chest pain, shortness of breathing, nausea/vomiting/abdominal pain , facial droop/slurry speech/local weakness, or if has any questions. - fall precaution - diet as instructed - you need to follow up with your subspecialist Current Hospital Diet Patient's current hospital diet: Regular Diet Discharge Diet Recommended Diet: Regular Diet Fluid Restriction: 1500 ml (6 cups) Pending Studies Studies pending at discharge: no Physician Orders On Transfer POLST Discussion: without POLST completion Laboratory Results Meds Administered (Past 24Hrs) Medications (Trade) Dose Ordered Sig/Tensiha Route Start Time Stop Time Status Last Admin Dose Admin Prednisone (PredniSONE TAB) 40 mg DAILY PO 07/12/17 08:00 08/11/17 07:59 07/12/17 07:40 40 MG Medical Emergencies . Who to Call and When: Medical Emergencies: If at any time you feel your situation is an emergency, please call 911 immediately. . Non-Emergent Contact Non-Emergency issues call your: Primary Care Provider, Specialist (pain management Kirti Atkinson) . . "Provider Documentation" section prepared by Hardy Wallace. . Core Measure Problem Core Measures: None [place] Drug Monitoring Program Search Results: no issues identified
--- NOTE | 2017-07-12 09:33 | Progress Note ---
Subjective Date of Service: Jul 12, 2017. Subjective Pt evaluation today including: conversation w/ patient, chart review, lab review Voiding: requires PRN straight cath 87 yo female with neurogenic bladder. Pt remains confused. C/o diarrhea this morning. Requiring CIC TID. Repeat UC&S pending. Cr has normalized at 1.09 this morning. Problem List Medical Problems: (1) Bilateral leg pain Status: Acute (2) Bladder rupture Status: Acute (3) CKD (chronic kidney disease) Status: Acute (4) Dehydration Status: Acute (5) Failure to thrive Status: Acute (6) Hematuria Status: Acute (7) Intractable pain Status: Acute Review of Systems Abdomen: + diarrhea Pt denies pain and c/o diarrhea, but unable to answer most other ROS questions d /t AMS. Objective Vital Signs Date Time Temp Pulse Resp B/P (MAP) Pulse Ox O2 Delivery O2 Flow Rate FiO2 07/12/17 07:30 Room Air 07/12/17 07:06 36.5 59 14 167/73 (104) 98 Room Air 07/12/17 00:00 97 Room Air 07/11/17 23:19 36.6 60 20 145/78 (100) 97 Room Air 07/11/17 20:15 Room Air 07/11/17 16:00 97 Room Air 07/11/17 15:00 36.9 75 17 131/79 (96) 97 Room Air Physical Exam General Appearance: no apparent distress Eyes: normal inspection ENT: hearing grossly normal Neck: no JVD Respiratory/Chest: no respiratory distress, no accessory muscle use Cardiovascular: no JVD Extremities: normal inspection Neurologic/Psychiatric: alert, normal mood/affect Skin: normal color Laboratory Results Last 24 Hours Test 07/12/17 05:23 White Blood Count 8.91 K/uL Red Blood Count 3.14 M/uL Hemoglobin 9.5 g/dL Hematocrit 28.2 % Mean Corpuscular Volume 89.8 fL Mean Corpuscular Hemoglobin 30.3 pg Mean Corpuscular Hemoglobin Concent 33.7 g/dl RDW Standard Deviation 45.4 fL RDW Coefficient of Variation 13.8 % Platelet Count 296 K/uL Mean Platelet Volume 8.1 fL Sodium Level 133 mmol/L Potassium Level 4.0 mmol/L Chloride Level 99 mmol/L Carbon Dioxide Level 27 mmol/L Anion Gap 7.0 mmol/L Blood Urea Nitrogen 38 mg/dl Creatinine 1.09 mg/dl Est Creatinine Clear Calc Drug Dose 30.1 ml/min Estimated GFR () 52.9 Estimated GFR (Non- 45.6 BUN/Creatinine Ratio 35.0 Random Glucose 90 mg/dl Calcium Level 9.2 mg/dl Assessment and Plan A/P: Neurogenic bladder, UTI AFVSS. Continue CIC TID indefinitely. Repeat UC&S pending. Tx based on sensitivities if positive. She is scheduled to f/u with Dr. Holder as an outpatient on 07-14. Will keep as scheduled. No further management at this time. Recall PRN issues. Thanks for allowing us to participate in this pt's care.
[2017-07-12] MEDS ORDERED: LOPERAMIDE HCL 2 MG CAP PO STA (14:25)
[2017-07-12] MEDS ORDERED: LOPERAMIDE HCL 2 MG CAP PO PRN (14:30)
--- NOTE | 2017-07-12 14:33 | Progress Note ---
Subjective Date of Service: Jul 12, 2017. Subjective Pt evaluation today including: conversation w/ patient, conversation w/ family , physical exam, chart review, lab review, review of studies, conversation w/ loans consultant, review of inpatient medication list Patient is in bed, look tired, does report several bowel movement which is diarrhea, no complaints, denies any pain, Problem List Medical Problems: (1) Bilateral leg pain Status: Acute (2) Bladder rupture Status: Acute (3) CKD (chronic kidney disease) Status: Acute (4) Dehydration Status: Acute (5) Failure to thrive Status: Acute (6) Hematuria Status: Acute (7) Intractable pain Status: Acute Review of Systems Constitutional: + weakness, + fatigue, No fever, No chills, No sweats, No weight loss, No problem reported Eyes: No worsening of vision, No eye pain, No redness, No discharge, No diplopia ENT: No hearing loss, No unusual epistaxis, No nasal symptoms, No sore throat, No tinnitus, No dental problems, No trouble swallowing Respiratory: No cough, No sputum, No wheezing, No shortness of breath, No dyspnea on exertion, No dyspnea at rest, No hemoptysis Cardiac: No chest pain, No orthopnea, No PND, No edema, No claudication, No palpitations Abdomen: + diarrhea, No pain, No nausea, No vomiting, No constipation Musculoskeletal: No joint pain, No muscle pain, No swelling, No calf pain Female : No dysuria, No urinary frequency, No hematuria, No incontinence, No abnormal vaginal bleeding, No vaginal discharge Neurologic: No memory loss, No paralysis, No weakness, No numbness/tingling, No vertigo, No balance problems Psychiatric: No depression symptoms, No anhedonism, No anxiety, No insomnia, No substance abuse Heme: No abnormal bleeding/bruising, No clotting problems, No swollen lymph nodes, No night sweats Endo: + fatigue, No excessive thirst, No excessive urination Skin: No rash, No itch, No new/changing skin lesions, No color change, No bleeding Objective Vital Signs Date Time Temp Pulse Resp B/P (MAP) Pulse Ox O2 Delivery O2 Flow Rate FiO2 07/12/17 07:30 Room Air 07/12/17 07:06 36.5 59 14 167/73 (104) 98 Room Air 07/12/17 00:00 97 Room Air 07/11/17 23:19 36.6 60 20 145/78 (100) 97 Room Air 07/11/17 20:15 Room Air 07/11/17 16:00 97 Room Air 07/11/17 15:00 36.9 75 17 131/79 (96) 97 Room Air Physical Exam General Appearance: WD/WN, no apparent distress, + thin, + pertinent finding ( Tired) Eyes: normal inspection, PERRL, EOMI, sclerae normal ENT: normal ENT inspection, hearing grossly normal, pharynx normal Neck: supple, no adenopathy, thyroid normal, no JVD, no carotid bruits, trachea midline Respiratory/Chest: chest non-tender, no respiratory distress, no accessory muscle use, + decreased breath sounds Cardiovascular: regular rate, rhythm, no edema, no gallop, no JVD, no murmur Abdomen: normal bowel sounds, non tender, soft, no organomegaly, no pulsatile mass Extremities: normal range of motion, non-tender, normal inspection, no pedal edema, no calf tenderness, normal capillary refill, pelvis stable 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, no motor/sensory deficits, alert, normal mood/affect, oriented x 3 Skin: normal color, warm/dry, no rash Lymphatic: no adenopathy Laboratory Results Last 24 Hours Test 07/12/17 05:23 White Blood Count 8.91 K/uL Red Blood Count 3.14 M/uL Hemoglobin 9.5 g/dL Hematocrit 28.2 % Mean Corpuscular Volume 89.8 fL Mean Corpuscular Hemoglobin 30.3 pg Mean Corpuscular Hemoglobin Concent 33.7 g/dl RDW Standard Deviation 45.4 fL RDW Coefficient of Variation 13.8 % Platelet Count 296 K/uL Mean Platelet Volume 8.1 fL Sodium Level 133 mmol/L Potassium Level 4.0 mmol/L Chloride Level 99 mmol/L Carbon Dioxide Level 27 mmol/L Anion Gap 7.0 mmol/L Blood Urea Nitrogen 38 mg/dl Creatinine 1.09 mg/dl Est Creatinine Clear Calc Drug Dose 30.1 ml/min Estimated GFR () 52.9 Estimated GFR (Non- 45.6 BUN/Creatinine Ratio 35.0 Random Glucose 90 mg/dl Calcium Level 9.2 mg/dl Assessment and Plan 87 year old woman admitted for intractable back pain, improved with none opiate po management Back pain due to spinal stenosis: Stable improving, has been on a steroid, continue tapering of Decadron, changed to p.o. prednisone 40 mg p.o. daily continue tapering Pain management consulted, consider epidural injection outpatient, Dr. Xie called me recommend possible Follow-Up with Outpatient for the Pain management with injection in His Office, Patient Has No Complaint of Pain, I Agree. Continue Lidoderm patch, Fentanyl patch, Tylenol PRN, Celebrex 100 mg BID, PT OT evaluation and treatment Mild altered mental status per daughter, continue in her baseline, E. coli UTI , valenzuela sensitive, IV Rocephin x1 + Keflex) has completed oral antibiotic on 07/10/2017 Urinary retention: Consult urology, appreciate recommendations- CIC TID, check UCx and KUB which was unremarkable, patient doing well, f/u scheduled for 2017 Diarrhea, as rule out C. difficile, has ordered Imodium for as needed of diarrhea Patient general condition is stable or improving, discussed with patient and daughter, daughter concerned about patient still having diarrhea, and possible generalized weakness want to keep patient 1 day more in hospital, and the same time she will figure out about ECF or personal care facilities in [facility], I agreed, possible discharge tomorrow Continued [facility] stay due to: home environment unsafe for pt Discharge planning: nursing home facility
[2017-07-12 17:11] VITALS: BP 165/70; PULSE 61; TEMP 36.6; O2SAT 99
[2017-07-12] MEDS: MIRTAZAPINE TAB 15 MG TAB PO SCH (20:48)
[2017-07-12] MEDS: FENTANYL PATCH REMOVE & WASTE SCH (20:51)
[2017-07-12] MEDS: FENTANYL 25 MCG/HR TDSY TD SCH (20:55)
[2017-07-12 23:40] VITALS: BP 160/77; PULSE 63; TEMP 36.4; O2SAT 97
[2017-07-13] MEDS: HEPARIN SOD 5000 UNIT/0.5 ML CARP SQ SCH (06:28)
[2017-07-13] MEDS: ACETAMINOPHEN 500 MG TAB PO SCH ×2 (06:30→14:17)
[2017-07-13 07:26] VITALS: BP 142/74; PULSE 53; TEMP 36.3; O2SAT 97
[2017-07-13] MEDS ORDERED: AMLODIPINE BESYLATE 5 MG TAB PO SCH (08:00)
[2017-07-13 08:25] LABS: CALCIUM 8.7 mg/dl (8.5-10.1); CREATININE 1.12 mg/dl (0.60-1.20); POTASSIUM 4.2 mmol/L (3.5-5.1)
[2017-07-13] MEDS: CeleBREX 100 MG CAP PO SCH (08:42)
[2017-07-13] MEDS: DULOXETINE (CYMBALTA) 30 MG CAP PO SCH (08:42)
[2017-07-13] MEDS: BOOST VANILLA PO SCH ×2 (08:42→12:19)
[2017-07-13] MEDS: CEROVITE ADV FORMULA TAB PO SCH (08:43)
[2017-07-13] MEDS: ASPIRIN 81 MG ECTAB PO SCH (08:43)
[2017-07-13] MEDS: OMEGA-3 (PURIFIED FISH OIL) 1 GM CAP PO SCH (08:43)
[2017-07-13] MEDS: PANTOprazole SOD 40 MG TAB PO SCH (08:43)
[2017-07-13] MEDS: CALCIUM CARBONATE 1250MG TAB PO SCH (08:43)
[2017-07-13] MEDS: CHECK FENTANYL PATCH PLACEMENT SCH ×2 (08:48)
[2017-07-13] MEDS: LIDODERM (LIDOCAINE) PATCH 5% TD SCH (10:16)
[2017-07-13] MEDS ORDERED: NRV5 PO (11:02)
[2017-07-13] MEDS ORDERED: IMD2X PO (11:04)
[2017-07-13 11:22] VITALS: BP 142/74; PULSE 53; TEMP 36.3; O2SAT 97
[2017-07-13] MEDS ORDERED: FLUC200T4 PO (12:22)
[2017-07-13] MEDS ORDERED: CEPH-571 PO (12:22)
[2017-07-13] MEDS ORDERED: CEPHALEXIN MONOHYDRATE 500 MG CAP PO ONE (12:30)
[2017-07-13] MEDS ORDERED: FLUCONAZOLE 100 MG TAB PO ONE (12:30)
--- NOTE | 2017-07-13 14:27 | Discharge Summary ---
Discharge Summary Date of Service Jul 13, 2017. Discharge Summary Admission Date: Jul 08, 2017 at 15:41 Discharge Date: Jul 12, 2017 Principal Diagnosis: intractable back pain Problems/Secondary Diagnoses: UTI, beto UTI, urinary retention, need straight cath Immunizations: Have You Had Influenza Vaccine: Yes History of Tetanus Vaccine?: Yes History of Pneumococcal: Yes History of Hepatitis B Vaccine: Yes Procedures: No Consultations: Urologist Medication Reconciliation New Medications: Cephalexin (Keflex) 500 Mg Cap 1 CAP PO TID for 7 Days, #21 CAP Fluconazole (Diflucan) 200 Mg Tab 1 TAB PO DAILY for 10 Days, #10 TAB Amlodipine Besylate (Amlodipine Besylate) 5 Mg Tab 7.5 MG PO QAM for 30 Days, TAB Celecoxib (Celebrex) 100 Mg Cap 100 MG PO BID for 30 Days, CAP Lidocaine (Lidocaine) 1 Patch Tdsy 1 PATCH TD QAM for 10 Days, #10 Loperamide Hcl (Imodium) 2 Mg Cap 2 MG PO Q6 PRN for Diarrhea for 7 Days, #28 CAP Prednisone (Prednisone) 20 Mg Tab 40 MG PO DAILY for 8 Days, TAB 40 mg po daily for 2 days 30 mg po daily for 2 days 20mg po daily for 2 days 10mg po daily for 2 days, then stop [Boost] () 1 CAN LIQD 1 CAN PO BID for 30 Days Continued Medications: Acetaminophen Tab (Tylenol) 325 Mg Tab 325-650 MG PO UD PRN for Pain Aspirin (Aspirin Ec) 81 Mg Tab 81 MG PO QAM Calcium Carbonate (Calcium Carbonate) 1,250 Mg Tab 1250 MG PO AMPM Cholecalciferol (Vitamin D) 1,000 Unit Tab 1000 UNITS PO QAM Docusate Sodium (Colace) 100 Mg Cap 100 MG PO AMPM Duloxetine HCl (Cymbalta) 30 Mg Cap 30 MG PO QD @ 1200 Fentanyl (Fentanyl) 25 Mcg Tdsy 25 MCG TD Q3D@1400 for 9 Days, #3 PATCH 0 Refills (This prescription has been renewed) Fish Oil ([place]-3) 1 Ea Cap 1 CAP PO DAILY Mirtazapine (Remeron) 15 Mg Tab 15 MG PO QPM Multiple Vitamins W/ Minerals (Thera-M) 1 Tab Tab 1 TAB PO DAILY @ 1200 Pantoprazole (Protonix) 40 Mg Tab 40 MG PO QAM Senna (Senokot) 8.6 Mg Tab 17.2 MG PO QAM PRN for constipation for 5 Days TWO 8.6 MG TABLETS Discontinued Medications: Valsartan (Diovan) 160 Mg Tab 160 MG PO AMPM Discharge Exam Doing fair, no complaints, was eating breakfast, denies pain, denies dysuria urgency or frequency, denies fever/chill, was out of bed to chair, patient was getting clear cath 3 time a day Review of Systems: Constitutional: + weakness, + fatigue, No fever, No chills, No sweats, No weight loss, No problem reported Eyes: No worsening of vision, No eye pain, No redness, No discharge, No diplopia, No problem reported ENT: No hearing loss, No unusual epistaxis, No nasal symptoms, No sore throat, No tinnitus, No dental problems, No trouble swallowing, No problem reported Respiratory: No cough, No sputum, No wheezing, No shortness of breath, No dyspnea on exertion, No dyspnea at rest, No hemoptysis, No problem reported Cardiovascular: No chest pain, No orthopnea, No PND, No edema, No claudication, No palpitations, No problem reported Abdomen: No pain, No nausea, No vomiting, No diarrhea, No constipation, No GI bleeding, No problem reported Musculoskeletal: No joint pain, No muscle pain, No swelling, No calf pain, No problem reported Genitourinary - Female: No dysuria, No urinary frequency, No urinary urgency , No urinary incontinence, No urinary retention, No hematuria, No dysmenorrhea, No menorrhagia, No metrorrhagia, No rash, No vaginal bleeding, No vaginal discharge, No vaginal itching, No vulvodynia, No , No problem reported Neurologic: No memory loss, No paralysis, No weakness, No numbness/tingling , No vertigo, No balance problems, No problem reported Psychiatric: No depression symptoms, No anhedonism, No anxiety, No insomnia , No substance abuse, No problem reported Endocrine: No fatigue, No excessive thirst, No excessive urination, No problem reported Hematologic / Lymphatic: No abnormal bleeding/bruising, No clotting problems , No swollen lymph nodes, No night sweats, No problem reported Integumentary: No rash, No itch, No new/changing skin lesions, No color change, No bleeding, No problem reported Physical Exam: General Appearance: WD/WN, + thin, + pertinent finding (Frail chronically ill looking,) Eyes: normal inspection, PERRL ENT: normal ENT inspection, hearing grossly normal Neck: supple, no adenopathy Respiratory/Chest: chest non-tender, no respiratory distress, no accessory muscle use, + decreased breath sounds Cardiovascular: regular rate, rhythm, no edema, no gallop, + systolic murmur (Which is not new) Abdomen / GI: normal bowel sounds, non tender, soft, no organomegaly Extremities: normal inspection, no calf tenderness, normal capillary refill , no pedal edema, normal range of motion 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 prednisone 40 mg p.o. daily continue tapering Pain management consulted, consider epidural injection outpatient, Dr. Xie called me recommend possible Follow-Up with Outpatient for the Pain management with injection in His Office, Patient Has No Complaint of Pain, I Agree. Continue Lidoderm patch, Fentanyl patch, Tylenol PRN, Celebrex 100 mg BID, PT OT evaluation and treatment Mild altered mental status per daughter, continue in her baseline, E. coli UTI , valenzuela sensitive, IV Rocephin x1 + Keflex) has completed oral antibiotic on 07/10/2017 pt 's urine culture sent on July 12, 2017 grown strep and beto, plan to give Keflex, 7 days, and Diflucan 10 days, first dose of them will be given while she is in hospital, [facility] RN please follow up the sensitivities in 1-2 days , report to MD to adjust antibiotics as needed , RN to notify daughter the new issue, and daughter need to communication with MD in [facility] too Urinary retention: Consult urology, appreciate recommendations- CIC TID, check UCx and KUB which was unremarkable, patient doing well, f/u scheduled for 2017 I ordered and request, nursing staff in [facility] need to do a straight cath 3 time a day, and to do bladder scan after the straight cath, Nursing staff also need to teach patient to do straight caths, If any questions she will call urologist Dr. Holder, Diarrhea, as rule out C. difficile, has ordered Imodium for as needed of diarrhea, there was no more diarrhea since yesterday afternoon and overnight last night Patient general condition is stable or improving, discussed with patient and daughter, daughter concerned about , long-term care, I ordered " In [facility] facilities, nursing staff needed to help for a straight cath , arrange physical therapy and give medications etc." nstructions / Follow-Up you have intractable back pain, improved, [facility] , nursing staff please call to Dr. Xie's office to get appointment for patient to be seen in 1-2 week I am giving you a tapering dose of oral prednisone instructions see below: 40 mg po daily for 2 days 30 mg po daily for 2 days 20mg po daily for 2 days 10mg po daily for 2 days, then stop Your blood pressure medicine has been changed to Amlodipine, need to check blood pressure regularly, adjust the medicine dose with PCP if needed you have E. coli UTI has completed oral antibiotic on 07/10/2017 You have urinary retention: Consult urology, appreciate recommendations- CIC TID , you can continue this - you need to follow up with your primary care physician in 1 week, - take medication as instructed, never overdose or any misuse, or take with alcohol, because misuse of medicine may cause organ damage or , call your primary care physician if have questions of medicaitons. - call your primary care physician OR go to local emergency room if has any fever/chill, chest pain, shortness of breathing, nausea/vomiting/abdominal pain , facial droop/slurry speech/local weakness, or if has any questions. - fall precaution - diet as instructed - you need to follow up with your subspecialist Total Time Spent: Greater than 30 minutes This includes examination of the patient, discharge planning, medication reconciliation, and communication with other providers. Discharge Instructions Please refer to the electronic Patient Visit Report (Discharge Instructions) for additional information. Additional Copies To Phoenix Holder M.D.; Upendra. Hauser M.D.; Prabhakar Lugo MD
== END 2017-07-13 16:40 | DRG 552 ==
LOC: C.EDB 09:56 → C.4E 14:51 → EEVIPCON 14:51 → ENRESERV 15:54 → OBSVTOIN 07-08 15:41
PROVIDERS: ADMIT Internal Medicine Sports Medicine; ATTEND Hospitalist
DX: M48.061 Spinal stenosis, lumbar region without neurogenic claudication (principal); B37.49 Other urogenital candidiasis; N39.0 Urinary tract infection, site not specified; E87.1 Hypo-osmolality and hyponatremia; N18.3 Chronic kidney disease, stage 3 (moderate); I12.9 Hypertensive chronic kidney disease with stage 1 through stage 4 chronic kidney disease, or unspecified chronic kidney disease; E86.0 Dehydration; R62.7 Adult failure to thrive; Z79.82 Long term (current) use of aspirin; K21.9 Gastro-esophageal reflux disease without esophagitis; R33.9 Retention of urine, unspecified; B96.20 Unspecified Escherichia coli [E. coli] as the cause of diseases classified elsewhere; N31.9 Neuromuscular dysfunction of bladder, unspecified; F03.90 Unspecified dementia, unspecified severity, without behavioral disturbance, psychotic disturbance, mood disturbance, and anxiety

== ENCOUNTER → 2017-07-14 | Outpatient (CLI) | payer MEDICARE ==
[~2017-07-14] MED LIST changes: +Boost PO; +CEPH-571 PO; +CLB100 PO; -DVN/160 PO; +FLUC200T4 PO; -HYDR-5688 PO; +IMD2X PO; -KFL500 PO; +LDDP5 TD; +PRD20 PO; +PRED10PA3 PO; +PRED10TA PO; +PRVHFAIN INH; -VLTG EXT
[2017-07-14 09:53] LABS: BLOOD UREA NITROGEN 44 mg/dl (7-18); CARBON DIOXIDE 24 mmol/L (21-32); CREATININE 1.18 mg/dl (0.60-1.20); GLUCOSE 89 mg/dl (70-99); POTASSIUM 4.3 mmol/L (3.5-5.1); SODIUM 133 mmol/L (136-145)
== END | disposition home or self-care (01) ==
LOC: C.LABVPSUA 09:29
PROVIDERS: ATTEND Internal Medicine Critical Care Medicine
DX: I10 Essential (primary) hypertension (principal)

== ENCOUNTER 2017-07-16 21:25 | Inpatient (IN) | payer MEDICARE, OTHER ==
[~2017-07-16] VITALS: Ht 160 cm; Wt 58.2 kg
[~2017-07-16 21:25] MED LIST changes: -PRED10PA3 PO; -PRED10TA PO; -PRVHFAIN INH
[2017-07-16] MEDS ORDERED: PRED10PA3 PO (21:39)
[2017-07-16] MEDS ORDERED: AZITHROMYCIN 250 MG TAB PO STA (21:46)
[2017-07-16] MEDS ORDERED: METHYLPREDNISOLONE 125 MG VIAL IV STA (21:46)
--- NOTE | 2017-07-16 21:50 | EMERGENCY ROOM VISIT NOTE ---
History Report prepared by Brad: Paulo Velazquez Under the Supervision of: Dr. Francisco Crow M.D. First contact with patient: 21:33 Chief Complaint: RESPIRATORY PROBLEMS Stated Complaint: RESPIRATORY DIFFICULTY History of Present Illness The patient is a 87 year old white female with a past medical history of HTN who presents to the ED with a cc of intermittent shortness of breath beginning yesterday. She states that her symptoms were worsened with exertion. The patient reports the shortness of breath worsened over the last two days. Positive productive cough with brown mucous. Negative LE swelling, chest pain, blood clot history, nausea, vomiting, history of smoking, allergies. The patient is accompanied by her daughter who states that the patient was recently with her physician who found the patient has hypernatremia. She reports the x- ray also found COPD. Her daughter reports the physician is worried "there is some kidney fluid back flow". Source of History: patient Onset: yesterday Position: other (global) Quality: other (global) Timing: intermittent Associated Symptoms: + cough, No chest pain, No nausea, No vomiting Review of Systems See HPI for pertinent positives and negatives. A total of ten systems were reviewed and were otherwise negative. Past Medical & Surgical Medical Problems: (1) Hypertension (2) Intractable back pain Family History Patient reports no known family medical history. Social History Smoking Status: Never Smoker Drug Use: none Marital Status: Housing Status: lives with family Occupation Status: retired Current/Historical Medications Scheduled Amlodipine Besylate (Amlodipine Besylate), 7.5 MG PO QAM Aspirin (Aspirin Ec), 81 MG PO QAM Calcium Carbonate (Calcium Carbonate), 1,250 MG PO AMPM Celecoxib (Celebrex), 100 MG PO BID Cephalexin (Keflex), 1 CAP PO TID Cholecalciferol (Vitamin D), 1,000 UNITS PO QAM Docusate Sodium (Colace), 100 MG PO AMPM Duloxetine HCl (Cymbalta), 30 MG PO QD Fentanyl (Fentanyl), 25 MCG TD Q3D@1400 Fish Oil ([place]-3), 1 CAP PO DAILY Fluconazole (Diflucan), 1 TAB PO DAILY Lidocaine (Lidocaine), 1 PATCH TD QAM Mirtazapine (Remeron), 15 MG PO QPM Multiple Vitamins W/ Minerals (Thera-M), 1 TAB PO DAILY Pantoprazole (Protonix), 40 MG PO QAM Prednisone (Prednisone), 10 MG PO TAPER [Boost], 1 CAN PO BID Scheduled PRN Acetaminophen Tab (Tylenol), 325-650 MG PO UD PRN for Pain Loperamide Hcl (Imodium), 2 MG PO Q6 PRN for Diarrhea Senna (Senokot), 17.2 MG PO QAM PRN for constipation Allergies Coded Allergies: No Known Allergies (Unverified , 07/16/17) Physical Exam Vital Signs Date Time Temp Pulse Resp B/P (MAP) Pulse Ox O2 Delivery O2 Flow Rate FiO2 07/17/17 01:05 124 18 134/67 88 Room Air 07/17/17 00:00 131 18 90 Room Air 07/16/17 23:44 120 18 134/70 100 Nebulizer 07/16/17 23:02 79 20 Room Air 96.0 07/16/17 21:42 96 Room Air 07/16/17 21:32 96 Room Air 07/16/17 21:32 37.3 85 22 148/78 Room Air Physical Exam GENERAL: Thin, awake, alert, well-appearing, NAD HENT: Normocephalic, atraumatic. EYES: Normal conjunctiva. Sclera non-icteric. NECK: Supple. No nuchal rigidity. FROM. RESPIRATORY: CTAB, no rhonchi, crackles, diffuse inspiratory wheezes throughout sonorous, breath sounds noted. CARDIAC: RRR, no MRG ABDOMEN: Soft, NTND, BS+ MSK: No chest wall TTP, LE edema NEURO: GCS 15, CN 2-12 intact, moves all 4s on command SKIN: No rash or jaundice noted. Medical Decision & Procedures ER Provider Diagnostic Interpretation: X-ray: Per my interpretation, radiologist review. CHEST ONE VIEW PORTABLE CLINICAL HISTORY: 87 years-old Female presenting with EVALUATE RESPIRATORY DISTRESS.DYSPNEA. TECHNIQUE: Portable upright AP view of the chest was obtained. COMPARISON: 05/29/2017. FINDINGS: Atherosclerosis of the aortic arch. Cardiac silhouette normal in size. Elevation of the right hemidiaphragm. No focal opacity. No large effusion or pneumothorax. Degenerative changes of the thoracic spine. Degenerative changes of the shoulders. Upper abdomen normal. IMPRESSION: 1. No acute cardiopulmonary disease. Electronically signed by: Britton Dickey M.D. 07/16/2017 10:07 PM Dictated Date/Time: 07/16/2017 10:07 PM Laboratory Results Test 07/16/17 22:10 07/16/17 22:45 07/16/17 23:00 Total Bilirubin 0.2 mg/dl (0.2-1) Aspartate Amino Transf (AST/SGOT) 16 U/L (15-37) Alanine Aminotransferase (ALT/SGPT) 34 U/L (12-78) Alkaline Phosphatase 75 U/L (45-117) Total Creatine Kinase 34 U/L (26-192) Troponin I < 0.015 ng/ml (0-0.045) Pro-B-Type Natriuretic Peptide 771 pg/ml (0-1800) Total Protein 7.1 gm/dl (6.4-8.2) Albumin 2.9 gm/dl (3.4-5.0) Globulin 4.2 gm/dl (2.5-4.0) Albumin/Globulin Ratio 0.7 (0.9-2) Urine Color DK YELLOW Urine Appearance TURBID (CLEAR) Urine pH 5.0 (4.5-7.5) Urine Specific [place] 1.020 (1.000-1.030) Urine Protein 2+ (NEG) Urine Glucose (UA) NEG (NEG) Urine Ketones NEG (NEG) Urine Occult Blood 2+ (NEG) Urine Nitrite NEG (NEG) Urine Bilirubin NEG (NEG) Urine Urobilinogen NEG (NEG) Urine Leukocyte Esterase LARGE (NEG) Urine WBC (Auto) >30 /hpf (0-5) Urine RBC (Auto) >30 /hpf (0-4) Urine Hyaline Casts (Auto) 0 /lpf (0-5) Urine Epithelial Cells (Auto) >30 /lpf (0-5) Urine Bacteria (Auto) 1+ (NEG) Urine Pathogenic Casts /lpf (0) Urine Yeast (Auto) BUDDING (NONE PRSENT) Prothrombin Time 10.1 SECONDS (9.0-12.0) Prothromb Time International Ratio 1.0 (0.9-1.1) Activated Partial Thromboplast Time 22.9 SECONDS (21.0-31.0) Partial Thromboplastin Ratio 0.9 Laboratory results reviewed by me Medications Administered Medications (Trade) Dose Ordered Sig/Tenisha Route Start Time Stop Time Status Last Admin Dose Admin Albuterol/ Ipratropium (Duoneb) 12 ml ONE ONCE INH 3/3/18 22:00 07/16/17 22:01 DC 07/16/17 22:00 12 ML Azithromycin (Zithromax Tab) 500 mg NOW STAT PO 07/16/17 21:46 07/16/17 21:48 DC 07/16/17 22:41 500 MG Methylprednisolone Sodium Succinate (Solu-Medrol IV) 125 mg NOW STAT IV 07/16/17 21:46 07/16/17 21:48 DC 07/16/17 22:41 125 MG Sodium Chloride 500 ml @ 999 mls/hr Q31M STAT IV 07/17/17 00:09 07/17/17 00:39 DC 07/17/17 00:12 999 MLS/HR Fluconazole (Diflucan Tab) 150 mg NOW ONCE PO 07/17/17 01:00 07/17/17 01:01 DC 07/17/17 01:25 150 MG Sodium Chloride 500 ml @ 999 mls/hr Q31M STAT IV 07/17/17 00:49 07/17/17 01:19 DC 07/17/17 00:54 999 MLS/HR Ceftriaxone Sodium (Rocephin Inj) 1 gm NOW STAT IV 07/17/17 01:37 07/17/17 01:38 DC 07/17/17 02:28 1 GM ECG Per My Interpretation Indication: SOB/dyspnea Rate (beats per minute): 83 Rhythm: sinus rhythm (with Sinus Arrhythmia) Findings: T-wave inversion (High lateral leads), other (Normal intervals, normal axis) ED Course 2141: The patient was evaluated in room B11B. A complete history and physical exam was performed. 0110: I reevaluated the patient and updated her family. I discussed the results and treatment plan, which they agree to. The patient will be further evaluated. 0118: I discussed the patients case with Dr. Joseph, [facility] Hospitalist. He understands the patients condition and agrees to accept the patient. The patient will be further evaluated. Medical Decision Triage Nursing notes reviewed. Prior records reviewed. She was discharged on July 12 for intractable back pain and UTI. She is currently on Keflex. The patient is a 87 year old white female with a past medical history of HTN who presents to the ED with a cc of intermittent shortness of breath beginning yesterday. The patient's presentation and history were concerning for COPD, PE, ACS, CHF, PNA. Patient was seen and evaluated at the bedside. Patient may have some baseline memory issues. The family member the bedside. Patient has had some worsening shortness of breath. She describes this as exertional in nature. The patient denies any chest pain or lower extremity swelling. The family over the bedside was also concerned that maybe the patient may have some issues with some urination she does require intermittent straight catheterization. On exam the patient does have diffuse inspiratory next Tory wheezing along with sonorous breath sounds. Patient had a questionable productive cough that has been discolored. Patient had blood work completed, EKG, troponin, BNP, chest x-ray and the patient was treated with duo nebs, azithromycin, and steroids. Patient's chest x-ray was clear. Patient states she felt mildly improved thereafter. Patient's lung exam mildly improved. Patient did have some tachycardia which is likely related to the hour-long DuoNeb. Given the patient did have a mild white count with her statement of a productive cough she did receive azithromycin. She was also given a prescription for Levaquin which will also help cover for urinary tract infection as the patient does have a questionable UTI. Patient was also given Diflucan for Praveena seen in the UTI. [facility]. Patient was reassessed. Nursing did state that the patient did become hypoxic and was satting 86-87% on room air. At baseline the patient does not use any oxygen. Given this the patient' s elevated white count and persistent tachycardia with a likely COPD exacerbation I did speak to the hospitalist for further evaluation and treatment. Rocephin was added. Medication Reconcilliation Current Medication List: was personally reviewed by me Blood Pressure Screening Patient's blood pressure: Elevated blood pressure Referred to Hospitalist Consults Time Called: 011 Consulting Physician: Dr. Joseph [facility] Hospitalist Returned Call: [phone] I discussed the patients case with Dr. Joseph [facility] Hospitalist. He understands the patients condition and agrees to accept the patient. The patient will be further evaluated. Impression Primary Impression: COPD exacerbation Additional Impressions: Bronchitis UTI (urinary tract infection) Anemia Scribe Attestation The scribe's documentation has been prepared under my direction and personally reviewed by me in its entirety. I confirm that the note above accurately reflects all work, treatment, procedures, and medical decision making performed by me. Departure Information Dispostion Being Evaluated By Hospitalist Referrals [facility] (PCP) Patient Instructions My [facility] Health Problem Qualifiers Additional Impressions: UTI (urinary tract infection) Urinary tract infection type: acute cystitis Hematuria presence: with hematuria Qualified Codes: N30.01 - Acute cystitis with hematuria Anemia Anemia type: unspecified type Qualified Codes: D64.9 - Anemia, unspecified
[2017-07-16] MEDS ORDERED: ALBUT/IPRATROP 3MG/0.5MG NEB 3 ML VIAL INH ONE (22:00)
--- NOTE | 2017-07-16 22:09 | DIAGNOSTIC IMAGING REPORT ---
CHEST ONE VIEW PORTABLE CLINICAL HISTORY: 87 years-old Female presenting with EVALUATE RESPIRATORY DISTRESS.DYSPNEA. TECHNIQUE: Portable upright AP view of the chest was obtained. COMPARISON: 05/29/2017. FINDINGS: Atherosclerosis of the aortic arch. Cardiac silhouette normal in size. Elevation of the right hemidiaphragm. No focal opacity. No large effusion or pneumothorax. Degenerative changes of the thoracic spine. Degenerative changes of the shoulders. Upper abdomen normal. IMPRESSION: 1. No acute cardiopulmonary disease. Electronically signed by: Britton Dikcey M.D. 07/16/2017 10:07 PM Dictated Date/Time: 07/16/2017 10:07 PM
[2017-07-16 22:26] LABS: EOS % 0.1 %; EOS ABS # 0.01 K/uL (0-0.5); HEMATOCRIT 30.1 % (37-47); HEMOGLOBIN 10.1 g/dL (12.0-16.0); LYMPH % 9.6 %; LYMPH ABS # 1.39 K/uL (1.2-3.4); MEAN CELL VOLUME 90.9 fL (80-100); MEAN CORPUSCULAR HEMOGLOBIN 30.5 pg (25-34); MEAN CORPUSCULAR HGB CONC 33.6 g/dl (32-36); MEAN PLATELET VOLUME 8.1 fL (7.4-10.4); MONO % 4.6 %; MONO ABS # 0.66 K/uL (0.11-0.59); NEUT ABS # 12.25 K/uL (1.4-6.5); PLATELET COUNT 289 K/uL (130-400); RED CELL DISTRIBUTION WIDTH CV 15.3 % (11.5-14.5); RED CELL DISTRIBUTION WIDTH SD 50.3 fL (36.4-46.3); WHITE BLOOD COUNT 14.41 K/uL (4.8-10.8)
[2017-07-16 22:44] LABS: ALBUMIN 2.9 gm/dl (3.4-5.0); ALT/SGPT 34 U/L (12-78); BLOOD UREA NITROGEN 43 mg/dl (7-18); CALCIUM 8.5 mg/dl (8.5-10.1); CARBON DIOXIDE 22 mmol/L (21-32); CREATININE 1.36 mg/dl (0.60-1.20); GLUCOSE 142 mg/dl (70-99); SODIUM 134 mmol/L (136-145)
[2017-07-16 22:49] LABS: ALKALINE PHOSPHATASE 75 U/L (45-117); AST/SGOT 16 U/L (15-37); TOTAL PROTEIN 7.1 gm/dl (6.4-8.2)
[2017-07-16 23:02] VITALS: PULSE 79
[2017-07-16 23:21] LABS: PTT PATIENT 22.9 SECONDS (21.0-31.0)
[2017-07-17] VITALS (7 sets, daily range): BP systolic 128–153; BP diastolic 62–83; PULSE 73–123; TEMP 36.3–36.8; O2SAT 94–96; Ht 160 cm; Wt 58.2 kg
[2017-07-17] MEDS ORDERED: SODIUM CHLORIDE 0.9% 500ML 500 ML IV STA ×2 (00:09→00:49)
[2017-07-17] MEDS ORDERED: FLUCONAZOLE 50 MG TAB PO ONE (01:00)
[2017-07-17] MEDS ORDERED: CEFTRIAXONE SOD INJ 1 GM ADDVIAL IV STA (01:37)
[2017-07-17] MEDS ORDERED: ONDANSETRON INJ 2 MG/ML 2 ML VIAL IV PRN (02:00)
[2017-07-17] MEDS ORDERED: POLYETHYLENE (MIRALAX) 17 GM PACK PO PRN (02:00)
[2017-07-17] MEDS ORDERED: MAGNESIUM HYDROXIDE SUSP 30 ML UDC PO PRN (02:00)
[2017-07-17] MEDS ORDERED: ACETAMINOPHEN 325 MG TAB PO PRN ×2 (02:00)
[2017-07-17] MEDS ORDERED: ALUMINUM/MAGNESIUM/SIMETH (MAALOX MAX) 30 ML UDC PO PRN (02:00)
--- NOTE | 2017-07-17 02:26 | History and Physical ---
History & Physical Date & Time of Service: Jul 17, 2017 at 02:06 Chief Complaint: Respiratory Difficulty Primary Care Physician: Prabhakar Lugo MD History of Present Illness Source: patient, family, hospital records This is an 87 yo f with a history of urinary retention requiring self cath, depression, spinal stenosis and recent UTI that presents to us today with sudden worsening in a productive cough and SOB starting this am. The family notes that she has had an intermittent cough recently however starting this morning there was significant worsening and severe dyspnea with exertion. There was audible wheezing as well starting this am as per the daughter. She is productive for a brown sputum without hemoptysis. She was brought into the hospital for evaluation and was found to have hypoxia intermittently however more pronounced with exertion. She was given steroids, azithromycin and a duoneb and patient states she feels slightly better however continues to have audible wheezing. She was diagnosed with COPD recently secondary to an xray and no formal testing completed. She was a non smoker however her father did smoke and she was exposed to second hand smoke. She was recently admitted in both May and jun with Jun being the most recent admission for spinal stenosis and UTI secondary to pansensitive E Coli. She has a history of urinary retention and self cath daily however denies any urinary symptoms currently. Gamino was placed prior to the assessment of the patient however urine is not concentrated/ no hematuria or cloudy. She was d/c recently from rehab and lives at home with her daughter. She has yet to complete the antibiotic/ antifungal regimen. Family History Patient reports no known family medical history. Social History Smoking Status: Never Smoker Drug Use: none Marital Status: Housing status: lives with family Occupational Status: retired Immunizations History of Influenza Vaccine: Yes History of Tetanus Vaccine?: Yes History of Pneumococcal: Yes History of Hepatitis B Vaccine: Yes Allergies Coded Allergies: No Known Allergies (Unverified , 07/16/17) Home Medications Scheduled Amlodipine Besylate (Amlodipine Besylate), 7.5 MG PO QAM Aspirin (Aspirin Ec), 81 MG PO QAM Calcium Carbonate (Calcium Carbonate), 1,250 MG PO AMPM Celecoxib (Celebrex), 100 MG PO BID Cephalexin (Keflex), 1 CAP PO TID Cholecalciferol (Vitamin D), 1,000 UNITS PO QAM Docusate Sodium (Colace), 100 MG PO AMPM Duloxetine HCl (Cymbalta), 30 MG PO QD Fentanyl (Fentanyl), 25 MCG TD Q3D@1400 Fish Oil ([place]-3), 1 CAP PO DAILY Fluconazole (Diflucan), 1 TAB PO DAILY Lidocaine (Lidocaine), 1 PATCH TD QAM Mirtazapine (Remeron), 15 MG PO QPM Multiple Vitamins W/ Minerals (Thera-M), 1 TAB PO DAILY Pantoprazole (Protonix), 40 MG PO QAM Prednisone (Prednisone), 10 MG PO TAPER [Boost], 1 CAN PO BID Scheduled PRN Acetaminophen Tab (Tylenol), 325-650 MG PO UD PRN for Pain Loperamide Hcl (Imodium), 2 MG PO Q6 PRN for Diarrhea Senna (Senokot), 17.2 MG PO QAM PRN for constipation Review of Systems Constitutional: No fever, No chills Eyes: No worsening of vision ENT: No hearing loss Respiratory: + cough, + sputum, + wheezing, + shortness of breath, + dyspnea on exertion, + dyspnea at rest, No hemoptysis Cardiovascular: No chest pain, No palpitations Abdomen: No pain, No nausea, No vomiting, No diarrhea, No constipation Musculoskeletal: No joint pain, No muscle pain Genitourinary - Female: + urinary retention, No dysuria, No hematuria Neurologic: + weakness, No numbness/tingling, No balance problems Psychiatric: No depression symptoms Endocrine: + fatigue Hematologic / Lymphatic: No abnormal bleeding/bruising Integumentary: No rash Physical Exam Vital Signs Date Time Temp Pulse Resp B/P (MAP) Pulse Ox O2 Delivery O2 Flow Rate FiO2 07/17/17 01:05 124 18 134/67 88 Room Air 07/17/17 00:00 131 18 90 Room Air 07/16/17 23:44 120 18 134/70 100 Nebulizer 07/16/17 23:02 79 20 Room Air 96.0 07/16/17 21:42 96 Room Air 07/16/17 21:32 96 Room Air 07/16/17 21:32 37.3 85 22 148/78 Room Air General Appearance: no apparent distress Head: normocephalic, atraumatic Eyes: normal inspection ENT: normal ENT inspection Neck: supple Respiratory/Chest: no accessory muscle use, + crackles (bilat bases), + rhonchi (and coarse throughout), + wheezing (throughout) Cardiovascular: no JVD, normal peripheral pulses, + tachycardia, + systolic murmur (3/6 ), + extra beats Abdomen/GI: normal bowel sounds, non tender, soft Back: normal inspection, no CVA tenderness, normal range of motion Extremities/Musculoskelatal: no calf tenderness, no pedal edema, normal range of motion Neurologic/Psych: alert, normal mood/affect, oriented x 3 Skin: normal color, warm/dry, no rash Lymphatic: no adenopathy Diagnostics Laboratory Results Results Past 24 Hours Test 07/16/17 22:10 07/16/17 22:45 07/16/17 23:00 Range/Units White Blood Count 14.41 4.8-10.8 K/uL Red Blood Count 3.31 4.2-5.4 M/uL Hemoglobin 10.1 12.0-16.0 g/dL Hematocrit 30.1 37-47 % Mean Corpuscular Volume 90.9 80-100 fL Mean Corpuscular Hemoglobin 30.5 25-34 pg Mean Corpuscular Hemoglobin Concent 33.6 32-36 g/dl Platelet Count 289 130-400 K/uL Mean Platelet Volume 8.1 7.4-10.4 fL Neutrophils (%) (Auto) 85.0 % Lymphocytes (%) (Auto) 9.6 % Monocytes (%) (Auto) 4.6 % Eosinophils (%) (Auto) 0.1 % Basophils (%) (Auto) 0.0 % Neutrophils # (Auto) 12.25 1.4-6.5 K/uL Lymphocytes # (Auto) 1.39 1.2-3.4 K/uL Monocytes # (Auto) 0.66 0.11-0.59 K/uL Eosinophils # (Auto) 0.01 0-0.5 K/uL Basophils # (Auto) 0.00 0-0.2 K/uL RDW Standard Deviation 50.3 36.4-46.3 fL RDW Coefficient of Variation 15.3 11.5-14.5 % Immature Granulocyte % (Auto) 0.7 % Immature Granulocyte # (Auto) 0.10 0.00-0.02 K/uL Sodium Level 134 136-145 mmol/L Potassium Level 4.0 3.5-5.1 mmol/L Chloride Level 104 98-107 mmol/L Carbon Dioxide Level 22 21-32 mmol/L Anion Gap 8.0 3-11 mmol/L Blood Urea Nitrogen 43 7-18 mg/dl Creatinine 1.36 0.60-1.20 mg/dl Est Creatinine Clear Calc Drug Dose 25.2 ml/min Estimated GFR () 40.5 Estimated GFR (Non- 34.9 BUN/Creatinine Ratio 31.5 10-20 Random Glucose 142 70-99 mg/dl Calcium Level 8.5 8.5-10.1 mg/dl Total Bilirubin 0.2 0.2-1 mg/dl Aspartate Amino Transf (AST/SGOT) 16 15-37 U/L Alanine Aminotransferase (ALT/SGPT) 34 12-78 U/L Alkaline Phosphatase 75 45-117 U/L Total Creatine Kinase 34 26-192 U/L Troponin I < 0.015 0-0.045 ng/ml Pro-B-Type Natriuretic Peptide 771 0-1800 pg/ml Total Protein 7.1 6.4-8.2 gm/dl Albumin 2.9 3.4-5.0 gm/dl Globulin 4.2 2.5-4.0 gm/dl Albumin/Globulin Ratio 0.7 0.9-2 Urine Color DK YELLOW Urine Appearance TURBID CLEAR Urine pH 5.0 4.5-7.5 Urine Specific [place] 1.020 1.000-1.030 Urine Protein 2+ NEG Urine Glucose (UA) NEG NEG Urine Ketones NEG NEG Urine Occult Blood 2+ NEG Urine Nitrite NEG NEG Urine Bilirubin NEG NEG Urine Urobilinogen NEG NEG Urine Leukocyte Esterase LARGE NEG Urine WBC (Auto) >30 0-5 /hpf Urine RBC (Auto) >30 0-4 /hpf Urine Hyaline Casts (Auto) 0 0-5 /lpf Urine Epithelial Cells (Auto) >30 0-5 /lpf Urine Bacteria (Auto) 1+ NEG Urine Pathogenic Casts 0 /lpf Urine Yeast (Auto) BUDDING NONE PRSENT Prothrombin Time 10.1 9.0-12.0 SECONDS Prothromb Time International Ratio 1.0 0.9-1.1 Activated Partial Thromboplast Time 22.9 21.0-31.0 SECONDS Partial Thromboplastin Ratio 0.9 Microbiology Results 07/16/17 Urine Culture, Received Pending Diagnostic Radiology CHEST ONE VIEW PORTABLE CLINICAL HISTORY: 87 years-old Female presenting with EVALUATE RESPIRATORY DISTRESS.DYSPNEA. TECHNIQUE: Portable upright AP view of the chest was obtained. COMPARISON: 05/29/2017. FINDINGS: Atherosclerosis of the aortic arch. Cardiac silhouette normal in size. Elevation of the right hemidiaphragm. No focal opacity. No large effusion or pneumothorax. Degenerative changes of the thoracic spine. Degenerative changes of the shoulders. Upper abdomen normal. IMPRESSION: 1. No acute cardiopulmonary disease. EKG p waves present, atrial premature complexes, MAT? no ischemic changes appreciated Impression Assessment and Plan This is an 87 yo f that presents to us with acute hypoxic resp failure secondary to bronchospasm vs COPD exacerbation Acute hypoxic respiratory failure, COPD exacerbation? no h/o formal diagnosis - patient's hypoxia would improve with coughing reflecting an element of mucus plugging; pulmonary toilet; incentive spirometry; consider vibration vest - med surg admission, hemodynamically stable - Doxycycline 100 mg bid IV for broader coverage from azithro considering recent hospitalizations - no consolidation; will defer adding Rocephin at this time - O2 per nursing protocol - Methylpred 40 mg q8h - Xopenex/ Atrovent scheduled considering tachycardia with PAC after duoneb - Repeat CBC in am Abnormal UA; h/o recurrent UTI secondary to urinary retention/ self cath; Renal insuff/CKD III - repeat UCx - Gamino in place - Continue keflex ; day 10/20 today - continue Fluconazole day 10/23 today - repeat BMP in am; most likely postrenal Spinal stenosis/ chronic back pain/ OA - Continue Fentanyl patch for pain control - Duloxetine cont'd; Continue Celecoxib with Protonix 40 mg HTN - continue amlodipine 7.5 mg daily - ASA 81 mg cont'd however no documented CAD/stroke Depression - continue remeron 15 mg and duloxetine 30 mg DVT Prophylaxis heparin bid DNR - confirmed Resident Physician Supervision Note: Pt evaluated independently. I discussed the case with the resident and agree with the findings and plan as documented in the note. Any exceptions or clarifications are listed here: 87 y/o F Hx urinary retention requiring self cath, depression, spinal stenosis - presents with acute productive cough and SOB - does not have a prior history of lung disease. OE AAO x 3 S1,2 R Widespread wheezing without crackles NT, ND No CCE P: There is no clear PNM on imaging - we have placed her on Nebs, 02, Steroids and Abx as there is a possibility of occult COPD If oxygenation does not improve, she may need home 02 and a pulm consult may be merited Labs reveal likely JIMMY as creat is above prev baseline - function has been impaired previously - IVF provided A UA is + - she self catheterizes so contamination is also likely - she is completing a course of Keflex - receiving Doxy for a URI Documented By: Rip Joseph Resuscitation Status DNR VTE Prophylaxis Will order VTE Prophylaxis: Yes Social Service Consult None Apply Note Total Time: Critical Care 30 - 74 minutes Additional Copies To Prabhakar Lugo MD
[2017-07-17] MEDS ORDERED: IV FLUIDS COMPLETED PRN (03:00)
[2017-07-17] MEDS: DOXYCYCLINE IV 100 MG in DEXTROSE 5% 100ML 100 ML IV SCH ×2 (05:29→15:19)
[2017-07-17] MEDS: METHYLPREDNISOLONE IV 40 MG in SYRINGE 0 ML IV SCH ×3 (05:29→20:24)
[2017-07-17] MEDS: HEPARIN SOD 5000 UNIT/0.5 ML CARP SQ SCH ×2 (06:43→18:23)
[2017-07-17 06:56] LABS: BASO % 0.1 %; BASO ABS # 0.01 K/uL (0-0.2); HEMATOCRIT 28.2 % (37-47); HEMOGLOBIN 9.3 g/dL (12.0-16.0); IG# 0.11 K/uL (0.00-0.02); LYMPH % 3.8 %; LYMPH ABS # 0.62 K/uL (1.2-3.4); MEAN CELL VOLUME 91.3 fL (80-100); MEAN CORPUSCULAR HEMOGLOBIN 30.1 pg (25-34); MEAN PLATELET VOLUME 8.2 fL (7.4-10.4); MONO ABS # 0.17 K/uL (0.11-0.59); NEUT % 94.4 %; NEUT ABS # 15.38 K/uL (1.4-6.5); PLATELET COUNT 285 K/uL (130-400); RED CELL DISTRIBUTION WIDTH CV 15.6 % (11.5-14.5); RED CELL DISTRIBUTION WIDTH SD 50.9 fL (36.4-46.3); WHITE BLOOD COUNT 16.29 K/uL (4.8-10.8)
[2017-07-17 07:02] LABS: CALCIUM 8.2 mg/dl (8.5-10.1); CREATININE 1.34 mg/dl (0.60-1.20); POTASSIUM 4.1 mmol/L (3.5-5.1)
[2017-07-17] MEDS: IPRATROPIUM BROMIDE NEB SOLN 0.02% 2.5 ML VIAL INH SCH ×3 (07:46→19:32)
[2017-07-17] MEDS: LEVALBUTEROL 1.25MG/0.5ML NEB INH SCH ×3 (07:47→19:32)
[2017-07-17] MEDS: CHECK FENTANYL PATCH PLACEMENT SCH ×2 (08:00→15:19)
[2017-07-17] MEDS: DOCUSATE SODIUM 100 MG CAP PO SCH ×2 (08:39→18:38)
[2017-07-17] MEDS: PANTOprazole SOD 40 MG TAB PO SCH (08:39)
[2017-07-17] MEDS: CEPHALEXIN MONOHYDRATE 500 MG CAP PO SCH ×3 (08:40→18:39)
[2017-07-17] MEDS: CEROVITE ADV FORMULA TAB PO SCH (08:40)
[2017-07-17] MEDS: ASPIRIN 81 MG ECTAB PO SCH (08:40)
[2017-07-17] MEDS: DULOXETINE (CYMBALTA) 30 MG CAP PO SCH (08:41)
[2017-07-17] MEDS: CeleBREX 100 MG CAP PO SCH ×2 (08:41→18:39)
[2017-07-17] MEDS: CHOLECALCIFEROL 1000 INTER.UNIT TAB PO SCH (08:42)
[2017-07-17] MEDS: AMLODIPINE BESYLATE 5 MG TAB PO SCH (08:42)
[2017-07-17] MEDS ORDERED: FENTANYL PATCH REMOVE & WASTE SCH (13:59)
[2017-07-17] MEDS ORDERED: FENTANYL 25 MCG/HR TDSY TD SCH (14:00)
[2017-07-17] MEDS: MIRTAZAPINE TAB 15 MG TAB PO SCH (18:38)
--- NOTE | 2017-07-17 23:50 | Progress Note ---
Progress Note Date of Service Jul 17, 2017. Progress Note I visited patient today. She reports that she has some improvement today. This is likely COPD exacerbation, newly diagnosed. Doubt Pulmonary edema as patient improved with fluid and resp. treatment. Will continue current treatment. Daughter at bedside. I updated her.
[2017-07-18] MEDS: CHECK FENTANYL PATCH PLACEMENT SCH ×3 (00:30→16:00)
[2017-07-18 00:50] VITALS: BP 143/82; PULSE 73; TEMP 36.8; O2SAT 95
[2017-07-18 01:24] VITALS: BP 154/95; PULSE 101; TEMP 36.8; O2SAT 90
[2017-07-18] MEDS: IPRATROPIUM BROMIDE NEB SOLN 0.02% 2.5 ML VIAL INH SCH ×2 (01:50→07:23)
[2017-07-18] MEDS: LEVALBUTEROL 1.25MG/0.5ML NEB INH SCH ×2 (01:50→07:23)
[2017-07-18] MEDS: DOXYCYCLINE IV 100 MG in DEXTROSE 5% 100ML 100 ML IV SCH (05:13)
[2017-07-18] MEDS: METHYLPREDNISOLONE IV 40 MG in SYRINGE 0 ML IV SCH ×2 (05:14→18:08)
[2017-07-18] MEDS: HEPARIN SOD 5000 UNIT/0.5 ML CARP SQ SCH ×2 (05:16→18:14)
[2017-07-18 07:29] VITALS: PULSE 65; O2SAT 96
[2017-07-18 07:59] VITALS: BP 149/71; PULSE 65; TEMP 36.6; O2SAT 96
[2017-07-18] MEDS: DOCUSATE SODIUM 100 MG CAP PO SCH ×2 (08:18→20:15)
[2017-07-18] MEDS: ASPIRIN 81 MG ECTAB PO SCH (08:18)
[2017-07-18] MEDS: DULOXETINE (CYMBALTA) 30 MG CAP PO SCH (08:18)
[2017-07-18] MEDS: CeleBREX 100 MG CAP PO SCH ×2 (08:18→20:16)
[2017-07-18] MEDS: FLUCONAZOLE 100 MG TAB PO SCH (08:18)
[2017-07-18] MEDS: CEPHALEXIN MONOHYDRATE 500 MG CAP PO SCH ×3 (08:18→20:16)
[2017-07-18] MEDS: PANTOprazole SOD 40 MG TAB PO SCH (08:19)
[2017-07-18] MEDS: AMLODIPINE BESYLATE 5 MG TAB PO SCH (08:19)
[2017-07-18] MEDS: CEROVITE ADV FORMULA TAB PO SCH (08:19)
[2017-07-18] MEDS: CHOLECALCIFEROL 1000 INTER.UNIT TAB PO SCH (08:19)
--- NOTE | 2017-07-18 09:50 | Progress Note ---
Subjective Date of Service: Jul 18, 2017. Subjective Pt evaluation today including: conversation w/ patient, conversation w/ family Pt states she is feeling much improved overall. Still with SOB with prolonged ambulation, but not at rest or with shorter ambulation. No chest pain. Does not like neb tx. Is not happy about going to [facility]. Daughter is present and feels pt is much improved, but still not at her usual. Pt denies fever, chest pain, abd pain, n/v/c/d, LE pain or swelling. Tolerating PO without issue. Problem List Medical Problems: (1) Anemia Status: Acute (2) Bilateral leg pain Status: Acute (3) Bladder rupture Status: Acute (4) Bronchitis Status: Acute (5) CKD (chronic kidney disease) Status: Acute (6) COPD exacerbation Status: Acute (7) Dehydration Status: Acute (8) Failure to thrive Status: Acute (9) Hematuria Status: Acute (10) Intractable pain Status: Acute (11) UTI (urinary tract infection) Status: Acute Review of Systems All Other Systems: Reviewed and Negative Objective Vital Signs Date Time Temp Pulse Resp B/P (MAP) Pulse Ox O2 Delivery O2 Flow Rate FiO2 07/18/17 07:59 36.6 65 16 149/71 (97) 96 Room Air 07/18/17 07:29 65 14 96 Room Air 07/18/17 05:58 Room Air 07/18/17 01:24 36.8 101 18 154/95 (114) 90 Room Air 07/18/17 00:50 36.8 73 18 143/82 (102) 95 Room Air 07/18/17 00:10 Room Air 07/17/17 20:00 Room Air 07/17/17 19:34 73 16 94 Room Air 07/17/17 16:00 Room Air 07/17/17 15:50 36.8 83 18 129/71 (90) 95 Room Air 07/17/17 14:58 82 20 96 Room Air 07/17/17 10:21 Room Air 07/17/17 10:02 95 96 Physical Exam General Appearance: WD/WN, no apparent distress Eyes: normal inspection, sclerae normal Respiratory/Chest: normal breath sounds, no respiratory distress Cardiovascular: regular rate, rhythm, no edema Abdomen: non tender, soft Extremities: non-tender, no pedal edema Neurologic/Psychiatric: alert, normal mood/affect Skin: normal color, warm/dry Assessment and Plan 87 y/o F who was admitted on 07/17 with acute hypoxic resp failure secondary to bronchospasm vs COPD exacerbation Acute hypoxic respiratory failure, COPD exacerbation? no h/o formal diagnosis Improving with COPD tx No personal hx of tobacco use, however father was a heavy smoker in the home - Doxycycline 100 mg bid IV, will d/c given no indication for PNA - O2 per nursing protocol - Methylpred 40 mg q8h -> BID - Xopenex/ Atrovent scheduled -> PRN albuterol with teaching provided by respiratory Abnormal UA; h/o recurrent UTI secondary to urinary retention/ self cath; Renal insuff/CKD III - repeat UCx + for strep > 100K - Gamino in place - Continue keflex, last day is 07/19 - continue Fluconazole day 11/22 today - repeat BMP stable Plan from urology per daughter is for TID scheduled caths and f/u on 07/[address] Holder Spinal stenosis/ chronic back pain/ OA - Continue Fentanyl patch for pain control - Duloxetine cont'd; Continue Celecoxib with Protonix 40 mg HTN - continue amlodipine 7.5 mg daily - ASA 81 mg cont'd however no documented CAD/stroke Depression - continue remeron 15 mg and duloxetine 30 mg DVT Prophylaxis heparin bid DNR - confirmed D/C to [facility] pending
[2017-07-18] MEDS ORDERED: LEVALBUTEROL 1.25MG/0.5ML NEB INH PRN (10:45)
[2017-07-18] MEDS ORDERED: IPRATROPIUM BROMIDE NEB SOLN 0.02% 2.5 ML VIAL INH PRN (10:45)
[2017-07-18] MEDS: ALBUTEROL HFA 8 GM INHALER INH SCH ×2 (13:06→18:07)
[2017-07-18] MEDS ORDERED: IV FLUIDS COMPLETED PRN (14:00)
[2017-07-18 16:00] VITALS: O2SAT 96
[2017-07-18] MEDS: SENNA 8.6 MG TAB PO PRN (16:09)
[2017-07-18 16:19] VITALS: BP 159/75; PULSE 92; TEMP 36.6; O2SAT 95
[2017-07-18] MEDS: MIRTAZAPINE TAB 15 MG TAB PO SCH (20:15)
[2017-07-19] MEDS: CHECK FENTANYL PATCH PLACEMENT SCH ×2 (06:18→08:28)
[2017-07-19] MEDS: ALBUTEROL HFA 8 GM INHALER INH SCH ×3 (06:18→11:09)
[2017-07-19] MEDS: METHYLPREDNISOLONE IV 40 MG in SYRINGE 0 ML IV SCH (06:32)
[2017-07-19] MEDS: HEPARIN SOD 5000 UNIT/0.5 ML CARP SQ SCH (06:36)
[2017-07-19 07:09] VITALS: BP 159/79; PULSE 68; TEMP 36.6; O2SAT 95
[2017-07-19] MEDS: DOCUSATE SODIUM 100 MG CAP PO SCH (08:29)
[2017-07-19] MEDS: DULOXETINE (CYMBALTA) 30 MG CAP PO SCH (08:29)
[2017-07-19] MEDS: CeleBREX 100 MG CAP PO SCH (08:29)
[2017-07-19] MEDS: FLUCONAZOLE 100 MG TAB PO SCH (08:29)
[2017-07-19] MEDS: CEROVITE ADV FORMULA TAB PO SCH (08:30)
[2017-07-19] MEDS: AMLODIPINE BESYLATE 5 MG TAB PO SCH (08:30)
[2017-07-19] MEDS: ASPIRIN 81 MG ECTAB PO SCH (08:30)
[2017-07-19] MEDS: CHOLECALCIFEROL 1000 INTER.UNIT TAB PO SCH (08:31)
[2017-07-19] MEDS: PANTOprazole SOD 40 MG TAB PO SCH (08:31)
[2017-07-19] MEDS: SENNA 8.6 MG TAB PO PRN (08:33)
[2017-07-19 08:48] LABS: HEMATOCRIT 31.6 % (37-47); HEMOGLOBIN 10.7 g/dL (12.0-16.0); MEAN CELL VOLUME 89.8 fL (80-100); MEAN CORPUSCULAR HEMOGLOBIN 30.4 pg (25-34); MEAN CORPUSCULAR HGB CONC 33.9 g/dl (32-36); PLATELET COUNT 294 K/uL (130-400); RED CELL DISTRIBUTION WIDTH CV 15.9 % (11.5-14.5); WHITE BLOOD COUNT 19.84 K/uL (4.8-10.8)
[2017-07-19 09:19] LABS: CALCIUM 8.8 mg/dl (8.5-10.1); CREATININE 1.52 mg/dl (0.60-1.20); POTASSIUM 5.2 mmol/L (3.5-5.1)
[2017-07-19] MEDS ORDERED: VANCOMYCIN CONSULT ACTIVE PRN (11:00)
[2017-07-19] MEDS ORDERED: FLUC200T4 PO (11:05)
[2017-07-19] MEDS ORDERED: PRVHFAIN INH (11:05)
[2017-07-19] MEDS ORDERED: PRED10TA PO (11:05)
--- NOTE | 2017-07-19 11:09 | Discharge Instructions ---
Discharge Instructions Date of Service Jul 19, 2017. Admission Reason for Admission: Copd Exacerbation Discharge Discharge Diagnosis / Problem: COPD exacerbation Discharge Goals Goal(s): Decrease discomfort, Improve function, Increase independence Activity Recommendations Activity Level: Up Ad Chasidy Therapies: Physical Therapy, Occupational Therapy . Additional Information Patient informed of condition: Yes Advance Directives: Yes DNR: Yes Level of Care: Acute Rehab Communicable Disease: No Prognosis: Improving Gamino Catheter: No Instructions / Follow-Up Instructions / Follow-Up Dr. Holder as scheduled prior on 07/27 Dr. Lugo early next week You should use your inhaler every 4-6 hrs while awake until you have follow-up with Dr. Lugo. If he feels that your lungs sound good, you can move to taking your inhaler just if you feel SOB or if you develop a cough/cold/flu/pneumonia. If you do develop some sort of respiratory illness, you should start using your inhaler every 4-6 hrs while awake again to prevent a COPD exacerbation. Current Hospital Diet Patient's current hospital diet: Regular Diet Discharge Diet Recommended Diet: Regular Diet Pending Studies Studies pending at discharge: no Physician Orders On Transfer Additional Orders: UA with culture on 07/22/17 Albuterol inhaler should be used Q4-6 hrs SCHEDULED while awake x1 week or until her PCP indicates she is fine to use PRN. Medical Emergencies . Who to Call and When: Medical Emergencies: If at any time you feel your situation is an emergency, please call 911 immediately. . Non-Emergent Contact Non-Emergency issues call your: Primary Care Provider, Urologist . . "Provider Documentation" section prepared by Lani Bueno. . Core Measure Problem Core Measures: None
--- NOTE | 2017-07-19 11:12 | Discharge Summary ---
Discharge Summary Date of Service Jul 19, 2017. Discharge Summary Admission Date: Jul 18, 2017 at 12:41 Discharge Date: Jul 19, 2017 Discharge Disposition: Rehab Principal Diagnosis: COPD exacerbation Problems/Secondary Diagnoses: UTI--MDR Urinary retention with need for self cath Depression Spinal stenosis Immunizations: Have You Had Influenza Vaccine: Yes History of Tetanus Vaccine?: Yes History of Pneumococcal: Yes History of Hepatitis B Vaccine: Yes Medication Reconciliation New Medications: Prednisone Tab (Prednisone) 10 Mg Tab 10 MG PO UD, #14 TAB Take 2 tabs BID x2 days, then 1 tab BID x2 days, then 1 tab QD x2 days. Then stop. Albuterol (Ventolin Hfa) 60 Puffs/5400 Mcg Aers 2 PUFFS INH Q6 for 30 Days, #1 INHA 2 Refills Continued Medications: Acetaminophen Tab (Tylenol) 325 Mg Tab 325-650 MG PO UD PRN for Pain Amlodipine Besylate (Amlodipine Besylate) 5 Mg Tab 7.5 MG PO QAM for 30 Days, TAB Aspirin (Aspirin Ec) 81 Mg Tab 81 MG PO QAM Calcium Carbonate (Calcium Carbonate) 1,250 Mg Tab 1250 MG PO AMPM Celecoxib (Celebrex) 100 Mg Cap 100 MG PO BID for 30 Days, CAP Cholecalciferol (Vitamin D) 1,000 Unit Tab 1000 UNITS PO QAM Docusate Sodium (Colace) 100 Mg Cap 100 MG PO AMPM Duloxetine HCl (Cymbalta) 30 Mg Cap 30 MG PO QD @ 1200 Fentanyl (Fentanyl) 25 Mcg Tdsy 25 MCG TD Q3D@1400 for 9 Days, #3 PATCH 0 Refills Fish Oil ([place]-3) 1 Ea Cap 1 CAP PO DAILY Fluconazole (Diflucan) 200 Mg Tab 1 TAB PO DAILY for 4 Days, #4 TAB (This prescription has been renewed) Lidocaine (Lidocaine) 1 Patch Tdsy 1 PATCH TD QAM for 10 Days, #10 Loperamide Hcl (Imodium) 2 Mg Cap 2 MG PO Q6 PRN for Diarrhea for 7 Days, #28 CAP Mirtazapine (Remeron) 15 Mg Tab 15 MG PO QPM Multiple Vitamins W/ Minerals (Thera-M) 1 Tab Tab 1 TAB PO DAILY @ 1200 Pantoprazole (Protonix) 40 Mg Tab 40 MG PO QAM Senna (Senokot) 8.6 Mg Tab 17.2 MG PO QAM PRN for constipation for 5 Days TWO 8.6 MG TABLETS [Boost] () 1 CAN LIQD 1 CAN PO BID for 30 Days Discontinued Medications: Cephalexin (Keflex) 500 Mg Cap 1 CAP PO TID for 7 Days, #21 CAP Prednisone (Prednisone) 10 Mg Zuhair 10 MG PO TAPER Discharge Exam Pt is still SOB with exertion, but better. No SOB at rest. No O2 use. Pt denies fever, chest pain, abd pain, n/v/c/d, LE pain or swelling. Tolerating PO without issue. Physical Exam: General Appearance: WD/WN, no apparent distress Eyes: normal inspection, sclerae normal Respiratory/Chest: normal breath sounds, no respiratory distress Cardiovascular: regular rate, rhythm, no edema Abdomen / GI: non tender, soft Extremities: no calf tenderness, no pedal edema Neurologic/Psychiatric: alert, normal mood/affect, oriented x 3 Skin: normal color, warm/dry Hospital Course 87 y/o F who was admitted on 07/17 with acute hypoxic resp failure secondary to bronchospasm vs COPD exacerbation Acute hypoxic respiratory failure, COPD exacerbation? no h/o formal diagnosis Improving with COPD tx No personal hx of tobacco use, however father was a heavy smoker in the home - Doxycycline 100 mg bid IV started on admission, will d/c given no indication for PNA - Able to wean off O2 - Steroid taper - Xopenex/ Atrovent scheduled during admission and doing well with -> scheduled albuterol with teaching provided by respiratory Advised to use albuterol Q4-6 hours while awake x1 week until f/u appt Can go to PRN at that time Advised that pt may require maintenance inhaler if using PRN most days of the week and to d/w PCP Will need formal PFTs once recovered from this exacerbation Abnormal UA; h/o recurrent UTI secondary to urinary retention/ self cath; Renal insuff/CKD III - repeat UCx + for strep > 100K that is MDR - Gamino in place - Cephalosporins not checked, however PCN and ampicillin with R WBC increasing, however pt is on steroids - Finish 10 course of Fluconazole as outpt Plan from urology per daughter is for TID scheduled caths and f/u on 07/[address] Holder Given hx of self cath, will d/c keflex. Plan for vanco x1 today and then single dose of fosfomycin 3g tomorrow Fosfomycin is a special order and will not be available until tomorrow, [facility] to arrange picker tender of script Discussed with pharmacy at length Repeat UA with cx on 07/22 Spinal stenosis/ chronic back pain/ OA - Continue Fentanyl patch for pain control - Duloxetine cont'd; Continue Celecoxib with Protonix 40 mg HTN - continue amlodipine 7.5 mg daily - ASA 81 mg cont'd Depression - continue remeron 15 mg and duloxetine 30 mg d/c to [facility] for rehab Discussed plan of care at length with pt and daughter Request to nursing prior to d/c for PRN anxiety medications. I am not comfortable prescribing this given mild memory issues and the risk of exacerbating this in an elderly pt. Advised to discuss further with PCP to avoid multiple medication changes as daughter states this has been an issue in the past with hospital to outpt transition. Total Time Spent: Greater than 30 minutes This includes examination of the patient, discharge planning, medication reconciliation, and communication with other providers. Discharge Instructions Please refer to the electronic Patient Visit Report (Discharge Instructions) for additional information. Follow-Up Dr. Holder as scheduled prior on 07/27 Dr. Lugo early next week Additional Copies To [place] Holder M.D.; Greg at [facility]; Prabhakar Lugo MD
[2017-07-19] MEDS ORDERED: VANCOMYCIN INJ 1,500 MG in SODIUM CHLORIDE 0.9% 500ML 500 ML IV ONE (11:15)
[2017-07-19 13:15] VITALS: BP 159/79; PULSE 68; TEMP 36.6; O2SAT 95
--- NOTE | 2017-07-19 14:05 | Pharmacy Progress Note ---
Pharmacy Abx Dose Short Note Date of Service Jul 19, 2017. Assessment & Plan Assessment Pharmacy consulted to start vancomycin for complicated UTI from enterococcus SPEC #: [id number] EMIR: 07/16/17 STATUS: SARKIS REQ #: [id number] RECD: 07/16/[address] [facility] [address]: Francisco Crow M.D. SOURCE: URINE CATH ENTR: 07/16/[address]: Prabhakar Lugo MD [facility]: ORDERED: CULTURE UR CATH Procedure Result Verified Site URINE CULTURE Final 07/18/17141 Organism 1 ENTEROCOCCUS FAECIUM COLONY COUNT >100,000 CFU/ml SENS SENSITIVITY TO FOLLOW 1. ENTEROCOCCUS FAECIUM Target Route Dose RX AB Cost M.I.C. IQ ------ ----- ------ -- ------ -------- - ------ AMPICILLIN R >8 GENT SYNERGY R >500 VANCOMYCIN S 1 PENICILLIN R >8 CIPROFLOXACIN R >2 LEVOFLOXACIN R >4 DAPTOMYCIN S 4 NITROFURANTOIN I 64 STREP SYNERGY S <=1000 Plan 1500 mg (25 mg/kg) IV x 1 this AM - this should last her until at least tomorrow afternoon No further vancomycin doses ordered as patient being discharged to the [facility] and will receive a dose of fosfomycin there tomorrow Pharmacy will continue to follow and will adjust dose/frequency as necessary. Thank you.
[2017-07-19 15:30] VITALS: BP 142/75; PULSE 74; TEMP 36.4; O2SAT 97
== END 2017-07-19 17:14 | DRG 190 ==
LOC: EDBD 21:25 → C.EDB 21:26 → EEVIPCON 07-17 02:04 → C.4E 07-17 02:04 → ENRESERV 07-17 02:46 → OBSVTOIN 07-18 12:41
PROVIDERS: ADMIT Internal Medicine; ATTEND Family Medicine
DX: J44.1 Chronic obstructive pulmonary disease with (acute) exacerbation (principal); J96.01 Acute respiratory failure with hypoxia; N39.0 Urinary tract infection, site not specified; I12.9 Hypertensive chronic kidney disease with stage 1 through stage 4 chronic kidney disease, or unspecified chronic kidney disease; N18.3 Chronic kidney disease, stage 3 (moderate); F32.9 Major depressive disorder, single episode, unspecified; M48.00 Spinal stenosis, site unspecified; Z79.52 Long term (current) use of systemic steroids; Z79.82 Long term (current) use of aspirin; Z79.899 Other long term (current) drug therapy

== ENCOUNTER → 2017-07-21 | Outpatient (CLI) | payer MEDICARE ==
[~2017-07-21] MED LIST changes: -CEPH-571 PO; -PRD20 PO; +PRED10TA PO; +PRVHFAIN INH
[2017-07-21 10:14] LABS: BLOOD UREA NITROGEN 37 mg/dl (7-18); CALCIUM 8.7 mg/dl (8.5-10.1); CARBON DIOXIDE 27 mmol/L (21-32); CREATININE 1.03 mg/dl (0.60-1.20); GLUCOSE 118 mg/dl (70-99); POTASSIUM 4.8 mmol/L (3.5-5.1); SODIUM 130 mmol/L (136-145)
== END | disposition home or self-care (01) ==
LOC: C.LABVPSUA 09:13
PROVIDERS: ATTEND Internal Medicine Critical Care Medicine
DX: E87.1 Hypo-osmolality and hyponatremia (principal)

== ENCOUNTER → 2017-07-22 | Outpatient (CLI) | payer MEDICARE | END | disposition home or self-care (01) | LOC: C.LABVPSUA 11:17 | PROVIDERS: ATTEND Internal Medicine Critical Care Medicine | DX: R33.9 Retention of urine, unspecified (principal) ==

== ENCOUNTER → 2017-07-28 | Outpatient (CLI) | payer MEDICARE | END | disposition home or self-care (01) | LOC: C.LABVPSUA 12:49 | PROVIDERS: ATTEND Internal Medicine Critical Care Medicine | DX: R82.99 Other abnormal findings in urine (principal) ==

== ENCOUNTER → 2017-07-29 | Outpatient (CLI) | payer MEDICARE ==
[2017-07-29 09:17] LABS: BLOOD UREA NITROGEN 23 mg/dl (7-18); CALCIUM 8.9 mg/dl (8.5-10.1); CARBON DIOXIDE 30 mmol/L (21-32); CREATININE 1.01 mg/dl (0.60-1.20); GLUCOSE 104 mg/dl (70-99); POTASSIUM 3.9 mmol/L (3.5-5.1); SODIUM 132 mmol/L (136-145)
== END | disposition home or self-care (01) ==
LOC: C.LABVPSUA 08:49
PROVIDERS: ATTEND Internal Medicine Critical Care Medicine
DX: E87.1 Hypo-osmolality and hyponatremia (principal)

== ENCOUNTER → 2017-08-15 | Outpatient (CLI) | payer MEDICARE ==
[~2017-08-15] MED LIST changes: +AMLO2.5T PO; +ATRINS NEB; +HYDR-5688 PO
[2017-08-15 16:10] LABS: BLOOD UREA NITROGEN 15 mg/dl (7-18); CALCIUM 9.4 mg/dl (8.5-10.1); CARBON DIOXIDE 31 mmol/L (21-32); CREATININE 1.24 mg/dl (0.60-1.20); GLUCOSE 88 mg/dl (70-99); POTASSIUM 4.1 mmol/L (3.5-5.1); SODIUM 136 mmol/L (136-145)
== END | disposition home or self-care (01) ==
LOC: C.LABVPSUA 09:09
PROVIDERS: ATTEND Internal Medicine Critical Care Medicine
DX: E87.1 Hypo-osmolality and hyponatremia (principal)

== ENCOUNTER → 2017-08-19 | Outpatient (CLI) | payer MEDICARE | END | disposition home or self-care (01) | LOC: C.LABVPSUA 23:45 | PROVIDERS: ATTEND Internal Medicine Critical Care Medicine | DX: Z87.440 Personal history of urinary (tract) infections (principal) ==

== ENCOUNTER 2017-08-25 14:52 | Inpatient (IN) | payer MEDICARE, OTHER ==
[~2017-08-25] VITALS: Ht 160 cm; Wt 55.3 kg
[~2017-08-25 14:52] MED LIST changes: -ACET-1693 PO; -ASPI81TA28 PO; -Boost PO; -CHOL100010 PO; -CLB100 PO; -CYM/30 PO; -DOCU-94 PO; -FLUC200T4 PO; -MIRT15TA PO; -MULT-16 PO; -NRV5 PO; -OMEG10007 PO; -PANT40TA PO; -PRED10TA PO; -PRVHFAIN INH; -SENN-61 PO
--- NOTE | 2017-08-25 15:12 | EMERGENCY ROOM VISIT NOTE ---
History Report prepared by Brad: Chalo Muniz Under the Supervision of: Dr. Sukumar Bonilla M.D. First contact with patient: 15:04 Chief Complaint: URINARY SYMPTOMS Stated Complaint: BLADDER INFECTION History of Present Illness The patient is an 87 year old female who presents to the Emergency Room with complaints of a persistent UTI over the past week. She had a recent urine culture done which grew out Pseudomonas that was sensitive to Cefepime and Tobramycin. Per the patient's daughter, the patient has 2 UTI's currently ( E.Coli and Pseudomonas), and was supposed to have a PICC line placed for her complicated UTI, but her veins were noted to be too little in the office to get a PICC line, so she was sent here to try the PICC again or to do a port. The patient has a Gamino in right now. She denies any fevers or pain. Source of History: patient, family (daughter) Onset: Over past week Position: other (global) Symptom Intensity: complicated UTI's Quality: other (UTI) Timing: other (persistent) Associated Symptoms: + urinary symptoms, No fevers Note: Denies any pain. Review of Systems See HPI for pertinent positives and negatives. A total of ten systems were reviewed and were otherwise negative. Past Medical & Surgical Medical Problems: (1) Hypertension (2) Intractable back pain (3) UTI (urinary tract infection) Family History Patient reports no known family medical history. Social History Smoking Status: Unknown if Ever Smoked Drug Use: none Marital Status: Housing Status: lives with family Occupation Status: retired Current/Historical Medications Scheduled Amlodipine (Norvasc), 7.5 MG PO DAILY Aspirin (Aspirin Chewable), 81 MG PO DAILY Calcium Carbonate (Os-Jhon 500), 500 MG PO BID Cefepime Hcl (Cefepime), 1 GM IM TODAY Cholecalciferol (Vitamin D), 1,000 UNITS PO QAM Duloxetine HCl (Cymbalta), 30 MG PO QD Fentanyl (Duragesic), 25 MCG TOP CQ72HR Fish Oil ([place]-3), 1 CAP PO DAILY Lidocaine (Lidocaine), 1 PATCH TOP DAILY Mirtazapine (Remeron), 15 MG PO QPM Multiple Vitamins W/ Minerals (Thera-M), 1 TAB PO DAILY Pantoprazole (Protonix), 40 MG PO QAM Prednisone Tab (Prednisone), 10 MG PO TAPER UD Senna (Senokot), 17.2 MG PO QPM Scheduled PRN Acetaminophen Tab (Tylenol), 325-650 MG PO UD PRN for Pain Hydrocodone/Acetaminophen 5MG/325MG ([place] 5MG/325MG), 1 TABLET PO Q8 PRN for Pain Ipratropium [place] (Ipratropium [place]), 1 VIAL NEB QID PRN for SOB/Wheezing Loperamide Hcl (Imodium), 2 MG PO Q6 PRN for Diarrhea Allergies Coded Allergies: No Known Allergies (Unverified , 08/25/17) Physical Exam Vital Signs Date Time Temp Pulse Resp B/P (MAP) Pulse Ox O2 Delivery O2 Flow Rate FiO2 08/25/17 19:40 78 20 112/84 94 Room Air 08/25/17 18:24 75 18 96 Room Air 08/25/17 17:23 73 20 113/68 95 Room Air 08/25/17 15:00 36.8 76 20 108/67 95 Room Air Physical Exam Physical Exam GENERAL: She is oriented to person, place, and time. She appears well- developed and well-nourished. She does not appear distressed. ____ HENT: Exam performed. Head: Normocephalic and atraumatic. Right Ear: External ear normal. No mastoid tenderness. Left Ear: External ear normal. No mastoid tenderness. Mouth/Throat: The oropharynx is clear and moist. No trismus in the jaw. No dental abscesses or uvula swelling. No oropharyngeal exudate or tonsillar abscesses. ____ EYES: Conjunctivae and EOM are normal. Pupils are equal, round, and reactive to light. Right eye exhibits no discharge. Left eye exhibits no discharge. No scleral icterus. ____ NECK: Normal range of motion. Neck supple. No JVD present. No spinous process tenderness present. No carotid bruit present. No rigidity. No tracheal deviation and normal range of motion present. No Brudzinski's sign and no Kernig 's sign noted. ____ CV: Normal rate, regular rhythm, intact distal pulses. Blowing systolic murmur. There is no peripheral edema. Palpable radial pulses bue. ____ PULM/CHEST: Effort normal and breath sounds normal. No respiratory distress. No stridor. She has no wheezes. She has no rales. Chest Wall: She exhibits no tenderness. ____ ABD: The abdomen is soft. Bowel sounds are normal. She has no distension. No mass is present. There is no tenderness. There is no rebound, no guarding, no Schwartz's sign and no tenderness at McBurney's point. Rovsig negative MUSC/SKEL: Normal range of motion. There is no peripheral edema, tenderness or deformity. LYMPH: No cervical adenopathy. ____ NEURO: She is alert and oriented to person, place, and time. She has normal strength. No cranial nerve deficit or sensory deficit. Coordination and gait normal. GCS eye subscore is 4. GCS verbal subscore is 5. GCS motor subscore is 6. Cerebellar tests wnl. ____ SKIN: Skin is warm and dry. She is not diaphoretic. ____ PSYCH: She has a normal mood and affect. She behavior is normal. Judgment and thought content normal. ____ Medical Decision & Procedures Laboratory Results 08/25/17 17:23 Test 08/25/17 17:23 08/25/17 17:31 08/25/17 17:35 Red Blood Count 3.75 M/uL (4.2-5.4) Mean Corpuscular Volume 90.7 fL (80-100) Mean Corpuscular Hemoglobin 31.7 pg (25-34) Mean Corpuscular Hemoglobin Concent 35.0 g/dl (32-36) RDW Standard Deviation 49.8 fL (36.4-46.3) RDW Coefficient of Variation 14.9 % (11.5-14.5) Mean Platelet Volume 9.3 fL (7.4-10.4) Bedside Lactic Acid Venous 0.81 mmol/L (0.90-1.70) Bedside Hemoglobin 11.6 g/dl (12.0-16.0) Bedside Hematocrit 34 % (37-47) Bedside Sodium 134 mEq/L (135-144) Bedside Potassium 4.9 mEq/L (3.3-5.0) Bedside Chloride 98 mEq/L (101-112) Bedside Total CO2 30 mEq/l (24-31) Anion Gap 12.0 mmol/L (16-25) Bedside Blood Urea Nitrogen 21 mg/dl (7-18) Bedside Creatinine 1.1 mg/dl (0.6-1.3) Bedside Glucose (other) 97 mg/dl (70-99) Bedside Ionized Calcium ([place]) 1.21 mmol/l (1.12-1.32) Laboratory results reviewed by me Medications Administered Medications (Trade) Dose Ordered Sig/Tenisha Route Start Time Stop Time Status Last Admin Dose Admin Sodium Chloride 500 ml @ 75 mls/hr Q6H40M STAT IV 08/25/17 17:25 08/26/17 00:04 08/25/17 17:31 75 MLS/HR Cefepime HCl 1000 mg/Dextrose 111 ml @ 200 mls/hr NOW STAT IV 08/25/17 18:02 08/25/17 18:35 DC 08/25/17 18:47 200 MLS/HR ED Course 1508: The patient was evaluated in room B5. A complete history and physical exam was performed. 1725: NSS 500 ml @ 75 mls/hr IV. 1802: Cefepime HCl 1000 mg/Dextrose 111 ml @ 200 mls/hr IV. 1814: Upon reexamination, the patient was resting comfortably. Labs within normal limits. IV team was unable to successfully place PICC line. Peripheral IV placed. Given that the patient has such poor vascular access and a PICC line was unable to be obtained in the emergency department for prolonged antibiotic intravenous infusion, the patient will be placed in the hospital for possible port placement at the patient and family's request. I discussed the test results and treatment plan with the patient and her family. The patient will be evaluated for further management.I discussed the patient with Dr. Jong ROBERTS jewelry repairer - he will evaluate the patient for further treatment. Medical Decision Labs within normal limits. IV team was unable to successfully place PICC line. Peripheral IV placed. Given that the patient has such poor vascular access and a PICC line was unable to be obtained in the emergency department for prolonged antibiotic intravenous infusion, the patient will be placed in the hospital for possible port placement at the patient and family's request. I discussed the test results and treatment plan with the patient and her family. The patient will be evaluated for further management.I discussed the patient with Dr. Jong ROBERTS jewelry repairer - he will evaluate the patient for further treatment. Medication Reconcilliation Current Medication List: was personally reviewed by me Blood Pressure Screening Patient's blood pressure: Normal blood pressure Consults Time Called: 1813 Consulting Physician: Dr. Jong ROBERTS jewelry repairer Returned Call: 1819 I discussed the patient with Dr. Jong ROBERTS jewelry repairer - he will evaluate the patient for further treatment. Impression Primary Impression: Complicated UTI (urinary tract infection) Scribe Attestation The scribe's documentation has been prepared under my direction and personally reviewed by me in its entirety. I confirm that the note above accurately reflects all work, treatment, procedures, and medical decision making performed by me. The chart was completed utilizing [employer] Speech voice recognition software. Grammatical errors, random word insertions, pronoun errors, and incomplete sentences are an occasional consequence of this system due to software limitations, ambient noise, and hardware issues. Any formal questions or concerns about the content, text, or information contained within the body of this dictation should be directly addressed to the physician for clarification. Departure Information Dispostion Being Evaluated By Hospitalist Referrals Greg at [facility] (PCP) Patient Instructions My [facility]
[2017-08-25] MEDS ORDERED: ACET-1693 PO (15:37)
[2017-08-25] MEDS ORDERED: MIRT15TA PO (15:37)
[2017-08-25] MEDS ORDERED: MULT-16 PO (15:37)
[2017-08-25] MEDS ORDERED: OMEG10007 PO (15:37)
[2017-08-25] MEDS ORDERED: SENN-61 PO (15:37)
[2017-08-25] MEDS ORDERED: CYM/30 PO (15:37)
[2017-08-25] MEDS ORDERED: PANT40TA PO (15:37)
[2017-08-25] MEDS ORDERED: CHOL100010 PO (15:37)
[2017-08-25] MEDS ORDERED: FENT25DI10 TOP (16:37)
[2017-08-25] MEDS ORDERED: AMLO-110 PO (16:37)
[2017-08-25] MEDS ORDERED: CALC12502 PO (16:37)
[2017-08-25] MEDS ORDERED: PRED10TA PO (16:37)
[2017-08-25] MEDS ORDERED: CEFE1INJ3 IM (16:37)
[2017-08-25] MEDS ORDERED: LIDO1PAD2 TOP (16:37)
[2017-08-25] MEDS ORDERED: ASPCH81X PO (16:37)
[2017-08-25] MEDS ORDERED: SODIUM CHLORIDE 0.9% 1000ML 500 ML IV STA (17:25)
[2017-08-25 17:49] LABS: ISTAT CREATININE 1.1 mg/dl (0.6-1.3); ISTAT IONIZED CALCIUM 1.21 mmol/l (1.12-1.32); ISTAT POTASSIUM 4.9 mEq/L (3.3-5.0)
[2017-08-25] MEDS ORDERED: CEFEPIME IV 1,000 MG in DEXTROSE 5% 100ML 100 ML IV STA (18:02)
[2017-08-25] MEDS ORDERED: IPRATROPIUM BROMIDE NEB SOLN 0.02% 2.5 ML VIAL INH PRN (19:15)
[2017-08-25] MEDS ORDERED: LOPERAMIDE HCL 2 MG CAP PO PRN (19:15)
[2017-08-25] MEDS ORDERED: MAGNESIUM HYDROXIDE SUSP 30 ML UDC PO PRN (19:15)
[2017-08-25] MEDS ORDERED: ONDANSETRON INJ 2 MG/ML 2 ML VIAL IV PRN (19:15)
[2017-08-25] MEDS ORDERED: ACETAMINOPHEN 325 MG TAB PO PRN (19:15)
[2017-08-25] MEDS ORDERED: ALUMINUM/MAGNESIUM/SIMETH (MAALOX MAX) 30 ML UDC PO PRN (19:15)
[2017-08-25] MEDS ORDERED: POLYETHYLENE (MIRALAX) 17 GM PACK PO PRN (19:15)
--- NOTE | 2017-08-25 19:21 | History and Physical ---
History & Physical Date & Time of Service: Aug 25, 2017 at 19:08 Chief Complaint: Bladder Infection Primary Care Physician: Prabhakar Lugo MD History of Present Illness Source: patient, family, clinic records, hospital records Patient is a pleasant 87 y/o female, with PMHx of CKD stage III, urinary retention w/ Gamino, HTN, depression, spinal stenosis, and GERD, who presented to the ED from [facility] due to inability to get IV access and need for IV abx. Patient UCx on 08/22 w/ Pseudomonas aeruginosa and Enterococcus faecalis. She was prescribed Cefepime. She presented [facility] for P[facility] line but unable to do due to small veins. She was then given peripheral IV, which infiltrated so she presented back to [facility] for new access. Daughter states they were again unable to gain access so she was instructed to come to ED for admission and port site placement. She follows w/ Dr. Holder for urology. Per daughter, she had a R stent placement in May for hydronephrosis. Since that time, she has been dealing with recurrent UTIs. She was getting CIC but then a Gamino was placed today. She is otherwise feeling well. Patient denies any fever , chills, sweats, lightheadedness, dizziness, vision changes, CP, palpitations, edema, SOB, wheezing, cough, abdominal pain, nausea, vomiting, diarrhea, urinary symptoms, melena, numbness/tingling, weakness, muscle/joint pain, anxiety/depression, active bleeding, or new skin discoloration/changes. Past Medical/Surgical History Medical Problems: CKD stage III urinary retention w/ Gamino HTN depression spinal stenosis GERD s/p R stent placement for hydronephrosis Family History Patient reports no known family medical history. Social History Smoking Status: Unknown if Ever Smoked Drug Use: none Marital Status: Housing status: lives with family Occupational Status: retired Immunizations History of Influenza Vaccine: Yes History of Tetanus Vaccine?: Yes History of Pneumococcal: Yes History of Hepatitis B Vaccine: Yes Allergies Coded Allergies: No Known Allergies (Unverified , 08/25/17) Home Medications Scheduled Amlodipine (Norvasc), 7.5 MG PO DAILY Aspirin (Aspirin Chewable), 81 MG PO DAILY Calcium Carbonate (Os-Jhon 500), 500 MG PO BID Cefepime Hcl (Cefepime), 1 GM IM TODAY Cholecalciferol (Vitamin D), 1,000 UNITS PO QAM Duloxetine HCl (Cymbalta), 30 MG PO QD Fentanyl (Duragesic), 25 MCG TOP CQ72HR Fish Oil ([place]-3), 1 CAP PO DAILY Lidocaine (Lidocaine), 1 PATCH TOP DAILY Mirtazapine (Remeron), 15 MG PO QPM Multiple Vitamins W/ Minerals (Thera-M), 1 TAB PO DAILY Pantoprazole (Protonix), 40 MG PO QAM Prednisone Tab (Prednisone), 10 MG PO TAPER UD Senna (Senokot), 17.2 MG PO QPM Scheduled PRN Acetaminophen Tab (Tylenol), 325-650 MG PO UD PRN for Pain Hydrocodone/Acetaminophen 5MG/325MG ([place] 5MG/325MG), 1 TABLET PO Q8 PRN for Pain Ipratropium [place] (Ipratropium [place]), 1 VIAL NEB QID PRN for SOB/Wheezing Loperamide Hcl (Imodium), 2 MG PO Q6 PRN for Diarrhea Physical Exam Vital Signs Date Time Temp Pulse Resp B/P (MAP) Pulse Ox O2 Delivery O2 Flow Rate FiO2 08/25/17 18:24 75 18 96 Room Air 08/25/17 17:23 73 20 113/68 95 Room Air 08/25/17 15:00 36.8 76 20 108/67 95 Room Air General Appearance: no apparent distress Head: normocephalic, atraumatic Eyes: normal inspection, PERRL ENT: hearing grossly normal Neck: supple Respiratory/Chest: lungs clear, no respiratory distress, no accessory muscle use Cardiovascular: regular rate, rhythm, + systolic murmur Abdomen/GI: normal bowel sounds, non tender, soft Genitourinary - Female: + pertinent finding (+Gamino) Back: normal inspection Extremities/Musculoskelatal: no calf tenderness, no pedal edema Neurologic/Psych: alert, normal mood/affect, oriented x 3 Skin: normal color, warm/dry, no rash Diagnostics Laboratory Results Results Past 24 Hours Test 08/25/17 17:31 08/25/17 17:35 Range/Units Bedside Lactic Acid Venous 0.81 0.90-1.70 mmol/L Bedside Hemoglobin 11.6 12.0-16.0 g/dl Bedside Hematocrit 34 37-47 % Bedside Sodium 134 135-144 mEq/L Bedside Potassium 4.9 3.3-5.0 mEq/L Bedside Chloride 98 101-112 mEq/L Bedside Total CO2 30 24-31 mEq/l Anion Gap 12.0 16-25 mmol/L Bedside Blood Urea Nitrogen 21 7-18 mg/dl Bedside Creatinine 1.1 0.6-1.3 mg/dl Bedside Glucose (other) 97 70-99 mg/dl Bedside Ionized Calcium ([place]) 1.21 1.12-1.32 mmol/l Impression Assessment and Plan Patient is a pleasant 87 y/o female, with PMHx of CKD stage III, urinary retention w/ Gamino, HTN, depression, spinal stenosis, and GERD, who presented to the ED from [facility] due to inability to get IV access and need for IV abx. UTI POA w/ Pseudomonas and Enterococcus on UCx on 08/22, h/o urinary retention w/ Gamino- follows w/ Dr. 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 Sunshine I performed a history and physical examination on the patient. I reviewed above note and agree with it. I discussed plan with APC and patient. During my face to face encounter with the patient, I answered all of the patient's questions. Patient admitted for port placement for antibiotics. Will also consult ID to assess need for IV antibiotics in this patient. Resuscitation Status LEVEL V, DNR VTE Prophylaxis Will order VTE Prophylaxis: Yes
[2017-08-25] MEDS ORDERED: IV FLUIDS COMPLETED PRN (19:30)
[2017-08-25 19:55] LABS: HEMOGLOBIN 11.9 g/dL (12.0-16.0); MEAN CELL VOLUME 90.7 fL (80-100); MEAN CORPUSCULAR HEMOGLOBIN 31.7 pg (25-34); MEAN PLATELET VOLUME 9.3 fL (7.4-10.4); PLATELET COUNT 157 K/uL (130-400); RED CELL DISTRIBUTION WIDTH CV 14.9 % (11.5-14.5); RED CELL DISTRIBUTION WIDTH SD 49.8 fL (36.4-46.3); WHITE BLOOD COUNT 6.97 K/uL (4.8-10.8)
[2017-08-25 20:26] VITALS: BP 158/80; PULSE 96; TEMP 36.6; O2SAT 93
[2017-08-25 20:39] VITALS: Ht 160 cm; Wt 55.3 kg
[2017-08-25] MEDS ORDERED: FENTANYL PATCH REMOVE & WASTE SCH (20:59)
[2017-08-25] MEDS ORDERED: FENTANYL 25 MCG/HR TDSY TD SCH (21:00)
[2017-08-25] MEDS: CALCIUM CARBONATE 1250MG TAB PO SCH (21:00)
[2017-08-25] MEDS: SENNA 8.6 MG TAB PO SCH (21:00)
[2017-08-25] MEDS: MIRTAZAPINE TAB 15 MG TAB PO SCH (21:00)
[2017-08-25 22:49] VITALS: BP 133/74; PULSE 75; TEMP 36.7; O2SAT 93
[2017-08-26] MEDS: CEFEPIME IV 1,000 MG in SYRINGE 0 ML IV SCH ×2 (05:59→17:36)
[2017-08-26 06:22] LABS: HEMATOCRIT 28.3 % (37-47); HEMOGLOBIN 9.2 g/dL (12.0-16.0); MEAN CELL VOLUME 89.6 fL (80-100); MEAN CORPUSCULAR HEMOGLOBIN 29.1 pg (25-34); MEAN CORPUSCULAR HGB CONC 32.5 g/dl (32-36); MEAN PLATELET VOLUME 8.4 fL (7.4-10.4); PLATELET COUNT 211 K/uL (130-400); RED CELL DISTRIBUTION WIDTH CV 14.8 % (11.5-14.5); RED CELL DISTRIBUTION WIDTH SD 48.9 fL (36.4-46.3); WHITE BLOOD COUNT 4.93 K/uL (4.8-10.8)
[2017-08-26 06:36] LABS: PTT PATIENT 28.5 SECONDS (21.0-31.0)
[2017-08-26 06:41] LABS: CALCIUM 8.7 mg/dl (8.5-10.1); CREATININE 0.96 mg/dl (0.60-1.20); POTASSIUM 3.9 mmol/L (3.5-5.1)
[2017-08-26 07:58] VITALS: BP 149/76; PULSE 66; TEMP 37.1; O2SAT 95
[2017-08-26] MEDS: HEPARIN SOD 5000 UNIT/0.5 ML CARP SQ SCH ×2 (09:00→20:53)
--- NOTE | 2017-08-26 10:33 | Family Medicine Progress Note ---
Progress Note Date of Service Aug 26, 2017. Subjective Pt evaluation today including: conversation w/ patient, physical exam, chart review, lab review, review of studies, review of inpatient medication list Voiding: reaves catheter in place Woke up from sleeping. Not aware she is in hospital. Unsure of date. She reports feeling well currently without any chest pain, shortness of breath, abdominal pain, nausea or vomiting. She reports having normal bowel movements yesterday. All Other Systems: Reviewed and Negative (unsure of accuracy due to patient' s understanding) Medications 08/26/17 06:09 08/26/17 06:09 Test 08/25/17 17:31 08/25/17 17:35 08/26/17 06:09 Bedside Lactic Acid Venous 0.81 mmol/L (0.90-1.70) Bedside Hemoglobin 11.6 g/dl (12.0-16.0) Bedside Hematocrit 34 % (37-47) Bedside Sodium 134 mEq/L (135-144) Bedside Potassium 4.9 mEq/L (3.3-5.0) Bedside Chloride 98 mEq/L (101-112) Bedside Total CO2 30 mEq/l (24-31) Bedside Blood Urea Nitrogen 21 mg/dl (7-18) Bedside Creatinine 1.1 mg/dl (0.6-1.3) Bedside Glucose (other) 97 mg/dl (70-99) Bedside Ionized Calcium ([place]) 1.21 mmol/l (1.12-1.32) Red Blood Count 3.16 M/uL (4.2-5.4) Mean Corpuscular Volume 89.6 fL (80-100) Mean Corpuscular Hemoglobin 29.1 pg (25-34) Mean Corpuscular Hemoglobin Concent 32.5 g/dl (32-36) RDW Standard Deviation 48.9 fL (36.4-46.3) RDW Coefficient of Variation 14.8 % (11.5-14.5) Mean Platelet Volume 8.4 fL (7.4-10.4) Prothrombin Time 10.8 SECONDS (9.0-12.0) Prothromb Time International Ratio 1.0 (0.9-1.1) Activated Partial Thromboplast Time 28.5 SECONDS (21.0-31.0) Partial Thromboplastin Ratio 1.1 Anion Gap 3.0 mmol/L (3-11) Est Creatinine Clear Calc Drug Dose 34.1 ml/min Estimated GFR () 61.6 Estimated GFR (Non- 53.2 BUN/Creatinine Ratio 14.8 (10-20) Calcium Level 8.7 mg/dl (8.5-10.1) Date/Time Source Procedure Growth Status 08/25/17 21:45 Nasal MRSA DNA Surveillance Screen - Final Specimen Negative for MRSA by DNA Probe Complete Objective Vital Signs Date Time Temp Pulse Resp B/P (MAP) Pulse Ox O2 Delivery O2 Flow Rate FiO2 08/26/17 08:45 Room Air 08/26/17 07:58 37.1 66 16 149/76 (100) 95 Room Air 08/26/17 00:10 Room Air 08/25/17 22:49 36.7 75 16 133/74 (93) 93 Room Air 08/25/17 20:39 Room Air 08/25/17 20:26 36.6 96 18 158/80 (106) 93 Room Air 08/25/17 20:00 Room Air 08/25/17 19:40 78 20 112/84 94 Room Air 08/25/17 18:24 75 18 96 Room Air 08/25/17 17:23 73 20 113/68 95 Room Air 08/25/17 15:00 36.8 76 20 108/67 95 Room Air Physical Exam General Appearance: no apparent distress Respiratory/Chest: lungs clear, normal breath sounds, no respiratory distress, no accessory muscle use Cardiovascular: regular rate, rhythm, + systolic murmur (apical) Abdomen: normal bowel sounds, non tender, soft, + pertinent finding (reaves catheter in place) Extremities: no pedal edema, no calf tenderness, + pertinent finding ( decreased muscle mass in lower extremities) 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 nml as tested (no facial droop) Laboratory Results 08/26/17 06:09 08/26/17 06:09 Test 08/25/17 17:31 08/25/17 17:35 08/26/17 06:09 Bedside Lactic Acid Venous 0.81 mmol/L (0.90-1.70) Bedside Hemoglobin 11.6 g/dl (12.0-16.0) Bedside Hematocrit 34 % (37-47) Bedside Sodium 134 mEq/L (135-144) Bedside Potassium 4.9 mEq/L (3.3-5.0) Bedside Chloride 98 mEq/L (101-112) Bedside Total CO2 30 mEq/l (24-31) Bedside Blood Urea Nitrogen 21 mg/dl (7-18) Bedside Creatinine 1.1 mg/dl (0.6-1.3) Bedside Glucose (other) 97 mg/dl (70-99) Bedside Ionized Calcium ([place]) 1.21 mmol/l (1.12-1.32) Red Blood Count 3.16 M/uL (4.2-5.4) Mean Corpuscular Volume 89.6 fL (80-100) Mean Corpuscular Hemoglobin 29.1 pg (25-34) Mean Corpuscular Hemoglobin Concent 32.5 g/dl (32-36) RDW Standard Deviation 48.9 fL (36.4-46.3) RDW Coefficient of Variation 14.8 % (11.5-14.5) Mean Platelet Volume 8.4 fL (7.4-10.4) Prothrombin Time 10.8 SECONDS (9.0-12.0) Prothromb Time International Ratio 1.0 (0.9-1.1) Activated Partial Thromboplast Time 28.5 SECONDS (21.0-31.0) Partial Thromboplastin Ratio 1.1 Anion Gap 3.0 mmol/L (3-11) Est Creatinine Clear Calc Drug Dose 34.1 ml/min Estimated GFR () 61.6 Estimated GFR (Non- 53.2 BUN/Creatinine Ratio 14.8 (10-20) Calcium Level 8.7 mg/dl (8.5-10.1) Date/Time Source Procedure Growth Status 08/25/17 21:45 Nasal MRSA DNA Surveillance Screen - Final Specimen Negative for MRSA by DNA Probe Complete Assessment and Plan 87 yo female with chronic urinary retention and Reaves who presented to the ED [facility] as unable to get IV line for cefepime for UTI for consideration of port. Reaves Catheter and urinary stent associated UTI Urinary obstruction sec to possibly malignancy - present before hospital admission w/ Pseudomonas and Enterococcus on UCx on 08/22, h/o urinary retention w/ Reaves- follows w/ Dr. Holder - Reaves placed on 08/25 - Continue IV Cefepime- started on 08/24 - Consult ID, appreciate recommendations - Unable to get PICC in ER. Surgery consult for possible port placement to avoid recurrent need of IV access and discomfort associated with it due to recurrent UTI from the stent. - To consider palliative care consult on tuesday as discussed by urology in outpatient setting Non acute issues HTN - continue amlodipine Depression: Continue Cymbalta and Remeron CKD stage 3 - at baseline GERD: Continue Protonix VTE prophylaxis - heparin 5000 units Q12H Code - DNR Disposition - continue med/surg due to need for IV antibiotics. PT/OT. Plan for discharge to [facility] after longer term IV access established Reviewed: Pt Seen/Exam by Ca History no new concerns Constitutional: denies: fever Respiratory: negative: short of breath Cardiovascular: denies chest pain General Appearance: no apparent distress Respiratory: lungs clear, no respiratory distress Cardiovascular: regular rate, rhythm Neurologic/Psychiatric: alert Skin Characteristics: warm/dry Assessment/Plan Resident Physician Supervision Note: I independently interviewed and examined the patient and verified the goel history and physical, reviewed labs and image studies, discussed the case with the resident Dr. Mayers and agree with the findings and care plan.
[2017-08-26] MEDS: DULOXETINE (CYMBALTA) 30 MG CAP PO SCH (11:02)
[2017-08-26] MEDS: CEROVITE ADV FORMULA TAB PO SCH (11:03)
[2017-08-26] MEDS: AMLODIPINE BESYLATE 5 MG TAB PO SCH (11:04)
[2017-08-26] MEDS: CALCIUM CARBONATE 1250MG TAB PO SCH ×2 (11:04→20:46)
[2017-08-26] MEDS: OMEGA-3 (PURIFIED FISH OIL) 1 GM CAP PO SCH (11:04)
[2017-08-26] MEDS: CHOLECALCIFEROL 1000 INTER.UNIT TAB PO SCH (11:05)
[2017-08-26] MEDS: PANTOprazole SOD 40 MG TAB PO SCH (11:05)
[2017-08-26] MEDS: LIDODERM (LIDOCAINE) PATCH 5% TD SCH (11:06)
[2017-08-26] MEDS: ASPIRIN 81 MG ECTAB PO SCH (11:06)
--- NOTE | 2017-08-26 11:22 | Progress Note ---
Progress Note Date of Service Aug 26, 2017. Progress Note ID Consult Dictated #[id number] A/P: 1.uti -continue cefepime, would add amox 500mg po tid -will need 7 days total -thank you
[2017-08-26] MEDS ORDERED: NURSING DECISION MEDICATION ORDER SCH (11:45)
[2017-08-26] MEDS: SODIUM CHLORIDE 0.9% 1000ML 1,000 ML IV SCH ×2 (11:54→13:20)
[2017-08-26] MEDS: FENTANYL PATCH REMOVE & WASTE SCH (11:59)
--- NOTE | 2017-08-26 12:35 | INFECT. DISEASE CONSULTATION ---
DATE OF CONSULTATION: 08/26/2017 HISTORY OF PRESENT ILLNESS: This is an 87-year-old female who was admitted from [facility] secondary to positive urine culture. A urine culture dated 08/19/2017 grew pseudomonas, which was intermediate to a quinolone antibiotics and Enterococcus faecalis. She was unable to obtain IV access and was brought initially to the hospital for a PICC line; however, a PICC line could not be placed and she was subsequently admitted for intravenous antibiotics and port placement which is pending. She was started on cefepime and she appears to be tolerating this well. She currently has a Gamino catheter in place but states normally she does not. She denies any urinary symptoms. She has been afebrile. She does not have leukocytosis. She denies any chest pain, cough, shortness of breath, nausea, vomiting or diarrhea. Her remaining review of systems is unremarkable. PAST MEDICAL HISTORY: Significant for chronic kidney disease, history of urinary retention, hypertension, depression, spinal stenosis, GERD and a recent stent placement on May for hydronephrosis. FAMILY HISTORY: Noncontributory. SOCIAL HISTORY: Negative for tobacco use, alcohol use or drug use. She currently is a resident at [facility]. ALLERGIES: She has no known drug allergies. CURRENT MEDICATIONS: Include subQ heparin, Norvasc, aspirin, vitamin D, Cymbalta, fish oil, lidocaine patch, multivitamin, Protonix, cefepime, fentanyl patch, Remeron, Senokot, Tylenol, Maalox, milk of magnesia, MiraLax, Zofran, Percocet, Atrovent and Imodium. PHYSICAL EXAMINATION: VITAL SIGNS: She is afebrile, pulse 66, respiratory rate 16, blood pressure 149/76, oxygen saturation is 95% on room air. GENERAL: She is awake, alert and oriented x3. She is in no acute distress. HEENT: Mucous membranes are moist. Extraocular muscles are intact. HEART: Regular. LUNGS: Clear bilaterally. ABDOMEN: Soft and nondistended. EXTREMTIES: There is no edema. SKIN: Without rash. LABORATORY STUDIES: CBC: White blood cell count 4.9, hemoglobin 9.2, platelets 211. Chemistry panel: Sodium 136, potassium 3.9, chloride 106, bicarbonate 27, BUN 14, creatinine 0.9, glucose 90. There is no micro from this admission; however, a urine culture from the 6th again grew Enterococcus faecalis and pseudomonas. There is no imaging to review. ASSESSMENT AND PLAN: Urinary tract infection. She can remain on cefepime. She will need 7 days of intravenous antibiotics, as there are no oral options to treat her pseudomonas. I would also add amoxicillin 500 three times a day to treat the enterococcus, as cefepime will not adequately treat this. Thank you for this consultation.
[2017-08-26] MEDS: FENTANYL 25 MCG/HR TDSY TD SCH (12:39)
[2017-08-26] MEDS: HYDROCODONE/ACETAMIN 5/325MG TAB PO PRN (12:40)
[2017-08-26] MEDS: CHECK FENTANYL PATCH PLACEMENT SCH ×3 (12:52→16:09)
[2017-08-26] MEDS ORDERED: AMOXICILLIN 500 MG CAP PO ONE (14:30)
[2017-08-26 14:55] VITALS: BP 119/70; PULSE 64; TEMP 37.2; O2SAT 93
--- NOTE | 2017-08-26 14:58 | Medical Consult ---
Consultation Date of Consultation: Aug 26, 2017. Attending Physician: Sirena Nelson M.D. History of Present Illness 87 y/o female [facility] resident with UTI brought in as outpatient to have PICC placed for IV antibiotics. 7 days IV cefepime recommended by ID for most recent culture with pseudomonas and Enterococcus faecalis. Had difficulty placing PICC, she was subsequently admitted for IV therapy and access. She had cysto and stent in May 2017 for right hydro/pyelonephritis. She has grown multiple organisms in the last few months including E. Coli, beto, Enterobacter in addition to those recently isolated. We were asked to see her for A-port. Apparently her daughter had discussed with Dr. Duran in the past. Past Medical/Surgical History Medical Problems: (1) Anemia Status: Acute (2) Bilateral leg pain Status: Acute (3) Bladder rupture Status: Acute (4) Bronchitis Status: Acute (5) CKD (chronic kidney disease) Status: Acute (6) Complicated UTI (urinary tract infection) Status: Acute (7) COPD exacerbation Status: Acute (8) Dehydration Status: Acute (9) Failure to thrive Status: Acute (10) Hematuria Status: Acute (11) Intractable pain Status: Acute (12) UTI (urinary tract infection) Status: Acute Family History Patient reports no known family medical history. Social History Smoking Status: Never Smoker Drug Use: none Marital Status: Housing Status: lives with family Occupation Status: retired Allergies Coded Allergies: No Known Allergies (Unverified , 08/25/17) Current Inpatient Medications Current Inpatient Medications Medications (Trade) Dose Ordered Sig/Tenisha Route Start Time Stop Time Status Last Admin Dose Admin Acetaminophen (Tylenol Tab) 650 mg Q4H PRN PO 08/25/17 19:15 09/24/17 19:14 Al Hydrox/Mg Hydrox/Simethicone (Maalox Max Susp) 15 ml Q4H PRN PO 08/25/17 19:15 09/24/17 19:14 Magnesium Hydroxide (Milk Of Magnesia Susp) 30 ml Q6H PRN PO 08/25/17 19:15 09/24/17 19:14 Polyethylene (Miralax Powder Packet) 17 gm DAILY PRN PO 08/25/17 19:15 09/24/17 19:14 Ondansetron HCl (Zofran Inj) 4 mg Q6H PRN IV 08/25/17 19:15 09/24/17 19:14 Heparin Sodium (Porcine) (Heparin Sq 5000 Unit/0.5ml) 5,000 unit Q12H SQ 08/26/17 09:00 09/25/17 08:59 Cefepime HCl 1000 mg/Syringe 11 ml @ 5.5 mls/min Q12H IV 08/26/17 06:00 09/05/17 05:59 08/26/17 05:59 5.5 MLS/MIN Amlodipine Besylate (Norvasc Tab) 7.5 mg DAILY PO 08/26/17 09:00 09/25/17 08:59 08/26/17 11:04 7.5 MG Aspirin (Ecotrin Tab) 81 mg DAILY PO 08/26/17 09:00 09/25/17 08:59 Calcium Carbonate (oS-Jhon 500 TAB) 1,250 mg BID PO 08/25/17 21:00 09/24/17 20:59 08/26/17 11:04 1,250 MG Cholecalciferol (Vitamin D Tab) 1,000 inter.unit QAM PO 08/26/17 09:00 09/25/17 08:59 08/26/17 11:05 1,000 INTER.UNIT Duloxetine HCl (Cymbalta Cap) 30 mg QAM PO 08/26/17 09:00 09/25/17 08:59 08/26/17 11:02 30 MG Fish Oil ([place]-3 (Purified Fish Oil) Cap) 1 gm DAILY PO 08/26/17 09:00 09/25/17 08:59 08/26/17 11:04 1 GM Acetaminophen/ Hydrocodone Bitart ([place] 5/325 Tab) 1 tab Q8 PRN PO 08/25/17 19:15 09/08/17 19:14 08/26/17 12:40 1 TAB Ipratropium [place] (Atrovent 0.02% 0.5MG/2.5ML Neb) 0.5 mg QID PRN INH 08/25/17 19:15 09/24/17 19:14 Lidocaine (Lidoderm Patch 5%) 1 patch DAILY TD 08/26/17 09:00 09/25/17 08:59 08/26/17 11:06 1 PATCH Loperamide HCl (Imodium Cap) 2 mg Q6 PRN PO 08/25/17 19:15 09/24/17 19:14 Mirtazapine (Remeron Tab) 15 mg QPM PO 08/25/17 21:00 09/24/17 20:59 Multivitamins/ Minerals (Multivitamin W/ Minerals Tab) 1 tab DAILY PO 08/26/17 09:00 09/25/17 08:59 08/26/17 11:03 1 TAB Pantoprazole Sodium (Protonix Tab) 40 mg QAM PO 08/26/17 09:00 09/25/17 08:59 08/26/17 11:05 40 MG Senna (Senokot Tab) 17.2 mg QPM PO 08/25/17 21:00 09/24/17 20:59 Miscellaneous (Remove Lidoderm Patch) 1 ea DAILY@21 N/A 08/25/17 21:00 09/24/17 20:59 08/25/17 21:21 1 EA Miscellaneous (Iv Fluids Completed) 1 ea PRN PRN N/A 08/25/17 19:30 08/25/18 19:29 Sodium Chloride 1,000 ml @ 75 mls/hr [id number] IV 08/26/17 00:00 09/25/17 00:00 08/26/17 11:54 75 MLS/HR Miscellaneous Information (Check Fentanyl Patch Placement) 1 ea QS N/A 08/26/17 00:00 09/25/17 00:00 08/26/17 12:52 1 EA Fentanyl (Duragesic Patch) 25 mcg Q72H TD 08/26/17 12:00 09/09/17 11:59 08/26/17 12:39 25 MCG Miscellaneous (Fentanyl Patch Remove & Waste) 1 ea Q72H N/A 08/26/17 11:59 09/25/17 11:58 Amoxicillin (Amoxil Cap) 500 mg TID PO 08/26/17 21:00 09/05/17 20:59 Physical Exam Date Time Temp Pulse Resp B/P (MAP) Pulse Ox O2 Delivery O2 Flow Rate FiO2 08/26/17 08:45 Room Air 08/26/17 07:58 37.1 66 16 149/76 (100) 95 Room Air 08/26/17 00:10 Room Air 4/12/18 22:49 36.7 75 16 133/74 (93) 93 Room Air 08/25/17 20:39 Room Air 08/25/17 20:26 36.6 96 18 158/80 (106) 93 Room Air 08/25/17 20:00 Room Air 08/25/17 19:40 78 20 112/84 94 Room Air 08/25/17 18:24 75 18 96 Room Air 08/25/17 17:23 73 20 113/68 95 Room Air 08/25/17 15:00 36.8 76 20 108/67 95 Room Air General Appearance: no apparent distress Neurologic/Psych: alert, normal mood/affect Skin: + pertinent finding (ecchymosis/hematomas bilat antecubital) Laboratory Results Last 24 Hours Test 08/25/17 17:23 08/25/17 17:31 08/25/17 17:35 08/26/17 06:09 White Blood Count 6.97 K/uL 4.93 K/uL Red Blood Count 3.75 M/uL 3.16 M/uL Hemoglobin 11.9 g/dL 9.2 g/dL Hematocrit 34.0 % 28.3 % Mean Corpuscular Volume 90.7 fL 89.6 fL Mean Corpuscular Hemoglobin 31.7 pg 29.1 pg Mean Corpuscular Hemoglobin Concent 35.0 g/dl 32.5 g/dl RDW Standard Deviation 49.8 fL 48.9 fL RDW Coefficient of Variation 14.9 % 14.8 % Platelet Count 157 K/uL 211 K/uL Mean Platelet Volume 9.3 fL 8.4 fL Bedside Lactic Acid Venous 0.81 mmol/L Bedside Hemoglobin 11.6 g/dl Bedside Hematocrit 34 % Bedside Sodium 134 mEq/L Bedside Potassium 4.9 mEq/L Bedside Chloride 98 mEq/L Bedside Total CO2 30 mEq/l Anion Gap 12.0 mmol/L 3.0 mmol/L Bedside Blood Urea Nitrogen 21 mg/dl Bedside Creatinine 1.1 mg/dl Bedside Glucose (other) 97 mg/dl Bedside Ionized Calcium ([place]) 1.21 mmol/l Prothrombin Time 10.8 SECONDS Prothromb Time International Ratio 1.0 Activated Partial Thromboplast Time 28.5 SECONDS Partial Thromboplastin Ratio 1.1 Sodium Level 136 mmol/L Potassium Level 3.9 mmol/L Chloride Level 106 mmol/L Carbon Dioxide Level 27 mmol/L Blood Urea Nitrogen 14 mg/dl Creatinine 0.96 mg/dl Est Creatinine Clear Calc Drug Dose 34.1 ml/min Estimated GFR () 61.6 Estimated GFR (Non- 53.2 BUN/Creatinine Ratio 14.8 Random Glucose 90 mg/dl Calcium Level 8.7 mg/dl Assessment & Plan chronic/recurrent UTI Would recommend treating with peripheral IV access. Would prefer not to place port until she has been treated at least for several days. Would still be at high risk for future port infection. Will discuss with her daughter, she did not answer my call this afternoon. Addendum: Discussed with her daughter Perla at bedside. Dr. Hancock will be following the weekend, could consider port placement on Tuesday.
[2017-08-26] MEDS: MIRTAZAPINE TAB 15 MG TAB PO SCH (20:46)
[2017-08-26] MEDS: SENNA 8.6 MG TAB PO SCH (20:46)
[2017-08-26] MEDS: AMOXICILLIN 500 MG CAP PO SCH (20:46)
[2017-08-26 22:40] VITALS: BP 158/78; PULSE 55; TEMP 36.5; O2SAT 97
[2017-08-27] MEDS: SODIUM CHLORIDE 0.9% 1000ML 1,000 ML IV SCH (00:19)
[2017-08-27] MEDS: CEFEPIME IV 1,000 MG in SYRINGE 0 ML IV SCH ×2 (06:43→21:20)
[2017-08-27 07:37] LABS: BASO % 0.8 %; BASO ABS # 0.04 K/uL (0-0.2); EOS % 4.5 %; EOS ABS # 0.23 K/uL (0-0.5); HEMATOCRIT 28.5 % (37-47); HEMOGLOBIN 9.5 g/dL (12.0-16.0); IG# 0.02 K/uL (0.00-0.02); LYMPH % 23.5 %; MEAN CELL VOLUME 89.6 fL (80-100); MEAN CORPUSCULAR HEMOGLOBIN 29.9 pg (25-34); MEAN CORPUSCULAR HGB CONC 33.3 g/dl (32-36); MONO ABS # 0.36 K/uL (0.11-0.59); NEUT % 63.8 %; NEUT ABS # 3.26 K/uL (1.4-6.5); PLATELET COUNT 197 K/uL (130-400); RED CELL DISTRIBUTION WIDTH CV 14.6 % (11.5-14.5); RED CELL DISTRIBUTION WIDTH SD 48.1 fL (36.4-46.3); WHITE BLOOD COUNT 5.11 K/uL (4.8-10.8)
[2017-08-27 08:03] LABS: CALCIUM 8.5 mg/dl (8.5-10.1); CREATININE 0.81 mg/dl (0.60-1.20)
[2017-08-27] MEDS: CHECK FENTANYL PATCH PLACEMENT SCH ×4 (08:08→23:58)
--- NOTE | 2017-08-27 08:28 | DIAGNOSTIC IMAGING REPORT ---
CHEST ONE VIEW PORTABLE CLINICAL HISTORY: Lung base crackles COMPARISON STUDY: 07/16/2017 FINDINGS: The heart is at the upper limits of normal in size. There is persistent aortic tortuosity/ectasia. Slight prominence of the basilar markings are likely atelectatic. There is no lobar consolidation. There is no overt failure. There is probable calcific tendinitis involving the right shoulder.[ IMPRESSION: Slight prominence of the basilar markings, likely atelectatic. No evidence of lobar consolidation. No evidence of failure. Electronically signed by: Shahbaz Le M.D. 08/27/2017 8:26 AM Dictated Date/Time: 08/27/2017 8:25 AM
[2017-08-27 08:54] VITALS: BP 145/73; PULSE 65; TEMP 36.8; O2SAT 96
[2017-08-27] MEDS: AMLODIPINE BESYLATE 5 MG TAB PO SCH (09:24)
[2017-08-27] MEDS: OMEGA-3 (PURIFIED FISH OIL) 1 GM CAP PO SCH (09:24)
[2017-08-27] MEDS: AMOXICILLIN 500 MG CAP PO SCH ×3 (09:25→21:21)
[2017-08-27] MEDS: ASPIRIN 81 MG ECTAB PO SCH (09:25)
[2017-08-27] MEDS: CALCIUM CARBONATE 1250MG TAB PO SCH ×2 (09:26→21:22)
[2017-08-27] MEDS: CHOLECALCIFEROL 1000 INTER.UNIT TAB PO SCH (09:26)
[2017-08-27] MEDS: DULOXETINE (CYMBALTA) 30 MG CAP PO SCH (09:26)
[2017-08-27] MEDS: CEROVITE ADV FORMULA TAB PO SCH (09:26)
[2017-08-27] MEDS: LIDODERM (LIDOCAINE) PATCH 5% TD SCH (09:27)
[2017-08-27] MEDS: PANTOprazole SOD 40 MG TAB PO SCH (09:27)
--- NOTE | 2017-08-27 09:27 | Urology Consultation ---
History General Date of Service: Aug 27, 2017. Primary Care Physician: Prabhakar Lugo MD Pt seen a urologist before?: Yes If yes, why?: Infections, hydronephrosis, urinary retention History of Present Illness 87-year-old female who follows with my partner Dr. Phoenix Holder as an outpatient Currently with an indwelling right ureteral stent History of recurrent urinary tract infections in addition to hydronephrosis Currently admitted after diagnosis of an enterococcus and Pseudomonas UTI - unfortunately, she has very poor IV access in an effort to place a PICC line was unsuccessful subsequently leading to admission for simultaneous treatment and consideration of port placement She additionally had an indwelling Gamino catheter placed upon arrival She describes her subjective condition as "poor" No fevers, no chills No severe abdominal pain Does complain about fatigue and general ill feeling Laboratory Labs were reviewed and are within normal limits unless listed below. Labs are available in the chart and at [facility] Problem List Medical Problems: (1) Anemia Status: Acute (2) Bilateral leg pain Status: Acute (3) Bladder rupture Status: Acute (4) Bronchitis Status: Acute (5) CKD (chronic kidney disease) Status: Acute (6) Complicated UTI (urinary tract infection) Status: Acute (7) COPD exacerbation Status: Acute (8) Dehydration Status: Acute (9) Failure to thrive Status: Acute (10) Hematuria Status: Acute (11) Intractable pain Status: Acute (12) UTI (urinary tract infection) Status: Acute Past History hypertension, renal disease, urinary tract infection, other Past Surgical History: hysterectomy, tonsillectomy, ureteral stent, other Family History Patient reports no known family medical history. Social History Hx Tobacco Use In Past Year?: No Smoking: non-smoker Alcohol: no current use Drug use: none Marital status: Housing status: lives with family Occupation status: retired Immunizations History of Influenza Vaccine: Yes History of Tetanus Vaccine?: Yes History of Pneumococcal: Yes History of Hepatitis B Vaccine: Yes History of MDRO No Allergies Coded Allergies: No Known Allergies (Unverified , 08/25/17) Medications Home Medications: Home Meds and Scripts Medications Dose Route/Sig Max Daily Dose Days Date Category Dose Instructions Prednisone 10 Mg Tab 10 Mg PO TAPER UD 08/25/17 Reported Os-Jhon 500 (Calcium Carbonate) 1,250 Mg Tab 500 Mg PO BID 08/25/17 Reported Lidocaine 5 % Pad 1 Patch TOP DAILY 08/25/17 Reported REMOVE IN PM Duragesic (Fentanyl) 25 Mcg/Hr Dis 25 Mcg TOP [id number] 08/25/17 Reported Aspirin Chewable (Aspirin) 81 Mg Chew 81 Mg PO DAILY 08/25/17 Reported Norvasc (Amlodipine Besylate) 5 Mg Tab 7.5 Mg PO DAILY 08/25/17 Reported Cefepime (Cefepime Hcl) 1 Gm Inj 1 Gm IM TODAY 08/25/17 Reported Ipratropium [place] 0.5 Mg/2.5 Ml Nebu 1 Vial NEB QID PRN 30 08/24/17 Reported [place] 5MG/325MG (Acetaminophen/Hydrocodone Bitart) Tab 1 Tablet PO Q8 PRN 08/24/17 Reported PRN PAIN Imodium (Loperamide Hcl) 2 Mg Cap 2 Mg PO Q6 PRN 7 07/13/17 Rx [place]-3 (Fish Oil) 1 Ea Cap 1 Cap PO DAILY 05/28/17 Reported Tylenol (Acetaminophen) 325 Mg Tab 325-650 Mg PO UD PRN 05/28/17 Reported Thera-M (Multiple Vitamins W/ Minerals) 1 Tab Tab 1 Tab PO DAILY 05/28/17 Reported @ 1200 Remeron (Mirtazapine) 15 Mg Tab 15 Mg PO QPM 05/28/17 Reported Senokot (Senna) 8.6 Mg Tab 17.2 Mg PO QPM 5 05/28/17 Reported TWO 8.6 MG TABLETS Cymbalta (Duloxetine HCl) 30 Mg Cap 30 Mg PO QD 05/28/17 Reported @ 1200 Protonix (Pantoprazole Sodium) 40 Mg Tab 40 Mg PO QAM 05/28/17 Reported Vitamin D (Cholecalciferol) 1,000 Unit Tab 1,000 Units PO QAM 05/28/17 Reported Inpatient Medications: Current Inpatient Medications Medications (Trade) Dose Ordered Sig/Tenisha Route Start Time Stop Time Status Last Admin Dose Admin Acetaminophen (Tylenol Tab) 650 mg Q4H PRN PO 08/25/17 19:15 09/24/17 19:14 Al Hydrox/Mg Hydrox/Simethicone (Maalox Max Susp) 15 ml Q4H PRN PO 08/25/17 19:15 09/24/17 19:14 Magnesium Hydroxide (Milk Of Magnesia Susp) 30 ml Q6H PRN PO 08/25/17 19:15 09/24/17 19:14 Polyethylene (Miralax Powder Packet) 17 gm DAILY PRN PO 08/25/17 19:15 09/24/17 19:14 Ondansetron HCl (Zofran Inj) 4 mg Q6H PRN IV 08/25/17 19:15 09/24/17 19:14 Heparin Sodium (Porcine) (Heparin Sq 5000 Unit/0.5ml) 5,000 unit Q12H SQ 08/26/17 09:00 09/25/17 08:59 08/26/17 20:53 5,000 UNIT Cefepime HCl 1000 mg/Syringe 11 ml @ 5.5 mls/min Q12H IV 08/26/17 06:00 09/05/17 05:59 08/27/17 06:43 5.5 MLS/MIN Amlodipine Besylate (Norvasc Tab) 7.5 mg DAILY PO 08/26/17 09:00 09/25/17 08:59 08/26/17 11:04 7.5 MG Aspirin (Ecotrin Tab) 81 mg DAILY PO 08/26/17 09:00 09/25/17 08:59 Calcium Carbonate (oS-Jhon 500 TAB) 1,250 mg BID PO 08/25/17 21:00 09/24/17 20:59 08/26/17 20:46 1,250 MG Cholecalciferol (Vitamin D Tab) 1,000 inter.unit QAM PO 08/26/17 09:00 09/25/17 08:59 08/26/17 11:05 1,000 INTER.UNIT Duloxetine HCl (Cymbalta Cap) 30 mg QAM PO 08/26/17 09:00 09/25/17 08:59 08/26/17 11:02 30 MG Fish Oil ([place]-3 (Purified Fish Oil) Cap) 1 gm DAILY PO 08/26/17 09:00 09/25/17 08:59 08/26/17 11:04 1 GM Acetaminophen/ Hydrocodone Bitart ([place] 5/325 Tab) 1 tab Q8 PRN PO 08/25/17 19:15 09/08/17 19:14 08/26/17 12:40 1 TAB Ipratropium [place] (Atrovent 0.02% 0.5MG/2.5ML Neb) 0.5 mg QID PRN INH 08/25/17 19:15 09/24/17 19:14 Lidocaine (Lidoderm Patch 5%) 1 patch DAILY TD 08/26/17 09:00 09/25/17 08:59 08/26/17 11:06 1 PATCH Loperamide HCl (Imodium Cap) 2 mg Q6 PRN PO 08/25/17 19:15 09/24/17 19:14 Mirtazapine (Remeron Tab) 15 mg QPM PO 08/25/17 21:00 09/24/17 20:59 08/26/17 20:46 15 MG Multivitamins/ Minerals (Multivitamin W/ Minerals Tab) 1 tab DAILY PO 08/26/17 09:00 09/25/17 08:59 08/26/17 11:03 1 TAB Pantoprazole Sodium (Protonix Tab) 40 mg QAM PO 08/26/17 09:00 09/25/17 08:59 08/26/17 11:05 40 MG Senna (Senokot Tab) 17.2 mg QPM PO 08/25/17 21:00 09/24/17 20:59 08/26/17 20:46 17.2 MG Miscellaneous (Remove Lidoderm Patch) 1 ea DAILY@21 N/A 08/25/17 21:00 09/24/17 20:59 08/26/17 20:54 1 EA Miscellaneous (Iv Fluids Completed) 1 ea PRN PRN N/A 08/25/17 19:30 08/25/18 19:29 Sodium Chloride 1,000 ml @ 75 mls/hr [id number] IV 08/26/17 00:00 09/25/17 00:00 Future Hold 08/27/17 00:19 75 MLS/HR Miscellaneous Information (Check Fentanyl Patch Placement) 1 ea QS N/A 08/26/17 00:00 09/25/17 00:00 08/27/17 08:08 1 EA Fentanyl (Duragesic Patch) 25 mcg Q72H TD 08/26/17 12:00 09/09/17 11:59 08/26/17 12:39 25 MCG Miscellaneous (Fentanyl Patch Remove & Waste) 1 ea Q72H N/A 08/26/17 11:59 5/13/18 11:58 Amoxicillin (Amoxil Cap) 500 mg TID PO 08/26/17 21:00 09/05/17 20:59 08/26/17 20:46 500 MG Review of Systems Review of Systems Constitutional: No see HPI, No fever, No chills, No frequent headaches, No weight loss, No problem reported Eyes: No see HPI, No blurred vision, No double vision, No eye pain, No loss of night vision, No problem reported Neurological: No see HPI, No dizzy, No passing out, No numbness/tingling, No seizures, No problem reported Endocrine: No see HPI, No excessive thirst, No too hot, No too cold, No tired/ sluggish, No problem reported Gastrointestinal: No abdominal pain, No nausea Cardiovascular: No see HPI, No heart murmur, No chest pain, No angina, No irregular heartbeat, No palpitations, No swelling ankles/feet, No problem reported Respiratory: No see HPI, No shortness of breath, No wheezing, No coughing up blood, No chronic cough, No problem reported Musculoskeletal: No see HPI, No joint pain, No neck pain, No back pain, No arthritis, No problem reported Blood / Lymphatic: No see HPI, No bleed easily, No bruise easily, No swollen glands, No problem reported Ears / Nose / Throat: No see HPI, No hearing loss, No sinus, No hoarse voice, No sore throat, No problem reported Psychologic / Mental: No see HPI, No nervous, No trouble remembering, No difficulty sleeping, No problem reported Female : + urinary retention, + infections, + problem reported All Other Systems: Reviewed and Negative Physical Exam Vital Signs: Vital Signs Past 12 Hours Date Time Temp Pulse Resp B/P (MAP) Pulse Ox O2 Delivery O2 Flow Rate FiO2 08/27/17 08:54 36.8 65 18 145/73 (97) 96 Room Air 08/27/17 00:00 Room Air 08/26/17 22:40 36.5 55 16 158/78 (104) 97 Room Air Physical Exam: General Appearance: no apparent distress (Weak appearing) ENT: normal ENT inspection, hearing grossly normal Neck: no adenopathy Respiratory/Chest: no respiratory distress, no accessory muscle use Cardiovascular: no edema Gastrointestinal: Abdomen: normal abdomen (Soft, nontender, no CVA tenderness) Extremities: non-tender Neurologic/Psychiatric: alert, oriented x 3 Skin: warm/dry Lymphatic: no adenopathy Assessment & Plan Assessment & Plan Hydronephrosis; urinary tract infection; retention While she has numerous chronic medical and urological issues, I am not certain there is any acute intervention indicated from our standpoint For the time being, antibiotic treatment is the primary concern As an outpatient, following clearance of the infection, we will consider stent management and catheter management options
--- NOTE | 2017-08-27 09:29 | Surgery Progress Note ---
Surgery Progress Note Date of Service Aug 27, 2017. Objective Vital Signs: Date Time Temp Pulse Resp B/P (MAP) Pulse Ox O2 Delivery O2 Flow Rate FiO2 08/27/17 08:54 36.8 65 18 145/73 (97) 96 Room Air 08/27/17 00:00 Room Air 08/26/17 22:40 36.5 55 16 158/78 (104) 97 Room Air 08/26/17 19:30 Room Air 08/26/17 14:55 37.2 64 18 119/70 (86) 93 Room Air Laboratory Results: Results Past 24 Hours Test 08/27/17 07:26 Range/Units White Blood Count 5.11 4.8-10.8 K/uL Red Blood Count 3.18 4.2-5.4 M/uL Hemoglobin 9.5 12.0-16.0 g/dL Hematocrit 28.5 37-47 % Mean Corpuscular Volume 89.6 80-100 fL Mean Corpuscular Hemoglobin 29.9 25-34 pg Mean Corpuscular Hemoglobin Concent 33.3 32-36 g/dl Platelet Count 197 130-400 K/uL Mean Platelet Volume 8.0 7.4-10.4 fL Neutrophils (%) (Auto) 63.8 % Lymphocytes (%) (Auto) 23.5 % Monocytes (%) (Auto) 7.0 % Eosinophils (%) (Auto) 4.5 % Basophils (%) (Auto) 0.8 % Neutrophils # (Auto) 3.26 1.4-6.5 K/uL Lymphocytes # (Auto) 1.20 1.2-3.4 K/uL Monocytes # (Auto) 0.36 0.11-0.59 K/uL Eosinophils # (Auto) 0.23 0-0.5 K/uL Basophils # (Auto) 0.04 0-0.2 K/uL RDW Standard Deviation 48.1 36.4-46.3 fL RDW Coefficient of Variation 14.6 11.5-14.5 % Immature Granulocyte % (Auto) 0.4 % Immature Granulocyte # (Auto) 0.02 0.00-0.02 K/uL Sodium Level 138 136-145 mmol/L Potassium Level 4.0 3.5-5.1 mmol/L Chloride Level 107 98-107 mmol/L Carbon Dioxide Level 26 21-32 mmol/L Anion Gap 5.0 3-11 mmol/L Blood Urea Nitrogen 11 7-18 mg/dl Creatinine 0.81 0.60-1.20 mg/dl Est Creatinine Clear Calc Drug Dose 40.5 ml/min Estimated GFR () 75.7 Estimated GFR (Non- 65.3 BUN/Creatinine Ratio 13.8 10-20 Random Glucose 88 70-99 mg/dl Calcium Level 8.5 8.5-10.1 mg/dl Assessment & Plan 08/27/17 Chronic/Recurrent UTI Patient seen and examined with Dr. Hancock. Reviewed AM labs. At this time, would not recommend port placement due to high risk of future port infection. Dr. Hancock discussed with patient at bedside. 08/26/17 chronic/recurrent UTI Would recommend treating with peripheral IV access. Would prefer not to place port until she has been treated at least for several days. Would still be at high risk for future port infection. Will discuss with her daughter, she did not answer my call this afternoon.
[2017-08-27] MEDS: HEPARIN SOD 5000 UNIT/0.5 ML CARP SQ SCH ×2 (09:34→21:19)
--- NOTE | 2017-08-27 11:56 | Family Medicine Progress Note ---
Progress Note Date of Service Aug 27, 2017. Subjective Pt evaluation today including: conversation w/ patient, physical exam, chart review, lab review, review of studies, conversation w/ mergers and acquisitions consultant, review of inpatient medication list Pain: 0/10 PO Intake: WNL Voiding: reaves catheter in place Patient states that she is feeling poorly this am, denies any pain or cough or SOB, " almost like a cold" Constitutional: No fever Eyes: No worsening of vision ENT: No hearing loss Respiratory: No cough, No sputum, No wheezing, No shortness of breath, No dyspnea on exertion Cardiovascular: No chest pain Abdomen: No pain, No nausea, No vomiting Musculoskeletal: No joint pain, No muscle pain, No swelling, No calf pain Female : + problem reported (reaves in place) Psychiatric: No depression symptoms, No anxiety Heme: No abnormal bleeding/bruising Endo: + fatigue Skin: No rash Medications Medications Administered Medications (Trade) Dose Ordered Sig/Tenisha Route Start Time Stop Time Status Last Admin Dose Admin Sodium Chloride 500 ml @ 75 mls/hr Q6H40M STAT IV 08/25/17 17:25 08/26/17 19:24 DC 08/25/17 17:31 75 MLS/HR Cefepime HCl 1000 mg/Dextrose 111 ml @ 200 mls/hr NOW STAT IV 08/25/17 18:02 08/25/17 18:35 DC 08/25/17 18:47 200 MLS/HR Heparin Sodium (Porcine) (Heparin Sq 5000 Unit/0.5ml) 5,000 unit Q12H SQ 08/26/17 09:00 09/25/17 08:59 08/27/17 09:34 5,000 UNIT Cefepime HCl 1000 mg/Syringe 11 ml @ 5.5 mls/min Q12H IV 08/26/17 06:00 09/05/17 05:59 08/27/17 06:43 5.5 MLS/MIN Amlodipine Besylate (Norvasc Tab) 7.5 mg DAILY PO 08/26/17 09:00 09/25/17 08:59 08/27/17 09:24 7.5 MG Aspirin (Ecotrin Tab) 81 mg DAILY PO 08/26/17 09:00 09/25/17 08:59 08/27/17 09:25 81 MG Calcium Carbonate (oS-Jhon 500 TAB) 1,250 mg BID PO 08/25/17 21:00 09/24/17 20:59 08/27/17 09:26 1,250 MG Cholecalciferol (Vitamin D Tab) 1,000 inter.unit QAM PO 08/26/17 09:00 09/25/17 08:59 08/27/17 09:26 1,000 INTER.UNIT Duloxetine HCl (Cymbalta Cap) 30 mg QAM PO 08/26/17 09:00 09/25/17 08:59 08/27/17 09:26 30 MG Fish Oil ([place]-3 (Purified Fish Oil) Cap) 1 gm DAILY PO 08/26/17 09:00 09/25/17 08:59 08/27/17 09:24 1 GM Acetaminophen/ Hydrocodone Bitart ([place] 5/325 Tab) 1 tab Q8 PRN PO 08/25/17 19:15 09/08/17 19:14 08/26/17 12:40 1 TAB Lidocaine (Lidoderm Patch 5%) 1 patch DAILY TD 08/26/17 09:00 09/25/17 08:59 08/27/17 09:27 1 PATCH Mirtazapine (Remeron Tab) 15 mg QPM PO 08/25/17 21:00 09/24/17 20:59 08/26/17 20:46 15 MG Multivitamins/ Minerals (Multivitamin W/ Minerals Tab) 1 tab DAILY PO 08/26/17 09:00 09/25/17 08:59 08/27/17 09:26 1 TAB Pantoprazole Sodium (Protonix Tab) 40 mg QAM PO 08/26/17 09:00 09/25/17 08:59 08/27/17 09:27 40 MG Senna (Senokot Tab) 17.2 mg QPM PO 08/25/17 21:00 09/24/17 20:59 08/26/17 20:46 17.2 MG Miscellaneous (Remove Lidoderm Patch) 1 ea DAILY@21 N/A 08/25/17 21:00 09/24/17 20:59 08/26/17 20:54 1 EA Sodium Chloride 1,000 ml @ 75 mls/hr [id number] IV 08/26/17 00:00 09/25/17 00:00 Future Hold 08/27/17 00:19 75 MLS/HR Miscellaneous (Fentanyl Patch Remove & Waste) 1 ea Q72H N/A 08/25/17 20:59 08/26/17 11:39 DC 08/25/17 21:49 1 EA Miscellaneous Information (Check Fentanyl Patch Placement) 1 ea QS N/A 08/26/17 00:00 09/25/17 00:00 08/27/17 08:08 1 EA Fentanyl (Duragesic Patch) 25 mcg Q72H TD 08/26/17 12:00 09/09/17 11:59 08/26/17 12:39 25 MCG Amoxicillin (Amoxil Cap) 500 mg TID PO 08/26/17 21:00 09/05/17 20:59 08/27/17 09:25 500 MG Amoxicillin (Amoxil Cap) 500 mg 1430 ONCE PO 08/26/17 14:30 08/26/17 14:31 DC 08/26/17 16:11 500 MG Objective Vital Signs Date Time Temp Pulse Resp B/P (MAP) Pulse Ox O2 Delivery O2 Flow Rate FiO2 08/27/17 08:54 36.8 65 18 145/73 (97) 96 Room Air 08/27/17 08:00 Room Air 08/27/17 00:00 Room Air 08/26/17 22:40 36.5 55 16 158/78 (104) 97 Room Air 08/26/17 19:30 Room Air 08/26/17 14:55 37.2 64 18 119/70 (86) 93 Room Air Physical Exam General Appearance: no apparent distress Eyes: normal inspection ENT: normal ENT inspection Neck: supple, no JVD Respiratory/Chest: no respiratory distress, no accessory muscle use, + crackles (bilat bases) Cardiovascular: regular rate, rhythm, + systolic murmur (3/6) Abdomen: normal bowel sounds, non tender, soft Extremities: non-tender, normal inspection, no pedal edema, no calf tenderness Neurologic/Psychiatric: alert, normal mood/affect, oriented x 3 Skin: normal color, warm/dry, no rash Lymphatic: no adenopathy Laboratory Results Results Past 24 Hours Test 08/27/17 07:26 Range/Units White Blood Count 5.11 4.8-10.8 K/uL Red Blood Count 3.18 4.2-5.4 M/uL Hemoglobin 9.5 12.0-16.0 g/dL Hematocrit 28.5 37-47 % Mean Corpuscular Volume 89.6 80-100 fL Mean Corpuscular Hemoglobin 29.9 25-34 pg Mean Corpuscular Hemoglobin Concent 33.3 32-36 g/dl Platelet Count 197 130-400 K/uL Mean Platelet Volume 8.0 7.4-10.4 fL Neutrophils (%) (Auto) 63.8 % Lymphocytes (%) (Auto) 23.5 % Monocytes (%) (Auto) 7.0 % Eosinophils (%) (Auto) 4.5 % Basophils (%) (Auto) 0.8 % Neutrophils # (Auto) 3.26 1.4-6.5 K/uL Lymphocytes # (Auto) 1.20 1.2-3.4 K/uL Monocytes # (Auto) 0.36 0.11-0.59 K/uL Eosinophils # (Auto) 0.23 0-0.5 K/uL Basophils # (Auto) 0.04 0-0.2 K/uL RDW Standard Deviation 48.1 36.4-46.3 fL RDW Coefficient of Variation 14.6 11.5-14.5 % Immature Granulocyte % (Auto) 0.4 % Immature Granulocyte # (Auto) 0.02 0.00-0.02 K/uL Sodium Level 138 136-145 mmol/L Potassium Level 4.0 3.5-5.1 mmol/L Chloride Level 107 98-107 mmol/L Carbon Dioxide Level 26 21-32 mmol/L Anion Gap 5.0 3-11 mmol/L Blood Urea Nitrogen 11 7-18 mg/dl Creatinine 0.81 0.60-1.20 mg/dl Est Creatinine Clear Calc Drug Dose 40.5 ml/min Estimated GFR () 75.7 Estimated GFR (Non- 65.3 BUN/Creatinine Ratio 13.8 10-20 Random Glucose 88 70-99 mg/dl Calcium Level 8.5 8.5-10.1 mg/dl Assessment and Plan 87 yo female with chronic urinary retention and Reaves who presented to the ED as unable to get IV line for cefepime for recurrent UTI. 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 Holder - Reaves placed on 08/25, patient does not have a reaves at [facility] - per recommendations of ID, Cefepime to be continued day 07/20 and the addition of Amoxil day 06/22 - Unable to get PICC in ER. Surgery consult for possible port placement to avoid recurrent need of IV access however as the patient currently being treated for infection and the recurrent nature of the UTI following stent placement surgery does not feel a port placement would benefit the patient - Urology consult - no acute intervention at this time however following treatment will have outpatient follow up - To consider palliative care consult as discussed by urology in outpatient setting however will discuss this further not only with daughter and patient but with PCP and urology as well prior to ordering a consultation to assure all parties involved are agreeable to moving forward with this type of care. From Dr Holder note Jul 2017: "We had a long discussion over 20 minutes with the patient's daughter regarding end of life. The patient is seeing a person who specializes in [facility] elderly care and has already begun this discussion. At this time it may be that the patient will so some improvement if we do urine culture and have her start CIC. However I did explain that having the catheter communicate with the renal pelvis now is going to make her more susceptible to pyelonephritis. We did discuss percutaneous nephrostomy and she does not want this. I do not think it is safe to just take the stent out. Also discussed whether it would make sense to do a TUR biopsy to see if there is any thing invasive in the area of the ureter. If the patient does have bladder cancer it is not clear that she would survive a cystectomy. It also not clear that she was even want a cystectomy. I did discuss hospice with the patient daughter. " HTN - continue amlodipine Depression: continue Cymbalta and Remeron CKD stage 3 - at baseline GERD: Continue Protonix VTE prophylaxis - heparin 5000 units Q12H Code - DNR Disposition - continue med/surg due to need for IV antibiotics. PT/OT. Plan for [facility] to [facility] vs home based on clinical course and goals of care Continued [facility] stay due to: multiple IV medications needed, other Discharge planning: jail facility Reviewed: Pt Seen/Exam by Me History comfortable in bed. denies any complains Constitutional: denies: fever Respiratory: negative: short of breath Cardiovascular: denies chest pain Musculoskeletal: negative: back pain General Appearance: no apparent distress Respiratory: lungs clear, no respiratory distress Cardiovascular: regular rate, rhythm Gastrointestinal: soft Neurologic/Psychiatric: alert, oriented x 3 Skin Characteristics: warm/dry Assessment/Plan Resident Physician Supervision Note: I independently interviewed and examined the patient and verified the goel history and physical, reviewed labs and image studies, discussed the case with the resident Dr. Craig and agree with the findings and care plan.
[2017-08-27] MEDS: HYDROCODONE/ACETAMIN 5/325MG TAB PO PRN (14:09)
[2017-08-27 15:28] VITALS: BP 120/69; PULSE 77; TEMP 37.3; O2SAT 92
[2017-08-27] MEDS ORDERED: HALOPERIDOL LACTATE 5 MG/ML 1 ML VIAL IV ONE (18:30)
[2017-08-27] MEDS ORDERED: NURSING VERBAL MED ORDER ONE (18:30)
[2017-08-27] MEDS ORDERED: HALOPERIDOL LACTATE 5 MG/ML 1 ML VIAL IM ONE (18:45)
[2017-08-27] MEDS: SENNA 8.6 MG TAB PO SCH (21:21)
[2017-08-27] MEDS: MIRTAZAPINE TAB 15 MG TAB PO SCH (21:22)
[2017-08-28 00:40] VITALS: BP 133/72; PULSE 73; TEMP 37.1; O2SAT 94
[2017-08-28] MEDS: CEFEPIME IV 1,000 MG in SYRINGE 0 ML IV SCH ×2 (04:43→18:36)
[2017-08-28 06:08] LABS: BASO % 0.5 %; BASO ABS # 0.03 K/uL (0-0.2); EOS ABS # 0.18 K/uL (0-0.5); HEMATOCRIT 28.6 % (37-47); HEMOGLOBIN 9.8 g/dL (12.0-16.0); IG# 0.01 K/uL (0.00-0.02); LYMPH % 21.8 %; LYMPH ABS # 1.31 K/uL (1.2-3.4); MEAN CELL VOLUME 88.3 fL (80-100); MEAN CORPUSCULAR HEMOGLOBIN 30.2 pg (25-34); MEAN CORPUSCULAR HGB CONC 34.3 g/dl (32-36); MEAN PLATELET VOLUME 8.2 fL (7.4-10.4); MONO % 6.6 %; NEUT % 67.9 %; NEUT ABS # 4.09 K/uL (1.4-6.5); PLATELET COUNT 210 K/uL (130-400); RED CELL DISTRIBUTION WIDTH CV 14.6 % (11.5-14.5); RED CELL DISTRIBUTION WIDTH SD 47.5 fL (36.4-46.3); WHITE BLOOD COUNT 6.02 K/uL (4.8-10.8)
[2017-08-28 06:38] LABS: CALCIUM 8.5 mg/dl (8.5-10.1); CREATININE 0.82 mg/dl (0.60-1.20); POTASSIUM 3.6 mmol/L (3.5-5.1)
[2017-08-28 07:07] VITALS: BP 137/73; PULSE 59; TEMP 36.7; O2SAT 95
[2017-08-28] MEDS: CHECK FENTANYL PATCH PLACEMENT SCH ×3 (08:24→23:20)
[2017-08-28] MEDS: HEPARIN SOD 5000 UNIT/0.5 ML CARP SQ SCH (08:40)
[2017-08-28] MEDS: OMEGA-3 (PURIFIED FISH OIL) 1 GM CAP PO SCH (08:41)
[2017-08-28] MEDS: DULOXETINE (CYMBALTA) 30 MG CAP PO SCH (08:42)
[2017-08-28] MEDS: AMOXICILLIN 500 MG CAP PO SCH ×3 (08:42→21:11)
[2017-08-28] MEDS: CEROVITE ADV FORMULA TAB PO SCH (08:42)
[2017-08-28] MEDS: CHOLECALCIFEROL 1000 INTER.UNIT TAB PO SCH (08:42)
[2017-08-28] MEDS: PANTOprazole SOD 40 MG TAB PO SCH (08:42)
[2017-08-28] MEDS: CALCIUM CARBONATE 1250MG TAB PO SCH ×2 (08:42→21:11)
[2017-08-28] MEDS: ASPIRIN 81 MG ECTAB PO SCH (08:42)
[2017-08-28] MEDS: AMLODIPINE BESYLATE 5 MG TAB PO SCH (09:00)
[2017-08-28] MEDS: LIDODERM (LIDOCAINE) PATCH 5% TD SCH (09:00)
--- NOTE | 2017-08-28 09:41 | Progress Note ---
Subjective Date of Service: Aug 28, 2017. Subjective Pt evaluation today including: conversation w/ patient, physical exam, chart review, lab review Voiding: reaves catheter in place No change overnight Denies pain Complains of a generalized ill feeling and fatigue Urine clear Problem List Medical Problems: (1) Anemia Status: Acute (2) Bilateral leg pain Status: Acute (3) Bladder rupture Status: Acute (4) Bronchitis Status: Acute (5) CKD (chronic kidney disease) Status: Acute (6) Complicated UTI (urinary tract infection) Status: Acute (7) COPD exacerbation Status: Acute (8) Dehydration Status: Acute (9) Failure to thrive Status: Acute (10) Hematuria Status: Acute (11) Intractable pain Status: Acute (12) UTI (urinary tract infection) Status: Acute Review of Systems Constitutional: + fatigue, No fever Abdomen: No pain, No nausea Objective Vital Signs Date Time Temp Pulse Resp B/P (MAP) Pulse Ox O2 Delivery O2 Flow Rate FiO2 08/28/17 07:07 36.7 59 16 137/73 (94) 95 Room Air 08/28/17 00:40 37.1 73 18 133/72 (92) 94 Room Air 08/28/17 00:00 Room Air 08/27/17 15:28 37.3 77 16 120/69 (86) 92 Room Air 08/27/17 15:18 Room Air Physical Exam General Appearance: no apparent distress Eyes: normal inspection ENT: hearing grossly normal Neck: no adenopathy Cardiovascular: no edema Abdomen: non tender, soft Neurologic/Psychiatric: alert, normal mood/affect, oriented x 3 Skin: warm/dry Lymphatic: no adenopathy Laboratory Results Last 24 Hours Test 08/28/17 05:55 White Blood Count 6.02 K/uL Red Blood Count 3.24 M/uL Hemoglobin 9.8 g/dL Hematocrit 28.6 % Mean Corpuscular Volume 88.3 fL Mean Corpuscular Hemoglobin 30.2 pg Mean Corpuscular Hemoglobin Concent 34.3 g/dl Platelet Count 210 K/uL Mean Platelet Volume 8.2 fL Neutrophils (%) (Auto) 67.9 % Lymphocytes (%) (Auto) 21.8 % Monocytes (%) (Auto) 6.6 % Eosinophils (%) (Auto) 3.0 % Basophils (%) (Auto) 0.5 % Neutrophils # (Auto) 4.09 K/uL Lymphocytes # (Auto) 1.31 K/uL Monocytes # (Auto) 0.40 K/uL Eosinophils # (Auto) 0.18 K/uL Basophils # (Auto) 0.03 K/uL RDW Standard Deviation 47.5 fL RDW Coefficient of Variation 14.6 % Immature Granulocyte % (Auto) 0.2 % Immature Granulocyte # (Auto) 0.01 K/uL Sodium Level 138 mmol/L Potassium Level 3.6 mmol/L Chloride Level 105 mmol/L Carbon Dioxide Level 26 mmol/L Anion Gap 7.0 mmol/L Blood Urea Nitrogen 11 mg/dl Creatinine 0.82 mg/dl Est Creatinine Clear Calc Drug Dose 40.0 ml/min Estimated GFR () 74.6 Estimated GFR (Non- 64.3 BUN/Creatinine Ratio 13.1 Random Glucose 85 mg/dl Calcium Level 8.5 mg/dl Assessment and Plan Urinary tract infection; hydronephrosis; urinary retention Continue antibiotics Leave Reaves catheter and stent in place for now, no role for intervention from a surgical standpoint at this point Continued [facility] stay due to: multiple IV medications needed, other Discharge planning: senior living facility
--- NOTE | 2017-08-28 12:07 | Family Medicine Progress Note ---
Progress Note Date of Service Aug 28, 2017. Subjective Pt evaluation today including: conversation w/ patient, conversation w/ family , physical exam, chart review, lab review, review of studies, conversation w/ [employer] consultant, review of inpatient medication list Pain: 0/10 PO Intake: poor Voiding: reaves catheter in place Feeling poorly this morning and daughter notes a poor appetite Oriented only to self this morning Constitutional: No fever Eyes: No worsening of vision ENT: No hearing loss Respiratory: No cough, No sputum, No wheezing, No shortness of breath, No dyspnea on exertion Cardiovascular: No chest pain Abdomen: No pain, No nausea, No vomiting, No diarrhea, No constipation, No GI bleeding Musculoskeletal: No joint pain, No muscle pain Female : + problem reported (reaves in place) Neurologic: + weakness, No balance problems Psychiatric: + depression symptoms Heme: No abnormal bleeding/bruising Endo: + fatigue Skin: No rash Medications Medications Administered Medications (Trade) Dose Ordered Sig/Tenisha Route Start Time Stop Time Status Last Admin Dose Admin Sodium Chloride 500 ml @ 75 mls/hr Q6H40M STAT IV 08/25/17 17:25 08/26/17 19:24 DC 08/25/17 17:31 75 MLS/HR Cefepime HCl 1000 mg/Dextrose 111 ml @ 200 mls/hr NOW STAT IV 08/25/17 18:02 08/25/17 18:35 DC 08/25/17 18:47 200 MLS/HR Heparin Sodium (Porcine) (Heparin Sq 5000 Unit/0.5ml) 5,000 unit Q12H SQ 08/26/17 09:00 09/25/17 08:59 08/28/17 08:40 5,000 UNIT Cefepime HCl 1000 mg/Syringe 11 ml @ 5.5 mls/min Q12H IV 08/26/17 06:00 09/05/17 05:59 08/28/17 04:43 5.5 MLS/MIN Amlodipine Besylate (Norvasc Tab) 7.5 mg DAILY PO 08/26/17 09:00 09/25/17 08:59 08/27/17 09:24 7.5 MG Aspirin (Ecotrin Tab) 81 mg DAILY PO 08/26/17 09:00 09/25/17 08:59 08/28/17 08:42 81 MG Calcium Carbonate (oS-Jhon 500 TAB) 1,250 mg BID PO 08/25/17 21:00 09/24/17 20:59 08/28/17 08:42 1,250 MG Cholecalciferol (Vitamin D Tab) 1,000 inter.unit QAM PO 08/26/17 09:00 09/25/17 08:59 08/28/17 08:42 1,000 INTER.UNIT Duloxetine HCl (Cymbalta Cap) 30 mg QAM PO 08/26/17 09:00 09/25/17 08:59 08/28/17 08:42 30 MG Fish Oil ([place]-3 (Purified Fish Oil) Cap) 1 gm DAILY PO 08/26/17 09:00 09/25/17 08:59 08/28/17 08:41 1 GM Acetaminophen/ Hydrocodone Bitart ([place] 5/325 Tab) 1 tab Q8 PRN PO 08/25/17 19:15 09/08/17 19:14 08/27/17 14:09 1 TAB Lidocaine (Lidoderm Patch 5%) 1 patch DAILY TD 08/26/17 09:00 09/25/17 08:59 08/27/17 09:27 1 PATCH Mirtazapine (Remeron Tab) 15 mg QPM PO 08/25/17 21:00 09/24/17 20:59 08/27/17 21:22 15 MG Multivitamins/ Minerals (Multivitamin W/ Minerals Tab) 1 tab DAILY PO 08/26/17 09:00 09/25/17 08:59 08/28/17 08:42 1 TAB Pantoprazole Sodium (Protonix Tab) 40 mg QAM PO 08/26/17 09:00 09/25/17 08:59 08/28/17 08:42 40 MG Senna (Senokot Tab) 17.2 mg QPM PO 08/25/17 21:00 09/24/17 20:59 08/27/17 21:21 17.2 MG Miscellaneous (Remove Lidoderm Patch) 1 ea DAILY@21 N/A 08/25/17 21:00 09/24/17 20:59 08/27/17 21:24 1 EA Sodium Chloride 1,000 ml @ 75 mls/hr [id number] IV 08/26/17 00:00 09/25/17 00:00 Future Hold 08/27/17 00:19 75 MLS/HR Miscellaneous (Fentanyl Patch Remove & Waste) 1 ea Q72H N/A 08/25/17 20:59 08/26/17 11:39 DC 08/25/17 21:49 1 EA Miscellaneous Information (Check Fentanyl Patch Placement) 1 ea QS N/A 08/26/17 00:00 09/25/17 00:00 08/28/17 08:24 1 EA Fentanyl (Duragesic Patch) 25 mcg Q72H TD 08/26/17 12:00 09/09/17 11:59 08/26/17 12:39 25 MCG Amoxicillin (Amoxil Cap) 500 mg TID PO 08/26/17 21:00 09/05/17 20:59 08/28/17 08:42 500 MG Amoxicillin (Amoxil Cap) 500 mg 1430 ONCE PO 08/26/17 14:30 08/26/17 14:31 DC 08/26/17 16:11 500 MG Haloperidol Lactate (Haldol Inj) 2.5 mg NOW ONCE IM 08/27/17 18:45 08/27/17 18:46 DC 08/27/17 18:35 2.5 MG Objective Vital Signs Date Time Temp Pulse Resp B/P (MAP) Pulse Ox O2 Delivery O2 Flow Rate FiO2 08/28/17 07:07 36.7 59 16 137/73 (94) 95 Room Air 08/28/17 00:40 37.1 73 18 133/72 (92) 94 Room Air 08/28/17 00:00 Room Air 08/27/17 15:28 37.3 77 16 120/69 (86) 92 Room Air 08/27/17 15:18 Room Air Physical Exam General Appearance: no apparent distress Eyes: normal inspection ENT: normal ENT inspection Neck: supple Respiratory/Chest: normal breath sounds, no respiratory distress, no accessory muscle use Cardiovascular: regular rate, rhythm, + systolic murmur (3/6) Abdomen: normal bowel sounds, non tender, soft Extremities: normal range of motion, non-tender, normal inspection, no pedal edema, no calf tenderness Neurologic/Psychiatric: alert, normal mood/affect, oriented x 3 Skin: normal color, warm/dry, no rash Lymphatic: no adenopathy Assessment and Plan 87 yo female with chronic urinary retention and Reaves who presented to the ED as unable to get IV line for cefepime for recurrent UTI. 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 Holder - Reaves placed on 08/25, patient does not have a reaves at [facility] - per recommendations of ID, Cefepime to be continued day 07/20 and the addition of Amoxil day 06/22 - Unable to get PICC in ER. Surgery spoke with daughter, as port placement will be for comfort measures will plan for placement potentially tuesday - Urology consult - no acute intervention at this time however following treatment will have outpatient follow up Decreased appetite Constipation - Trial bowel regimen HTN - continue amlodipine Depression: continue Cymbalta and Remeron CKD stage 3 - at baseline GERD: Continue Protonix VTE prophylaxis - heparin 5000 units Q12H, will hold until after port placement Code - DNR Disposition - continue med/surg due to need for IV antibiotics. PT/OT. Plan for discharge to [facility] vs home based on clinical course and goals of care Continued [facility] stay due to: multiple IV medications needed Discharge planning: uncertain Reviewed: Pt Seen/Exam by Me History hasn't been eating much. has h/o chronic constipation. did move bowel yesterday Constitutional: denies: fever Respiratory: negative: short of breath Cardiovascular: denies chest pain General Appearance: no apparent distress Respiratory: lungs clear, no respiratory distress Cardiovascular: regular rate, rhythm Gastrointestinal: soft Neurologic/Psychiatric: alert Skin Characteristics: warm/dry Assessment/Plan Resident Physician Supervision Note: I independently interviewed and examined the patient and verified the goel history and physical, reviewed labs and image studies, discussed the case with the resident Dr. Craig and agree with the findings and care plan.
--- NOTE | 2017-08-28 12:19 | Surgery Progress Note ---
Surgery Progress Note Date of Service Aug 28, 2017. Objective Vital Signs: Date Time Temp Pulse Resp B/P (MAP) Pulse Ox O2 Delivery O2 Flow Rate FiO2 08/28/17 07:07 36.7 59 16 137/73 (94) 95 Room Air 08/28/17 00:40 37.1 73 18 133/72 (92) 94 Room Air 08/28/17 00:00 Room Air 08/27/17 15:28 37.3 77 16 120/69 (86) 92 Room Air 08/27/17 15:18 Room Air General Appearance: WD/WN, no apparent distress Respiratory/Chest: no respiratory distress, no accessory muscle use Laboratory Results: Results Past 24 Hours Test 08/28/17 05:55 Range/Units White Blood Count 6.02 4.8-10.8 K/uL Red Blood Count 3.24 4.2-5.4 M/uL Hemoglobin 9.8 12.0-16.0 g/dL Hematocrit 28.6 37-47 % Mean Corpuscular Volume 88.3 80-100 fL Mean Corpuscular Hemoglobin 30.2 25-34 pg Mean Corpuscular Hemoglobin Concent 34.3 32-36 g/dl Platelet Count 210 130-400 K/uL Mean Platelet Volume 8.2 7.4-10.4 fL Neutrophils (%) (Auto) 67.9 % Lymphocytes (%) (Auto) 21.8 % Monocytes (%) (Auto) 6.6 % Eosinophils (%) (Auto) 3.0 % Basophils (%) (Auto) 0.5 % Neutrophils # (Auto) 4.09 1.4-6.5 K/uL Lymphocytes # (Auto) 1.31 1.2-3.4 K/uL Monocytes # (Auto) 0.40 0.11-0.59 K/uL Eosinophils # (Auto) 0.18 0-0.5 K/uL Basophils # (Auto) 0.03 0-0.2 K/uL RDW Standard Deviation 47.5 36.4-46.3 fL RDW Coefficient of Variation 14.6 11.5-14.5 % Immature Granulocyte % (Auto) 0.2 % Immature Granulocyte # (Auto) 0.01 0.00-0.02 K/uL Sodium Level 138 136-145 mmol/L Potassium Level 3.6 3.5-5.1 mmol/L Chloride Level 105 98-107 mmol/L Carbon Dioxide Level 26 21-32 mmol/L Anion Gap 7.0 3-11 mmol/L Blood Urea Nitrogen 11 7-18 mg/dl Creatinine 0.82 0.60-1.20 mg/dl Est Creatinine Clear Calc Drug Dose 40.0 ml/min Estimated GFR () 74.6 Estimated GFR (Non- 64.3 BUN/Creatinine Ratio 13.1 10-20 Random Glucose 85 70-99 mg/dl Calcium Level 8.5 8.5-10.1 mg/dl Assessment & Plan 08/28/17 Chronic/Recurrent UTI Patient seen and examined with Dr. Hancock Recent chest x-ray reviewed. AM labs reviewed. Dr. Hancock was able to speak with patient's daughter this AM- discussed port placement. Daughter is requesting that port be placed for comfort measures. Discussed patient's increased risk for port infection- daughter is aware and understands that port may become infected if placed. Daughter would still like to proceed with port placement. Dr. Hancock will place port in OR tomorrow. Port placement reviewed and discussed. Risks of surgery discussed with patient's daughter. NPO after midnight. Heparin to be held until after port placement per Family Medicine. 08/27/17 Chronic/Recurrent UTI Patient seen and examined with Dr. Hancock. Reviewed AM labs. At this time, would not recommend port placement due to high risk of future port infection. Dr. Hancock discussed with patient at bedside. 08/26/17 chronic/recurrent UTI Would recommend treating with peripheral IV access. Would prefer not to place port until she has been treated at least for several days. Would still be at high risk for future port infection. Will discuss with her daughter, she did not answer my call this afternoon.
[2017-08-28] MEDS ORDERED: DOCUSATE SODIUM/SENNA 50/8.6MG TAB PO ONE (16:00)
[2017-08-28 16:20] VITALS: BP 123/75; PULSE 81; TEMP 37.5; O2SAT 93
[2017-08-28] MEDS: SENNA 8.6 MG TAB PO SCH (21:11)
[2017-08-28] MEDS: MIRTAZAPINE TAB 15 MG TAB PO SCH (21:11)
[2017-08-28 22:44] VITALS: BP 149/73; PULSE 74; TEMP 36.7; O2SAT 93
[2017-08-29] VITALS (7 sets, daily range): BP systolic 123–161; BP diastolic 51–77; PULSE 66–74; TEMP 36.4–37.5; O2SAT 92–98
[2017-08-29] MEDS: CEFEPIME IV 1,000 MG in SYRINGE 0 ML IV SCH ×2 (05:29→17:43)
--- NOTE | 2017-08-29 06:20 | History & Physical Bridge Note ---
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
[2017-08-29 06:50] LABS: HEMATOCRIT 31.1 % (37-47); HEMOGLOBIN 10.3 g/dL (12.0-16.0); MEAN CELL VOLUME 88.9 fL (80-100); MEAN CORPUSCULAR HEMOGLOBIN 29.4 pg (25-34); MEAN CORPUSCULAR HGB CONC 33.1 g/dl (32-36); MEAN PLATELET VOLUME 8.4 fL (7.4-10.4); PLATELET COUNT 251 K/uL (130-400); RED CELL DISTRIBUTION WIDTH CV 14.6 % (11.5-14.5); RED CELL DISTRIBUTION WIDTH SD 47.9 fL (36.4-46.3); WHITE BLOOD COUNT 6.13 K/uL (4.8-10.8)
[2017-08-29 07:22] LABS: CALCIUM 9.2 mg/dl (8.5-10.1); CREATININE 0.85 mg/dl (0.60-1.20); POTASSIUM 3.7 mmol/L (3.5-5.1)
[2017-08-29] MEDS: CHECK FENTANYL PATCH PLACEMENT SCH ×3 (08:10→23:23)
--- NOTE | 2017-08-29 08:28 | Family Medicine Progress Note ---
Progress Note Date of Service Aug 29, 2017. Subjective Pt evaluation today including: conversation w/ patient, conversation w/ family , physical exam, chart review, lab review, review of studies, review of inpatient medication list Pain: denies PO Intake: adequate Voiding: reaves catheter in place No acute events overnight. Patient denies any complaints. NO suprapubic pain, n /v, fevers, chills. Constitutional: No fever, No chills Respiratory: No cough, No sputum, No shortness of breath Cardiovascular: No chest pain, No edema, No palpitations Abdomen: No pain, No nausea, No vomiting, No diarrhea Female : + problem reported (catheter in place), No hematuria Neurologic: No weakness, No numbness/tingling Skin: No rash, No itch Medications Current Inpatient Medications Medications (Trade) Dose Ordered Sig/Tenisha Route Start Time Stop Time Status Last Admin Dose Admin Acetaminophen (Tylenol Tab) 650 mg Q4H PRN PO 08/25/17 19:15 09/24/17 19:14 08/28/17 16:33 650 MG Al Hydrox/Mg Hydrox/Simethicone (Maalox Max Susp) 15 ml Q4H PRN PO 08/25/17 19:15 09/24/17 19:14 Magnesium Hydroxide (Milk Of Magnesia Susp) 30 ml Q6H PRN PO 08/25/17 19:15 09/24/17 19:14 Polyethylene (Miralax Powder Packet) 17 gm DAILY PRN PO 08/25/17 19:15 09/24/17 19:14 Ondansetron HCl (Zofran Inj) 4 mg Q6H PRN IV 08/25/17 19:15 09/24/17 19:14 Heparin Sodium (Porcine) (Heparin Sq 5000 Unit/0.5ml) 5,000 unit Q12H SQ 08/26/17 09:00 09/25/17 08:59 Future Hold 08/28/17 08:40 5,000 UNIT Cefepime HCl 1000 mg/Syringe 11 ml @ 5.5 mls/min Q12H IV 08/26/17 06:00 09/05/17 05:59 08/29/17 05:29 5.5 MLS/MIN Amlodipine Besylate (Norvasc Tab) 7.5 mg DAILY PO 08/26/17 09:00 09/25/17 08:59 08/28/17 09:00 7.5 MG Aspirin (Ecotrin Tab) 81 mg DAILY PO 08/26/17 09:00 09/25/17 08:59 08/28/17 08:42 81 MG Calcium Carbonate (oS-Jhon 500 TAB) 1,250 mg BID PO 08/25/17 21:00 09/24/17 20:59 08/28/17 21:11 1,250 MG Cholecalciferol (Vitamin D Tab) 1,000 inter.unit QAM PO 08/26/17 09:00 09/25/17 08:59 08/28/17 08:42 1,000 INTER.UNIT Duloxetine HCl (Cymbalta Cap) 30 mg QAM PO 08/26/17 09:00 09/25/17 08:59 08/28/17 08:42 30 MG Fish Oil ([place]-3 (Purified Fish Oil) Cap) 1 gm DAILY PO 08/26/17 09:00 09/25/17 08:59 08/28/17 08:41 1 GM Acetaminophen/ Hydrocodone Bitart ([place] 5/325 Tab) 1 tab Q8 PRN PO 08/25/17 19:15 09/08/17 19:14 08/27/17 14:09 1 TAB Ipratropium [place] (Atrovent 0.02% 0.5MG/2.5ML Neb) 0.5 mg QID PRN INH 08/25/17 19:15 09/24/17 19:14 Lidocaine (Lidoderm Patch 5%) 1 patch DAILY TD 08/26/17 09:00 09/25/17 08:59 08/28/17 09:00 1 PATCH Loperamide HCl (Imodium Cap) 2 mg Q6 PRN PO 08/25/17 19:15 09/24/17 19:14 Mirtazapine (Remeron Tab) 15 mg QPM PO 08/25/17 21:00 09/24/17 20:59 08/28/17 21:11 15 MG Multivitamins/ Minerals (Multivitamin W/ Minerals Tab) 1 tab DAILY PO 08/26/17 09:00 09/25/17 08:59 08/28/17 08:42 1 TAB Pantoprazole Sodium (Protonix Tab) 40 mg QAM PO 08/26/17 09:00 09/25/17 08:59 08/28/17 08:42 40 MG Senna (Senokot Tab) 17.2 mg QPM PO 08/25/17 21:00 09/24/17 20:59 08/28/17 21:11 17.2 MG Miscellaneous (Remove Lidoderm Patch) 1 ea DAILY@21 N/A 08/25/17 21:00 09/24/17 20:59 08/28/17 21:11 1 EA Miscellaneous (Iv Fluids Completed) 1 ea PRN PRN N/A 08/25/17 19:30 08/25/18 19:29 Sodium Chloride 1,000 ml @ 75 mls/hr [id number] IV 08/26/17 00:00 09/25/17 00:00 Future Hold 08/27/17 00:19 75 MLS/HR Miscellaneous Information (Check Fentanyl Patch Placement) 1 ea QS N/A 08/26/17 00:00 09/25/17 00:00 08/29/17 08:10 1 EA Fentanyl (Duragesic Patch) 25 mcg Q72H TD 08/26/17 12:00 09/09/17 11:59 08/26/17 12:39 25 MCG Miscellaneous (Fentanyl Patch Remove & Waste) 1 ea Q72H N/A 08/26/17 11:59 09/25/17 11:58 Amoxicillin (Amoxil Cap) 500 mg TID PO 08/26/17 21:00 09/05/17 20:59 08/28/17 21:11 500 MG Senna/Docusate Sodium (Senokot S Tab) 1 tab QAM PO 08/29/17 09:00 09/28/17 08:59 Polyethylene (Miralax Powder Packet) 17 gm DAILY PO 08/29/17 09:00 09/28/17 08:59 Objective Vital Signs Date Time Temp Pulse Resp B/P (MAP) Pulse Ox O2 Delivery O2 Flow Rate FiO2 08/29/17 08:09 Room Air 08/29/17 07:52 37.5 72 18 155/51 (85) 95 Room Air 08/28/17 23:15 Room Air 08/28/17 22:44 36.7 74 16 149/73 (98) 93 Room Air 08/28/17 16:20 37.5 81 18 123/75 (91) 93 Room Air 08/28/17 16:00 Room Air Physical Exam General Appearance: WD/WN, no apparent distress Eyes: normal inspection, PERRL, EOMI, sclerae normal ENT: pharynx normal Neck: supple, no adenopathy, trachea midline Respiratory/Chest: lungs clear, normal breath sounds, no respiratory distress Cardiovascular: regular rate, rhythm, no edema, + systolic murmur Abdomen: normal bowel sounds, non tender, soft, no organomegaly Neurologic/Psychiatric: alert, normal mood/affect, oriented x 3 Skin: normal color Laboratory Results Results Past 24 Hours Test 08/29/17 05:51 Range/Units White Blood Count 6.13 4.8-10.8 K/uL Red Blood Count 3.50 4.2-5.4 M/uL Hemoglobin 10.3 12.0-16.0 g/dL Hematocrit 31.1 37-47 % Mean Corpuscular Volume 88.9 80-100 fL Mean Corpuscular Hemoglobin 29.4 25-34 pg Mean Corpuscular Hemoglobin Concent 33.1 32-36 g/dl RDW Standard Deviation 47.9 36.4-46.3 fL RDW Coefficient of Variation 14.6 11.5-14.5 % Platelet Count 251 130-400 K/uL Mean Platelet Volume 8.4 7.4-10.4 fL Sodium Level 137 136-145 mmol/L Potassium Level 3.7 3.5-5.1 mmol/L Chloride Level 104 98-107 mmol/L Carbon Dioxide Level 28 21-32 mmol/L Anion Gap 5.0 3-11 mmol/L Blood Urea Nitrogen 11 7-18 mg/dl Creatinine 0.85 0.60-1.20 mg/dl Est Creatinine Clear Calc Drug Dose 38.6 ml/min Estimated GFR () 71.4 Estimated GFR (Non- 61.6 BUN/Creatinine Ratio 12.7 10-20 Random Glucose 93 70-99 mg/dl Calcium Level 9.2 8.5-10.1 mg/dl Assessment and Plan 87 yo F with hs/ of CKD Stage III , hydronephrosis s/p R ureteral stent,, complicated by recurrent UTI's presenting with UTI. 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 Surgery spoke with daughter, as port placement will be for comfort measures will plan for placement potentially tuesday - Urology consult - recommended f/u on outpatient basis ( Dr. Holder) Decreased appetite, Constipation - c/w bowel regimen HTN - BP elevated - continue amlodipine Depression: continue Cymbalta and Remeron CKD stage 3 - at baseline GERD: Continue Protonix VTE prophylaxis - heparin 5000 units Q12H Code - DNR Disposition: D/C to [facility] pending authorization Resident Physician Supervision Note: I interviewed and examined the patient. Discussed with Dr. Griggs and agree with findings and plan as documented in the note. Any exceptions or clarifications are listed here: None Documented By: Azeem Russell seems to be feeling ok - confused about what is going on, but no complaints, family present, pleased with care. vitals noted nad breathing unlabored no pallor or icterus complicated UTI - doing well on current abx. has port for future access as well as completion of current course. d/w dtr and plan is back to the [facility] to finish current abx. ok w tomorrow if this can be arranged Continued [facility] stay due to: multiple IV medications needed Discharge planning: senior care facility Resident Tracking Resident Involvement: Resident Care Provided Care Provided: Adult Hospital Medicine
[2017-08-29] MEDS: AMOXICILLIN 500 MG CAP PO SCH ×3 (09:00→21:02)
[2017-08-29] MEDS ORDERED: LIDOCAINE HCL 1% 20 ML VIAL ONE (09:49)
[2017-08-29] MEDS ORDERED: BACITRACIN 50000 UNIT VIAL ONE (09:50)
[2017-08-29] MEDS ORDERED: FENTANYL CITRATE INJ 50 MCG/1 ML 2 ML VIAL IV PRN (10:15)
[2017-08-29] MEDS ORDERED: ONDANSETRON INJ 2 MG/ML 2 ML VIAL IV PRN (10:15)
[2017-08-29] MEDS ORDERED: EpHEDrine SULFATE INJ 50 MG/ML AMP IV PRN ×2 (10:15→11:45)
[2017-08-29] MEDS ORDERED: ATROPINE SULFATE 0.1 MG/ML 5ML SYR IV PRN ×2 (10:15→11:45)
--- NOTE | 2017-08-29 10:55 | [facility] Post Operative Brief Note ---
Immediate Operative Summary Operative Date Aug 29, 2017. Pre-Operative Diagnosis Need for Intravenious Antibiotics Post-Operative Diagnosis Need for Intravenious Antibiotics Procedure(s) Performed Left cephalic vein mri A-Port Insertion Surgeon Dr Hancock Bee Producer Surgeon(s) None Estimated Blood Loss 3CC Findings See Below as preop Specimens None per surgeon Anesthesia Type MAC
--- NOTE | 2017-08-29 11:00 | Progress Note ---
Subjective Date of Service: Aug 29, 2017. Subjective pt for port. tolerating abx. remains on cefepime and amox. afebrile. wbc nml. Problem List Medical Problems: (1) Anemia Status: Acute (2) Bilateral leg pain Status: Acute (3) Bladder rupture Status: Acute (4) Bronchitis Status: Acute (5) CKD (chronic kidney disease) Status: Acute (6) Complicated UTI (urinary tract infection) Status: Acute (7) COPD exacerbation Status: Acute (8) Dehydration Status: Acute (9) Failure to thrive Status: Acute (10) Hematuria Status: Acute (11) Intractable pain Status: Acute (12) UTI (urinary tract infection) Status: Acute Objective Vital Signs Date Time Temp Pulse Resp B/P (MAP) Pulse Ox O2 Delivery O2 Flow Rate FiO2 08/29/17 08:09 Room Air 08/29/17 07:52 37.5 72 18 155/51 (85) 95 Room Air 08/28/17 23:15 Room Air 08/28/17 22:44 36.7 74 16 149/73 (98) 93 Room Air 08/28/17 16:20 37.5 81 18 123/75 (91) 93 Room Air 08/28/17 16:00 Room Air Laboratory Results Last 24 Hours Test 08/29/17 05:51 White Blood Count 6.13 K/uL Red Blood Count 3.50 M/uL Hemoglobin 10.3 g/dL Hematocrit 31.1 % Mean Corpuscular Volume 88.9 fL Mean Corpuscular Hemoglobin 29.4 pg Mean Corpuscular Hemoglobin Concent 33.1 g/dl RDW Standard Deviation 47.9 fL RDW Coefficient of Variation 14.6 % Platelet Count 251 K/uL Mean Platelet Volume 8.4 fL Sodium Level 137 mmol/L Potassium Level 3.7 mmol/L Chloride Level 104 mmol/L Carbon Dioxide Level 28 mmol/L Anion Gap 5.0 mmol/L Blood Urea Nitrogen 11 mg/dl Creatinine 0.85 mg/dl Est Creatinine Clear Calc Drug Dose 38.6 ml/min Estimated GFR () 71.4 Estimated GFR (Non- 61.6 BUN/Creatinine Ratio 12.7 Random Glucose 93 mg/dl Calcium Level 9.2 mg/dl Assessment and Plan (1) UTI (urinary tract infection) Assessment & Plan: continue abx x 7 days total, port to be placed. ok for d/c when otherwise stable. Continued [facility] stay due to: multiple IV medications needed Discharge planning: uncertain
--- NOTE | 2017-08-29 11:38 | DIAGNOSTIC IMAGING REPORT ---
CHEST ONE VIEW PORTABLE CLINICAL HISTORY: post op mri port insertion tube position COMPARISON STUDY: 08/27/2017 FINDINGS: Interval placement of a left-sided subclavian catheter with the tip in the superior vena cava. No evidence pneumothorax. Lungs are considered clear. IMPRESSION: Tube positioned within the superior vena cava. No evidence for pneumothorax. The above report was generated using voice recognition software. It may contain grammatical, syntax or spelling errors. Electronically signed by: Justin Walker M.D. 08/29/2017 11:36 AM Dictated Date/Time: 08/29/2017 11:34 AM
--- NOTE | 2017-08-29 11:39 | Anesthesiology Progress Note ---
Anesthesia Post Op Note Date & Time Aug 29, 2017 at 11:39 Vital Signs Pain Intensity: 0 Vital Signs Past 12 Hours Date Time Temp Pulse Resp B/P (MAP) Pulse Ox O2 Delivery O2 Flow Rate FiO2 08/29/17 11:30 36.8 64 14 164/80 100 Oxymask 2 08/29/17 11:20 65 14 151/79 100 Oxymask 2 08/29/17 11:10 66 14 163/81 100 Oxymask 10 08/29/17 11:04 37.0 68 14 164/80 100 Oxymask 10 08/29/17 08:09 Room Air 08/29/17 07:52 37.5 72 18 155/51 (85) 95 Room Air Notes Mental Status: alert / awake / arousable, participated in evaluation, see Notes Pt Amnestic to Procedure: Yes Nausea / Vomiting: adequately controlled Pain: adequately controlled Airway Patency, RR, SpO2: stable & adequate BP & HR: stable & adequate Hydration State: stable & adequate Anesthetic Complications: no major complications apparent Patient is at her baseline mental status at the time of pacu discharge
[2017-08-29] MEDS: FENTANYL PATCH REMOVE & WASTE SCH (11:59)
[2017-08-29] MEDS: FENTANYL 25 MCG/HR TDSY TD SCH (12:32)
[2017-08-29] MEDS: LIDODERM (LIDOCAINE) PATCH 5% TD SCH (12:39)
[2017-08-29] MEDS: PANTOprazole SOD 40 MG TAB PO SCH (12:40)
[2017-08-29] MEDS: CALCIUM CARBONATE 1250MG TAB PO SCH ×2 (12:40→21:02)
[2017-08-29] MEDS: CEROVITE ADV FORMULA TAB PO SCH (12:41)
[2017-08-29] MEDS: CHOLECALCIFEROL 1000 INTER.UNIT TAB PO SCH (12:41)
[2017-08-29] MEDS: ASPIRIN 81 MG ECTAB PO SCH (12:41)
[2017-08-29] MEDS: OMEGA-3 (PURIFIED FISH OIL) 1 GM CAP PO SCH (12:41)
[2017-08-29] MEDS: DULOXETINE (CYMBALTA) 30 MG CAP PO SCH (12:41)
[2017-08-29] MEDS: AMLODIPINE BESYLATE 5 MG TAB PO SCH (12:42)
[2017-08-29] MEDS: POLYETHYLENE (MIRALAX) 17 GM PACK PO SCH (12:42)
--- NOTE | 2017-08-29 12:43 | OPERATIVE REPORT ---
DATE OF OPERATION: 08/29/2017 PREOPERATIVE DIAGNOSIS: Lack of long-term venous access for antibiotic use. POSTOPERATIVE DIAGNOSIS: Same. PROCEDURE: MRI compatible port in the left cephalic. SUMMARY: The patient was brought into the operating room theater. The left neck and chest were prepped with Betadine solution and properly draped. Systemic antibiotics given. A roll placed underneath her shoulders. We used 1% Xylocaine without epinephrine to infiltrate just 1 inch parallel to the left deltopectoral groove, deep through the subcutaneous tissue. We created a pocket for the reservoir. At this point, we dissected deltopectoral groove, identified the vein. We controlled it proximally with 2-0 silk, distally with Vijay tie 2-0 silk. The patient was then placed in Trendelenburg position. A small opening in the vein was made. A PICC was inserted. The catheter was then cut to tip just to bevel a little bit, placed in the vein at fluoroscopic position in the right atrium. At this point, we controlled the backbleeding from the vein with the Vijay tie and cut the vein appropriately, used a black bolster in position in the reservoir. The reservoir was then placed in the pocket to make sure it was easily accessible. Once this was completed, we then aspirated and flushed quite easily. The reservoir was then placed in previously made pocket, sutured in place with a Dexon and the nylon sutures. The pocket was closed in multiple layers, 3-0 and 2-0 and Vicryl 4-0 subcutaneously, 4-0 Monocryl subcuticular, Steri-Strips applied. Prior to leaving and closing the wound, we loosely tied the Vijay tie and tied the silk and the proximal cephalic vein. There was no bleeding and no angulation. At this point, we then accessed percutaneously the port and flushed easily. Fluoroscopically, reimaged the system and it was properly positioned. Estimated blood loss approximately 2 mL. I attest to the content of the Intraoperative Record and any orders documented therein. Any exception s are noted below.
[2017-08-29] MEDS: DOCUSATE SODIUM/SENNA 50/8.6MG TAB PO SCH (14:05)
[2017-08-29] MEDS: HYDROCODONE/ACETAMIN 5/325MG TAB PO PRN (14:16)
[2017-08-29] MEDS: SENNA 8.6 MG TAB PO SCH (21:01)
[2017-08-29] MEDS: MIRTAZAPINE TAB 15 MG TAB PO SCH (21:02)
[2017-08-30 03:55] VITALS: BP 135/80; PULSE 68; TEMP 37.7; O2SAT 93
[2017-08-30] MEDS: CEFEPIME IV 1,000 MG in SYRINGE 0 ML IV SCH ×2 (05:46→18:34)
--- NOTE | 2017-08-30 06:58 | Family Medicine Progress Note ---
Progress Note Date of Service Aug 30, 2017. Subjective Pt evaluation today including: conversation w/ patient, physical exam, chart review, lab review, review of studies, review of inpatient medication list Pain: denies PO Intake: adequate Voiding: reaves catheter in place Constitutional: + fever, No fatigue Respiratory: No cough, No shortness of breath Cardiovascular: No chest pain, No edema, No palpitations Abdomen: No pain, No nausea, No vomiting, No diarrhea Skin: No rash, No itch Medications Current Inpatient Medications Medications (Trade) Dose Ordered Sig/Tenisha Route Start Time Stop Time Status Last Admin Dose Admin Acetaminophen (Tylenol Tab) 650 mg Q4H PRN PO 08/25/17 19:15 09/24/17 19:14 08/28/17 16:33 650 MG Al Hydrox/Mg Hydrox/Simethicone (Maalox Max Susp) 15 ml Q4H PRN PO 08/25/17 19:15 09/24/17 19:14 Magnesium Hydroxide (Milk Of Magnesia Susp) 30 ml Q6H PRN PO 08/25/17 19:15 09/24/17 19:14 Polyethylene (Miralax Powder Packet) 17 gm DAILY PRN PO 08/25/17 19:15 09/24/17 19:14 Ondansetron HCl (Zofran Inj) 4 mg Q6H PRN IV 08/25/17 19:15 09/24/17 19:14 Heparin Sodium (Porcine) (Heparin Sq 5000 Unit/0.5ml) 5,000 unit Q12H SQ 08/26/17 09:00 09/25/17 08:59 Future Hold 08/28/17 08:40 5,000 UNIT Cefepime HCl 1000 mg/Syringe 11 ml @ 5.5 mls/min Q12H IV 08/26/17 06:00 09/05/17 05:59 08/30/17 05:46 5.5 MLS/MIN Amlodipine Besylate (Norvasc Tab) 7.5 mg DAILY PO 08/26/17 09:00 09/25/17 08:59 08/30/17 08:34 7.5 MG Aspirin (Ecotrin Tab) 81 mg DAILY PO 08/26/17 09:00 09/25/17 08:59 08/30/17 08:33 81 MG Calcium Carbonate (oS-Jhon 500 TAB) 1,250 mg BID PO 08/25/17 21:00 09/24/17 20:59 08/30/17 08:36 1,250 MG Cholecalciferol (Vitamin D Tab) 1,000 inter.unit QAM PO 08/26/17 09:00 09/25/17 08:59 08/30/17 08:36 1,000 INTER.UNIT Duloxetine HCl (Cymbalta Cap) 30 mg QAM PO 08/26/17 09:00 09/25/17 08:59 08/30/17 08:36 30 MG Fish Oil ([place]-3 (Purified Fish Oil) Cap) 1 gm DAILY PO 08/26/17 09:00 09/25/17 08:59 08/30/17 08:37 1 GM Acetaminophen/ Hydrocodone Bitart ([place] 5/325 Tab) 1 tab Q8 PRN PO 08/25/17 19:15 09/08/17 19:14 08/30/17 10:14 1 TAB Ipratropium [place] (Atrovent 0.02% 0.5MG/2.5ML Neb) 0.5 mg QID PRN INH 08/25/17 19:15 09/24/17 19:14 Lidocaine (Lidoderm Patch 5%) 1 patch DAILY TD 08/26/17 09:00 09/25/17 08:59 08/30/17 08:38 1 PATCH Loperamide HCl (Imodium Cap) 2 mg Q6 PRN PO 08/25/17 19:15 09/24/17 19:14 Mirtazapine (Remeron Tab) 15 mg QPM PO 08/25/17 21:00 09/24/17 20:59 08/29/17 21:02 15 MG Multivitamins/ Minerals (Multivitamin W/ Minerals Tab) 1 tab DAILY PO 08/26/17 09:00 09/25/17 08:59 08/30/17 08:36 1 TAB Pantoprazole Sodium (Protonix Tab) 40 mg QAM PO 08/26/17 09:00 09/25/17 08:59 08/30/17 08:33 40 MG Senna (Senokot Tab) 17.2 mg QPM PO 08/25/17 21:00 09/24/17 20:59 08/29/17 21:01 17.2 MG Miscellaneous (Remove Lidoderm Patch) 1 ea DAILY@21 N/A 08/25/17 21:00 09/24/17 20:59 08/29/17 21:04 1 EA Miscellaneous (Iv Fluids Completed) 1 ea PRN PRN N/A 08/25/17 19:30 08/25/18 19:29 Sodium Chloride 1,000 ml @ 75 mls/hr [id number] IV 08/26/17 00:00 09/25/17 00:00 Future Hold 08/27/17 00:19 75 MLS/HR Miscellaneous Information (Check Fentanyl Patch Placement) 1 ea QS N/A 08/26/17 00:00 09/25/17 00:00 08/30/17 08:00 1 EA Fentanyl (Duragesic Patch) 25 mcg Q72H TD 08/26/17 12:00 09/09/17 11:59 08/29/17 12:32 25 MCG Miscellaneous (Fentanyl Patch Remove & Waste) 1 ea Q72H N/A 08/26/17 11:59 09/25/17 11:58 08/29/17 11:59 1 EA Amoxicillin (Amoxil Cap) 500 mg TID PO 08/26/17 21:00 09/05/17 20:59 08/30/17 08:33 500 MG Senna/Docusate Sodium (Senokot S Tab) 1 tab QAM PO 08/29/17 09:00 09/28/17 08:59 08/30/17 08:36 1 TAB Polyethylene (Miralax Powder Packet) 17 gm DAILY PO 08/29/17 09:00 09/28/17 08:59 08/30/17 08:37 17 GM Objective Vital Signs Date Time Temp Pulse Resp B/P (MAP) Pulse Ox O2 Delivery O2 Flow Rate FiO2 08/30/17 15:34 36.8 77 16 110/70 (83) 94 Room Air 08/30/17 15:15 Room Air 08/30/17 07:44 37.4 74 16 126/69 (88) 93 Room Air 08/30/17 07:30 Room Air 08/30/17 03:55 37.7 68 16 135/80 (98) 93 Room Air 08/29/17 23:15 Room Air 08/29/17 22:55 37.1 66 16 149/77 (101) 92 Room Air 08/29/17 19:45 Room Air Physical Exam Notes: [General Appearance: WD/WN, no apparent distress Eyes: normal inspection, PERRL, EOMI, sclerae normal Neck: supple, no adenopathy, trachea midline Respiratory/Chest: lungs clear, normal breath sounds, no respiratory distress Cardiovascular: regular rate, rhythm, no edema, + systolic murmur Abdomen: normal bowel sounds, non tender, soft, no organomegaly Neurologic/Psychiatric: alert, normal mood/affect, oriented x 3 Skin: normal color Laboratory Results Results Past 24 Hours Test 08/30/17 06:59 Range/Units White Blood Count 7.59 4.8-10.8 K/uL Red Blood Count 3.32 4.2-5.4 M/uL Hemoglobin 10.1 12.0-16.0 g/dL Hematocrit 29.5 37-47 % Mean Corpuscular Volume 88.9 80-100 fL Mean Corpuscular Hemoglobin 30.4 25-34 pg Mean Corpuscular Hemoglobin Concent 34.2 32-36 g/dl Platelet Count 228 130-400 K/uL Mean Platelet Volume 8.3 7.4-10.4 fL Neutrophils (%) (Auto) 73.9 % Lymphocytes (%) (Auto) 15.0 % Monocytes (%) (Auto) 7.5 % Eosinophils (%) (Auto) 3.2 % Basophils (%) (Auto) 0.3 % Neutrophils # (Auto) 5.61 1.4-6.5 K/uL Lymphocytes # (Auto) 1.14 1.2-3.4 K/uL Monocytes # (Auto) 0.57 0.11-0.59 K/uL Eosinophils # (Auto) 0.24 0-0.5 K/uL Basophils # (Auto) 0.02 0-0.2 K/uL RDW Standard Deviation 47.4 36.4-46.3 fL RDW Coefficient of Variation 14.6 11.5-14.5 % Immature Granulocyte % (Auto) 0.1 % Immature Granulocyte # (Auto) 0.01 0.00-0.02 K/uL Sodium Level 134 136-145 mmol/L Potassium Level 3.7 3.5-5.1 mmol/L Chloride Level 103 98-107 mmol/L Carbon Dioxide Level 28 21-32 mmol/L Anion Gap 3.0 3-11 mmol/L Blood Urea Nitrogen 13 7-18 mg/dl Creatinine 0.77 0.60-1.20 mg/dl Est Creatinine Clear Calc Drug Dose 42.6 ml/min Estimated GFR () 80.5 Estimated GFR (Non- 69.4 BUN/Creatinine Ratio 17.2 10-20 Random Glucose 106 70-99 mg/dl Calcium Level 8.7 8.5-10.1 mg/dl Assessment and Plan 87 yo F with hx of CKD Stage III , hydronephrosis s/p R ureteral stent, complicated by recurrent UTI's presenting with UTI. 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 Surgery spoke with daughter, as port placement will be for comfort measures will plan for placement potentially Tuesday - Urology consulted - recommended f/u on outpatient basis ( Dr. Holder) - Renal U/s today ordered: no evidence of renal abscess Decreased appetite, Constipation - c/w bowel regimen HTN - BP controlled - continue amlodipine Depression: continue Cymbalta and Remeron CKD stage 3 - at baseline GERD: Continue Protonix VTE prophylaxis - heparin 5000 units Q12H Code - DNR Disposition: D/C to [facility] pending authorization Resident Physician Supervision Note: I interviewed and examined the patient. Discussed with Dr. Griggs and agree with findings and plan as documented in the note. Any exceptions or clarifications are listed here: None Documented By: Azeem Yvonne seems to be feeling ok - getting to bathroom with nursing assist extenssive d/w dtr on dx's, plans, alf care, etc - offered empathy and support vitals noted nad breathing unlabored no pallor or icterus complicated UTI - doing well on current abx. ok for return to snf once available, extensive d/w dtr. Continued [facility] stay due to: multiple IV medications needed Discharge planning: residential facility Resident Tracking Resident Involvement: Resident Care Provided Care Provided: Adult Hospital Medicine
[2017-08-30 07:12] LABS: BASO % 0.3 %; BASO ABS # 0.02 K/uL (0-0.2); EOS % 3.2 %; EOS ABS # 0.24 K/uL (0-0.5); HEMATOCRIT 29.5 % (37-47); HEMOGLOBIN 10.1 g/dL (12.0-16.0); IG# 0.01 K/uL (0.00-0.02); LYMPH ABS # 1.14 K/uL (1.2-3.4); MEAN CELL VOLUME 88.9 fL (80-100); MEAN CORPUSCULAR HEMOGLOBIN 30.4 pg (25-34); MEAN PLATELET VOLUME 8.3 fL (7.4-10.4); MONO % 7.5 %; MONO ABS # 0.57 K/uL (0.11-0.59); NEUT % 73.9 %; NEUT ABS # 5.61 K/uL (1.4-6.5); PLATELET COUNT 228 K/uL (130-400); RED CELL DISTRIBUTION WIDTH CV 14.6 % (11.5-14.5); RED CELL DISTRIBUTION WIDTH SD 47.4 fL (36.4-46.3); WHITE BLOOD COUNT 7.59 K/uL (4.8-10.8)
[2017-08-30 07:15] LABS: MEAN CORPUSCULAR HGB CONC 34.2 g/dl (32-36)
[2017-08-30 07:27] LABS: CALCIUM 8.7 mg/dl (8.5-10.1); CREATININE 0.77 mg/dl (0.60-1.20); POTASSIUM 3.7 mmol/L (3.5-5.1)
[2017-08-30 07:44] VITALS: BP 126/69; PULSE 74; TEMP 37.4; O2SAT 93
--- NOTE | 2017-08-30 07:47 | Anesthesiology Progress Note ---
Anesthesia Post Op Note Date & Time Aug 30, 2017 at 07:46 Vital Signs Pain Intensity: 0.0 Vital Signs Past 12 Hours Date Time Temp Pulse Resp B/P (MAP) Pulse Ox O2 Delivery O2 Flow Rate FiO2 08/30/17 07:44 37.4 74 16 126/69 (88) 93 Room Air 08/30/17 03:55 37.7 68 16 135/80 (98) 93 Room Air 08/29/17 23:15 Room Air 08/29/17 22:55 37.1 66 16 149/77 (101) 92 Room Air Notes Mental Status: alert / awake / arousable, participated in evaluation Pt Amnestic to Procedure: Yes Nausea / Vomiting: adequately controlled Pain: adequately controlled Airway Patency, RR, SpO2: stable & adequate BP & HR: stable & adequate Hydration State: stable & adequate Anesthetic Complications: no major complications apparent
--- NOTE | 2017-08-30 07:57 | SURGERY PROGRESS NOTE ---
DATE: 08/30/2017 Jasmin is first postoperative day status A-port placed in the left cephalic. She is doing well. The operative site looks fine. I accessed the port yesterday, but apparently has not been used yet. From my point of view at this time, she can be discharged at any time. No need to follow up in our office and routine A-port care should be instituted.
[2017-08-30] MEDS: CHECK FENTANYL PATCH PLACEMENT SCH ×3 (08:00→23:14)
[2017-08-30] MEDS: PANTOprazole SOD 40 MG TAB PO SCH (08:33)
[2017-08-30] MEDS: ASPIRIN 81 MG ECTAB PO SCH (08:33)
[2017-08-30] MEDS: AMOXICILLIN 500 MG CAP PO SCH ×3 (08:33→21:33)
[2017-08-30] MEDS: AMLODIPINE BESYLATE 5 MG TAB PO SCH (08:34)
[2017-08-30] MEDS: CHOLECALCIFEROL 1000 INTER.UNIT TAB PO SCH (08:36)
[2017-08-30] MEDS: DULOXETINE (CYMBALTA) 30 MG CAP PO SCH (08:36)
[2017-08-30] MEDS: DOCUSATE SODIUM/SENNA 50/8.6MG TAB PO SCH (08:36)
[2017-08-30] MEDS: CEROVITE ADV FORMULA TAB PO SCH (08:36)
[2017-08-30] MEDS: CALCIUM CARBONATE 1250MG TAB PO SCH ×2 (08:36→21:35)
[2017-08-30] MEDS: POLYETHYLENE (MIRALAX) 17 GM PACK PO SCH (08:37)
[2017-08-30] MEDS: OMEGA-3 (PURIFIED FISH OIL) 1 GM CAP PO SCH (08:37)
[2017-08-30] MEDS: LIDODERM (LIDOCAINE) PATCH 5% TD SCH (08:38)
--- NOTE | 2017-08-30 08:44 | OPERATIVE REPORT ---
DATE OF OPERATION: 08/30/2017 PREOPERATIVE DIAGNOSIS: Need for venous access A-port inserted along the left cephalic vein. POSTOPERATIVE DIAGNOSIS: Same. PROCEDURE: Insertion of left cephalic vein using fluoroscopic guidance. SUMMARY: We used fluoroscopic guidance, positioned the left cephalic vein and MRI port. I attest to the content of the Intraoperative Record and any orders documented therein. Any exception s are noted below.
--- NOTE | 2017-08-30 09:41 | Progress Note ---
Subjective Date of Service: Aug 30, 2017. (Latoya Engle CRNP) Subjective Pt evaluation today including: conversation w/ patient, chart review, lab review Voiding: reaves catheter in place (patent, draining clear, yellow urine ) Pt denies pain this morning. Denies n/v. States she feels run down. (Latoya Engle CRNP) Problem List Medical Problems: (1) Anemia Status: Acute (2) Bilateral leg pain Status: Acute (3) Bladder rupture Status: Acute (4) Bronchitis Status: Acute (5) CKD (chronic kidney disease) Status: Acute (6) Complicated UTI (urinary tract infection) Status: Acute (7) COPD exacerbation Status: Acute (8) Dehydration Status: Acute (9) Failure to thrive Status: Acute (10) Hematuria Status: Acute (11) Intractable pain Status: Acute (12) UTI (urinary tract infection) Status: Acute (Latoya Engle CRNP) Review of Systems Constitutional: No fever, No chills Respiratory: No shortness of breath Cardiac: No chest pain Abdomen: No pain, No nausea, No vomiting Female : No hematuria Heme: No abnormal bleeding/bruising (Latoya Engle CRNP) Objective Vital Signs Date Time Temp Pulse Resp B/P (MAP) Pulse Ox O2 Delivery O2 Flow Rate FiO2 08/30/17 07:44 37.4 74 16 126/69 (88) 93 Room Air 08/30/17 07:30 Room Air 08/30/17 03:55 37.7 68 16 135/80 (98) 93 Room Air 08/29/17 23:15 Room Air 08/29/17 22:55 37.1 66 16 149/77 (101) 92 Room Air 08/29/17 19:45 Room Air 08/29/17 15:11 36.4 74 18 123/70 (87) 96 Room Air 08/29/17 13:24 69 18 124/73 (90) 98 2.0 08/29/17 12:59 96 Nasal Cannula 2.0 08/29/17 12:50 73 18 146/77 (100) 95 2.0 08/29/17 12:20 37.1 68 16 161/73 (102) 96 Nasal Cannula 2.0 08/29/17 11:55 36.8 64 14 146/82 99 Oxymask 2 08/29/17 11:40 36.8 63 14 154/80 99 Oxymask 2 08/29/17 11:30 36.8 64 14 164/80 100 Oxymask 2 08/29/17 11:20 65 14 151/79 100 Oxymask 2 08/29/17 11:10 66 14 163/81 100 Oxymask 10 08/29/17 11:04 37.0 68 14 164/80 100 Oxymask 10 (Latoya Engle CRNP) Physical Exam General Appearance: no apparent distress Eyes: normal inspection ENT: hearing grossly normal Neck: no JVD Respiratory/Chest: no respiratory distress, no accessory muscle use Cardiovascular: no JVD Extremities: normal inspection Neurologic/Psychiatric: alert, normal mood/affect, oriented x 3 Skin: normal color (Latoya Engle CRNP) Laboratory Results Last 24 Hours Test 08/30/17 06:59 White Blood Count 7.59 K/uL Red Blood Count 3.32 M/uL Hemoglobin 10.1 g/dL Hematocrit 29.5 % Mean Corpuscular Volume 88.9 fL Mean Corpuscular Hemoglobin 30.4 pg Mean Corpuscular Hemoglobin Concent 34.2 g/dl Platelet Count 228 K/uL Mean Platelet Volume 8.3 fL Neutrophils (%) (Auto) 73.9 % Lymphocytes (%) (Auto) 15.0 % Monocytes (%) (Auto) 7.5 % Eosinophils (%) (Auto) 3.2 % Basophils (%) (Auto) 0.3 % Neutrophils # (Auto) 5.61 K/uL Lymphocytes # (Auto) 1.14 K/uL Monocytes # (Auto) 0.57 K/uL Eosinophils # (Auto) 0.24 K/uL Basophils # (Auto) 0.02 K/uL RDW Standard Deviation 47.4 fL RDW Coefficient of Variation 14.6 % Immature Granulocyte % (Auto) 0.1 % Immature Granulocyte # (Auto) 0.01 K/uL Sodium Level 134 mmol/L Potassium Level 3.7 mmol/L Chloride Level 103 mmol/L Carbon Dioxide Level 28 mmol/L Anion Gap 3.0 mmol/L Blood Urea Nitrogen 13 mg/dl Creatinine 0.77 mg/dl Est Creatinine Clear Calc Drug Dose 42.6 ml/min Estimated GFR () 80.5 Estimated GFR (Non- 69.4 BUN/Creatinine Ratio 17.2 Random Glucose 106 mg/dl Calcium Level 8.7 mg/dl (Latoya Engle CRNP) Assessment and Plan A/P: UTI, right hydronephrosis AFVSS. Continue abx per ID. Will plan to leave reaves catheter and indwelling right ureteral stent in place for now. Concerns from general surgery as to whether this is a nidus for infection and failing health and should be removed or exchanged. Pt's daughter also called our office yesterday questioning this. Will plan to discuss with Dr. Holder for his thoughts and recommendations. For now recommend continuing abx and reaves catheter. Will continue to follow along with primary service. Continued [facility] stay due to: multiple IV medications needed Discharge planning: assisted facility (Latoya Engle, DANIEL) Pt presented with a long history of a neurogenic bladder requiring CIC. She presented with abdominal and r flank pain in May and had a ct that showed massive r hydronephrosis to the bladder w/o obvious stone . A bladder rupture was ruled out . She had a r stent placed with subsequent relief of pain . There appeared to be swelling of the ureteral orifice which made locating it and cannulating it difficult . I discussed options at an outpatient visit with the daughter as the patient has not returned to her previous level of health . This may be because of the thent and I did discuss a biopsy to R/O cancer in wall although obvious mass not seen . Also discussed r percutaneous nephrostomy as I fear removing the stent would leave the pt obstructed . Initially the daughter was unsure she wanted to pursue these options . Will order a renal sonogram to r /o abscess . Appreciate ID consult . The pt and daughter at times seem interested in comfort care ,but do not think they have committed to this (Phoenix Holder M.D.)
[2017-08-30] MEDS: HYDROCODONE/ACETAMIN 5/325MG TAB PO PRN (10:14)
--- NOTE | 2017-08-30 11:36 | DIAGNOSTIC IMAGING REPORT ---
(RENAL)RETROPERITON COMP HISTORY: Hydronephrosis assess kidney for hydroneprosis and rule out abscess COMPARISON: 05/31/2017 FINDINGS: Right kidney: No evidence for hydronephrosis. This is improved from the prior study. Maximum linear dimension 7.6 cm Right ureteral stent in good position. Normal corticomedullary differentiation and cortical thickness. Left kidney: No hydronephrosis. Maximum linear dimension 9.3 cm. Normal corticomedullary differentiation and cortical thickness. Bladder: No bladder wall thickening. The bilateral ureteral jets were identified. IMPRESSION: No evidence for hydronephrosis. This is improved compared to the prior exam. Right ureteral stent in good position. The above report was generated using voice recognition software. It may contain grammatical, syntax or spelling errors. Electronically signed by: Justin Walker M.D. 08/30/2017 11:34 AM Dictated Date/Time: 08/30/2017 11:22 AM
[2017-08-30 15:34] VITALS: BP 110/70; PULSE 77; TEMP 36.8; O2SAT 94
[2017-08-30] MEDS: MIRTAZAPINE TAB 15 MG TAB PO SCH (21:33)
[2017-08-30] MEDS: SENNA 8.6 MG TAB PO SCH (21:35)
[2017-08-30] MEDS ORDERED: SODIUM CHLORIDE 0.9% 1000ML 1,000 ML IV SCH (22:00)
[2017-08-30 22:50] VITALS: BP 122/72; PULSE 73; TEMP 37.3; O2SAT 92
[2017-08-31] MEDS: CEFEPIME IV 1,000 MG in SYRINGE 0 ML IV SCH (05:29)
[2017-08-31] MEDS: CHECK FENTANYL PATCH PLACEMENT SCH (07:54)
[2017-08-31 08:22] VITALS: BP 137/76; PULSE 79; TEMP 37.2; O2SAT 97
[2017-08-31] MEDS: DOCUSATE SODIUM/SENNA 50/8.6MG TAB PO SCH (09:18)
[2017-08-31] MEDS: PANTOprazole SOD 40 MG TAB PO SCH (09:18)
[2017-08-31] MEDS: ASPIRIN 81 MG ECTAB PO SCH (09:19)
[2017-08-31] MEDS: POLYETHYLENE (MIRALAX) 17 GM PACK PO SCH (09:19)
[2017-08-31] MEDS: AMLODIPINE BESYLATE 5 MG TAB PO SCH (09:19)
[2017-08-31] MEDS: LIDODERM (LIDOCAINE) PATCH 5% TD SCH (09:21)
[2017-08-31] MEDS: AMOXICILLIN 500 MG CAP PO SCH ×2 (09:21→14:10)
[2017-08-31] MEDS: CHOLECALCIFEROL 1000 INTER.UNIT TAB PO SCH (09:21)
[2017-08-31] MEDS: DULOXETINE (CYMBALTA) 30 MG CAP PO SCH (09:21)
[2017-08-31] MEDS: CALCIUM CARBONATE 1250MG TAB PO SCH (09:21)
[2017-08-31] MEDS: OMEGA-3 (PURIFIED FISH OIL) 1 GM CAP PO SCH (09:21)
[2017-08-31] MEDS: CEROVITE ADV FORMULA TAB PO SCH (09:21)
--- NOTE | 2017-08-31 09:30 | Progress Note ---
Subjective Date of Service: Aug 31, 2017. Subjective Pt evaluation today including: conversation w/ patient, chart review, lab review Voiding: reaves catheter in place (patent, draining clear, yellow urine ) 87 yo female with UTI and hx of right hydronephrosis. Denies pain this morning. RN reports increasing weakness and difficulty ambulation to myself and Dr. Griggs this morning. Renal u/s reviewed this morning. No evidence for hydronephrosis or renal abscess. Problem List Medical Problems: (1) Anemia Status: Acute (2) Bilateral leg pain Status: Acute (3) Bladder rupture Status: Acute (4) Bronchitis Status: Acute (5) CKD (chronic kidney disease) Status: Acute (6) Complicated UTI (urinary tract infection) Status: Acute (7) COPD exacerbation Status: Acute (8) Dehydration Status: Acute (9) Failure to thrive Status: Acute (10) Hematuria Status: Acute (11) Intractable pain Status: Acute (12) UTI (urinary tract infection) Status: Acute Review of Systems Constitutional: No fever, No chills Respiratory: No shortness of breath Cardiac: No chest pain Abdomen: No pain, No nausea, No vomiting Female : No hematuria Heme: No abnormal bleeding/bruising Objective Vital Signs Date Time Temp Pulse Resp B/P (MAP) Pulse Ox O2 Delivery O2 Flow Rate FiO2 08/31/17 08:22 37.2 79 16 137/76 (96) 97 Room Air 08/31/17 08:00 Room Air 08/30/17 23:15 Room Air 08/30/17 22:50 37.3 73 16 122/72 (89) 92 Room Air 08/30/17 15:34 36.8 77 16 110/70 (83) 94 Room Air 08/30/17 15:15 Room Air Physical Exam General Appearance: no apparent distress Eyes: normal inspection ENT: hearing grossly normal Neck: no JVD Respiratory/Chest: no respiratory distress, no accessory muscle use Cardiovascular: no JVD Extremities: normal inspection Neurologic/Psychiatric: alert, normal mood/affect, oriented x 3 Skin: normal color Assessment and Plan A/P: UTI, right hydronephrosis AFVSS. Continue abx per ID. Will plan to leave reaves catheter and indwelling right ureteral stent in place for now. 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 Stent exchange unlikely to provide any benefit, as the new stent will become immediately infected as well. Would also not recommend removing stent as she may develop right hydronephrosis again. Would consider outpatient PCN placement and further evaluation to see if she could tolerate stent removal. Plan for outpatient f/u with Dr. Holder in 1-2 weeks to discuss. Pt OK for discharge when OK with primary service. D/c with reaves catheter in place. No further management at this time. Recall PRN issues. Thanks for allowing us to participate in this pt's care. Continued [facility] stay due to: multiple IV medications needed [facility]charge planning: [facility] facility
[2017-08-31] MEDS: HYDROCODONE/ACETAMIN 5/325MG TAB PO PRN (10:17)
--- NOTE | 2017-08-31 11:16 | Family Medicine Progress Note ---
Progress Note Date of Service Aug 31, 2017. Subjective Pt evaluation today including: conversation w/ patient Pain: denies PO Intake: adequate Voiding: reaves catheter in place Patient has no complaints. She denies fevers, chills, abdominal/suprapubic pain, n/v Constitutional: No fever, No chills Respiratory: No cough, No shortness of breath Cardiovascular: No chest pain, No edema, No palpitations Abdomen: No pain, No nausea, No vomiting, No diarrhea Female : + problem reported (cathteter in place) Skin: No rash, No itch Medications Current Inpatient Medications Medications (Trade) Dose Ordered Sig/Tenisha Route Start Time Stop Time Status Last Admin Dose Admin Acetaminophen (Tylenol Tab) 650 mg Q4H PRN PO 08/25/17 19:15 09/24/17 19:14 08/28/17 16:33 650 MG Al Hydrox/Mg Hydrox/Simethicone (Maalox Max Susp) 15 ml Q4H PRN PO 08/25/17 19:15 09/24/17 19:14 Magnesium Hydroxide (Milk Of Magnesia Susp) 30 ml Q6H PRN PO 08/25/17 19:15 09/24/17 19:14 Polyethylene (Miralax Powder Packet) 17 gm DAILY PRN PO 08/25/17 19:15 09/24/17 19:14 Ondansetron HCl (Zofran Inj) 4 mg Q6H PRN IV 08/25/17 19:15 09/24/17 19:14 Heparin Sodium (Porcine) (Heparin Sq 5000 Unit/0.5ml) 5,000 unit Q12H SQ 08/26/17 09:00 09/25/17 08:59 Future Hold 08/28/17 08:40 5,000 UNIT Cefepime HCl 1000 mg/Syringe 11 ml @ 5.5 mls/min Q12H IV 08/26/17 06:00 09/01/17 23:59 08/31/17 05:29 5.5 MLS/MIN Amlodipine Besylate (Norvasc Tab) 7.5 mg DAILY PO 08/26/17 09:00 09/25/17 08:59 08/31/17 09:19 7.5 MG Aspirin (Ecotrin Tab) 81 mg DAILY PO 08/26/17 09:00 09/25/17 08:59 08/31/17 09:19 81 MG Calcium Carbonate (oS-Jhno 500 TAB) 1,250 mg BID PO 08/25/17 21:00 09/24/17 20:59 08/31/17 09:21 1,250 MG Cholecalciferol (Vitamin D Tab) 1,000 inter.unit QAM PO 08/26/17 09:00 09/25/17 08:59 08/31/17 09:21 1,000 INTER.UNIT Duloxetine HCl (Cymbalta Cap) 30 mg QAM PO 08/26/17 09:00 09/25/17 08:59 08/31/17 09:21 30 MG Fish Oil ([place]-3 (Purified Fish Oil) Cap) 1 gm DAILY PO 08/26/17 09:00 09/25/17 08:59 08/31/17 09:21 1 GM Acetaminophen/ Hydrocodone Bitart (Salome 5/325 Tab) 1 tab Q8 PRN PO 08/25/17 19:15 09/08/17 19:14 08/31/17 10:17 1 TAB Ipratropium [place] (Atrovent 0.02% 0.5MG/2.5ML Neb) 0.5 mg QID PRN INH 08/25/17 19:15 09/24/17 19:14 Lidocaine (Lidoderm Patch 5%) 1 patch DAILY TD 08/26/17 09:00 09/25/17 08:59 08/31/17 09:21 1 PATCH Loperamide HCl (Imodium Cap) 2 mg Q6 PRN PO 08/25/17 19:15 09/24/17 19:14 Mirtazapine (Remeron Tab) 15 mg QPM PO 08/25/17 21:00 09/24/17 20:59 08/30/17 21:33 15 MG Multivitamins/ Minerals (Multivitamin W/ Minerals Tab) 1 tab DAILY PO 08/26/17 09:00 09/25/17 08:59 08/31/17 09:21 1 TAB Pantoprazole Sodium (Protonix Tab) 40 mg QAM PO 08/26/17 09:00 09/25/17 08:59 08/31/17 09:18 40 MG Senna (Senokot Tab) 17.2 mg QPM PO 08/25/17 21:00 09/24/17 20:59 08/30/17 21:35 17.2 MG Miscellaneous (Remove Lidoderm Patch) 1 ea DAILY@21 N/A 08/25/17 21:00 09/24/17 20:59 08/30/17 21:36 1 EA Miscellaneous (Iv Fluids Completed) 1 ea PRN PRN N/A 08/25/17 19:30 08/25/18 19:29 Sodium Chloride 1,000 ml @ 75 mls/hr [id number] IV 08/26/17 00:00 09/25/17 00:00 Future Hold 08/27/17 00:19 75 MLS/HR Miscellaneous Information (Check Fentanyl Patch Placement) 1 ea QS N/A 08/26/17 00:00 09/25/17 00:00 08/31/17 07:54 1 EA Fentanyl (Duragesic Patch) 25 mcg Q72H TD 08/26/17 12:00 09/09/17 11:59 08/29/17 12:32 25 MCG Miscellaneous (Fentanyl Patch Remove & Waste) 1 ea Q72H N/A 08/26/17 11:59 09/25/17 11:58 08/29/17 11:59 1 EA Amoxicillin (Amoxil Cap) 500 mg TID PO 08/26/17 21:00 09/01/17 23:59 08/31/17 09:21 500 MG Senna/Docusate Sodium (Senokot S Tab) 1 tab QAM PO 08/29/17 09:00 09/28/17 08:59 08/31/17 09:18 1 TAB Polyethylene (Miralax Powder Packet) 17 gm DAILY PO 08/29/17 09:00 09/28/17 08:59 08/31/17 09:19 17 GM Heparin Sodium (Porcine) (Heparin 100 Unit/ml 5ml Flush) 5 ml PRN PRN IV 08/30/17 19:00 09/29/17 18:59 08/31/17 05:29 5 ML Objective Vital Signs Date Time Temp Pulse Resp B/P (MAP) Pulse Ox O2 Delivery O2 Flow Rate FiO2 08/31/17 08:22 37.2 79 16 137/76 (96) 97 Room Air 08/31/17 08:00 Room Air 08/30/17 23:15 Room Air 08/30/17 22:50 37.3 73 16 122/72 (89) 92 Room Air 08/30/17 15:34 36.8 77 16 110/70 (83) 94 Room Air 08/30/17 15:15 Room Air Physical Exam Notes: [General Appearance: WD/WN, no apparent distress Eyes: normal inspection, PERRL, EOMI, sclerae normal Neck: supple, no adenopathy, trachea midline Respiratory/Chest: lungs clear, normal breath sounds, no respiratory distress Cardiovascular: regular rate, rhythm, no edema, + systolic murmur Abdomen: normal bowel sounds, non tender, soft, no organomegaly Neurologic/Psychiatric: alert, normal mood/affect, oriented x 3 Skin: normal color Assessment and Plan 87 yo F with hx of CKD Stage III , hydronephrosis s/p R ureteral stent, complicated by recurrent UTI's presenting with UTI. 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 (08/22) - Reaves placed on 08/25, no reaves at baseline - c/w Cefepime day 6/7 and the addition of Amoxicillin day6/7 - s/p port placement ( unable to get PICC line in ED) - Renal U/s (08/30) no evidence of renal abscess - Per Urology no need to remove stent Decreased appetite, Constipation - c/w bowel regimen HTN - BP controlled - continue amlodipine Depression: continue Cymbalta and Remeron CKD stage 3 - at baseline GERD: Continue Protonix VTE prophylaxis - heparin 5000 units Q12H Code - DNR Disposition: D/C to [facility] pending authorization Resident Physician Supervision Note: I interviewed and examined the patient. Discussed with Dr. Griggs and agree with findings and plan as documented in the note. Any exceptions or clarifications are listed here: None Documented By: Azeem Russell no meaningful HPI awaiting auth for return to [facility] noted nad breathing unlabored complicated UTI - as above Continued [facility] stay due to: multiple IV medications needed Discharge planning: snf facility Resident Tracking Resident Involvement: Resident Care Provided Care Provided: Adult [facility] Medicine
[2017-08-31] MEDS ORDERED: AMX500 PO (13:13)
[2017-08-31] MEDS ORDERED: CEFE1INJ3 IV (13:13)
--- NOTE | 2017-08-31 13:24 | Discharge Instructions ---
Discharge Instructions Date of Service Aug 31, 2017. Admission Reason for Admission: UTI Discharge Discharge Diagnosis / Problem: UTI Discharge Goals Goal(s): Decrease discomfort, Improve function, Increase independence, Improve disease control, Improve nutritional status, Learn about illness, Diagnostic testing, Therapeutic intervention, Screening, Prevent Disease Progression, Specific goals Activity Recommendations Activity Level: Up Ad Chasidy . Additional Information Patient informed of condition: Yes Advance Directives: Yes DNR: Yes Level of Care: Skilled Communicable Disease: No Prognosis: Stable Reaves Catheter: Yes Instructions / Follow-Up Instructions / Follow-Up 87 yo F with hx of CKD Stage III , hydronephrosis s/p R ureteral stent, complicated by recurrent UTI's presenting with UTI. 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 (08/22) - Reaves placed on 08/25, no reaves at baseline - c/w Cefepime day 6/7 and the addition of Amoxicillin day67 - s/p port placement ( unable to get PICC line in ED) - Renal U/s (08/30) showing no evidence of renal abscess - Per Urology no need to remove stent at this time Decreased appetite, Constipation - c/w bowel regimen HTN - BP controlled - continue amlodipine Depression: continue Cymbalta and Remeron CKD stage 3 - at baseline GERD: Continue Protonix VTE prophylaxis - heparin 5000 units Q12H Code - DNR Disposition: D/C to [place] Current Hospital Diet Patient's current hospital diet: AHA Diet (Heart Healthy) Discharge Diet Recommended Diet: AHA Diet (Heart Healthy) Procedures Procedures Performed: Left cephalic vein mri A-Port Insertion Pending Studies Studies pending at discharge: no Physician Orders On Transfer Additional Orders: repeat bmp Medical Emergencies . Who to Call and When: Medical Emergencies: If at any time you feel your situation is an emergency, please call 911 immediately. . Non-Emergent Contact Non-Emergency issues call your: Primary Care Provider . . "Provider Documentation" section prepared by Zi Griggs. . Core Measure Problem Core Measures: None
--- NOTE | 2017-08-31 13:26 | Discharge Summary ---
Discharge Summary Date of Service Aug 31, 2017. Discharge Summary Admission Date: Aug 28, 2017 at 13:14 Discharge Date: Aug 31, 2017 Discharge Disposition: care home facility Principal Diagnosis: UTI Immunizations: Have You Had Influenza Vaccine: Yes History of Tetanus Vaccine?: Yes History of Pneumococcal: Yes History of Hepatitis B Vaccine: Yes Procedures: CHEST ONE VIEW PORTABLE CLINICAL HISTORY: Lung base crackles COMPARISON STUDY: 07/16/2017 FINDINGS: The heart is at the upper limits of normal in size. There is persistent aortic tortuosity/ectasia. Slight prominence of the basilar markings are likely atelectatic. There is no lobar consolidation. There is no overt failure. There is probable calcific tendinitis involving the right shoulder.[ IMPRESSION: Slight prominence of the basilar markings, likely atelectatic. No evidence of lobar consolidation. No evidence of failure. (RENAL)RETROPERITON COMP HISTORY: Hydronephrosis assess kidney for hydroneprosis and rule out abscess COMPARISON: 05/31/2017 FINDINGS: Right kidney: No evidence for hydronephrosis. This is improved from the prior study. Maximum linear dimension 7.6 cm Right ureteral stent in good position. Normal corticomedullary differentiation and cortical thickness. Left kidney: No hydronephrosis. Maximum linear dimension 9.3 cm. Normal corticomedullary differentiation and cortical thickness. Bladder: No bladder wall thickening. The bilateral ureteral jets were identified. IMPRESSION: No evidence for hydronephrosis. This is improved compared to the prior exam. Right ureteral stent in good position. CHEST ONE VIEW PORTABLE CLINICAL HISTORY: post op mri port insertion tube position COMPARISON STUDY: 08/27/2017 FINDINGS: Interval placement of a left-sided subclavian catheter with the tip in the superior vena cava. No evidence pneumothorax. Lungs are considered clear. IMPRESSION: Tube positioned within the superior vena cava. No evidence for pneumothorax. Consultations: Urology Infectious Disease General surgery Medication Reconciliation New Medications: Cefepime Hcl (Cefepime) 1 Gm Inj 1 GM IV Q12 for 1 Day Amoxicillin (Amoxicillin) 500 Mg Cap 500 MG PO TID for 1 Day, #3 CAP Continued Medications: Acetaminophen Tab (Tylenol) 325 Mg Tab 325-650 MG PO UD PRN for Pain Amlodipine (Norvasc) 5 Mg Tab 7.5 MG PO DAILY, TAB Aspirin (Aspirin Chewable) 81 Mg Chew 81 MG PO DAILY Calcium Carbonate (Os-Jhon 500) 1,250 Mg Tab 500 MG PO BID, TAB Cefepime Hcl (Cefepime) 1 Gm Inj 1 GM IM TODAY Cholecalciferol (Vitamin D) 1,000 Unit Tab 1000 UNITS PO QAM Duloxetine HCl (Cymbalta) 30 Mg Cap 30 MG PO QD @ 1200 Fentanyl (Duragesic) 25 Mcg/Hr Dis 25 MCG TOP CQ72HR, #1 PATCH (This prescription has been renewed) Fish Oil ([place]-3) 1 Ea Cap 1 CAP PO DAILY Hydrocodone/Acetaminophen 5MG/325MG ([place] 5MG/325MG) Tab 1 TABLET PO Q8 PRN for Pain, #30 TAB (This prescription has been renewed) PRN PAIN Ipratropium [place] (Ipratropium [place]) 0.5 Mg/2.5 Ml Nebu 1 VIAL NEB QID PRN for SOB/Wheezing for 30 Days, #300 ML 5 Refills Lidocaine (Lidocaine) 5 % Pad 1 PATCH TOP DAILY REMOVE IN PM Loperamide Hcl (Imodium) 2 Mg Cap 2 MG PO Q6 PRN for Diarrhea for 7 Days, #28 CAP Mirtazapine (Remeron) 15 Mg Tab 15 MG PO QPM Multiple Vitamins W/ Minerals (Thera-M) 1 Tab Tab 1 TAB PO DAILY @ 1200 Pantoprazole (Protonix) 40 Mg Tab 40 MG PO QAM Senna (Senokot) 8.6 Mg Tab 17.2 MG PO QPM for 5 Days TWO 8.6 MG TABLETS Discontinued Medications: Prednisone Tab (Prednisone) 10 Mg Tab 10 MG PO TAPER UD, TAB Discharge Exam Constitutional: No fever, No chills Respiratory: No cough, No shortness of breath Cardiovascular: No chest pain, No edema, No palpitations Abdomen: No pain, No nausea, No vomiting, No diarrhea Female : + problem reported (cathteter in place) Skin: No rash, No itch General Appearance: WD/WN, no apparent distress Eyes: normal inspection, PERRL, EOMI, sclerae normal Neck: supple, no adenopathy, trachea midline Respiratory/Chest: lungs clear, normal breath sounds, no respiratory distress Cardiovascular: regular rate, rhythm, no edema, + systolic murmur Abdomen: normal bowel sounds, non tender, soft, no organomegaly Neurologic/Psychiatric: alert, normal mood/affect, oriented x 3 Skin: normal color Hospital Course H&P Patient is a pleasant 87 y/o female, with PMHx of CKD stage III, urinary retention w/ Reaves, HTN, depression, spinal stenosis, and GERD, who presented to the ED from [facility] due to inability to get IV access and need for IV abx. Patient UCx on 08/22 w/ Pseudomonas aeruginosa and Enterococcus faecalis. She was prescribed Cefepime. She presented to [facility] yesterday for PICC line but unable to do due to small veins. She was then given peripheral IV, which infiltrated so she presented back to [facility] for new access. Daughter states they were again unable to gain access so she was instructed to come to ED for admission and port site placement. She follows w/ Dr. Holder for urology. Per daughter, she had a R stent placement in May for hydronephrosis. Since that time, she has been dealing with recurrent UTIs. She was getting CIC but then a Reaves was placed today. She is otherwise feeling well. Patient denies any fever , chills, sweats, lightheadedness, dizziness, vision changes, CP, palpitations, edema, SOB, wheezing, cough, abdominal pain, nausea, vomiting, diarrhea, urinary symptoms, melena, numbness/tingling, weakness, muscle/joint pain, anxiety/depression, active bleeding, or new skin discoloration/changes. Course 87 yo F with hx of CKD Stage III , hydronephrosis s/p R ureteral stent, complicated by recurrent UTI's presenting with UTI. 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 (08/22) - Reaves placed on 08/25, no reaves at baseline - recieved port placement ( unable to get PICC line in ED) - placed on 7 day course of Cefepime , Infectious disease consulted - Amoxicillin added to cover Enterococcus - Renal U/s (08/30) no evidence of renal abscess - Per Urology decision made not to remove stent Decreased appetite, Constipation - c/w bowel regimen ([place], Miralax) HTN - BP controlled - continue amlodipine Depression: continue Cymbalta and Remeron CKD stage 3 - at baseline GERD: Continue Protonix VTE prophylaxis - heparin 5000 units Q12H Code - DNR Disposition: D/C to [facility] Resident Physician Supervision Note: I interviewed and examined the patient. Discussed with Dr. Griggs and agree with findings and plan as documented in the note. Any exceptions or clarifications are listed here: None Documented By: Azeem Russell seems to be feeling ok - weak but no acute complaints vitals noted nad breathing unlabored no pallor or icterus complicated UTI - doing well on current abx. has port for future access as well as completion of current course. stable for return to SNF at this time. dtr had some concerns but dr griggs revisited, discussed, allayed her concerns Total Time Spent: Less than 30 minutes This includes examination of the patient, discharge planning, medication reconciliation, and communication with other providers. Discharge Instructions Please refer to the electronic Patient Visit Report (Discharge Instructions) for additional information. Additional Copies To Prabhakar Lugo MD Resident Tracking Resident Involvement: Resident Care Provided Care Provided: Adult [facility]
[2017-08-31] MEDS ORDERED: HYDR-5688 PO (14:11)
[2017-08-31] MEDS ORDERED: FENT25DI10 TOP (14:11)
[2017-08-31 15:36] VITALS: BP 130/79; PULSE 75; TEMP 37; O2SAT 93
[2017-08-31 15:45] VITALS: BP 130/79; PULSE 75; TEMP 37; O2SAT 93
== END 2017-08-31 16:50 | DRG 699 ==
LOC: C.EDB 14:55 → C.MSN 19:18 → EEVIPCON 19:18 → EDBEDREQ 19:21 → ENRESERV 19:35 → OBSVTOIN 08-28 13:14
PROVIDERS: ADMIT Internal Medicine Sports Medicine; ATTEND Family Medicine
PROC: 05HF33Z Insertion of Infusion Device into Left Cephalic Vein, Percutaneous Approach (ICD-10-PCS; principal; 2017-08-30)
DX: T83.518A Infection and inflammatory reaction due to other urinary catheter, initial encounter (principal); N39.0 Urinary tract infection, site not specified; N13.30 Unspecified hydronephrosis; I12.9 Hypertensive chronic kidney disease with stage 1 through stage 4 chronic kidney disease, or unspecified chronic kidney disease; N18.3 Chronic kidney disease, stage 3 (moderate); F32.9 Major depressive disorder, single episode, unspecified; K21.9 Gastro-esophageal reflux disease without esophagitis; Z66 Do not resuscitate; A49.8 Other bacterial infections of unspecified site; K59.00 Constipation, unspecified; Z87.440 Personal history of urinary (tract) infections; Z79.82 Long term (current) use of aspirin

== ENCOUNTER → 2017-10-02 | Outpatient (CLI) | payer MEDICARE ==
[~2017-10-02] MED LIST changes: +ACET-1693 PO; +AMLO-110 PO; -AMLO2.5T PO; +AMX500 PO; +ASPCH81X PO; +CALC12502 PO; -CALC12504 PO; +CEFE1INJ3 IM; +CEFE1INJ3 IV; +CHOL100010 PO; +CYM/30 PO; -DRGTP25 TD; +FENT25DI10 TOP; -LDDP5 TD; +LIDO1PAD2 TOP; +MIRT15TA PO; +MULT-16 PO; +OMEG10007 PO; +PANT40TA PO; +SENN-61 PO
== END | disposition home or self-care (01) ==
LOC: C.LABVPSUA 09:10
PROVIDERS: ATTEND Internal Medicine Critical Care Medicine
DX: N39.0 Urinary tract infection, site not specified (principal)

== ENCOUNTER → 2017-10-04 | Outpatient (CLI) | payer MEDICARE ==
[~2017-10-04] MED LIST changes: +DOCU-94 PO; +IV ANTIBIOTIC IV; +POLY335019 PO; +[UNRECOGNIZED DRUG - CODE] FLUSH
== END ==
LOC: C.LABVPSUA 13:32
PROVIDERS: ATTEND Internal Medicine Critical Care Medicine
DX: N39.0 Urinary tract infection, site not specified (principal)

== ENCOUNTER → 2017-12-06 | Outpatient (CLI) | payer MEDICARE ==
[~2017-12-06] MED LIST changes: -AMLO-110 PO; +AMLO5TAB3 PO; +AMOX500C3 PO; -AMX500 PO; -ATRINS NEB; -CEFE1INJ3 IM; -CEFE1INJ3 IV; -IMD2X PO; -LIDO1PAD2 TOP
== END | disposition home or self-care (01) ==
LOC: C.LABSPEC 16:06
PROVIDERS: ATTEND Internal Medicine
DX: R33.9 Retention of urine, unspecified (principal)